=== PATIENT | male | born 1945 | race Caucasian/White ===

== ENCOUNTER → 2017-08-08 | Day surgery (SDC) | payer MEDICARE, SELFPAY | END | disposition home or self-care (01) | PROVIDERS: Family Provider Family Medicine; PCP Family Medicine; Visit Provider Ophthalmology | DX: H25.12 Age-related nuclear cataract, left eye (principal); H21.81 Floppy iris syndrome; I25.2 Old myocardial infarction; I10 Essential (primary) hypertension; Z95.0 Presence of cardiac pacemaker | CPT/HCPCS: 66984; J2250; J3010 ==

== ENCOUNTER → 2017-10-10 07:15 | Outpatient (CLI) | payer MEDICARE, SELFPAY ==
[2017-10-10 09:41] LABS: Alanine Aminotransferase 32 IU/L (21-72); Albumin 3.9 g/dL (3.5-5.0); Albumin Globulin Ratio 1.3 (1.0-2.8); Alkaline Phosphatase 84 U/L (38-126); Aspartate Aminotransferase 30 IU/L (17-59); BUN Creatinine Ratio 18.7 (6-22); Bilirubin Total 0.7 mg/dL (0.2-1.3); Blood Urea Nitrogen 28 mg/dL (9-20); Calcium 9.4 mg/dL (8.4-10.2); Carbon Dioxide 25 mmol/L (22-32); Chloride 103 mmol/L (98-107); Globulin 2.9 g/dL (1.7-4.1); Glucose 98 mg/dL (80-110); HEMOLYSIS < 15 (0-50); Magnesium 2.2 mg/dL (1.6-2.3); Potassium 4.3 mmol/L (3.4-5.1); Sodium 141 mmol/L (137-145); Total Protein 6.8 g/dL (6.3-8.2)
[2017-10-12 10:27] LABS: Lipoprofile NMR SEE SEPERATE REPORT
== END ==
PROVIDERS: Physician Assistant Medical; PCP Family Medicine; Visit Provider Specialist
DX: I47.2 Ventricular tachycardia (principal); E78.5 Hyperlipidemia, unspecified; I25.5 Ischemic cardiomyopathy
CPT/HCPCS: 36415; 80053; 83704; 83735

== ENCOUNTER 2018-06-28 04:30 | Emergency (ER) | payer MEDICARE, SELFPAY ==
[2018-06-28] VITALS (16 sets, daily range): BP systolic 78–118; BP diastolic 43–91; PULSE 60–92; RESP 16–33; O2SAT 88–97; BMI 37.3
--- NOTE | 2018-06-28 04:38 | DI.RAD.S_ITS ---
PROCEDURE: XR CHEST 1V INDICATIONS: chest pain, shortness of breath TECHNIQUE: One view of the chest was acquired. COMPARISON: [facility], CR, XR CHEST 2 VIEWS, 05/19/2018, 6:17. FINDINGS: Surgical changes and devices: An AICD is stable. Lungs and pleura: Small left-sided pleural fluid collection. Cephalization of the pulmonary vasculature. Leslie B-lines. Mediastinum: Mediastinal contours appear normal. Heart is enlarged. Bones and chest wall: No suspicious bony lesions. Overlying soft tissues appear unremarkable. IMPRESSION: 1. Cardiomegaly with CHF. Dictated by: Ketty Baldwin MD, PhD on 06/28/2018 at 8:47 Approved by: Ketty Baldwin MD, PhD on 06/28/2018 at 8:48
[2018-06-28] MEDS: SODIUM CHLORIDE 0.9% 1,000 ML 150 ML IV (04:40)
[2018-06-28] MEDS: ONDANSETRON 4 MG/2 ML INJ IV (04:40)
[2018-06-28] MEDS: ASPIRIN 81 MG TAB 324 MG PO (04:40)
--- NOTE | 2018-06-28 04:42 | ED.CHESTPAIN ---
HPI - Chest Pain General Chief Complaint: Chest Pain Stated Complaint: Chest pain, cold sweat Time Seen by Provider: 06/28/18 04:38 Source: patient and family Mode of arrival: ambulatory Limitations: no limitations History of Present Illness HPI narrative: 72-year-old male nonsmoker with history of myocardial infarction and a recent pacemaker replacement presents with significant retrosternal chest pressure, diaphoresis and nausea for the past 1 hr. He was resting and this woke him from sleep. He denies any shortness of breath and he is not dizzy nor weak or lightheaded. This reminds him of prior myocardial infarction. He is unsure when his last stress test was and states he has not had a heart catheterization in quite some time. He does have stents that were placed about 10 years ago. His primary computer animator is Dr. Ayala at [facility] and EP is Dr. aDniel. Patient has had increasing fatigue for the past week or so. Patient states his discomfort was a 5/10 at maximum and a 1/10 currently MD complaint: chest pain Onset (ago): minute(s) Duration: constant Onset: during rest Pain location: substernal Severity: severe Severity scale (1-10): 10 Quality: tightness, aching and heaviness Pain radiation: none Relieving factors: nothing Exacerbating factors: nothing Context: recent illness Associated symptoms: nausea, diaphoresis and dyspnea Related Data Home Medications Medication Instructions Recorded Confirmed ferrous sulfate 325 mg PO QAM #1 05/20/12 06/28/18 aspirin 81 mg PO QPM #0 07/09/12 06/28/18 rosuvastatin [Crestor] 40 mg PO QAM #0 07/09/12 06/28/18 carvedilol [Coreg] 25 mg PO BID #0 tab 01/22/13 06/28/18 ezetimibe [Zetia] 10 mg PO QAM #0 07/19/17 06/28/18 terazosin 10 mg PO BEDTIME #0 07/19/17 06/28/18 Tums 1 tab PO BID 06/28/18 06/28/18 amlodipine 5 mg PO QPM 06/28/18 06/28/18 folic acid 1 mg PO QPM 06/28/18 06/28/18 lisinopril 5 mg PO BID 06/28/18 06/28/18 psyllium husk [Metamucil] 0.52 g PO QPM 06/28/18 06/28/18 Previous Rx's Medication Instructions Recorded omeprazole 20 mg PO BID #180 cap 06/20/18 Allergies Allergy/AdvReac Type Severity Reaction Status Date / Time No Known Drug Allergies Allergy Verified 08/22/17 07:13 Review of Systems Constitutional Denies chills, Denies fever(s), Denies lethargy and Denies weakness Eyes Denies change in vision, Denies eye discharge, Denies irritation and Denies loss of vision ENT Ears, Nose, Mouth, and Throat: Denies change in voice, Denies neck pain and Denies sore throat Cardiovascular Reports chest pain, Reports diaphoresis, Denies irregular heart rhythm, Denies lightheadedness, Denies palpitations, Denies dyspnea, Denies dyspnea on exertion and Denies orthopnea Respiratory Denies cough, Denies dyspnea, Denies dyspnea on exertion and Denies wheezing Gastrointestinal Gastrointestinal: Denies abdominal pain, Denies change in bowel habits, Denies diarrhea, Reports nausea and Denies vomiting Genitourinary Denies hematuria, Denies flank pain, Denies urinary incontinence and Denies urinary urgency Musculoskeletal Denies neck pain Integumentary/Breasts Denies pruritus, Denies erythema, Denies rash and Denies wounds Neurologic Denies confusion, Denies loss of vision and Denies weakness Psychiatric Denies anxiety, Denies confusion, Denies depression, Denies homicidal ideation and Denies suicidal ideation Endocrine Denies palpitations Hematologic/Lymphatic Denies easy bruising Allergic/Immunologic Denies wheezing PFSH Medical History Nocturnal hypoxemia (Resolved) Snoring (Resolved) Obesity (Chronic) Obstructive sleep apnea syndrome (Chronic) Social History household members: spouse Smoking Status: Never smoker Social History household members: spouse Smoking Status: Never smoker Exam Narrative Exam Narrative: GENERAL: 72-year-old male in obvious distress, diaphoretic, clammy and pale. Morbidly obese HEAD: Atraumatic. Normocephalic. No temporal or scalp tenderness. EYES: Pupils equal round and reactive. Extraocular motions intact. No scleral icterus. No injection or drainage. ENT: Nose without bleeding, purulent drainage or septal hematoma. Throat without erythema, tonsillar hypertrophy or exudate. Uvula midline. Airway patent. NECK: Trachea midline. No JVD or lymphadenopathy. Supple, nontender, no meningeal signs. CARDIOVASCULAR: Regular rate and rhythm without murmurs, gallops, or rubs. RESPIRATORY: Clear to auscultation. Breath sounds equal bilaterally. No wheezes, rales, or rhonchi. GASTROINTESTINAL: Abdomen soft, obese abdomen. No hepato-splenomegaly, or palpable masses. No guarding. EXTREMITIES: No clubbing, cyanosis, or edema. No joint tenderness, effusion, or edema noted. BACK: Nontender without deformity or crepitance. No flank tenderness. NEURO: AOx3. SKIN: No rash or erythema. Diaphoretic Initial Vital Signs Initial Vital Signs: Vital Signs Pulse Rate 68 06/28/18 04:41 Respiratory Rate 18 06/28/18 04:41 Blood Pressure 94/57 L 06/28/18 04:41 Pulse Oximetry 93 06/28/18 04:41 Course Orders Ordered: Discontinued Medications Aspirin (Aspirin Chew) 324 mg PO NOW ONE Stop: 06/28/18 04:39 Last Admin: 06/28/18 04:40 Dose: 324 mg Al Hydrox/Mg Hydrox/Simethicone 20 ml/ Lidocaine HCl 15 ml 0 ml PO NOW ONE Stop: 06/28/18 06:51 Last Admin: 06/28/18 06:50 Dose: 35 ml Furosemide (Lasix) 20 mg IV NOW ONE Stop: 06/28/18 12:07 Last Admin: 06/28/18 12:11 Dose: 20 mg Sodium Chloride (Normal Saline 0.9%) 1,000 mls @ 150 mls/hr IV CONT OSVALDO Last Infusion: 06/28/18 06:35 Dose: 0 mls/hr Admin: 06/28/18 04:40 Dose: 150 mls/hr Sodium Chloride (Normal Saline 0.9%) 500 mls @ 1,000 mls/hr IV BOLUS ONE Stop: 06/28/18 09:16 Last Infusion: 06/28/18 09:31 Dose: 0 mls/hr Admin: 06/28/18 08:20 Dose: 1,000 mls/hr Ondansetron HCl (Zofran) 4 mg IV NOW ONE Stop: 06/28/18 04:39 Last Admin: 06/28/18 04:40 Dose: 4 mg Pantoprazole Sodium (Protonix) 40 mg IV NOW ONE Stop: 06/28/18 10:57 Last Admin: 06/28/18 10:57 Dose: 40 mg Reevaluation(s) Reevaluation #1: Patient continues to be chest pain-free yet is persistently hypotensive despite 2 L of fluid. He actually feels remarkably well and is no longer dizzy, weak or lightheaded. He is no longer diaphoretic and denies any shortness of breath or ongoing chest pain. First 2 troponins were negative and it was the 3rd that became positive. Dr. Stratton ([employer]) will be happy to consult but recommends admission to hospitalist. I've spoken with hospitalist at [facility] whom suggests ICU I've spoken with [facility] whom is happy to accept patient Consultations Consultation #1: call to Dr. Davis ([facility]) whom quickly recommends transfer to [facility] given patient story. However, they have no beds call to [place]. No beds Vital Signs - 8 hr 06/28/18 04:41 06/28/18 05:00 06/28/18 05:30 Pulse Rate 68 60 67 Respiratory Rate 18 33 H 19 Blood Pressure 94/57 L Blood Pressure [Left Arm] 78/54 L 88/49 L Pulse Oximetry 93 90 L 90 L 06/28/18 06:00 06/28/18 06:30 06/28/18 07:00 Pulse Rate 64 66 63 Respiratory Rate 19 19 20 Blood Pressure Blood Pressure [Left Arm] 81/47 L 83/58 L 85/55 L Pulse Oximetry 88 L 95 94 06/28/18 07:25 06/28/18 08:40 Pulse Rate 66 69 Respiratory Rate 16 18 Blood Pressure Blood Pressure [Left Arm] 85/55 L 86/53 L Pulse Oximetry 96 92 MDM - Chest Pain Medical Records Data Attestation: I reviewed the patient's medical records. Lab Data Attestation: I reviewed the patient's lab results. Result diagrams: 06/28/18 04:30 06/28/18 04:30 Lab Results 06/28/18 06/28/18 06/28/18 Range/Units 04:30 04:30 04:30 WBC 4.9 (4.5-11.0) X10^3/uL RBC 4.18 L (4.5-5.9) X10^6/uL Hgb 12.0 L (13.5-17.5) g/dL Hct 35.7 L (41-53) % MCV 85.3 (80-100) fL MCH 28.7 (26-34) PG MCHC 33.6 (30-36) % RDW 15.2 H (11.6-14.8) % Plt Count 147 L (150-400) X10^3/uL Neut % (Auto) 71.1 (50-75) % Lymph % (Auto) 13.8 L (25-40) % [place] % (Auto) 10.8 (3-14) % Eos % (Auto) 3.8 (2-4) % Baso % (Auto) 0.5 (0-2) % Neut # (Auto) 3500 (7061-5352) /uL Lymph # (Auto) 700 L (6798-7918) /uL [place] # (Auto) 500 (0-900) /uL Eos # (Auto) 200 (0-450) /uL Baso # (Auto) 0 (0-100) /uL PT 13.9 H (10.1-12.7) SECONDS INR 1.2 (0.9-1.3) APTT 27 (26.4-36.2) SECONDS Sodium 142 (137-145) mmol/L Potassium 3.8 (3.4-5.1) mmol/L Chloride 109 H (98-107) mmol/L Carbon Dioxide 23 (22-32) mmol/L BUN 27 H (9-20) mg/dL Creatinine 1.60 H (0.66-1.25) mg/dL Estimated GFR 42.7 L (>60) mL/min BUN/Creatinine Ratio 16.9 (6-22) Glucose 134 H (80-110) mg/dL Lactate (0.7-2.1) mmol/L Calcium 9.0 (8.4-10.2) mg/dL Total Bilirubin 0.6 (0.2-1.3) mg/dL AST 24 (17-59) IU/L ALT 32 (21-72) IU/L Alkaline Phosphatase 76 (38-126) U/L Total Creatine Kinase 145 (55-170) U/L CK-MB (CK-2) 1.83 (<2.37) ng/mL CK-MB (CK-2) Rel Index 1.3 L (1.5-5.0) % Troponin I 0.016 (0.01-0.034) ng/mL B-Natriuretic Peptide 273 H (<100) Total Protein 6.7 (6.3-8.2) g/dL Albumin 3.8 (3.5-5.0) g/dL Globulin 2.9 (1.7-4.1) g/dL Albumin/Globulin Ratio 1.3 (1.0-2.8) Lipase 74 (23-300) U/L Procalcitonin (<0.5) ng/mL Blood Type Antibody Screen 06/28/18 06/28/18 06/28/18 Range/Units 06:50 07:18 08:18 WBC (4.5-11.0) X10^3/uL RBC (4.5-5.9) X10^6/uL Hgb (13.5-17.5) g/dL Hct (41-53) % MCV (80-100) fL MCH (26-34) PG MCHC (30-36) % RDW (11.6-14.8) % Plt Count (150-400) X10^3/uL Neut % (Auto) (50-75) % Lymph % (Auto) (25-40) % [place] % (Auto) (3-14) % Eos % (Auto) (2-4) % Baso % (Auto) (0-2) % Neut # (Auto) (3470-2102) /uL Lymph # (Auto) (3070-5710) /uL [place] # (Auto) (0-900) /uL Eos # (Auto) (0-450) /uL Baso # (Auto) (0-100) /uL PT (10.1-12.7) SECONDS INR (0.9-1.3) APTT (26.4-36.2) SECONDS Sodium (137-145) mmol/L Potassium (3.4-5.1) mmol/L Chloride (98-107) mmol/L Carbon Dioxide (22-32) mmol/L BUN (9-20) mg/dL Creatinine (0.66-1.25) mg/dL Estimated GFR (>60) mL/min BUN/Creatinine Ratio (6-22) Glucose (80-110) mg/dL Lactate 0.8 (0.7-2.1) mmol/L Calcium (8.4-10.2) mg/dL Total Bilirubin (0.2-1.3) mg/dL AST (17-59) IU/L ALT (21-72) IU/L Alkaline Phosphatase (38-126) U/L Total Creatine Kinase (55-170) U/L CK-MB (CK-2) (<2.37) ng/mL CK-MB (CK-2) Rel Index (1.5-5.0) % Troponin I 0.021 0.309 H* (0.01-0.034) ng/mL B-Natriuretic Peptide (<100) Total Protein (6.3-8.2) g/dL Albumin (3.5-5.0) g/dL Globulin (1.7-4.1) g/dL Albumin/Globulin Ratio (1.0-2.8) Lipase (23-300) U/L Procalcitonin (<0.5) ng/mL Blood Type Antibody Screen 06/28/18 06/28/18 Range/Units 08:18 08:30 WBC (4.5-11.0) X10^3/uL RBC (4.5-5.9) X10^6/uL Hgb (13.5-17.5) g/dL Hct (41-53) % MCV (80-100) fL MCH (26-34) PG MCHC (30-36) % RDW (11.6-14.8) % Plt Count (150-400) X10^3/uL Neut % (Auto) (50-75) % Lymph % (Auto) (25-40) % [place] % (Auto) (3-14) % Eos % (Auto) (2-4) % Baso % (Auto) (0-2) % Neut # (Auto) (9972-9860) /uL Lymph # (Auto) (5616-4604) /uL [place] # (Auto) (0-900) /uL Eos # (Auto) (0-450) /uL Baso # (Auto) (0-100) /uL PT (10.1-12.7) SECONDS INR (0.9-1.3) APTT (26.4-36.2) SECONDS Sodium (137-145) mmol/L Potassium (3.4-5.1) mmol/L Chloride (98-107) mmol/L Carbon Dioxide (22-32) mmol/L BUN (9-20) mg/dL Creatinine (0.66-1.25) mg/dL Estimated GFR (>60) mL/min BUN/Creatinine Ratio (6-22) Glucose (80-110) mg/dL Lactate (0.7-2.1) mmol/L Calcium (8.4-10.2) mg/dL Total Bilirubin (0.2-1.3) mg/dL AST (17-59) IU/L ALT (21-72) IU/L Alkaline Phosphatase (38-126) U/L Total Creatine Kinase (55-170) U/L CK-MB (CK-2) (<2.37) ng/mL CK-MB (CK-2) Rel Index (1.5-5.0) % Troponin I (0.01-0.034) ng/mL B-Natriuretic Peptide (<100) Total Protein (6.3-8.2) g/dL Albumin (3.5-5.0) g/dL Globulin (1.7-4.1) g/dL Albumin/Globulin Ratio (1.0-2.8) Lipase (23-300) U/L Procalcitonin < 0.05 (<0.5) ng/mL Blood Type O Positive Antibody Screen Negative ECG Data Attestation: I personally reviewed and interpreted this ECG as follows: Prior ECG tracings: not available for review Interpretation: paced rhythm. Sgarbossa's criteria considered, but no criteria met MDM Narrative Medical decision making narrative: intial presentation very concerning for cardiac event with crushing chest pain, diaphoresis, nausea. EKGs paced, but none of Sgarbossa's criteria present to detect AL in paced rhythm. First two tropnonin normal. 3rd becomes positive. Patient has no infectious complaints. Patient has no bleeding complaints. CTA rules out PE, dissection, pericardial effusion. Most likely etiology of symptoms, persistent hypotension, remains of cardiac etiology. Critical Care Time Critical Care Time: Yes Total Critical Care Time: 60 Attestation: The high probability of a clinically significant, sudden or life threatening deterioration of the [cardiovascular] system(s) required my full and direct attention, intervention and personal management. The aggregate critical care time was [60] minutes. This time is in addition to time spent performing reported procedures but includes the following: [x] Data Review and interpretation [x] Patient assessment and monitoring of vital signs [x] Documentation [x] Medication orders and management Discharge Plan Departure Patient Disposition: [facility] Clinical Impression: ACS (acute coronary syndrome), Elevated troponin, Acute hypotension Discharge Date/Time: 06/28/18 12:16 Interventions: ED Discharge Assessment Last Done: 06/28/18 11:06 Prescriptions: No Action ferrous sulfate 325 mg (65 mg iron) Tablet 325 mg PO QAM Qty: 1 RF: 0 rosuvastatin [Crestor] 40 MG tablet 40 mg PO QAM Qty: 0 RF: 0 aspirin 81 MG tablet,delayed release (DR/EC) 81 mg PO QPM Qty: 0 RF: 0 carvedilol [Coreg] 25 MG tablet 25 mg PO BID Qty: 0 RF: 0 terazosin 10 MG capsule 10 mg PO BEDTIME Qty: 0 RF: 0 ezetimibe [Zetia] 10 MG tablet 10 mg PO QAM Qty: 0 RF: 0 omeprazole 20 mg capsule,delayed release(DR/EC) 20 mg PO BID Qty: 180 RF: 3 amlodipine 5 mg Tablet 5 mg PO QPM RF: 0 lisinopril 5 mg Tablet 5 mg PO BID RF: 0 psyllium husk [Metamucil] 0.52 gram Capsule 0.52 g PO QPM RF: 0 Tums 1 tab PO BID RF: 0 folic acid 1 mg tablet 1 mg PO QPM RF: 0 Referrals: Saul Beaver MD [Primary Care Provider] -
--- NOTE | 2018-06-28 04:47 | ED_ITS ---
HPI - Chest Pain General Chief Complaint: Chest Pain Stated Complaint: Chest pain, cold sweat Time Seen by Provider: 06/28/18 04:38 Source: patient and family Mode of arrival: ambulatory Limitations: no limitations History of Present Illness HPI narrative: 72-year-old male nonsmoker with history of myocardial infarction and a recent pacemaker replacement presents with significant retrosternal chest pressure, diaphoresis and nausea for the past 1 hr. He was resting and this woke him from sleep. He denies any shortness of breath and he is not dizzy nor weak or lightheaded. This reminds him of prior myocardial infarction. He is unsure when his last stress test was and states he has not had a heart catheteri zation in quite some time. He does have stents that were placed about 10 years ago. His primary slumber room attendant is Dr. Ayala at [facility] and EP is Dr. Daniel. Patient has had increasing fatigue for the past week or so. Patient states his discomfort was a 5/10 at maximum and a 1/10 currently MD complaint: chest pain Onset (ago): minute(s) Duration: constant Onset: during rest Pain location: substernal Severity: severe Severity scale (1-10): 10 Quality: tightness, aching and heaviness Pain radiation: none Relieving factors: nothing Exacerbating factors: nothing Context: recent illness Associated symptoms: nausea, diaphoresis and dyspnea Related Data Home Medications Medication Instructions Recorded Confirmed ferrous sulfate 325 mg PO QAM #1 05/20/12 06/28/18 aspirin 81 mg PO QPM #0 07/09/12 06/28/18 rosuvastatin [Crestor] 40 mg PO QAM #0 07/09/12 06/28/18 carvedilol [Coreg] 25 mg PO BID #0 tab 01/22/13 06/28/18 ezetimibe [Zetia] 10 mg PO QAM #0 07/19/17 06/28/18 terazosin 10 mg PO BEDTIME #0 07/19/17 06/28/18 Tums 1 tab PO BID 06/28/18 06/28/18 amlodipine 5 mg PO QPM 06/28/18 06/28/18 folic acid 1 mg PO QPM 06/28/18 06/28/18 lisinopril 5 mg PO BID 06/28/18 06/28/18 psyllium husk [Metamucil] 0.52 g PO QPM 06/28/18 06/28/18 Previous Rx's Medication Instructions Recorded omeprazole 20 mg PO BID #180 cap 06/20/18 Allergies Allergy/AdvReac Type Severity Reaction Status Date / Time No Known Drug Allergies Allergy Verified 08/22/17 07:13 Review of Systems Constitutional Denies chills, Denies fever(s), Denies lethargy and Denies weakness Eyes Denies change in vision, Denies eye discharge, Denies irritation and Denies loss of vision ENT Ears, Nose, Mouth, and Throat: Denies change in voice, Denies neck pain and Denies sore throat Cardiovascular Reports chest pain, Reports diaphoresis, Denies irregular heart rhythm, Denies lightheadedness, Denies palpitations, Denies dyspnea, Denies dyspnea on exertion and Denies orthopnea Respiratory Denies cough, Denies dyspnea, Denies dyspnea on exertion and Denies wheezing Gastrointestinal Gastrointestinal: Denies abdominal pain, Denies change in bowel habits, Denies diarrhea, Reports nausea and Denies vomiting Genitourinary Denies hematuria, Denies flank pain, Denies urinary incontinence and Denies urinary urgency Musculoskeletal Denies neck pain Integumentary/Breasts Denies pruritus, Denies erythema, Denies rash and Denies wounds Neurologic Denies confusion, Denies loss of vision and Denies weakness Psychiatric Denies anxiety, Denies confusion, Denies depression, Denies homicidal ideation and Denies suicidal ideation Endocrine Denies palpitations Hematologic/Lymphatic Denies easy bruising Allergic/Immunologic Denies wheezing [facility] Medical History Nocturnal hypoxemia (Resolved) Snoring (Resolved) Obesity (Chronic) Obstructive sleep apnea syndrome (Chronic) Social History household members: spouse Smoking Status: Never smoker Social History household members: spouse Smoking Status: Never smoker Exam Narrative Exam Narrative: GENERAL: 72-year-old male in obvious distress, diaphoretic, clammy and pale. Morbidly obese HEAD: Atraumatic. Normocephalic. No temporal or scalp tenderness. EYES: Pupils equal round and reactive. Extraocular motions intact. No scleral icterus. No injection or drainage. ENT: Nose without bleeding, purulent drainage or septal hematoma. Throat without erythema, tonsillar hypertrophy or exudate. Uvula midline. Airway patent. NECK: Trachea midline. No JVD or lymphadenopathy. Supple, nontender, no meningea l signs. CARDIOVASCULAR: Regular rate and rhythm without murmurs, gallops, or rubs. RESPIRATORY: Clear to auscultation. Breath sounds equal bilaterally. No wheezes, rales, or rhonchi. GASTROINTESTINAL: Abdomen soft, obese abdomen. No hepato-splenomegaly, or palpable masses. No guarding. EXTREMITIES: No clubbing, cyanosis, or edema. No joint tenderness, effusion, or edema noted. BACK: Nontender without deformity or crepitance. No flank tenderness. NEURO: AOx3. SKIN: No rash or erythema. Diaphoretic Initial Vital Signs Initial Vital Signs: Vital Signs Pulse Rate 68 06/28/18 04:41 Respiratory Rate 18 06/28/18 04:41 Blood Pressure 94/57 L 06/28/18 04:41 Pulse Oximetry 93 06/28/18 04:41 Course Orders Ordered: Discontinued Medications Aspirin (Aspirin Chew) 324 mg PO NOW ONE Stop: 06/28/18 04:39 Last Admin: 06/28/18 04:40 Dose: 324 mg Al Hydrox/Mg Hydrox/Simethicone 20 ml/ Lidocaine HCl 15 ml 0 ml PO NOW ONE Stop: 06/28/18 06:51 Last Admin: 06/28/18 06:50 Dose: 35 ml Furosemide (Lasix) 20 mg IV NOW ONE Stop: 06/28/18 12:07 Last Admin: 06/28/18 12:11 Dose: 20 mg Sodium Chloride (Normal Saline 0.9%) 1,000 mls @ 150 mls/hr IV CONT OSVALDO Last Infusion: 06/28/18 06:35 Dose: 0 mls/hr Admin: 06/28/18 04:40 Dose: 150 mls/hr Sodium Chloride (Normal Saline 0.9%) 500 mls @ 1,000 mls/hr IV BOLUS ONE Stop: 06/28/18 09:16 Last Infusion: 06/28/18 09:31 Dose: 0 mls/hr Admin: 06/28/18 08:20 Dose: 1,000 mls/hr Ondansetron HCl (Zofran) 4 mg IV NOW ONE Stop: 06/28/18 04:39 Last Admin: 06/28/18 04:40 Dose: 4 mg Pantoprazole Sodium (Protonix) 40 mg IV NOW ONE Stop: 06/28/18 10:57 Last Admin: 06/28/18 10:57 Dose: 40 mg Reevaluation(s) Reevaluation #1: Patient continues to be chest pain-free yet is persistently hypotensive despite 2 L of fluid. He actually feels remarkably well and is no longer dizzy, weak or lightheaded. He is no longer diaphoretic and denies any shortness of breath or ongoing chest pain. First 2 troponins were negative and it was the 3rd that became positive. Dr. Stratton ([facility]) will be happy to consult but recommends admission to hospitalist. I've spoken with hospitalist at [facility] whom suggests ICU I've spoken with mobility manager whom is happy to accept patient Consultations Consultation #1: call to Dr. Davis ([facility]) whom quickly recommends transfer to [facility] given patient story. However, they have no beds call to [place]. No beds Vital Signs - 8 hr 06/28/18 04:41 06/28/18 05:00 06/28/18 05:30 Pulse Rate 68 60 67 Respiratory Rate 18 33 H 19 Blood Pressure 94/57 L Blood Pressure [Left Arm] 78/54 L 88/49 L Pulse Oximetry 93 90 L 90 L 06/28/18 06:00 06/28/18 06:30 06/28/18 07:00 Pulse Rate 64 66 63 Respiratory Rate 19 19 20 Blood Pressure Blood Pressure [Left Arm] 81/47 L 83/58 L 85/55 L Pulse Oximetry 88 L 95 94 06/28/18 07:25 06/28/18 08:40 Pulse Rate 66 69 Respiratory Rate 16 18 Blood Pressure Blood Pressure [Left Arm] 85/55 L 86/53 L Pulse Oximetry 96 92 MDM - Chest Pain Medical Records Data Attestation: I reviewed the patient's medical records. Lab Data Attestation: I reviewed the patient's lab results. Result diagrams: 06/28/18 04:30 06/28/18 04:30 Lab Results 06/28/18 06/28/18 06/28/18 Range/Units 04:30 04:30 04:30 WBC 4.9 (4.5-11.0) X10^3/uL RBC 4.18 L (4.5-5.9) X10^6/uL Hgb 12.0 L (13.5-17.5) g/dL Hct 35.7 L (41-53) % MCV 85.3 (80-100) fL MCH 28.7 (26-34) PG MCHC 33.6 (30-36) % RDW 15.2 H (11.6-14.8) % Plt Count 147 L (150-400) X10^3/uL Neut % (Auto) 71.1 (50-75) % Lymph % (Auto) 13.8 L (25-40) % Bartholomew % (Auto) 10.8 (3-14) % Eos % (Auto) 3.8 (2-4) % Baso % (Auto) 0.5 (0-2) % Neut # (Auto) 3500 (3654-1657) /uL Lymph # (Auto) 700 L (0483-2342) /uL Bartholomew # (Auto) 500 (0-900) /uL Eos # (Auto) 200 (0-450) /uL Baso # (Auto) 0 (0-100) /uL PT 13.9 H (10.1-12.7) SECONDS INR 1.2 (0.9-1.3) APTT 27 (26.4-36.2) SECONDS Sodium 142 (137-145) mmol/L Potassium 3.8 (3.4-5.1) mmol/L Chloride 109 H (98-107) mmol/L Carbon Dioxide 23 (22-32) mmol/L BUN 27 H (9-20) mg/dL Creatinine 1.60 H (0.66-1.25) mg/dL Estimated GFR 42.7 L (>60) mL/min BUN/Creatinine Ratio 16.9 (6-22) Glucose 134 H (80-110) mg/dL Lactate (0.7-2.1) mmol/L Calcium 9.0 (8.4-10.2) mg/dL Total Bilirubin 0.6 (0.2-1.3) mg/dL AST 24 (17-59) IU/L ALT 32 (21-72) IU/L Alkaline Phosphatase 76 (38-126) U/L Total Creatine Kinase 145 (55-170) U/L CK-MB (CK-2) 1.83 (<2.37) ng/mL CK-MB (CK-2) Rel Index 1.3 L (1.5-5.0) % Troponin I 0.016 (0.01-0.034) ng/mL B-Natriuretic Peptide 273 H (<100) Total Protein 6.7 (6.3-8.2) g/dL Albumin 3.8 (3.5-5.0) g/dL Globulin 2.9 (1.7-4.1) g/dL Albumin/Globulin Ratio 1.3 (1.0-2.8) Lipase 74 (23-300) U/L Procalcitonin (<0.5) ng/mL Blood Type Antibody Screen 06/28/18 06/28/18 06/28/18 Range/Units 06:50 07:18 08:18 WBC (4.5-11.0) X10^3/uL RBC (4.5-5.9) X10^6/uL Hgb (13.5-17.5) g/dL Hct (41-53) % MCV (80-100) fL MCH (26-34) PG MCHC (30-36) % RDW (11.6-14.8) % Plt Count (150-400) X10^3/uL Neut % (Auto) (50-75) % Lymph % (Auto) (25-40) % Bartholomew % (Auto) (3-14) % Eos % (Auto) (2-4) % Baso % (Auto) (0-2) % Neut # (Auto) (3375-9885) /uL Lymph # (Auto) (5748-8835) /uL Bartholomew # (Auto) (0-900) /uL Eos # (Auto) (0-450) /uL Baso # (Auto) (0-100) /uL PT (10.1-12.7) SECONDS INR (0.9-1.3) APTT (26.4-36.2) SECONDS Sodium (137-145) mmol/L Potassium (3.4-5.1) mmol/L Chloride (98-107) mmol/L Carbon Dioxide (22-32) mmol/L BUN (9-20) mg/dL Creatinine (0.66-1.25) mg/dL Estimated GFR (>60) mL/min BUN/Creatinine Ratio (6-22) Glucose (80-110) mg/dL Lactate 0.8 (0.7-2.1) mmol/L Calcium (8.4-10.2) mg/dL Total Bilirubin (0.2-1.3) mg/dL AST (17-59) IU/L ALT (21-72) IU/L Alkaline Phosphatase (38-126) U/L Total Creatine Kinase (55-170) U/L CK-MB (CK-2) (<2.37) ng/mL CK-MB (CK-2) Rel Index (1.5-5.0) % Troponin I 0.021 0.309 H* (0.01-0.034) ng/mL B-Natriuretic Peptide (<100) Total Protein (6.3-8.2) g/dL Albumin (3.5-5.0) g/dL Globulin (1.7-4.1) g/dL Albumin/Globulin Ratio (1.0-2.8) Lipase (23-300) U/L Procalcitonin (<0.5) ng/mL Blood Type Antibody Screen 06/28/18 06/28/18 Range/Units 08:18 08:30 WBC (4.5-11.0) X10^3/uL RBC (4.5-5.9) X10^6/uL Hgb (13.5-17.5) g/dL Hct (41-53) % MCV (80-100) fL MCH (26-34) PG MCHC (30-36) % RDW (11.6-14.8) % Plt Count (150-400) X10^3/uL Neut % (Auto) (50-75) % Lymph % (Auto) (25-40) % Bartholomew % (Auto) (3-14) % Eos % (Auto) (2-4) % Baso % (Auto) (0-2) % Neut # (Auto) (0591-8946) /uL Lymph # (Auto) (3756-5767) /uL Bartholomew # (Auto) (0-900) /uL Eos # (Auto) (0-450) /uL Baso # (Auto) (0-100) /uL PT (10.1-12.7) SECONDS INR (0.9-1.3) APTT (26.4-36.2) SECONDS Sodium (137-145) mmol/L Potassium (3.4-5.1) mmol/L Chloride (98-107) mmol/L Carbon Dioxide (22-32) mmol/L BUN (9-20) mg/dL Creatinine (0.66-1.25) mg/dL Estimated GFR (>60) mL/min BUN/Creatinine Ratio (6-22) Glucose (80-110) mg/dL Lactate (0.7-2.1) mmol/L Calcium (8.4-10.2) mg/dL Total Bilirubin (0.2-1.3) mg/dL AST (17-59) IU/L ALT (21-72) IU/L Alkaline Phosphatase (38-126) U/L Total Creatine Kinase (55-170) U/L CK-MB (CK-2) (<2.37) ng/mL CK-MB (CK-2) Rel Index (1.5-5.0) % Troponin I (0.01-0.034) ng/mL B-Natriuretic Peptide (<100) Total Protein (6.3-8.2) g/dL Albumin (3.5-5.0) g/dL Globulin (1.7-4.1) g/dL Albumin/Globulin Ratio (1.0-2.8) Lipase (23-300) U/L Procalcitonin < 0.05 (<0.5) ng/mL Blood Type O Positive Antibody Screen Negative ECG Data Attestation: I personally reviewed and interpreted this ECG as follows: Prior ECG tracings: not available for review Interpretation: paced rhythm. Sgarbossa's criteria considered, but no criteria met MDM Narrative Medical decision making narrative: intial presentation very concerning for cardiac event with crushing chest pain, diaphoresis, nausea. EKGs paced, but none of Sgarbossa's criteria present to detect [place] in paced rhythm. First two tropnonin normal. 3rd becomes positive. Patient has no infectious complaints. Patient has no bleeding complaints. CTA rules out PE, dissection, pericardial effusion. Most likely etiology of symptoms, persistent hypotension, remains of cardiac etiology. Critical Care Time Critical Care Time: Yes Total Critical Care Time: 60 Attestation: The high probability of a clinically significant, sudden or life threatening deterioration of the [cardiovascular] system(s) required my full and direct attention, intervention and personal management. The aggregate critical care time was [60] minutes. This time is in addition to time spent performing rep orted procedures but includes the following: [x] Data Review and interpretation [x] Patient assessment and monitoring of vital signs [x] Documentation [x] Medication orders and management Discharge Plan Departure Patient Disposition: [facility] Clinical Impression: ACS (acute coronary syndrome), Elevated troponin, Acute hypotension Discharge Date/Time: 06/28/18 12:16 Interventions: ED Discharge Assessment Last Done: 06/28/18 11:06 Prescriptions: No Action ferrous sulfate 325 mg (65 mg iron) Tablet 325 mg PO QAM Qty: 1 RF: 0 rosuvastatin [Crestor] 40 MG tablet 40 mg PO QAM Qty: 0 RF: 0 aspirin 81 MG tablet,delayed release (DR/EC) 81 mg PO QPM Qty: 0 RF: 0 carvedilol [Coreg] 25 MG tablet 25 mg PO BID Qty: 0 RF: 0 terazosin 10 MG capsule 10 mg PO BEDTIME Qty: 0 RF: 0 ezetimibe [Zetia] 10 MG tablet 10 mg PO QAM Qty: 0 RF: 0 omeprazole 20 mg capsule,delayed release(DR/EC) 20 mg PO BID Qty: 180 RF: 3 amlodipine 5 mg Tablet 5 mg PO QPM RF: 0 lisinopril 5 mg Tablet 5 mg PO BID RF: 0 psyllium husk [Metamucil] 0.52 gram Capsule 0.52 g PO QPM RF: 0 Tums 1 tab PO BID RF: 0 folic acid 1 mg tablet 1 mg PO QPM RF: 0 Referrals: Saul Beaver MD [Primary Care Provider] -
[2018-06-28 04:49] LABS: Add Manual Diff / Slide Review NO; Basophils Absolute Auto 0 /uL (0-100); Basophils Percent Auto 0.5 % (0-2); Eosinophils Absolute Auto 200 /uL (0-450); Eosinophils Percent Auto 3.8 % (2-4); Hematocrit 35.7 % (41-53); Lymphocytes Absolute Auto 700 /uL (1100-4500); Lymphocytes Percent Auto 13.8 % (25-40); Mean Corpuscular HGB Conc 33.6 % (30-36); Mean Corpuscular Hemoglobin 28.7 PG (26-34); Mean Corpuscular Volume 85.3 fL (80-100); Monocytes Absolute Auto 500 /uL (0-900); Monocytes Percent Auto 10.8 % (3-14); Neutrophils Absolute Auto 3500 /uL (1500-7000); Neutrophils Percent Auto 71.1 % (50-75); Platelet Count 147 X10^3/uL (150-400); Red Blood Cell Count 4.18 X10^6/uL (4.5-5.9); Red Cell Distribution Width 15.2 % (11.6-14.8); White Blood Cell Count 4.9 X10^3/uL (4.5-11.0)
[2018-06-28 04:54] LABS: INR 1.2 (0.9-1.3); Prothrombin Time 13.9 SECONDS (10.1-12.7)
[2018-06-28 04:56] LABS: PTT Partial Thromboplastin Tim 27 SECONDS (26.4-36.2)
[2018-06-28 04:58] LABS: Alanine Aminotransferase 32 IU/L (21-72); Albumin 3.8 g/dL (3.5-5.0); Albumin Globulin Ratio 1.3 (1.0-2.8); Alkaline Phosphatase 76 U/L (38-126); Aspartate Aminotransferase 24 IU/L (17-59); BUN Creatinine Ratio 16.9 (6-22); Bilirubin Total 0.6 mg/dL (0.2-1.3); Blood Urea Nitrogen 27 mg/dL (9-20); Carbon Dioxide 23 mmol/L (22-32); Chloride 109 mmol/L (98-107); Creatine Kinase 145 U/L (55-170); Estimated Glomerular Filt Rate 42.7 mL/min (>60); Globulin 2.9 g/dL (1.7-4.1); Glucose 134 mg/dL (80-110); HEMOLYSIS < 15 (0-50); Lipase 74 U/L (23-300); Potassium 3.8 mmol/L (3.4-5.1); Sodium 142 mmol/L (137-145); Total Protein 6.7 g/dL (6.3-8.2)
[2018-06-28 05:08] LABS: B Type Natriuretic Peptide 273 (<100)
[2018-06-28 05:10] LABS: Troponin I 0.016 ng/mL (0.01-0.034)
[2018-06-28 05:14] LABS: CKMB % Relative Index 1.3 % (1.5-5.0); Creatine Kinase MB 1.83 ng/mL (<2.37)
--- NOTE | 2018-06-28 05:24 | DI.CT.S_ITS ---
PROCEDURE: CT ANGIO CHEST ABDOMEN PELVIS INDICATIONS: severe chest pain, Shortness of breath, hypoxia, hypotension TECHNIQUE: Precontrast 5 mm thick sections acquired from the lung apices to the iliac crests. After the administration of intravenous contrast, 2.5 mm thick sections again acquired from the lung apices to the iliac crests. Maximum intensity projection (MIP) oblique sagittal and coronal reformats were then acquired. For radiation dose reduction, the following was used: automated exposure control. COMPARISON: [facility], CT, IVP (ABD & PEL WWO CONTRAST), 10/06/2014, 8:31. [facility], CT, PE STUDY (CTA CHEST), 05/20/2012, 6:21. FINDINGS: Image quality: Excellent. AORTA: The thoracoabdominal aorta is normal in caliber, with no evidence of dissection, nor aneurysm. CHEST: Lungs and pleura: There is mild patchy bilateral lower lobe reticulonodular and interstitial opacity. No pleural effusions or pneumothorax. Central and peripheral airways are patent and normal in caliber. Mediastinum: Heart size is enlarged. There is calcification of the coronary vasculature.. No pericardial effusion. Right superior paratracheal adenopathy, measuring 20 mm short axis. Right mid paratracheal adenopathy measuring 17 mm short axis. Right hilar adenopathy measuring 21 mm short axis. Right infrahilar adenopathy measuring 20 mm short axis. Left hilar adenopathy measuring 17 mm short axis. 12 mm short axis AP window adenopathy. 21 mm short axis subcarinal adenopathy. Central pulmonary arteries are normal in size. Esophagus is normal in caliber. Small hiatal hernia. Bones and chest wall: Left chest wall pacer. No axillary adenopathy by size criteria. Thyroid gland is within normal limits. No suspicious bony lesions. No vertebral body compression fractures. ABDOMEN: Vasculature: Celiac trunk and mesenteric arteries are patent. Renal arteries are also patent. Solid organs: Liver is normal in size and enhancement. There is reflux of venous contrast into the hepatic venous vasculature. Gallbladder is within normal limits. Biliary system is non dilated. Pancreas enhances normally. Spleen is normal in size and enhancement. No adrenal nodules. Exophytic hyperdense cyst protrudes medially from the inferior pole left kidney measuring 21 mm without significant changes in Hounsfield units following intravenous contrast administration. Bilateral renal cysts are present. Both kidneys are otherwise normal in size and enhancement, without hydronephrosis. Peritoneum and bowel: No free fluid or air. Bowel loops are normal in caliber and wall thickness. Appendix is not seen. No evidence of appendicitis. Nodes and vessels: No retroperitoneal or mesenteric adenopathy by size criteria. Inferior vena cava is normal in morphology. Retroaortic left renal vein. Miscellaneous: 50 mm diameter fat-containing umbilical hernia. PELVIS: Genitourinary: The prostate is enlarged. There is a right lateral urinary bladder wall diverticulum measuring 46 mm. There is a left posterior superior urinary bladder wall diverticulum measuring 30 mm. Miscellaneous: No inguinal hernias or adenopathy. No ventral hernias. Bones: No suspicious bony lesions. No vertebral body compression fractures. IMPRESSION: 1. No evidence of aortic dissection, nor aneurysm. 2. Bilateral lower lobe densities, consistent with edema versus atypical pneumonia. 3. Right heart failure. 4. Coronary artery disease. 5. Mediastinal and hilar adenopathy. Differential considerations include reactive adenopathy versus malignancy. Followup chest CT in 1 month is recommended to assure resolution, and to exclude underlying malignancy. 6. Appendix not seen. No evidence of appendicitis. 7. Prostate enlargement; recommend correlation with PSA values. 8. Urinary bladder diverticula. 9. Fat containing umbilical hernia. 10. Concordant with preliminary interpretation. Dictated by: Adán Keller M.D. on 06/28/2018 at 8:14 Approved by: Adán Keller M.D. on 06/28/2018 at 8:23
--- NOTE | 2018-06-28 06:45 | PC.NURSE ---
Pt states chest pressure substernal 5/10 pain, diaphoresis and nausea awoke from sleep to onset at 0350. Reports hx of CT and states this feels like prior CT and has pacemaker paced in 60's and stents present. Food Safety Coordinator is Dr. Ayala at [facility]. He denies any shortness of breath or dizziness. His primary boom supervisor is Dr. Ayala at [facility] and EP is Dr. Daniel.
[2018-06-28] MEDS: MAG HYDROX/ALUMINUM/SIMETH SUS 20 ML, LIDOCAINE VISCOUS 2% 15 ML PO (06:50)
[2018-06-28 07:25] LABS: Troponin I 0.021 ng/mL (0.01-0.034)
--- NOTE | 2018-06-28 07:49 | DI.ECHO.S_ITS ---
[facility] +---------+ : : [address] : : : : [id number] : : : : Phone: [phone]+ Echocardiogram Report + + :Name: PATITO PUENTES Study Date: 06/28/2018 Height: 70 in : :[facility] Weight: 260 lb: : Gender: Male BSA: 2.3 m2 : :: 1945 Age: 72 yrs BP: 87/52 mmHg: :Reason For Study: CHEST PAIN, COLD SWEATS : : Performed By: Erinn Rodriguez : :Referring: GUILLERMO HERZOG : + + Interpretation Summary 1) Mildly enlarged left ventricle with severely reduced function (EF 20-25%). 2) Global hypokinesis with akinesis of the apical cap and the distal anterior wall. 3) Flattened septum is consistent with RV pressure/volume overload. 4) Right ventricle not well visualized but it appears moderately enlarged with mild to moderately reduced function. Pacemaker lead visualized in the right ventricle. 5 The aortic valve is mildly calcified with no hemodynamically significant stenosis or regurgitation. 6) The IVC is dilated (diameter is greater than 2.1 cm) and it collapses less than 50% with a sniff. This suggests a high right atrial pressure of 15 mm Hg. 7) Compared to the Echo done 09/24/2014, LVEF has dropped from 40-45% to 20-25% on this study. Procedure: A two-dimensional transthoracic echocardiogram with color flow and Doppler was performed. The study quality was technically difficult. Comparison is made with the echocardiogram of 09/24/2014. A contrast injection of Definity was performed to improve assessment of LV function. The heart rate ranged between 60-80 bpm during the study. Left Ventricle: The left ventricle is mildly dilated. There is normal left ventricular wall thickness. The ejection fraction is estimated to be 20-25%. Flattened septum is consistent with RV pressure/volume overload. Global hypokinesis with akinesis of the apical cap and the distal anterior wall. Right Ventricle: There is a pacemaker lead in the right ventricle. The right ventricle is moderately dilated. Right ventricular systolic function is mild to moderately reduced. Atria: The left atrial size is normal. The right atrium is moderately dilated. There is no Doppler evidence for an interatrial shunt. Mitral Valve: The mitral valve leaflets are mildly calcified. There is mild to moderate mitral regurgitation. Aortic Valve: The aortic valve is mildly calcified. There is trace aortic regurgitation. Tricuspid Valve: The tricuspid valve is not well visualized, but is grossly normal. Pulmonary artery pressures cannot be estimated because of the lack of a measurable TR jet velocity. Pulmonic Valve: The pulmonic valve is not well visualized. Great Vessels: The aortic root is mildly dilated. The ascending aorta is at the upper limits of normal in size. The aortic arch could not be visualized. The pulmonary is not well visualized. The IVC is dilated (diameter is greater than 2.1 cm) and it collapses less than 50% with a sniff. This suggests a high right atrial pressure of 15 mm Hg. Pericardium/ Pleura There is no pericardial effusion. There is no pleural effusion. MMode/2D Measurements & Calculations LVIDd: 6.5 cm LVOT diam: 2.5 cm LVIDs: 4.8 cm Ao root diam: 4.4 cm FS: 26.3 % asc Aorta Diam: 3.8 cm EPSS: 1.9 cm IVSd: 0.76 cm LVPWd: 0.72 cm LV briceno. diameter/BSA (cm/m^2): 2.8 LV sys. diameter/BSA (cm/m^2): 2.0 LA A2 area: 21.1 cm2 RA long axis: 6.4 cm LA A4 area: 25.3 cm2 RA area: 26.5 cm2 LA length (vol): 6.3 cm RA vol: 93.4 ml LA vol: 71.4 ml RA : 40.0 ml/m2 LA vol index: 30.6 ml/m2 IVC diam: 2.6 cm RVD1 (basal): 4.7 cm TAPSE: 1.6 cm Doppler Measurements & Calculations Ao V2 max: 149.2 cm/sec LVOT Max Ari: 61.4 cm/sec Ao V2 mean: 112.3 cm/sec LV V1 max P.5 mmHg Ao max P.9 mmHg LV V1 VTI: 12.8 cm Ao mean P.5 mmHg EHSAN(I,D): 1.8 cm2 Ao V2 VTI: 35.4 cm EHSAN(V,D): 2.1 cm2 sev ratio: 0.36 EHSAN indexed to BSA (cm^2/m^2): 0.78 MV E max ari: 106.6 cm/sec SV(LVOT): 64.3 ml MV A max ari: 26.6 cm/sec MV E/A: 4.0 MV dec time: 0.23 sec Reading Physician:11:19 AM
[2018-06-28] MEDS: SODIUM CHLORIDE 0.9% 500 ML 1000 ML IV (08:20)
--- NOTE | 2018-06-28 08:42 | PC.NURSE ---
spouse getting breakfast chele [phone]
[2018-06-28 08:43] LABS: Lactate (Lactic Acid) 0.8 mmol/L (0.7-2.1)
[2018-06-28 09:03] LABS: Procalcitonin < 0.05 ng/mL (<0.5)
[2018-06-28 09:19] LABS: Troponin I 0.309 ng/mL (0.01-0.034)
[2018-06-28] MEDS: PANTOPRAZOLE 40 MG VIAL IV (10:57)
--- NOTE | 2018-06-28 11:10 | PC.NURSE ---
report given Rehan santos at [facility], [phone]
--- NOTE | 2018-06-28 11:57 | PC.NURSE ---
noted, increase in work of breathing, sat 88% on lpm via nc. place on 100% nrb 93% with oxygen at 15lpm breath sound with right wheezing, left with crackles, dr cordero made aware. noted bus driver/monitor changes, with elevation.
[2018-06-28] MEDS: FUROSEMIDE 20 MG/2 ML VIAL IV (12:11)
--- NOTE | 2018-06-28 12:12 | PC.NURSE ---
no st elevation, give 20mg lasix Iv, monitor, and transfer to [facility]. pt remain alert and awake, rr 30, sat 93% on 100 nrb 15 lpm, skin warm dry pink.
== END 2018-06-28 12:16 | disposition short-term general hospital (02) ==
PROVIDERS: Emergency Provider Emergency Medicine; Family Provider Family Medicine; PCP Family Medicine
DX: I24.9 Acute ischemic heart disease, unspecified (principal); I95.9 Hypotension, unspecified; R74.8 Abnormal levels of other serum enzymes
CPT/HCPCS: 36415; 36591; 71045; 71275; 74174; 80053; 82550; 82553; 83605; 83690; 83880; 84145; 84484; 85025; 85610; 85730; 86850; 86900; 86901; 87040; 93005; 93041; 96361; 96374; 96375; 99285; C8929; C9113; J1940; J2405; Q9957; Q9967

== ENCOUNTER → 2018-07-05 08:53 | Outpatient (CLI) | payer MEDICARE, SELFPAY ==
[2018-07-05 09:59] LABS: Alanine Aminotransferase 43 IU/L (21-72); Albumin 4.1 g/dL (3.5-5.0); Albumin Globulin Ratio 1.3 (1.0-2.8); Alkaline Phosphatase 77 U/L (38-126); Aspartate Aminotransferase 44 IU/L (17-59); BUN Creatinine Ratio 22.6 (6-22); Bilirubin Total 0.9 mg/dL (0.2-1.3); Blood Urea Nitrogen 43 mg/dL (9-20); Carbon Dioxide 26 mmol/L (22-32); Chloride 104 mmol/L (98-107); Globulin 3.2 g/dL (1.7-4.1); Glucose 118 mg/dL (80-110); HEMOLYSIS < 15 (0-50); Magnesium 2.6 mg/dL (1.6-2.3); Potassium 4.1 mmol/L (3.4-5.1); Sodium 140 mmol/L (137-145); Total Protein 7.3 g/dL (6.3-8.2)
== END ==
PROVIDERS: PCP Family Medicine; Visit Provider Specialist
DX: I48.0 Paroxysmal atrial fibrillation (principal); E78.5 Hyperlipidemia, unspecified
CPT/HCPCS: 36415; 80053; 83735

== ENCOUNTER → 2018-07-30 07:15 | Outpatient (CLI) | payer MEDICARE, SELFPAY ==
[2018-07-30 08:05] LABS: Alanine Aminotransferase 33 IU/L (21-72); Albumin 4.1 g/dL (3.5-5.0); Albumin Globulin Ratio 1.3 (1.0-2.8); Alkaline Phosphatase 87 U/L (38-126); Aspartate Aminotransferase 33 IU/L (17-59); BUN Creatinine Ratio 20.6 (6-22); Bilirubin Total 0.8 mg/dL (0.2-1.3); Blood Urea Nitrogen 37 mg/dL (9-20); Carbon Dioxide 26 mmol/L (22-32); Chloride 102 mmol/L (98-107); Estimated Glomerular Filt Rate 37.3 mL/min (>60); Globulin 3.1 g/dL (1.7-4.1); Glucose 105 mg/dL (80-110); HEMOLYSIS < 15 (0-50); Magnesium 2.2 mg/dL (1.6-2.3); Sodium 138 mmol/L (137-145); Total Protein 7.2 g/dL (6.3-8.2)
== END ==
PROVIDERS: PCP Family Medicine; Visit Provider Specialist
DX: E78.5 Hyperlipidemia, unspecified (principal); I48.0 Paroxysmal atrial fibrillation
CPT/HCPCS: 36415; 80053; 83735

== ENCOUNTER → 2018-08-10 07:06 | Outpatient (CLI) | payer MEDICARE, SELFPAY ==
[2018-08-10 09:35] LABS: BUN Creatinine Ratio 16.1 (6-22); Blood Urea Nitrogen 29 mg/dL (9-20); Calcium 9.5 mg/dL (8.4-10.2); Carbon Dioxide 24 mmol/L (22-32); Chloride 103 mmol/L (98-107); Estimated Glomerular Filt Rate 37.3 mL/min (>60); Glucose 100 mg/dL (80-110); HEMOLYSIS < 15 (0-50); Magnesium 2.2 mg/dL (1.6-2.3); Potassium 4.1 mmol/L (3.4-5.1); Sodium 138 mmol/L (137-145)
[2018-08-10 09:52] LABS: Thyroid Stimulating Hormone 1.92 uIU/mL (0.47-4.68)
== END ==
PROVIDERS: PCP Family Medicine; Visit Provider Specialist
DX: N18.9 Chronic kidney disease, unspecified (principal); I48.0 Paroxysmal atrial fibrillation
CPT/HCPCS: 36415; 80048; 83735; 84443

== ENCOUNTER → 2018-08-23 11:41 | Outpatient (CLI) | payer MEDICARE, SELFPAY ==
--- NOTE | 2018-08-23 11:43 | DI.US.S_ITS ---
PROCEDURE: US SCROTUM INDICATIONS: PERINEAL MASS TECHNIQUE: Real-time scanning was performed of the scrotum and testicles, with image documentation. Color and pulse Doppler interrogation was performed of both testicles. COMPARISON: None. FINDINGS: Right: Testicle is normal in size at 4.2 x 2.0 x 3.5 cm, and homogenous in echotexture. Epididymis is normal in overall size and morphology. There is a right hydrocele. No varicoceles. Overlying scrotal skin is normal in thickness. Left: Testicle is normal in size at 3.3 x 1.8 x 3.2 cm, and homogeneous in echotexture. Epididymis is normal in overall size and morphology. There is a left hydrocele. No varicoceles. Overlying scrotal skin is normal in thickness. Doppler: Color and pulse Doppler demonstrate normal and symmetric arterial flow in both testicles. In the superficial perineal soft tissues, there is a prominent heterogeneous mixed solid and cystic appearing mass measuring 5.4 x 2.7 x 3.6 cm. There is no definite internal blood flow however surrounding/peripheral vascularity is noted. This is in the area of palpable abnormality IMPRESSION: Heterogeneous cystic and solid appearing mass with no definite internal blood flow. This could represent evolving hematoma (bland or infected). Recommend clinical management and followup to document resolution and exclude statistically less likely soft tissue mass. If there is persistent clinical uncertainty, a followup ultrasound in one month could be performed after treatment. Findings and recommendations were personally discussed by telephone with Dr. Beaver on 08/23/18. Dictated by: Moe Tanner M.D. on 08/23/2018 at 14:42 Approved by: Moe Tanner M.D. on 08/23/2018 at 14:45
== END ==
PROVIDERS: PCP Family Medicine; Visit Provider Family Medicine
DX: N50.9 Disorder of male genital organs, unspecified (principal); N43.2 Other hydrocele
CPT/HCPCS: 76870

== ENCOUNTER → 2018-09-17 06:56 | Outpatient (CLI) | payer MEDICARE, SELFPAY ==
[2018-09-17 09:36] LABS: Cholesterol 137 mg/dL (140-199); HDL Cholesterol 39 mg/dL (40-60); LDL Cholesterol Calculated 78 mg/dL (<100); Triglycerides 102 mg/dL (35-150)
[2018-09-17 10:07] LABS: Prostate Specific Antigen Scrn 10.7 ng/mL (0.1-4.0)
== END ==
PROVIDERS: PCP Family Medicine; Visit Provider Family Medicine
DX: N40.0 Benign prostatic hyperplasia without lower urinary tract symptoms (principal); Z12.5 Encounter for screening for malignant neoplasm of prostate; Z13.220 Encounter for screening for lipoid disorders
CPT/HCPCS: 36415; 80061; G0103

== ENCOUNTER → 2018-10-04 07:20 | Outpatient (CLI) | payer MEDICARE, SELFPAY ==
[2018-10-06 16:54] LABS: PSA Free % 17 % (calc) (> 25); PSA, Total 4.7 ng/mL (< 4.1)
== END ==
PROVIDERS: PCP Family Medicine; Visit Provider Family Medicine
DX: N40.0 Benign prostatic hyperplasia without lower urinary tract symptoms (principal)
CPT/HCPCS: 36415; 84153; 84154

== ENCOUNTER → 2018-10-23 10:13 | Outpatient (CLI) | payer MEDICARE, SELFPAY ==
[2018-10-23 11:41] LABS: BUN Creatinine Ratio 15.7 (6-22); Blood Urea Nitrogen 33 mg/dL (9-20); Calcium 9.5 mg/dL (8.4-10.2); Carbon Dioxide 25 mmol/L (22-32); Chloride 104 mmol/L (98-107); Estimated Glomerular Filt Rate 31.1 mL/min (>60); Glucose 162 mg/dL (80-110); HEMOLYSIS < 15 (0-50); Magnesium 2.2 mg/dL (1.6-2.3); Potassium 3.7 mmol/L (3.4-5.1); Sodium 139 mmol/L (137-145)
[2018-10-23 12:15] LABS: Thyroid Stimulating Hormone 1.64 uIU/mL (0.47-4.68)
== END ==
PROVIDERS: PCP Family Medicine; Visit Provider Specialist
DX: I48.0 Paroxysmal atrial fibrillation (principal)
CPT/HCPCS: 36415; 80048; 83735; 84443

== ENCOUNTER → 2018-11-02 13:37 | Outpatient (CLI) | payer MEDICARE, SELFPAY ==
[2018-11-02 14:11] LABS: BUN Creatinine Ratio 16.5 (6-22); Blood Urea Nitrogen 33 mg/dL (9-20); Calcium 9.6 mg/dL (8.4-10.2); Carbon Dioxide 24 mmol/L (22-32); Chloride 104 mmol/L (98-107); Estimated Glomerular Filt Rate 32.9 mL/min (>60); Glucose 100 mg/dL (80-110); HEMOLYSIS < 15 (0-50); Magnesium 2.2 mg/dL (1.6-2.3); Potassium 4.1 mmol/L (3.4-5.1); Sodium 138 mmol/L (137-145)
[2018-11-02 14:13] LABS: B Type Natriuretic Peptide 147 (<100)
[2018-11-02 14:42] LABS: Thyroid Stimulating Hormone 1.12 uIU/mL (0.47-4.68)
== END ==
PROVIDERS: Family Provider Family Medicine; PCP Family Medicine; Visit Provider Specialist
DX: I50.42 Chronic combined systolic (congestive) and diastolic (congestive) heart failure (principal); I47.2 Ventricular tachycardia; I48.0 Paroxysmal atrial fibrillation
CPT/HCPCS: 36415; 80048; 83735; 83880; 84443

== ENCOUNTER → 2018-11-15 07:39 | Outpatient (CLI) | payer MEDICARE, SELFPAY ==
[2018-11-15 08:41] LABS: Alanine Aminotransferase 30 IU/L (21-72); Albumin 3.9 g/dL (3.5-5.0); Albumin Globulin Ratio 1.2 (1.0-2.8); Alkaline Phosphatase 102 U/L (38-126); Aspartate Aminotransferase 37 IU/L (17-59); BUN Creatinine Ratio 18.4 (6-22); Bilirubin Total 0.7 mg/dL (0.2-1.3); Blood Urea Nitrogen 35 mg/dL (9-20); Calcium 9.7 mg/dL (8.4-10.2); Carbon Dioxide 23 mmol/L (22-32); Chloride 105 mmol/L (98-107); Estimated Glomerular Filt Rate 34.9 mL/min (>60); Globulin 3.3 g/dL (1.7-4.1); Glucose 118 mg/dL (80-110); HEMOLYSIS < 15 (0-50); Magnesium 2.3 mg/dL (1.6-2.3); Sodium 139 mmol/L (137-145); Total Protein 7.2 g/dL (6.3-8.2)
[2018-11-15 09:25] LABS: Thyroid Stimulating Hormone 1.63 uIU/mL (0.47-4.68)
[2018-11-19 08:50] LABS: Lipoprofile NMR SEE SEPERATE REPORT
== END ==
PROVIDERS: Family Provider Family Medicine; PCP Family Medicine; Visit Provider Specialist
DX: I25.5 Ischemic cardiomyopathy (principal); E78.5 Hyperlipidemia, unspecified; I47.2 Ventricular tachycardia; Z79.899 Other long term (current) drug therapy
CPT/HCPCS: 36415; 80053; 83704; 83735; 84443

== ENCOUNTER → 2018-11-20 13:35 | Outpatient (CLI) | payer MEDICARE, SELFPAY ==
--- NOTE | 2018-11-20 | DI.ECHO.S_ITS ---
[facility] +---------+ [facility] +---------+ : : [address] : : : : [id number] : : : : Phone: [phone]+ Echocardiogram Report + + :Name: PATITO PUENTES Study Date: 11/20/2018 Height: 70 in : :[facility] Exam Location: [facility] Weight: 244 lb: : Gender: Male BSA: 2.3 m2 : :: 1945 Age: 73 yrs BP: 90/54 mmHg: :Reason For Study: ISCHEMIC CM : : Performed By: Chito Lugo : :Referring: ANITHA ABREU : + + Interpretation Summary Left ventricular systolic function is severely reduced with the ejection fraction estimated to be 20-25% with a moderate dyssynchronous contraction pattern due to the paced rhythm and moderate to severe global hypokinesis with akinesis of the distal half of the septum and the majority of the inferior wall with the remaining segments being moderate to severely hypokinetic but this appears unchanged compared to the previous study. The left ventricle is moderately dilated with the left ventricular end-diastolic volume estimated at 143 mL and likely unchanged from the previous study. Diastolic parameters suggest a pseudonormalization pattern, consistent with probable elevated filling pressures but likely lower compared to the previous study. The right ventricle is at the upper limits of normal in size and systolic function appears normal. The right ventricle appears smaller and more dynamic compared to the previous study. Pulmonary artery pressures cannot be estimated because of the lack of a measurable TR jet velocity but the IVC suggests a CVP of around 3 mmHg which is likely significantly lower compared to the previous study. Both atria are mildly dilated but grossly unchanged compared to the previous study. There is mild to moderate mitral regurgitation that appears slightly less prominent compared to the previous study. There is mild aortic stenosis with a mean gradient of 9 mmHg. There is no other significant valvular heart disease. The aortic root is borderline dilated and the ascending aorta is mildly enlarged. Both are grossly unchanged compared to the previous study. Procedure: A two-dimensional transthoracic echocardiogram with color flow and Doppler was performed. The study quality was technically difficult. Comparison is made with the echocardiogram of 06/28/18. A contrast injection of Definity was performed to improve assessment of LV function. The patient has a paced rhythm. Left Ventricle: The left ventricle is moderately dilated. Left ventricular end-diastolic volume is estimated at 143 mL, and likely unchanged from the previous study. There is normal left ventricular wall thickness. There is no thrombus. Left ventricular systolic function is severely reduced. The ejection fraction is estimated to be 20-25%. There is a moderate dyssynchronous contraction pattern due to the paced rhythm. There is moderate to severe global hypokinesis of the left ventricle. With akinesis of the distal half of the septum and the majority of the inferior wall with remaining segments being moderate to severely hypokinetic. This is unchanged compared to the previous study. Diastolic parameters suggest a pseudonormalization pattern, consistent with probable elevated filling pressures. This is but likely lower compared to the previous study. Right Ventricle: There is a pacemaker lead in the right ventricle. The right ventricle is at the upper limits of normal in size. The right ventricular systolic function is normal. This is smaller and more dynamic compared to the previous study. Atria: Both atria are mildly dilated. This is grossly unchanged compared to the previous study. The interatrial septum is intact with no evidence for an atrial septal defect. Mitral Valve: The mitral valve leaflets are mildly calcified. There is mild to moderate mitral regurgitation. This is slightly less prominent compared to the previous study. Aortic Valve: The aortic valve is trileaflet. The aortic valve is mildly calcified. There is mildly reduced leaflet mobility. There is mild aortic stenosis. The peak aortic velocity is 1.96 m/sec. The calculated aortic valve area is 1.6 cm2. The aortic valve mean gradient is 9 mmHg. No aortic regurgitation is present. Tricuspid Valve: The tricuspid valve is normal in structure and function. There is trace tricuspid regurgitation. Pulmonary artery pressures cannot be estimated because of the lack of a measurable TR jet velocity but the IVC suggests a CVP of around 3 mmHg. This is likely lower compared to the previous study. Pulmonic Valve: The pulmonic valve is normal in structure and function. There is trace pulmonic regurgitation. There is no other significant valvular heart disease. Great Vessels: The aortic root is borderline dilated. The ascending aorta is mildly enlarged. This is grossly unchanged compared to the previous study. The pulmonary artery is normal size. The IVC is of normal diameter and collapses greater than 50% with a sniff. This suggests a low right atrial pressure of 3 mm Hg. Pericardium/ Pleura There is no pericardial effusion. There is no pleural effusion. MMode/2D Measurements & Calculations LVIDd: 6.6 cm LVOT diam: 2.5 cm LVIDs: 5.2 cm Ao root diam: 4.0 cm FS: 21.2 % asc Aorta Diam: 3.6 cm EPSS: 2.0 cm IVSd: 0.61 cm LVPWd: 0.99 cm LV briceno. diameter/BSA (cm/m^2): 2.9 LV sys. diameter/BSA (cm/m^2): 2.3 LA dimension: 4.5 cm RA long axis: 6.1 cm LA A2 area: 26.3 cm2 RA area: 24.9 cm2 LA A4 area: 28.4 cm2 RA vol: 87.1 ml LA length (vol): 7.3 cm RA : 38.3 ml/m2 LA vol: 86.6 ml IVC diam: 1.3 cm LA vol index: 38.1 ml/m2 RVD1 (basal): 4.6 cm RVD2 (mid): 4.3 cm Doppler Measurements & Calculations Ao V2 max: 196.2 cm/sec LVOT Max Ari: 65.6 cm/sec Ao V2 mean: 146.0 cm/sec LV V1 max P.7 mmHg Ao max P.4 mmHg LV V1 VTI: 15.2 cm Ao mean P.4 mmHg EHSAN(I,D): 1.5 cm2 Ao V2 VTI: 50.2 cm EHSAN(V,D): 1.6 cm2 sev ratio: 0.30 EHSAN indexed to BSA (cm^2/m^2): 0.65 MV E max ari: 92.8 cm/sec TR max ari: 199.3 cm/sec MV A max ari: 89.7 cm/sec TR max P.9 mmHg MV E/A: 1.0 PA V2 max: 81.4 cm/sec Med Peak E' Ari: 3.0 cm/sec PA V2 mean: 61.1 cm/sec E/E' med: 31.0 PA mean P.6 mmHg Lat Peak E' Ari: 4.4 cm/sec PA pr(Accel): 41.6 mmHg E/E' lat: 20.9 PA Accel Time: 0.08 sec E/e' average: 26.0 MV dec time: 0.18 sec SV(LVOT): 74.1 ml Reading Physician:LEE
--- NOTE | 2018-11-20 | DI.US.S_ITS ---
PROCEDURE: US CAROTID DOPPLER BI INDICATIONS: ISCHEMIC CARDIOMYOPATHY, ABSENT CAROTID PULSE TECHNIQUE: Color and pulse Doppler interrogation was performed of both carotid systems, with image documentation and velocity measurements. COMPARISON: None. FINDINGS: Stenosis calculations are based on SRU (Society of Radiologists in Ultrasound) criteria. Right side: Brachial blood pressure: 111/73 mm Hg. Common carotid artery peak systolic velocity: 52 cm/sec. Internal carotid artery peak systolic velocity: 172 cm/sec. Internal carotid artery end diastolic velocity: 42 cm/sec. External carotid artery peak systolic velocity: 126 cm/sec. ICA/CCA peak systolic ratio: 3.3. Odom scale imaging description: Heavy scattered plaque. Percent internal carotid artery stenosis: 50-69% stenosis. Vertebral artery: Flow direction is antegrade. Left side: Brachial blood pressure: 114/65 mm Hg. Common carotid artery peak systolic velocity: 78 cm/sec. Internal carotid artery peak systolic velocity: 87 cm/sec. Internal carotid artery end diastolic velocity: 22 cm/sec. External carotid artery peak systolic velocity: 86 cm/sec. ICA/CCA peak systolic ratio: 1.1. Odom scale imaging description: Moderate scattered plaque. Percent internal carotid artery stenosis: Less than 50%. Vertebral artery: Flow direction is antegrade. IMPRESSION: 1. 50-69% stenosis involving the right internal carotid artery. 2. Less than 50% left internal carotid artery stenosis. Dictated by: Wenceslao NAVARRO Interpreted: Adán Keller MD on 11/20/2018 at 15:37 Approved by: Adán Keller M.D. on 11/20/2018 at 16:14
== END ==
PROVIDERS: Family Provider Family Medicine; PCP Family Medicine; Visit Provider Specialist
DX: I08.0 Rheumatic disorders of both mitral and aortic valves (principal); I77.89 Other specified disorders of arteries and arterioles; I65.23 Occlusion and stenosis of bilateral carotid arteries; I25.5 Ischemic cardiomyopathy; R09.89 Other specified symptoms and signs involving the circulatory and respiratory systems
CPT/HCPCS: 93306; 93880; Q9957

== ENCOUNTER 2018-12-24 14:00 | Outpatient (RCR) | payer MEDICARE, SELFPAY | END 2019-01-02 08:22 | LOC: CAR 14:00 | PROVIDERS: PCP Family Medicine; Visit Provider Specialist | DX: I21.3 ST elevation (STEMI) myocardial infarction of unspecified site (principal) | CPT/HCPCS: 93798 ==

== ENCOUNTER → 2019-08-05 07:15 | Outpatient (CLI) | payer MEDICARE, SELFPAY ==
[2019-08-05 07:59] LABS: Alanine Aminotransferase 94 IU/L (<50); Albumin 3.8 g/dL (3.5-5.0); Albumin Globulin Ratio 1.2 (1.0-2.8); Alkaline Phosphatase 106 U/L (38-126); Aspartate Aminotransferase 90 IU/L (17-59); BUN Creatinine Ratio 17.1 (6-22); Bilirubin Total 0.7 mg/dL (0.2-1.3); Blood Urea Nitrogen 33 mg/dL (9-20); Calcium 9.6 mg/dL (8.4-10.2); Carbon Dioxide 24 mmol/L (22-32); Chloride 106 mmol/L (98-107); Estimated Glomerular Filt Rate 34.3 mL/min (>60); Globulin 3.2 g/dL (1.7-4.1); Glucose 101 mg/dL (80-110); HEMOLYSIS < 15 (0-50); Magnesium 2.4 mg/dL (1.6-2.3); Potassium 4.3 mmol/L (3.4-5.1); Sodium 138 mmol/L (137-145)
[2019-08-05 08:05] LABS: NT-proBNP (BNP-Adult 18+) 1190 pg/mL (<125)
[2019-08-05 08:26] LABS: Thyroid Stimulating Hormone 1.44 uIU/mL (0.47-4.68)
[2019-08-07 12:41] LABS: Cholesterol, Total 144 mg/dL (100-199); HDL-Cholesterol 51 mg/dL (>39); HDL-Particle (Total) 29.5 umol/L (>=30.5); Historical Reading Comment: (.); LDL Particle 1149 nmol/L (<1000); LDL-Cholsterol 76 mg/dL (0-99); LP-IR Score 41 (<=45); Small LDL- Particle 705 nmol/L (<=527); Triglycerides 85 mg/dL (0-149)
== END ==
PROVIDERS: Family Provider Family Medicine; PCP Family Medicine; Referring Provider Physician Assistant Medical; Visit Provider Physician Assistant Medical
DX: E78.5 Hyperlipidemia, unspecified (principal); I47.2 Ventricular tachycardia; Z79.899 Other long term (current) drug therapy; I50.42 Chronic combined systolic (congestive) and diastolic (congestive) heart failure
CPT/HCPCS: 36415; 80053; 80061; 83704; 83735; 83880; 84443

== ENCOUNTER → 2019-10-21 07:14 | Outpatient (CLI) | payer MEDICARE, SELFPAY ==
[2019-10-21 08:47] LABS: Alanine Aminotransferase 41 IU/L (<50); Albumin 3.7 g/dL (3.5-5.0); Albumin Globulin Ratio 1.2 (1.0-2.8); Alkaline Phosphatase 96 U/L (38-126); Aspartate Aminotransferase 51 IU/L (17-59); BUN Creatinine Ratio 15.3 (6-22); Bilirubin Total 0.7 mg/dL (0.2-1.3); Blood Urea Nitrogen 29 mg/dL (9-20); Calcium 9.5 mg/dL (8.4-10.2); Carbon Dioxide 26 mmol/L (22-32); Chloride 105 mmol/L (98-107); Estimated Glomerular Filt Rate 34.8 mL/min (>60); Glucose 95 mg/dL (80-110); HEMOLYSIS < 15 (0-50); Magnesium 2.4 mg/dL (1.6-2.3); Potassium 4.2 mmol/L (3.4-5.1); Sodium 137 mmol/L (137-145); Total Protein 6.7 g/dL (6.3-8.2)
[2019-10-21 08:50] LABS: NT-proBNP (BNP-Adult 18+) 1180 pg/mL (<125)
[2019-10-23 07:55] LABS: Cholesterol, Total 133 mg/dL (100-199); HDL-Cholesterol 51 mg/dL (>39); HDL-Particle (Total) 30.4 umol/L (>=30.5); Historical Reading Comment: (.); LDL Particle 826 nmol/L (<1000); LDL Size 20.7 nm (>20.5); LDL-Cholsterol 67 mg/dL (0-99); LP-IR Score <25 (<=45); Small LDL- Particle 366 nmol/L (<=527); Triglycerides 77 mg/dL (0-149)
== END ==
PROVIDERS: Family Provider Family Medicine; PCP Family Medicine; Referring Provider Family Medicine; Visit Provider Specialist
DX: I50.22 Chronic systolic (congestive) heart failure (principal); E78.5 Hyperlipidemia, unspecified; I48.0 Paroxysmal atrial fibrillation
CPT/HCPCS: 36415; 80053; 80061; 83704; 83735; 83880; 84443

== ENCOUNTER → 2019-10-22 07:54 | Outpatient (CLI) | payer MEDICARE, SELFPAY ==
--- NOTE | 2019-10-22 08:19 | DI.ECHO.S_ITS ---
Echocardiogram Report + + :Name: PATITO PUENTES Study Date: 10/22/2019 Height: 70 in : :[facility] Weight: 216 lb : : Gender: Male BSA: 2.2 m2 : :: 1945 Age: 74 yrs BP: 108/58 mmHg: :Reason For Study: Systolic heart failure : :Ordering Physician: Anitha : :Jamie Performed By: Mara Obando : :Referring: ANITHA ABREU : + + Interpretation Summary Left ventricular systolic function remains severely depressed with an ejection fraction estimated to be 20 to 25% with a significant dyssynchronous contraction pattern and moderate???severe global hypokinesis with thinning and akinesis of the majority of the mid and distal septum, extending into the apex and distal inferior wall as well as the proximal inferior wall. This appears unchanged from the previous study. While the left ventricle measures larger compared to the previous study, now 211 mL compared to 143 mL on the previous study, visually there does not appear to be any significant change. Diastolic function remains challenging in the setting of a paced rhythm but there is likely elevated filling pressures based on the E/E' ratios which are slightly higher compared to the previous exam, suggesting possible higher filling pressures. The right ventricle appears normal in size and systolic function and appears smaller and slightly more dynamic compared to the previous study. PAP is likely around 29 mmHg with a CVP of 3 mmHg. There is moderate left atrial enlargement and mild right atrial enlargement but both are unchanged from the previous study. There is mild mitral regurgitation that is slightly less prominent compared to the previous study. There is mild aortic stenosis, slightly progressive since the previous exam, now with a peak velocity of 2.4 m/s and a mean gradient of 12 mmHg compared to 2.0 m/s and 9 mmHg, respectively, on the previous exam. The aortic root and ascending aorta are mildly enlarged but unchanged since the previous study. Procedure: A two-dimensional transthoracic echocardiogram with color flow and Doppler was performed. The study quality was technically adequate. Comparison is made with the echocardiogram of 11/20/2018. Definity contrast was used after patient education and consent. Patient denied any immediate symptoms after the use of Definity. A contrast injection of Definity was performed to improve assessment of LV function. The patient has a paced rhythm. Left Ventricle: The left ventricle is severely dilated. The estimated left ventricular end diastolic volume is 211 ml. This measures larger compared to the previous study although visually there is no appreciable change. Left ventricular systolic function is severely reduced. The ejection fraction is estimated to be 20-25%. There continues to be akinesis of the mid and distal septum extending to the apex and including the distal portion of the inferior wall as well as the base of the inferior wall with severe hypokinesis in the other segments. There is no appreciable change since the previous exam. Diastolic function could not be accurately assessed due to paced rhythm. However, the E/E' ratios are higher compared to previous, suggesting probable increased filling pressures. Right Ventricle: There is a pacemaker lead in the right ventricle. The right ventricle is normal in size and function. This is Slightly more dynamic compared to the previous study. Atria: The left atrium is moderately dilated. The right atrium is mildly dilated. This is unchanged compared to the previous study. There is no Doppler evidence for an interatrial shunt. Mitral Valve: There is mild mitral annular calcification. The mitral valve leaflets are mildly calcified. There is mild mitral regurgitation. This is slightly less prominent compared to the previous study. Aortic Valve: The aortic valve is mildly calcified. There is mildly reduced leaflet mobility. There is mild aortic stenosis. The peak aortic velocity is 2.4 m/sec. The peak aortic velocity on the previous exam was 1.9 m/sec. The aortic valve mean gradient is 12 mmHg. The calculated aortic valve area is 1.5 cm2. This is slightly progressive compared to the previous study. No aortic regurgitation is present. Tricuspid Valve: The tricuspid valve is normal in structure and function. The right ventricular systolic pressure is estimated to be at least 29 mmHg based on an estimated right atrial pressure of 3 mm Hg. There is trace tricuspid regurgitation. This is unchanged compared to the previous study. Pulmonic Valve: There is no other significant valvular heart disease. Great Vessels: The aortic root is borderline dilated. The ascending aorta is mildly enlarged. This is unchanged compared to the previous study. The IVC is of normal diameter and collapses greater than 50% with a sniff. This suggests a low right atrial pressure of 3 mm Hg. Pericardium/ Pleura There is no pericardial effusion. There is no pleural effusion. MMode/2D Measurements & Calculations LVIDd: 6.9 cm LVOT diam: 2.5 cm LVIDs: 6.0 cm Ao root diam: 4.1 cm FS: 14.0 % asc Aorta Diam: 3.6 cm EPSS: 2.1 cm IVSd: 0.91 cm LVPWd: 0.88 cm LV briceno. diameter/BSA (cm/m^2): 3.2 LV sys. diameter/BSA (cm/m^2): 2.8 LA A2 area: 27.0 cm2 RA long axis: 6.0 cm LA A4 area: 27.3 cm2 RA area: 22.8 cm2 LA length (vol): 7.0 cm RA vol: 73.3 ml LA vol: 89.7 ml RA : 34.0 ml/m2 LA vol index: 41.6 ml/m2 IVC diam: 1.1 cm RVD1 (basal): 3.6 cm TAPSE: 2.6 cm Doppler Measurements & Calculations Ao V2 max: 236.3 cm/sec LVOT Max Ari: 68.1 cm/sec Ao V2 mean: 165.8 cm/sec LV V1 max P.9 mmHg Ao max P.3 mmHg LV V1 VTI: 15.5 cm Ao mean P.4 mmHg EHSAN(I,D): 1.5 cm2 Ao V2 VTI: 53.2 cm EHSAN(V,D): 1.5 cm2 sev ratio: 0.29 EHSAN indexed to BSA (cm^2/m^2): 0.69 MV E max ari: 98.7 cm/sec TR max ari: 254.3 cm/sec MV A max ari: 92.8 cm/sec TR max P.9 mmHg MV E/A: 1.1 PA V2 max: 59.7 cm/sec Med Peak E' Ari: 3.3 cm/sec PA V2 mean: 41.1 cm/sec E/E' med: 29.6 PA mean P.75 mmHg Lat Peak E' Ari: 2.9 cm/sec PA pr(Accel): 31.0 mmHg E/E' lat: 34.3 E/e' average: 32.0 MV dec time: 0.23 sec SV(LVOT): 78.8 ml Reading Physician:LEE
== END ==
PROVIDERS: Family Provider Family Medicine; PCP Family Medicine; Referring Provider Physician Assistant Medical; Visit Provider Specialist
DX: I08.0 Rheumatic disorders of both mitral and aortic valves (principal); I77.89 Other specified disorders of arteries and arterioles; I50.22 Chronic systolic (congestive) heart failure
CPT/HCPCS: 93306

== ENCOUNTER → 2019-12-09 09:33 | Outpatient (CLI) | payer MEDICARE, SELFPAY ==
[2019-12-10 19:59] LABS: COVID19 Sendout Not Detected (Not Detect)
== END ==
PROVIDERS: Family Provider Family Medicine; PCP Family Medicine; Visit Provider Physician Assistant
DX: Z11.59 Encounter for screening for other viral diseases (principal)
CPT/HCPCS: 87635

== ENCOUNTER 2019-12-12 07:37 | Day surgery (SDC) | payer MEDICARE, SELFPAY ==
[2019-12-12] VITALS (15 sets, daily range): BP systolic 83–117; BP diastolic 42–67; PULSE 59–77; RESP 12–18; TEMP 36–36.4; O2SAT 94–100; BMI 30.1
[2019-12-12] MEDS: LACTATED RINGERS 1,000 ML 200 ML IV (08:08)
--- NOTE | 2019-12-12 08:45 | PM.HP.1 ---
History of Present Illness History of Present Illness Date Patient Seen: 12/12/19 Time Patient Seen: 08:40 Chief complaint: SDC Narrative: The patient is here for screening colonoscopy. His last exam was over 10 years ago. He has never had polyps and has no family history of colon cancer. No blood in his stool. He does have a pacemaker defibrillator and he is taking an anti-platelet agent. He had a stent placed a year ago. Patient History Medical History Congestive heart failure with cardiomyopathy (Acute) Coronary artery disease (Acute) Hx of malignant melanoma (Acute) Hyperlipidemia (Acute) Hypertension (Acute) Insomnia (Chronic) Nocturnal hypoxemia (Resolved) Non-ST elevation (NSTEMI) myocardial infarction (Resolved) Obesity (Chronic) Obstructive sleep apnea syndrome (Chronic) Pacemaker (Chronic ~2012) Snoring (Inactive) Surgical History History of coronary artery stent placement (Resolved) Family & Social History Social History: household members spouse Tobacco & Substance use: Smoking Status Never smoker alcohol intake frequency holiday/special occasion Substance Use Type does not use Meds Home Medications and Allergies Home Medications Medication Instructions Recorded Confirmed Type ferrous sulfate 325 mg PO QAM #1 05/20/12 12/12/19 History aspirin 81 mg PO QPM #0 07/09/12 12/12/19 History rosuvastatin [Crestor] 40 mg PO QAM #0 07/09/12 12/12/19 History Tums 1 tab PO BID 06/28/18 12/12/19 History ezetimibe 10 mg tablet 10 mg PO DAILY 08/23/18 12/12/19 History ticagrelor 90 mg tablet 90 mg PO BID #90 tab 08/26/18 12/12/19 Rx folic acid 1 mg tablet 1 mg PO QPM #90 tab 09/06/18 12/12/19 Rx omeprazole 20 mg capsule,delayed 20 mg PO BID #180 cap 09/06/18 12/12/19 Rx release carvedilol 12.5 mg tablet 18.75 mg PO BID tab 09/13/18 12/12/19 History furosemide 40 mg tablet 20 mg PO DAILY tab 09/13/18 12/12/19 History Respironics Remstar CPAP #1 ea 09/17/18 12/12/19 History amiodarone 200 mg tablet 100 mg PO DAILY tab 10/29/19 12/12/19 History melatonin 3 mg capsule 3 mg PO ONCE PRN cap 10/29/19 12/12/19 History potassium chloride 10 mEq 20 meq PO BID tab 10/29/19 12/12/19 History tablet,extended release(part/cryst) Allergies Allergy/AdvReac Type Severity Reaction Status Date / Time No Known Drug Allergies Allergy Verified 12/12/19 07:44 Review of Systems Review of Systems Narrative: Patient has a history of hypertension and has had a heart attack in 2019. He has a history of heart failure. He has 3 stents. They replaced the 2 different times. The patient does suffer from sleep apnea and uses a CPAP machine. He did not bring it with him. He walks with a cane. He does have heartburn reflux disease and is on medication for it. No problems with this thyroid pancreas. No blood in his urine or kidney stones. No seizures or blackouts. He does bruise easily but is not spontaneously bleed and he wears glasses ROS: Yes All systems reviewed with the patient and are negative except as otherwise documented Exam Vital Signs (past 8 hours): - 12/12/19 08:01 Temperature 97.4 F L Pulse Rate 65 Respiratory Rate 16 Blood Pressure 117/67 Pulse Oximetry 98 Oxygen Delivery Method Room Air Narrative Exam Narrative: Pleasant cooperative patient no apparent distress. Lungs are clear to auscultation. No rales or rhonchi. Heart slightly irregular rate and rhythm no murmur gallop. Abdomen is soft nontender without mass. No obvious hernias. Patient is alert and oriented x3. Patient has a palpable pacemaker defibrillator in his left upper chest. Assessment & Plan Assessment & Plan narrative: The patient for a screening colonoscopy. I have discussed the procedure with them. Risks of bleeding, perforation which would necessitate major operation, failure to find remove all lesions, the potential tattoo were all discussed. I also discussed that his risk of bleeding was increased because of his anti-platelet agent and he is at a small risk of cardiac issues. All questions were answered. He wished to proceed.
[2019-12-12] MEDS: fentaNYL 250 MCG/5 ML INJ IV ×4 (08:53→09:21)
[2019-12-12] MEDS: MIDAZOLAM 5 MG/5 ML VIAL IV ×3 (08:53→09:21)
--- NOTE | 2019-12-12 08:53 | PM.PREOP ---
Pre-operative Note COVID-19 COVID-19 status: Negative Result date/Date tested (Pos, Neg/Pending): 12/09/19 Interval Note History & Physical reviewed/Exam performed by Physician: Yes Changes to H&P: No ASA Class (for procedural sedation): III
--- NOTE | 2019-12-12 09:47 | P.OP.ENDO_ITS ---
Operative Date/Time/Diagnoses Date of procedure: 12/12/19 Time of procedure: 09:47 Pre-op diagnosis: Screening examination due to age. Last exam over 10 years ago. Post-op diagnosis: same (Three polyps found. Incomplete exam. Please see details below.) Procedure & Clinicians Study performed: Colonoscopy stopped in the transverse colon. Cold snare polypectomy Same procedure as scheduled: Yes Indications: Screening Surgeon: Lucho Hall Procedure Notes SCOAP/Timeout: Performed Procedure in detail: The patient was placed in left lateral decubitus position underwent IV sedation directed by the surgeon consisting of fentanyl and Versed. We were very judicious in our use due to his age and multiple medical issues. Digital exam was unremarkable. His prostate was not well felt. Scope was inserted advanced through the rectum into the sigmoid where noted diverticulosis. We continued onto the descending colon and transverse colon. I removed 1 small polyp with biopsy forceps. I ultimately reached a point in the transverse colon where I simply could not go beyond it. The patient was repositioned pressure applied a stiffener inserted and the patient repositioned and still I was unable to get any further. Head of me I could see 2 polyps requiring removal. Both were about a cm in size. 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 This suggested to me that at times the patient is pacemaker dependent. Therefore I did not use cautery.) After multiple additional manipulations to try to get beyond this point I abandoned the procedure. The scope was brought out. The patient appeared to tolerate the procedure well. The prep was good. The patient will be given an enema to see if I can retrieve the other 2 polyps. Scope withdrawal time: Not applicable due to incomple Sedation minutes: 40 Findings: diverticulosis (Sigmoid) and polyp (Three) Specimen(s): other (Polyp) Complications: none Post-procedure Recommendations: Other recommendation (At the discretion of his referring physician and his cloth spreader screen printing he could have a barium enema to evaluate the rest of his colon. Given his significant cardiac issues I will leave that to the discretion of those providers.) Follow up: as needed Disposition: PACU
[2019-12-12] MEDS: FLEETS ENEMA 1 EACH PR (11:07)
--- NOTE | 2019-12-12 15:09 | SUR.PHASEII ---
Received report from Anastasiya ARTEAGA into phase 2. was informed that 2 polyps were clipped but not removed. Plan to give pt an enema and strain output to attempt to locate polyps. Pt had low BP (SBP 80s). Hung second bag of LR and run wide open. BP remained in 80's up to low 90's. Got pt up to bathroom for enema. On trip to bathroom pt was lightheaded while standing. able to walk to bathroom safely, no issues sitting. enema given to pt and remained inside for 10 min. helped pt to toilet which had hats to collect output. output was brown with particulates including seeds. strained with urine strainers. notified Dr Hall and he looked at strained output and stated no polyps present. Returned pt to stretcher BP still low (SBP in 80's) and still light headed while standing. Notified and agreed to continue bag of LR and monitor BP. after another 1.5-2 hrs pt BP stable in low 90's while sitting and standing. Denied any additional lightheadedness. Pt had completed second bag of LR. PIV removed and pt able to get dressed with his . Left in w/c at 1300.
--- NOTE | 2019-12-19 | PATH_ITS ---
[facility] Accession Number: [id number] . 01 Material submitted: . colon - TRANSVERSE COLON POLYP . 02 Diagnosis: Transverse Colon, Polyp, Biopsy: Inflammatory polyp. Negative for dysplasia and malignancy. JRL 12/13/2019 1612 Local . 02 Electronically signed: . Ariela Joiner MD, Pathologist NPI- [id number] . 01 Gross description: . TRANSVERSE COLON POLYP: Received in formalin are 3 fragment(s) of ontiveros, soft tissue measuring 0.1 x 0.1 x 0.1 cm to 0.3 x 0.2 x 0.2 cm submitted entirely in 1 cassette(s) /ANGELINE 12/13/2019 0140 Local . 02 Pathologist provided ICD-10: K63.5 . 02 CPT . 603403 Performed at: 01 [facility] [address] [id number] MD Cam Rosa MD Phone: [phone] Performed at: 02 [facility] [address] [place], [place] [id number] MD Ariela Joiner MD Phone: [phone]
== END 2019-12-12 13:00 | disposition home or self-care (01) ==
LOC: ENDO 07:40
PROVIDERS: Family Provider Family Medicine; PCP Family Medicine; Referring Provider Specialist; Visit Provider Specialist
PROC: 0DJD8ZZ Inspection of Lower Intestinal Tract, Via Natural or Artificial Opening Endoscopic (ICD-10-PCS; CPT 45378; principal; 2019-12-12 08:45)
DX: Z12.11 Encounter for screening for malignant neoplasm of colon (principal); Z95.0 Presence of cardiac pacemaker; I50.9 Heart failure, unspecified; I42.9 Cardiomyopathy, unspecified; E78.5 Hyperlipidemia, unspecified; I10 Essential (primary) hypertension; I25.2 Old myocardial infarction; G47.33 Obstructive sleep apnea (adult) (pediatric); D12.3 Benign neoplasm of transverse colon
CPT/HCPCS: 45385; 99152; 99153; J2250; J3010

== ENCOUNTER → 2019-12-26 15:22 | Outpatient (CLI) | payer MEDICARE, SELFPAY ==
[2019-12-26 17:09] LABS: Prostate Specific Antigen Scrn 9.06 ng/mL (0.1-4.0)
== END ==
PROVIDERS: Family Provider Family Medicine; PCP Family Medicine; Referring Provider Family Medicine; Visit Provider Family Medicine
DX: N40.0 Benign prostatic hyperplasia without lower urinary tract symptoms (principal)
CPT/HCPCS: 36415; G0103

== ENCOUNTER → 2020-01-03 12:36 | Outpatient (CLI) | payer MEDICARE, SELFPAY ==
--- NOTE | 2020-01-03 12:40 | DI.CT.S_ITS ---
PROCEDURE: CT HEAD/BRAIN WO CON INDICATIONS: memory imparment and tremors TECHNIQUE: Noncontrast 4.5 mm thick angled axial sections acquired from the foramen magnum to the vertex, with coronal and sagittal reformats. For radiation dose reduction, the following was used: automated exposure control, adjustment of mA and/or kV according to patient size. COMPARISON: None. FINDINGS: Image quality: Excellent. CSF spaces: Basal cisterns are patent. No extra-axial fluid collections. The ventricles are symmetric in size and shape. Brain: No intracranial bleeds or masses. There is cerebral volume loss for age, with resultant ventricular and sulcal prominence. There are periventricular and deep white matter chronic small vessel ischemic changes. There is intracranial internal carotid artery atherosclerosis. Skull and face: Calvarium and visualized facial bones appear intact, without suspicious lesions. Sinuses: Visualized sinuses and mastoids are clear. IMPRESSION: Normal for age, source of memory impairment and tremors is not seen. Dictated by: Ramón Paniagua M.D. on 01/03/2020 at 13:12 Approved by: Ramón Paniagua M.D. on 01/03/2020 at 13:12
== END ==
PROVIDERS: Family Provider Family Medicine; PCP Family Medicine; Referring Provider Family Medicine; Visit Provider Family Medicine
DX: R41.3 Other amnesia (principal); G25.0 Essential tremor
CPT/HCPCS: 70450

== ENCOUNTER → 2020-02-13 09:31 | Outpatient (CLI) | payer MEDICARE, SELFPAY ==
--- NOTE | 2020-02-13 10:04 | DI.CT.S_ITS ---
PROCEDURE: CT KIDNEY URETER BLADDER (KUB) INDICATIONS: hematuria TECHNIQUE: Noncontrast 5 mm thick sections acquired from the diaphragms to the symphysis. 5 mm thick coronal and sagittal reformats were then performed. For radiation dose reduction, the following was used: automated exposure control, adjustment of mA and/or kV according to patient size. COMPARISON: Outside Film, CT, CT ANGIO CHEST ABDOMEN PELVIS, 06/28/2018, 5:29. FINDINGS: Image quality: Excellent. Lung bases: Lung bases are clear. Heart size is normal. Urinary system: Both kidneys are normal in size. No kidney stones. No . hydronephrosis or perinephric fat stranding. Both ureters appear non-dilated throughout their expected courses. Bladder wall thickness is normal but there are bilateral bladder diverticula posterolaterally, and a finding of approximately 5 calcified bladder stones. Renal cysts are seen at each kidney, several bilaterally, several of which are water in density and several of which are higher than water in density but also previously present. Other solid organs: Liver is normal in size. Gallbladder appears normal. Pancreas is normal in contours. Spleen is normal in size. No adrenal nodules on the right but there is a previously present 1.7 x 2.2 cm left adrenal low-density nodule consistent with adenoma. Peritoneum and bowel: Unenhanced bowel loops demonstrate normal wall thickness and caliber. No free fluid or air. Nodes and vessels: No retroperitoneal or mesenteric adenopathy by size criteria. Aorta and inferior vena cava are normal in caliber. Abdominal wall: No ventral hernias. Pelvis: No free pelvic fluid. No inguinal hernias or adenopathy. Bones: No suspicious bony lesions. No vertebral body compression fractures. IMPRESSION: 1. No hydronephrosis or nephrolithiasis is found. 2. Incidental note is again made of a 1.7 x 2.2 cm benign appearing left adrenal adenoma. This was present in June of 2018 without change management manager time. 3. Five separate calcified bladder stones are present, and bilateral bladder diverticula which do not appear inflamed are also present. Dictated by: Ramón Paniagua M.D. on 02/13/2020 at 13:54 Approved by: Ramón Paniagua M.D. on 02/13/2020 at 14:01
== END ==
PROVIDERS: Family Provider Family Medicine; PCP Family Medicine; Referring Provider Specialist; Visit Provider Specialist
DX: R31.9 Hematuria, unspecified (principal); D35.02 Benign neoplasm of left adrenal gland; N21.0 Calculus in bladder; N32.3 Diverticulum of bladder
CPT/HCPCS: 74176

== ENCOUNTER → 2020-02-17 07:41 | Outpatient (CLI) | payer MEDICARE, SELFPAY ==
[2020-02-17 09:01] LABS: Magnesium 2.4 mg/dL (1.6-2.3)
[2020-02-17 09:49] LABS: Thyroid Stimulating Hormone 1.75 uIU/mL (0.47-4.68)
[2020-02-17 23:12] LABS: Alanine Aminotransferase 37 IU/L (<50); Albumin 3.7 g/dL (3.5-5.0); Albumin Globulin Ratio 1.2 (1.0-2.8); Alkaline Phosphatase 90 U/L (38-126); Aspartate Aminotransferase 50 IU/L (17-59); BUN Creatinine Ratio 16.3 (6-22); Bilirubin Total 0.7 mg/dL (0.2-1.3); Blood Urea Nitrogen 33 mg/dL (9-20); Calcium 9.3 mg/dL (8.4-10.2); Carbon Dioxide 27 mmol/L (22-32); Chloride 105 mmol/L (98-107); Estimated Glomerular Filt Rate 32.3 mL/min (>60); Glucose 109 mg/dL (80-110); HEMOLYSIS < 15 (0-50); Potassium 4.1 mmol/L (3.4-5.1); Sodium 135 mmol/L (137-145); Total Protein 6.7 g/dL (6.3-8.2)
[2020-02-26 13:11] LABS: LDL Particle 894
[2020-02-26 13:12] LABS: HDL-Cholesterol 53; LDL-Cholsterol 70
[2020-02-26 13:13] LABS: Cholesterol, Total 140; Triglycerides 90
[2020-02-26 13:14] LABS: HDL-Particle (Total) 31.9
[2020-02-26 13:15] LABS: LDL Size 20.5; Small LDL- Particle 427
== END ==
PROVIDERS: Family Provider Family Medicine; PCP Family Medicine; Referring Provider Specialist; Visit Provider Specialist
DX: I48.0 Paroxysmal atrial fibrillation (principal); E78.5 Hyperlipidemia, unspecified; I10 Essential (primary) hypertension; I25.5 Ischemic cardiomyopathy
CPT/HCPCS: 36415; 80053; 80061; 83704; 83735; 84443

== ENCOUNTER → 2020-02-26 07:26 | Outpatient (CLI) | payer MEDICARE, SELFPAY ==
[2020-02-26 09:06] LABS: BUN Creatinine Ratio 16.2 (6-22); Blood Urea Nitrogen 33 mg/dL (9-20); Calcium 9.1 mg/dL (8.4-10.2); Carbon Dioxide 27 mmol/L (22-32); Chloride 106 mmol/L (98-107); Estimated Glomerular Filt Rate 32.1 mL/min (>60); Glucose 107 mg/dL (80-110); HEMOLYSIS < 15 (0-50); Potassium 4.3 mmol/L (3.4-5.1); Sodium 138 mmol/L (137-145)
== END ==
PROVIDERS: Family Provider Family Medicine; PCP Family Medicine; Referring Provider Family Medicine; Visit Provider Family Medicine
DX: I10 Essential (primary) hypertension (principal)
CPT/HCPCS: 36415; 80048

== ENCOUNTER → 2020-04-13 08:17 | Outpatient (CLI) | payer MEDICARE, SELFPAY ==
[2020-04-13 09:20] LABS: BUN Creatinine Ratio 15.6 (6-22); Blood Urea Nitrogen 33 mg/dL (9-20); Calcium 9.3 mg/dL (8.4-10.2); Carbon Dioxide 30 mmol/L (22-32); Chloride 102 mmol/L (98-107); Estimated Glomerular Filt Rate 30.9 mL/min (>60); Glucose 111 mg/dL (80-110); HEMOLYSIS < 15 (0-50); Potassium 4.2 mmol/L (3.4-5.1); Sodium 135 mmol/L (137-145)
== END ==
PROVIDERS: Family Provider Family Medicine; PCP Student in an Organized Health Care Education/Training Program; Referring Provider Specialist; Visit Provider Specialist
DX: I42.9 Cardiomyopathy, unspecified (principal)
CPT/HCPCS: 36415; 80048

== ENCOUNTER → 2020-04-30 07:52 | Outpatient (CLI) | payer MEDICARE, SELFPAY ==
--- NOTE | 2020-04-30 | DI.ECHO.S_ITS ---
[facility] +---------+ : : [address] : : : : [id number] : : : : Phone: [phone]+ Echocardiogram Report + + :Name: PATITO PUENTES Study Date: 04/30/2020 Height: 70 in : :[facility] ReadingLocation: Weight: 208 lb: : Gender: Male BSA: 2.1 m2 : :: 1945 Age: 74 yrs BP: 98/60 mmHg: :Reason For Study: CHRONIC SYSTOLIC HEART FAILURE : :Ordering Physician: LOIS, : :ANITHA Performed By: Mara Obando : :Referring: MELINA RHOADES : + + Interpretation Summary Left ventricular systolic function remains severely depressed with an estimated ejection fraction of 20 to 25% with scarring of the septum and severe hypokinesis to akinesis of the majority of the inferior wall, posterior wall, and apex, and appears unchanged from the previous exam. The left ventricle is moderate??severely enlarged but unchanged from the previous study. While diastolic function is challenging to assess in the presence of a paced rhythm, there continues to be evidence for a pseudonormalized diastolic filling pattern, consistent with elevated filling pressures, likely unchanged from the previous exam. The right ventricle is borderline enlarged with normal systolic function. Right ventricular systolic pressure is estimated at 37 mmHg with an estimated CVP of 8 mmHg, and likely slightly higher compared to the previous study. There is severe left atrial enlargement and moderate right atrial enlargement. Both have mildly increased in size since the previous study. There is mild mitral and mild tricuspid regurgitation that are both slightly more prominent compared to the previous exam. There is probable moderate aortic stenosis that is likely slightly progressive compared to the previous study, now with a peak transvalvular velocity of 2.6 m/s and a mean gradient of 15 mmHg compared to 2.4 m/s and 12 mmHg, respectively, previously. The severity ratio has worsened from 0.29 down to 0.19. The aortic root and ascending aorta are mild??moderately enlarged but unchanged from the previous study. The patient was in a paced rhythm with frequent PVCs with more frequent PVCs compared to the previous study. Procedure: A two-dimensional transthoracic echocardiogram with color flow and Doppler was performed. The study quality was technically adequate. Comparison is made with the echocardiogram of 10/22/2019. The patient has a paced rhythm. The heart rate ranged between 58-64 bpm during the study. The patient had occasional PVCs during the exam. Left Ventricle: The left ventricle is moderate-severely dilated. The estimated left ventricular end diastolic volume is 219 mL, compared to the previous 211 ml. There is normal left ventricular wall thickness. The ejection fraction is estimated to be 20-25%. This is unchanged compared to the previous study. There continues to be thinning in akinesis of the majority of the interventricular septum with severe hypokinesis to akinesis of the apex, inferior wall, and posterior wall with the best contractility in the lateral and anterolateral wall which demonstrates moderate to severe hypokinesis with a relatively dyssynchronous contraction pattern. There is been no appreciable change from the previous study. Diastolic function could not be accurately assessed due to paced rhythm. Diastolic parameters suggest a pseudonormalization pattern, consistent with probable elevated filling pressures. This is unchanged compared to the previous study. Right Ventricle: There is a pacemaker lead in the right ventricle. The right ventricle is at the upper limits of normal in size. The right ventricular systolic function is normal. This is unchanged compared to the previous study. Atria: The left atrium is severely dilated. Both atria have mildly increased in size since the prior echo exam. The right atrium is moderately dilated. There is no Doppler evidence for an interatrial shunt. Mitral Valve: There is mild mitral annular calcification. The mitral valve leaflets are mildly calcified. There is mild mitral regurgitation. This is slightly more prominent compared to the previous study. Aortic Valve: The aortic valve is mildly calcified. There is moderately reduced leaflet mobility. There is moderate aortic stenosis. This is slightly progressive compared to the previous study. The peak aortic velocity is 2.6 m/sec. The peak aortic velocity on the previous exam was 2.4 m/sec. The aortic valve mean gradient is 15 mmHg. No aortic regurgitation is present. Tricuspid Valve: The tricuspid valve is normal in structure and function. There is mild tricuspid regurgitation. This is slightly more prominent compared to the previous study. The right ventricular systolic pressure is estimated to be at least 37 mmHg based on an estimated right atrial pressure of 8 mm Hg. Pulmonic Valve: The pulmonic valve leaflets are thin and pliable; valve motion is normal. There is trace pulmonic regurgitation. Great Vessels: The aortic root is mildly dilated. The ascending aorta is mildly enlarged. This is unchanged compared to the previous study. The IVC is dilated (diameter is greater than 2.1 cm) yet it collapses greater than 50% with a sniff. This suggests a right atrial pressure of 8 mm Hg. Pericardium/ Pleura There is no pericardial effusion. There is no pleural effusion. MMode/2D Measurements & Calculations LVIDd: 6.9 cm LVOT diam: 2.5 cm LVIDs: 6.1 cm Ao root diam: 4.0 cm FS: 11.9 % asc Aorta Diam: 3.6 cm EPSS: 2.3 cm IVSd: 0.72 cm LVPWd: 1.0 cm LV briceno. diameter/BSA (cm/m^2): 3.2 LV sys. diameter/BSA (cm/m^2): 2.9 LA A2 area: 32.4 cm2 RA long axis: 5.9 cm LA A4 area: 29.3 cm2 RA area: 25.0 cm2 LA length (vol): 6.6 cm RA vol: 89.5 ml LA vol: 121.3 ml RA : 42.2 ml/m2 LA vol index: 57.1 ml/m2 IVC diam: 2.2 cm RVD1 (basal): 4.2 cm TAPSE: 2.3 cm Doppler Measurements & Calculations Ao V2 max: 259.9 cm/sec LVOT Max Ari: 51.5 cm/sec Ao V2 mean: 186.5 cm/sec LV V1 max P.1 mmHg Ao max P.0 mmHg LV V1 VTI: 11.9 cm Ao mean P.4 mmHg EHSAN(I,D): 0.94 cm2 Ao V2 VTI: 62.5 cm EHSAN(V,D): 0.98 cm2 sev ratio: 0.19 EHSAN indexed to BSA (cm^2/m^2): 0.44 MV E max ari: 110.1 cm/sec TR max ari: 269.8 cm/sec MV A max ari: 75.0 cm/sec TR max P.1 mmHg MV E/A: 1.5 PA V2 max: 64.7 cm/sec Med Peak E' Ari: 3.8 cm/sec PA V2 mean: 44.0 cm/sec E/E' med: 29.2 PA mean P.89 mmHg Lat Peak E' Ari: 3.5 cm/sec PA pr(Accel): 27.6 mmHg E/E' lat: 31.4 E/e' average: 30.3 MV dec time: 0.25 sec SV(LVOT): 58.8 ml Reading Physician:10:05 AM
== END ==
PROVIDERS: Family Provider Family Medicine; PCP Student in an Organized Health Care Education/Training Program; Referring Provider Specialist; Visit Provider Physician Assistant Medical
DX: I08.1 Rheumatic disorders of both mitral and tricuspid valves (principal); I50.22 Chronic systolic (congestive) heart failure; Z95.0 Presence of cardiac pacemaker
CPT/HCPCS: 93306

== ENCOUNTER → 2020-05-22 10:39 | Outpatient (CLI) | payer MEDICARE, SELFPAY ==
[2020-05-22 11:57] LABS: COVID19 -Nasal RAPID Negative (Negative)
== END ==
PROVIDERS: Family Provider Family Medicine; PCP Student in an Organized Health Care Education/Training Program; Visit Provider Specialist
DX: Z20.822 Contact with and (suspected) exposure to COVID-19 (principal)
CPT/HCPCS: 87635; C9803

== ENCOUNTER 2020-05-25 11:07 | Day surgery (SDC) | payer MEDICARE, SELFPAY ==
[2020-05-25] VITALS (8 sets, daily range): BP systolic 101–120; BP diastolic 61–73; PULSE 60–62; RESP 15–20; TEMP 36–37.4; O2SAT 90–98; BMI 29.7
--- NOTE | 2020-05-25 | PATH_ITS ---
[facility] Accession Number: [id number] . 01 Material submitted: . PART A: testis - RIGHT TESTICLE PART B: testis - LEFT TESTICLE . 02 Diagnosis: A. Right Testicle, Simple Subcapsular Orchitectomy: Benign testicular tissue with patchy interstitial fibrosis. . B. Left Testicle, Simple Subcapsular Orchitectomy: Benign testicular tissue with patchy interstitial fibrosis. MRV 05/29/2020 1410 Local . 02 Electronically signed: . Christen Plaza MD, Pathologist NPI- [id number] . 01 Gross description: . A. The specimen is received in formalin, labeled right testicle and consists of a 14-gram, 4.5 x 3.0 x 2.0 cm disrupted testicle. There is no spermatic cord, tunica albuginea, tunica vaginalis or epididymis identified. The specimen is inked blue and sectioned to reveal ontiveros-pink spongy cut surfaces. No masses or lesions are identified. Gin Operator sections are submitted in cassettes A1-A3. B. The specimen is received in formalin, labeled left testicle and consists of a 9-gram, 4.5 x 4.0 x 2.5 cm disrupted testicle. A spermatic cord, tunica vaginalis, tunica albuginea and epididymis are not identified. The specimen is inked blue and sectioned to reveal ontiveros-pink spongy cut surfaces. No masses or lesions are identified. Gin Operator sections are submitted in cassettes B1-B3. ([id number]) /MRV 05/27/2020 1506 Local . 02 Pathologist provided ICD-10: C61 . 02 CPT . 381742, [id number] Performed at: [address], [place], [place] [id number] MD Cam Rosa MD Phone: [phone] Performed at: 02 [facility] [place] [address] [place] [id number] MD Ariela Joiner MD Phone: [phone]
[2020-05-25] MEDS: ACETAMINOPHEN 325 MG TABLET 650 MG PO (12:02)
[2020-05-25] MEDS: LACTATED RINGERS 1,000 ML 42 ML IV (12:07)
--- NOTE | 2020-05-25 12:19 | PM.PREOP ---
Pre-operative Note Interval Note History & Physical reviewed/Exam performed by Physician: Yes Changes to H&P: No
[2020-05-25] MEDS: CEFAZOLIN 2 GM/100 ML FROZ.PIGGY IV (14:03)
--- NOTE | 2020-05-25 14:34 | SUR.OPER ---
Lithotomy on padded OR bed, head on pillow, arms secured on padded arm boards at <90 degrees abduction. Legs secured in padded yellow fins stirrups.
[2020-05-25] MEDS: BUPIVACAINE 0.5% (PF) VIAL 30 ML INJ (14:46)
[2020-05-25] MEDS: BUPIVACAINE LIPOSOME 266 MG/20 ML VIAL INJ (14:46)
[2020-05-25] MEDS: BACITRACIN OINT 0.9 GM PCKT 1 APPLIC TOP (14:47)
--- NOTE | 2020-05-25 15:33 | PM.OP.1 ---
Operative Date/Time/Diagnoses Date of procedure: 05/25/20 Time of procedure: 15:33 Pre-op diagnosis: Prostate cancer Post-op diagnosis: same Procedure & Clinicians Procedure: 1. Bilateral subcapsular scrotal orchiectomy. Same procedure as scheduled: Yes Indications: 1. Latanya group 3 adenocarcinoma the prostate. 2. History of urinary retention. 3. History of multiple bladder calculi. 4. History of congestive heart failure. 5. Early stage dementia. Surgeon: Evans Wu Click Yes if Unassisted: Yes Anesthesia Type: General and Local (1.33% Exparel) Operative Notes Findings: There was a 1 cm tunica cyst at the superior aspect of the right testis. There was an approximately 1.5 x 0.5 cm spermatocele within the head of the left epididymis. Otherwise, normal tissue planes and findings for age. Closure Type: primary Specimen(s): other (Bilateral subcapsular orchiectomy specimens) Estimated Blood Loss (mL): 5 Blood products transfused: none Tourniquet time (min): 0 Procedure in detail: Patient was positioned supine and was administered general anesthesia. The patient was then positioned in semi lithotomy. The lower abdomen, genitalia, and perineum were then prepped and draped in sterile fashion. A solution of 0.5% plain Marcaine was then used to infiltrate the midline scrotal raphae. A limited midline vertical incision was then made. Careful blunt sharp and cautery dissection were then utilized to divide the subcutaneous Danielle's fascia to level of tunica vaginalis on both the right and the left side. Bilateral, subcapsular, orchectomy was then performed using the same steps and maneuvers as follows: A midline, vertical incision was made in the anterior surface of the tunic albuginea of the testis. The inter seminiferous tubules were then swept away using blunt technique from the inner surface of the tunica albuginea. Small perforating vessels were cauterized using the cautery forceps. The tissue at the level of the rete testis was then divided at this level using sharp and cautery technique. Hemostasis was excellent. The tunic albuginea was then closed using a running horizontal mattress of 2-0 Prolene. The cord and attached epididymis were then repositioned within the respective vivek scrotum and secured in place with a single interrupted 2-0 Prolene. The cord was infiltrated with Exparel bilaterally. The septi is dartos fascia was then reapproximated using a running 2-0 PDS. Subcutaneous tissue in level was infiltrated with local, Exparel anesthetic. Next, the skin was reapproximated using a running horizontal mattress of 4-0 Monocryl. The skin was infiltrated with Exparel anesthetic as well. Now the skin surface was cleaned and dried, antibiotic ointment was applied to the incision line and dry sterile fluffs were applied to the scrotum. Patient was then repositioned in supine and an athletic supporter was then positioned in fitted to the patient. The patient was then awakened, [place] [facility] [place] in stable condition. Complications: none Post-operative Condition: stable Disposition: PACU Plan for aftercare: Discharge home
--- NOTE | 2020-05-25 16:53 | SUR.PHASEII ---
DR. SHAFER CAME IN TO ASSESS PATIENT'S SHADOW DRAINAGE, NO ACTIVE DRAINAGE FROM SUTURE SITES. STATES GO AHEAD AND CHANGE OUT JOCK STRAP THAT HAS SCANT DRAINAGE ON IT AND GAUZE. PATIENT PREFERS NOT TO HAVE IT CHANGE OUT AT THIS TIME. DRAINAGE IS MINIMAL. SENT THE FRESH JOCK STRAP WITH PATIENT, AND FRESH GAUZE TO REPLACE IF NEEDED. REVIEWED DC HOME INSTRUCTIONS WITH PATIENT AND ALSO CALLED PATIENT'S SPOUSE AND REVIEWED THEM WITH HER WELL. PROVIDED HAND WRITTEN SCRIPT TO PATIENT. CALLED DR. SHAFER TO CLARIFY PATIENT'S BRILLINTA, HE STATES THAT PATIENT/SPOUSE SHOULD WAIT TO HAVE PATIENT RESUME THIS UNTIL AFTER THEY CALL HIS OFFICE TOMORROW TO SCHEDULE HIS FOLLOW UP APPOINTMENT. THEY WILL WANT TO ASSESS HIS INCISIONAL DRAINAGE PRIOR TO RECOMMENDING RESTARTING BRILLINTA. PATIENT AND SPOUSE NOTIFIED OF SAME, THEY CONFIRM UNDERSTANDING.
== END 2020-05-25 17:00 | disposition home or self-care (01) ==
PROVIDERS: Family Provider Family Medicine; PCP Student in an Organized Health Care Education/Training Program; Referring Provider Student in an Organized Health Care Education/Training Program; Visit Provider Specialist
PROC: (CPT 54520; principal; 2020-05-25 12:30)
DX: N43.41 Spermatocele of epididymis, single (principal); C61 Malignant neoplasm of prostate; N18.9 Chronic kidney disease, unspecified; N40.1 Benign prostatic hyperplasia with lower urinary tract symptoms; N21.0 Calculus in bladder; R33.9 Retention of urine, unspecified; I25.10 Atherosclerotic heart disease of native coronary artery without angina pectoris; I48.91 Unspecified atrial fibrillation; I50.9 Heart failure, unspecified; G47.33 Obstructive sleep apnea (adult) (pediatric); I12.9 Hypertensive chronic kidney disease with stage 1 through stage 4 chronic kidney disease, or unspecified chronic kidney disease; F03.90 Unspecified dementia, unspecified severity, without behavioral disturbance, psychotic disturbance, mood disturbance, and anxiety; K21.9 Gastro-esophageal reflux disease without esophagitis; Z72.0 Tobacco use; Z95.0 Presence of cardiac pacemaker; N50.89 Other specified disorders of the male genital organs; N44.8 Other noninflammatory disorders of the testis
CPT/HCPCS: 54520; C9290; J0690; J1100; J2405; J2704; J3010

== ENCOUNTER → 2020-06-05 11:24 | Outpatient (CLI) | payer MEDICARE, SELFPAY ==
[2020-06-05 12:17] LABS: Add Manual Diff / Slide Review NO; Basophils Absolute Auto 0 /uL (0-100); Basophils Percent Auto 0.6 % (0-2); Eosinophils Absolute Auto 100 /uL (0-450); Eosinophils Percent Auto 1.8 % (2-4); Hematocrit 34.2 % (41-53); Hemoglobin 11.1 g/dL (13.5-17.5); Lymphocytes Absolute Auto 300 /uL (1100-4500); Lymphocytes Percent Auto 7.4 % (25-40); Mean Corpuscular HGB Conc 32.5 % (30-36); Mean Corpuscular Hemoglobin 26.6 PG (26-34); Monocytes Absolute Auto 400 /uL (0-900); Monocytes Percent Auto 8.5 % (3-14); Neutrophils Absolute Auto 3600 /uL (1500-7000); Neutrophils Percent Auto 81.7 % (50-75); Platelet Count 144 X10^3/uL (150-400); Red Blood Cell Count 4.17 X10^6/uL (4.5-5.9); Red Cell Distribution Width 17.7 % (11.6-14.8); White Blood Cell Count 4.4 X10^3/uL (4.5-11.0)
[2020-06-05 12:22] LABS: Reticulocyte Count, Percent 1.1 % (0.87-2.60)
[2020-06-05 12:36] LABS: Alanine Aminotransferase 83 IU/L (<50); Albumin 3.6 g/dL (3.5-5.0); Albumin Globulin Ratio 1.4 (1.0-2.8); Alkaline Phosphatase 105 U/L (38-126); Aspartate Aminotransferase 86 IU/L (17-59); BUN Creatinine Ratio 18.5 (6-22); Bilirubin Total 0.6 mg/dL (0.2-1.3); Blood Urea Nitrogen 33 mg/dL (9-20); Calcium 8.9 mg/dL (8.4-10.2); Carbon Dioxide 25 mmol/L (22-32); Chloride 106 mmol/L (98-107); Estimated Glomerular Filt Rate 37.5 mL/min (>60); Globulin 2.5 g/dL (1.7-4.1); Glucose 127 mg/dL (80-110); HEMOLYSIS < 15 (0-50); Potassium 3.9 mmol/L (3.4-5.1); Sodium 137 mmol/L (137-145); Total Protein 6.1 g/dL (6.3-8.2)
[2020-06-05 13:06] LABS: HEMOLYSIS < 15 (0-50); Iron 45 ug/dL (49-181)
[2020-06-05 13:17] LABS: Percent Iron Saturation 12 % (20-50); Total Iron Binding Capacity 361 ug/dL (261-462); Transferrin 266 mg/dL (206-381)
[2020-06-05 14:15] LABS: Vitamin B12 750 pg/mL (239-931)
[2020-06-10 19:48] LABS: Vitamin D 25 Hydroxy (D3) 26.2 ng/mL (30.0-100.0)
== END ==
PROVIDERS: Family Provider Family Medicine; PCP Student in an Organized Health Care Education/Training Program; Referring Provider Nurse Practitioner; Visit Provider Nurse Practitioner
DX: I25.5 Ischemic cardiomyopathy (principal); N18.9 Chronic kidney disease, unspecified; D64.9 Anemia, unspecified
CPT/HCPCS: 36415; 80053; 82306; 82607; 83540; 83550; 85025; 85045

== ENCOUNTER → 2020-06-15 08:17 | Outpatient (CLI) | payer MEDICARE, SELFPAY ==
[2020-06-15 09:33] LABS: Alanine Aminotransferase 50 IU/L (<50); Albumin 3.4 g/dL (3.5-5.0); Albumin Globulin Ratio 1.4 (1.0-2.8); Alkaline Phosphatase 94 U/L (38-126); Aspartate Aminotransferase 49 IU/L (17-59); BUN Creatinine Ratio 19.1 (6-22); Bilirubin Total 0.5 mg/dL (0.2-1.3); Blood Urea Nitrogen 34 mg/dL (9-20); Calcium 9.1 mg/dL (8.4-10.2); Carbon Dioxide 24 mmol/L (22-32); Chloride 104 mmol/L (98-107); Estimated Glomerular Filt Rate 37.5 mL/min (>60); Globulin 2.4 g/dL (1.7-4.1); Glucose 100 mg/dL (80-110); HEMOLYSIS < 15 (0-50); Magnesium 2.1 mg/dL (1.6-2.3); Potassium 4.1 mmol/L (3.4-5.1); Sodium 134 mmol/L (137-145); Total Protein 5.8 g/dL (6.3-8.2)
[2020-06-15 09:41] LABS: NT-proBNP (BNP-Adult 18+) 1690 pg/mL (<125)
[2020-06-15 10:17] LABS: Thyroid Stimulating Hormone 1.91 uIU/mL (0.47-4.68)
== END ==
PROVIDERS: PCP Student in an Organized Health Care Education/Training Program; Referring Provider Specialist; Visit Provider Specialist
DX: R94.5 Abnormal results of liver function studies (principal); I50.22 Chronic systolic (congestive) heart failure; I47.2 Ventricular tachycardia; I48.0 Paroxysmal atrial fibrillation
CPT/HCPCS: 36415; 80053; 83735; 83880; 84443

== ENCOUNTER → 2020-06-29 07:56 | Outpatient (CLI) | payer MEDICARE, SELFPAY ==
[2020-06-29 08:29] LABS: Hematocrit 34.2 % (41-53); Mean Corpuscular HGB Conc 32.3 % (30-36); Mean Corpuscular Hemoglobin 26.3 PG (26-34); Mean Corpuscular Volume 81.5 fL (80-100); Platelet Count 149 X10^3/uL (150-400); Red Blood Cell Count 4.19 X10^6/uL (4.5-5.9); Red Cell Distribution Width 18.1 % (11.6-14.8); White Blood Cell Count 4.3 X10^3/uL (4.5-11.0)
[2020-06-29 08:39] LABS: INR 1.2 (0.9-1.3); Prothrombin Time 13.4 SECONDS (10.1-12.7); Reticulocyte Count, Percent 1.3 % (0.87-2.60)
[2020-06-29 08:41] LABS: PTT Partial Thromboplastin Tim 33 SECONDS (26.4-36.2)
[2020-06-29 08:53] LABS: Hypochromasia 1+; Neutrophils Absolute Manual 3655 /uL (3000-5900); Poikilocytosis 1+; Total Cells Counted 100
[2020-06-29 09:00] LABS: Alanine Aminotransferase 60 IU/L (<50); Albumin 3.6 g/dL (3.5-5.0); Albumin Globulin Ratio 1.4 (1.0-2.8); Alkaline Phosphatase 108 U/L (38-126); Aspartate Aminotransferase 65 IU/L (17-59); BUN Creatinine Ratio 15.2 (6-22); Bilirubin Total 0.4 mg/dL (0.2-1.3); Blood Urea Nitrogen 29 mg/dL (9-20); Calcium 9.6 mg/dL (8.4-10.2); Carbon Dioxide 28 mmol/L (22-32); Chloride 103 mmol/L (98-107); Estimated Glomerular Filt Rate 34.6 mL/min (>60); Globulin 2.6 g/dL (1.7-4.1); Glucose 123 mg/dL (80-110); Lactate Dehydrogenase 722 U/L (313-618); Sodium 135 mmol/L (137-145); Total Protein 6.2 g/dL (6.3-8.2)
[2020-06-29 09:03] LABS: HEMOLYSIS < 15 (0-50); Iron 47 ug/dL (49-181)
[2020-06-29 09:16] LABS: Percent Iron Saturation 13 % (20-50); Total Iron Binding Capacity 350 ug/dL (261-462); Transferrin 273 mg/dL (206-381)
[2020-06-29 09:35] LABS: Ferritin 35 ng/mL (18-464)
[2020-06-29 10:23] LABS: HEMOLYSIS 15 (0-50)
== END ==
PROVIDERS: PCP Student in an Organized Health Care Education/Training Program; Referring Provider Specialist; Visit Provider Student in an Organized Health Care Education/Training Program
DX: D61.818 Other pancytopenia (principal); N18.9 Chronic kidney disease, unspecified; N40.0 Benign prostatic hyperplasia without lower urinary tract symptoms; R94.5 Abnormal results of liver function studies
CPT/HCPCS: 36415; 80053; 82728; 83540; 83550; 83615; 84153; 85025; 85045; 85610; 85730

== ENCOUNTER → 2020-07-01 14:45 | Outpatient (CLI) | payer MEDICARE, SELFPAY ==
[2020-07-01 18:11] LABS: Prostate Specific Antigen 3.61 ng/mL (0.10-4.00)
[2020-07-01 18:13] LABS: Testosterone 14.8 ng/dL (71.8-623)
== END ==
PROVIDERS: PCP Student in an Organized Health Care Education/Training Program; Referring Provider Specialist; Visit Provider Specialist
DX: N40.0 Benign prostatic hyperplasia without lower urinary tract symptoms (principal); C61 Malignant neoplasm of prostate
CPT/HCPCS: 36415; 84153; 84403

== ENCOUNTER 2020-08-06 15:30 | Outpatient (RCR) | payer MEDICARE, SELFPAY ==
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
== END 2020-11-03 08:28 | disposition home or self-care (01) ==
LOC: SP 15:30
PROVIDERS: PCP Student in an Organized Health Care Education/Training Program; Referring Provider Student in an Organized Health Care Education/Training Program; Visit Provider Student in an Organized Health Care Education/Training Program
DX: R41.3 Other amnesia (principal); D64.9 Anemia, unspecified
CPT/HCPCS: 96125; 97129; 97130

== ENCOUNTER → 2020-11-03 12:19 | Outpatient (CLI) | payer MEDICARE, SELFPAY ==
[2020-11-03 14:42] LABS: Prostate Specific Antigen 0.067 ng/mL (0.10-4.00)
[2020-11-03 14:44] LABS: Testosterone 15.5 ng/dL (71.8-623)
== END ==
PROVIDERS: PCP Student in an Organized Health Care Education/Training Program; Referring Provider Specialist; Visit Provider Specialist
DX: C61 Malignant neoplasm of prostate (principal); N13.8 Other obstructive and reflux uropathy; N40.1 Benign prostatic hyperplasia with lower urinary tract symptoms
CPT/HCPCS: 36415; 84153; 84403

== ENCOUNTER → 2020-12-10 08:14 | Outpatient (CLI) | payer MEDICARE, SELFPAY ==
[2020-12-10 08:45] LABS: Add Manual Diff / Slide Review NO; Basophils Absolute Auto 0 /uL (0-100); Basophils Percent Auto 0.4 % (0-2); Eosinophils Absolute Auto 100 /uL (0-450); Eosinophils Percent Auto 1.5 % (2-4); Hemoglobin 10.4 g/dL (13.5-17.5); Lymphocytes Absolute Auto 300 /uL (1100-4500); Lymphocytes Percent Auto 5.8 % (25-40); Mean Corpuscular HGB Conc 32.7 % (30-36); Mean Corpuscular Hemoglobin 27.5 PG (26-34); Mean Corpuscular Volume 84.1 fL (80-100); Monocytes Absolute Auto 600 /uL (0-900); Neutrophils Absolute Auto 4600 /uL (1500-7000); Neutrophils Percent Auto 81.3 % (50-75); Platelet Count 154 X10^3/uL (150-400); Red Cell Distribution Width 17.4 % (11.6-14.8); White Blood Cell Count 5.7 X10^3/uL (4.5-11.0)
[2020-12-10 09:08] LABS: Alanine Aminotransferase 59 IU/L (<50); Albumin 3.6 g/dL (3.5-5.0); Albumin Globulin Ratio 1.4 (1.0-2.8); Alkaline Phosphatase 88 U/L (38-126); Aspartate Aminotransferase 55 IU/L (17-59); BUN Creatinine Ratio 17.2 (6-22); Bilirubin Total 0.6 mg/dL (0.2-1.3); Blood Urea Nitrogen 33 mg/dL (9-20); Calcium 9.7 mg/dL (8.4-10.2); Carbon Dioxide 25 mmol/L (22-32); Chloride 103 mmol/L (98-107); Estimated Glomerular Filt Rate 34.3 mL/min (>60); Globulin 2.5 g/dL (1.7-4.1); Glucose 107 mg/dL (80-110); HEMOLYSIS < 15 (0-50); Magnesium 2.1 mg/dL (1.6-2.3); Potassium 4.2 mmol/L (3.4-5.1); Sodium 135 mmol/L (137-145); Total Protein 6.1 g/dL (6.3-8.2)
[2020-12-10 10:12] LABS: Thyroid Stimulating Hormone 1.32 uIU/mL (0.47-4.68)
[2020-12-12 15:24] LABS: Cholesterol, Total 145 mg/dL (100-199); HDL-Cholesterol 62 mg/dL (>39); HDL-Particle (Total) 32.3 umol/L (>=30.5); LDL Particle 821 nmol/L (<1000); LDL Size 20.6 nm (>20.5); LDL-Cholsterol 68 mg/dL (0-99); LP-IR Score 39 (<=45); Small LDL- Particle 433 nmol/L (<=527); Triglycerides 75 mg/dL (0-149)
== END ==
PROVIDERS: Family Provider Student in an Organized Health Care Education/Training Program; PCP Student in an Organized Health Care Education/Training Program; Referring Provider Physician Assistant Medical; Visit Provider Physician Assistant Medical
DX: E78.5 Hyperlipidemia, unspecified (principal); I48.0 Paroxysmal atrial fibrillation; I50.22 Chronic systolic (congestive) heart failure; I50.23 Acute on chronic systolic (congestive) heart failure
CPT/HCPCS: 36415; 80053; 80061; 83704; 83735; 84443; 85025

== ENCOUNTER → 2020-12-15 07:50 | Outpatient (CLI) | payer MEDICARE, SELFPAY ==
--- NOTE | 2020-12-15 | DI.ECHO.S_ITS ---
[facility] +---------+ [facility] +---------+ : : [address] : : : : [id number] : : : : Phone: [phone]---------+ Echocardiogram Report + + :Name: PATITO PUENTES Study Date: 12/15/2020 Height: 70 in : :[facility] ReadingLocation: Weight: 200 lb: : Gender: Male BSA: 2.1 m2 : :: 1945 Age: 75 yrs BP: 95/62 mmHg: :Reason For Study: SYSTOLIC HEART FAILURE : :Ordering Physician: LOIS, : :ANITHA Performed By: Mara Obando : :Referring: ANITHA ABREU : + + Interpretation Summary Left ventricular systolic function remains severely decreased with the ejection fraction grossly estimated to be around 20% with severe global hypokinesis and akinesis of the apex, inferior and inferolateral segments that appears unchanged from the previous study. Left ventricular volumes are severely increased and slightly larger compared to the previous exam. There is likely a restrictive pattern of diastolic filling, consistent with elevated filling pressures and likely higher compared to the previous exam. The right ventricle is mildly enlarged with normal systolic function and appears slightly larger compared to the previous study. Right ventricular systolic pressure is estimated at 34 mmHg based on a CVP of 3 mmHg and is likely similar to the previous exam. The left atrium is severely enlarged and has mildly increased in size while the right atrium is moderately enlarged and unchanged. There is mild to moderate mitral regurgitation and mild tricuspid regurgitation that are unchanged from the previous study. There is mild to moderate pulmonic valve regurgitation that is more prominent compared to the previous exam. There is probable moderate aortic stenosis that is likely unchanged from the previous study with a peak velocity of 2.4 m/s with a mean gradient of 14 mmHg compared to 2.6 m/s and 15 mmHg, respectively, previously. The severity ratio remains essentially unchanged at 0.21 compared to 0.19 previously. The aortic root and ascending aorta remain mildly enlarged but grossly unchanged from the previous study. The patient was in sinus rhythm with ventricular pacing. Less PVCs are noted compared to the previous study. Procedure: A two-dimensional transthoracic echocardiogram with color flow and Doppler was performed. The study quality was technically adequate. A contrast injection of Definity was performed to improve assessment of LV function. Comparison is made with the echocardiogram of 04/30/2020. The patient has a paced rhythm. The heart rate ranged between 60-63 bpm during the study. Left Ventricle: The left ventricle is severely dilated. The estimated left ventricular end diastolic volume is 250 mL compared to the previous 219 ml. There is normal left ventricular wall thickness. Left ventricular ejection fraction is estimated to be 20 +/- 5%. Left ventricular systolic function is severely reduced. This is slightly less dynamic compared to the previous study. There is severe global hypokinesis of the left ventricle. There is akinesis of the apex, inferior, and inferolateral segments that is unchanged from the previous study. Diastolic parameters suggest a restrictive filling pattern consistent with probable significantly elevated filling pressures. This is likely higher compared to the previous study. Right Ventricle: There is a pacemaker lead in the right ventricle. The right ventricle is mildly dilated. This is slightly larger compared to the previous study. The right ventricular systolic function is normal. This is unchanged compared to the previous study. Atria: The left atrium is severely dilated. The left atrium has mildly increased in size since the prior echo exam. The right atrium is moderately dilated. This is unchanged compared to the previous study. There is no Doppler evidence for an interatrial shunt. Mitral Valve: There is mild mitral annular calcification. The mitral valve leaflets are mildly calcified. There is mild to moderate mitral regurgitation. This is unchanged compared to the previous study. Aortic Valve: The aortic valve is mildly calcified. There is moderately reduced leaflet mobility. There is moderate aortic stenosis. This is unchanged compared to the previous study. The peak aortic velocity on the previous exam was 2.4 m/sec. The aortic valve mean gradient is 14 mmHg. The calculated aortic valve area is 1.0 cm2. There is trace aortic regurgitation. Tricuspid Valve: The tricuspid valve is normal in structure and function. There is mild tricuspid regurgitation. This is unchanged compared to the previous study. The right ventricular systolic pressure is estimated to be at least 34 mmHg based on an estimated right atrial pressure of 3 mm Hg. This is similar compared to the previous study. Pulmonic Valve: The pulmonic valve is not well visualized. There is mild to moderate pulmonic regurgitation. This is more prominent compared to the previous study. Great Vessels: The aortic root is mildly dilated. The ascending aorta is mildly enlarged. This is grosssly unchanged compared to the previous study. The IVC is of normal diameter and collapses greater than 50% with a sniff. This suggests a low right atrial pressure of 3 mm Hg. Pericardium/ Pleura There is no pericardial effusion. There is no pleural effusion. MMode/2D Measurements & Calculations LVIDd: 7.2 cm LVOT diam: 2.4 cm LVIDs: 6.4 cm Ao root diam: 4.3 cm FS: 11.0 % asc Aorta Diam: 3.5 cm EPSS: 2.8 cm IVSd: 0.82 cm LVPWd: 0.92 cm LV briceno. diameter/BSA (cm/m^2): 3.5 LV sys. diameter/BSA (cm/m^2): 3.1 LA A2 area: 34.8 cm2 RA long axis: 5.8 cm LA A4 area: 31.7 cm2 RA area: 24.3 cm2 LA length (vol): 6.8 cm RA vol: 86.7 ml LA vol: 137.5 ml RA : 41.5 ml/m2 LA vol index: 65.9 ml/m2 IVC diam: 1.7 cm RVD1 (basal): 4.6 cm TAPSE: 2.6 cm Doppler Measurements & Calculations Ao V2 max: 236.4 cm/sec LVOT Max Ari: 52.6 cm/sec Ao V2 mean: 165.4 cm/sec LV V1 max P.1 mmHg Ao max P.4 mmHg LV V1 VTI: 12.0 cm Ao mean P.6 mmHg EHSAN(I,D): 1.0 cm2 Ao V2 VTI: 56.0 cm EHSAN(V,D): 1.0 cm2 sev ratio: 0.21 EHSAN indexed to BSA (cm^2/m^2): 0.48 MV E max ari: 116.2 cm/sec TR max ari: 280.2 cm/sec MV A max ari: 53.1 cm/sec TR max P.7 mmHg MV E/A: 2.2 PA V2 max: 133.3 cm/sec Med Peak E' Ari: 3.3 cm/sec PA V2 mean: 98.7 cm/sec E/E' med: 35.5 PA mean P.3 mmHg Lat Peak E' Ari: 4.2 cm/sec PA pr(Accel): 7.1 mmHg E/E' lat: 27.8 E/e' average: 31.7 MV dec time: 0.23 sec SV(OT): 56.3 ml Reading Physician:10:04 AM
== END ==
PROVIDERS: Family Provider Student in an Organized Health Care Education/Training Program; PCP Student in an Organized Health Care Education/Training Program; Referring Provider Specialist; Visit Provider Specialist
DX: I08.3 Combined rheumatic disorders of mitral, aortic and tricuspid valves (principal); I50.22 Chronic systolic (congestive) heart failure; I77.810 Thoracic aortic ectasia
CPT/HCPCS: 93306; Q9957

== ENCOUNTER → 2020-12-23 08:10 | Outpatient (CLI) | payer MEDICARE, SELFPAY ==
[2020-12-23 09:42] LABS: Add Manual Diff / Slide Review NO; Alanine Aminotransferase 44 IU/L (<50); Albumin 3.3 g/dL (3.5-5.0); Albumin Globulin Ratio 1.3 (1.0-2.8); Alkaline Phosphatase 89 U/L (38-126); Aspartate Aminotransferase 52 IU/L (17-59); BUN Creatinine Ratio 14.9 (6-22); Basophils Absolute Auto 0 /uL (0-100); Basophils Percent Auto 0.5 % (0-2); Bilirubin Total 0.5 mg/dL (0.2-1.3); Blood Urea Nitrogen 32 mg/dL (9-20); Calcium 9.4 mg/dL (8.4-10.2); Carbon Dioxide 27 mmol/L (22-32); Chloride 104 mmol/L (98-107); Eosinophils Absolute Auto 100 /uL (0-450); Eosinophils Percent Auto 2.4 % (2-4); Estimated Glomerular Filt Rate 30.1 mL/min (>60); Globulin 2.5 g/dL (1.7-4.1); Glucose 97 mg/dL (80-110); HEMOLYSIS < 15 (0-50); Hematocrit 30.2 % (41-53); Hemoglobin 9.9 g/dL (13.5-17.5); Lymphocytes Absolute Auto 300 /uL (1100-4500); Lymphocytes Percent Auto 7.5 % (25-40); Magnesium 2.1 mg/dL (1.6-2.3); Mean Corpuscular HGB Conc 32.8 % (30-36); Mean Corpuscular Hemoglobin 27.5 PG (26-34); Mean Corpuscular Volume 83.8 fL (80-100); Monocytes Absolute Auto 500 /uL (0-900); Monocytes Percent Auto 11.5 % (3-14); Neutrophils Absolute Auto 3200 /uL (1500-7000); Neutrophils Percent Auto 78.1 % (50-75); Phosphorous 3.4 mg/dL (2.3-3.7); Platelet Count 143 X10^3/uL (150-400); Potassium 3.7 mmol/L (3.4-5.1); Red Cell Distribution Width 17.3 % (11.6-14.8); Sodium 136 mmol/L (137-145); Total Protein 5.8 g/dL (6.3-8.2); Uric Acid 4.7 mg/dL (3.5-8.5); White Blood Cell Count 4.1 X10^3/uL (4.5-11.0)
[2020-12-23 09:56] LABS: Vitamin D 25 Hydroxy (D3) 54.3 ng/mL (30.0-100.0)
[2020-12-23 10:07] LABS: Appearance Urine UA CLEAR; Bilirubin Urine UA NEGATIVE (NEGATIVE); Color Urine UA YELLOW; Glucose Urine UA NEGATIVE (Negative); Ketones Urine UA NEGATIVE (NEGATIVE); Leukocyte Esterase Urine UA TRACE (NEGATIVE); Nitrite Urine UA NEGATIVE (Negative); Occult Blood Urine UA 3+ (Negative); Protein Urine UA NEGATIVE (Negative); Urobilinogen Urine UA 0.2 E.U./dL (0.2); pH Urine UA 5.5 (4.5-8.0)
[2020-12-23 10:11] LABS: Thyroid Stimulating Hormone 1.58 uIU/mL (0.47-4.68)
[2020-12-23 11:16] LABS: Creatinine Urine Random 73.3 mg/dL
[2020-12-23 11:18] LABS: Bacteria Urine Few (2-10); RBC Urine 30-100/HPF (0-5/HPF); WBC Urine 1-5/HPF (0-5/HPF)
[2020-12-23 11:19] LABS: Culture Indicated Urine Specimen Cultured
[2020-12-23 11:20] LABS: Microalbumin Urine Random 5.5 mg/dL (0-1.6)
[2020-12-24 09:34] LABS: Parathyroid Hormone Int 29 pg/mL (15-65)
[2020-12-25 11:00] LABS: Cholesterol, Total 135 mg/dL (100-199); HDL-Cholesterol 61 mg/dL (>39); HDL-Particle (Total) 32.5 umol/L (>=30.5); Historical Reading Comment: (.); LDL Particle 691 nmol/L (<1000); LDL Size 20.8 nm (>20.5); LDL-Cholsterol 61 mg/dL (0-99); LP-IR Score 29 (<=45); Small LDL- Particle 291 nmol/L (<=527); Triglycerides 64 mg/dL (0-149)
== END ==
PROVIDERS: Family Provider Student in an Organized Health Care Education/Training Program; PCP Student in an Organized Health Care Education/Training Program; Referring Provider Internal Medicine Nephrology; Visit Provider Internal Medicine Nephrology
DX: N18.32 Chronic kidney disease, stage 3b (principal); I50.22 Chronic systolic (congestive) heart failure; I50.23 Acute on chronic systolic (congestive) heart failure; I48.0 Paroxysmal atrial fibrillation; E78.5 Hyperlipidemia, unspecified
CPT/HCPCS: 36415; 80053; 80061; 81001; 82043; 82306; 82570; 83704; 83735; 83970; 84100; 84443; 84550; 85025; 87086

== ENCOUNTER → 2021-01-26 07:54 | Outpatient (CLI) | payer MEDICARE, SELFPAY ==
[2021-01-26 08:56] LABS: Add Manual Diff / Slide Review NO; Basophils Absolute Auto 0 /uL (0-100); Basophils Percent Auto 0.8 % (0-2); Eosinophils Absolute Auto 100 /uL (0-450); Eosinophils Percent Auto 2.2 % (2-4); Hematocrit 34.9 % (41-53); Hemoglobin 11.3 g/dL (13.5-17.5); Lymphocytes Absolute Auto 400 /uL (1100-4500); Lymphocytes Percent Auto 8.6 % (25-40); Mean Corpuscular HGB Conc 32.3 % (30-36); Mean Corpuscular Hemoglobin 27.1 PG (26-34); Mean Corpuscular Volume 83.9 fL (80-100); Monocytes Absolute Auto 500 /uL (0-900); Neutrophils Absolute Auto 3600 /uL (1500-7000); Neutrophils Percent Auto 78.4 % (50-75); Platelet Count 138 X10^3/uL (150-400); Red Blood Cell Count 4.15 X10^6/uL (4.5-5.9); Red Cell Distribution Width 17.8 % (11.6-14.8); White Blood Cell Count 4.6 X10^3/uL (4.5-11.0)
[2021-01-26 09:16] LABS: Alanine Aminotransferase 42 IU/L (<50); Albumin 3.9 g/dL (3.5-5.0); Albumin Globulin Ratio 1.4 (1.0-2.8); Alkaline Phosphatase 87 U/L (38-126); Aspartate Aminotransferase 43 IU/L (17-59); BUN Creatinine Ratio 20.7 (6-22); Bilirubin Total 0.5 mg/dL (0.2-1.3); Blood Urea Nitrogen 43 mg/dL (9-20); Calcium 10.5 mg/dL (8.4-10.2); Carbon Dioxide 25 mmol/L (22-32); Chloride 103 mmol/L (98-107); Estimated Glomerular Filt Rate 31.3 mL/min (>60); Globulin 2.7 g/dL (1.7-4.1); Glucose 104 mg/dL (80-110); HEMOLYSIS < 15 (0-50); Magnesium 2.3 mg/dL (1.6-2.3); Potassium 4.1 mmol/L (3.4-5.1); Sodium 136 mmol/L (137-145); Total Protein 6.6 g/dL (6.3-8.2)
[2021-01-26 09:44] LABS: Thyroid Stimulating Hormone 1.09 uIU/mL (0.47-4.68)
[2021-01-29 09:02] LABS: Cholesterol, Total 151 mg/dL (100-199); HDL-Cholesterol 66 mg/dL (>39); HDL-Particle (Total) 37.9 umol/L (>=30.5); LDL Particle 899 nmol/L (<1000); LDL Size 21.5 nm (>20.5); LDL-Cholsterol 72 mg/dL (0-99); LP-IR Score 27 (<=45); Small LDL- Particle 387 nmol/L (<=527); Triglycerides 68 mg/dL (0-149)
== END ==
PROVIDERS: Family Provider Student in an Organized Health Care Education/Training Program; PCP Student in an Organized Health Care Education/Training Program; Referring Provider Specialist; Visit Provider Specialist
DX: I50.23 Acute on chronic systolic (congestive) heart failure (principal); I48.0 Paroxysmal atrial fibrillation; I50.22 Chronic systolic (congestive) heart failure; E78.5 Hyperlipidemia, unspecified
CPT/HCPCS: 36415; 80053; 80061; 83704; 83735; 84443; 85025

== ENCOUNTER 2021-02-04 13:45 | Outpatient (RCR) | payer MEDICARE, SELFPAY ==
--- NOTE | 2020-12-03 10:30 | PT.OIE ---
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 Nocturnal hypoxemia Non-ST elevation (NSTEMI) myocardial infarction (~06/28/18) Obesity Obstructive sleep apnea syndrome Prostate cancer Skin cancer Snoring Past Surgical History (Last Reviewed 11/10/20 @ 14:56 by Evans Wu MD) History of coronary artery stent placement Pacemaker (~2012) Visit Care Team Role Provider Type Emmanuel Chandra MD Attending Provider Physician Family Provider Primary Care Provider Referring Provider Specialty: Internal Medicine Address: [address] [place] [address], [address], [facility] Email: [email or web address] Physical Therapy Initial Evaluation PT-OP-A Visit Information Start: 12/03/20 08:05 Freq: Status: Active Protocol: Document 12/03/20 09:56 (Rec: 12/03/20 10:28 [email or web address]) Out-Patient Physical Therapy Visit Information Visit Information Visit Type Initial Evaluation Visit Start Time 09:00 Visit Stop Time 09:45 Total Visit Minutes 45 Visit Number Number of ENT CONSULTANT Visits 0 Evaluation Information Evaluation Date 12/03/20 Precautions Precautions pacemaker SOB previous heart attack 2years ago PT-OP-B Current Condition Start: 12/03/20 08:05 Freq: Status: Active Protocol: Document 12/03/20 09:56 (Rec: 12/03/20 10:28 [email or web address]) Current Condition History of Current Condition Onset Date a year ago Current Complaints decreased balance and activity tolerance, fear of falling History of Current Condition Erik Riojas) is a 75 yo male here with his for his decreased balance and activity tolerance started a year ago. He stated his balance has gradually getting worse and so does his LE strength. Fortunately, pt has not had any falls but He has difficulty with quick turns/ quick movements / bending over related movements who thinks he is going to fall over. Denies any dizziness/ vertigo/ lighthead episode. He has been using SPC for uneven ground and community walking. He does furniture cruise occasionally at home for support. His stated pt is basically home bound and very sedentary who tends to get SOB easily. Pt reports he can only walk approx a few hundred feet before a rest break. Personal Factors Other Personal Factors That May Effect CHF w history of Coronary Therapy/Recovery artery stent placement pacemaker 2013 memory loss SOB PT-OP-C Subjective Start: 12/03/20 08:05 Freq: Status: Active Protocol: Document 12/03/20 09:56 HH (Rec: 12/03/20 10:28 [email or web address]) Patient Questionnaires ABC- Activity Specific Balance Confidence Scale ABC Score 34.38 ABC Functional Impairment 60 to <80% Impaired (Score 21- 40) Dizziness Handicap Inventory DHI Score 48 DHI Functional Impairment 40 to 59% Impaired (Score 40- 59) PT-OP-D Balance Start: 12/03/20 08:05 Freq: Status: Active Protocol: Document 12/03/20 09:56 (Rec: 12/03/20 10:28 [email or web address]) OP-PT Balance Assessment Sitting Balance Static Sitting Balance Ability Normal Dynamic Sitting Balance Ability Normal Lemus Balance Assessment Evaluation Sitting to Standing Ability Independent w/Hands Unsupported Stance Supervision- 2 minutes Sitting Unsupported, Feet on Floor Safely- 2 minutes Standing to Sitting Ability Safely, Minimal Hand Use Transfer Ability Safely, Hand Use Unsupported Stance- Eyes Closed Supervision, 10 seconds Unsupported Stance- Eyes Open Supervision to maintain Reaching Forward Standing Safely, 5 inches Pick- Up Object From Floor Supervision Look Behind Shoulder - Standing Shifts Weight Well Turning 360 Degrees Turns slowly, but safely Unsupported Stance, Alternating Feet on (I)- 8 Steps in > 20 secs Stair Unsupported Tandem Stance Assist to Step-15 seconds Unilateral Leg Stance Lifts Leg/Unable to Hold Total Score Lemus Total Score (out of 56 points) 40 Lemus Impairment Rating 20 to 39% Impaired (Score 34- 44) Benjamin Fall Scale Copyright Permission PT-OP-E Functional Tests Start: 12/03/20 08:05 Freq: Status: Active Protocol: Document 12/03/20 09:56 (Rec: 12/03/20 10:28 [email or web address]) Functional Tests 30 Second Sit to Stand Test Score 10 Comments L UE w SPC, R UE push off from table (20 inch surface) PT-OP-G Mobility & Gait Start: 12/03/20 08:05 Freq: Status: Active Protocol: Document 12/03/20 09:56 HH (Rec: 12/03/20 10:28 [email or web address]) OP Gait Assessment Gait Gait Assistance Required: Standby Assistance Assistive Devices Assistive Device Straight Cane Gait Deviations General Gait Pattern Decreased Stride Length, Decreased Feet Clearance Factors Limiting Gait Function Factors Limiting Gait Function Decreased Strength,Poor Balance,Respiratory Distress Comments Gait Comments pt presents occasional excessive sway during amb, 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 and former and WBOS PT-OP-H Neuro Start: 12/03/20 08:05 Freq: Status: Active Protocol: Document 12/03/20 09:56 HH (Rec: 12/03/20 10:28 [email or web address]) Sensation Evaluation Gross Sensation Gross Sensation WNL PT-OP-J Posture/Palpation/Skin Start: 12/03/20 08:05 Freq: Status: Active Protocol: Document 12/03/20 09:56 HH (Rec: 12/03/20 10:28 [email or web address]) Posture Evaluation Position Standing Evaluation View Lateral Head/C-Spine Posture Forward Head T-Spine Posture Increased Kyphosis PT-OP-M Strength Start: 12/03/20 08:05 Freq: Status: Active Protocol: Document 12/03/20 09:56 HH (Rec: 12/03/20 10:28 [email or web address]) Hip Strength Hip Manual Muscle Testing Left Flexion (L2) 4- Good- Extension (S1) 4- Good- Abduction 4- Good- Right Flexion (L2) 4- Good- Extension (S1) 4- Good- Abduction 4- Good- Knee Strength Knee Manual Muscle Testing Right Flexion (S2) 4 Good Extension (L3) 4 Good Left Flexion (S2) 4 Good Extension (L3) 4 Good Ankle/Foot Strength Ankle and Foot Manual Muscle Testing Right Dorsiflexion (L4) 4+ Good+ Plantarflexion (S1) 4+ Good+ Left Dorsiflexion (L4) 4+ Good+ Plantarflexion (S1) 4+ Good+ PT-OP-O Vestibular Start: 12/03/20 08:05 Freq: Status: Active Protocol: Document 12/03/20 09:56 HH (Rec: 12/03/20 10:30 [email or web address]) Vestibular Assessment Visual Testing Smooth Pursuits Horizontal -ve Smooth Pursuits Vertical -ve Saccades Horizontal -ve Saccades Vertical -ve Comments Vestibular Comments mild dizziness reported during VOR1 PT-OP-T Assessment and Plan Start: 12/03/20 08:05 Freq: Status: Active Protocol: Document 12/03/20 09:56 HH (Rec: 12/03/20 10:28 HH [email or web address]) Physical Therapy Assessment Rehab Potential Rehabilitation Potential Good Evaluation Complexity Number of Personal Factors/Comorbidities 3 or More Number of Body Systems Impaired 3 Clinical Presentation at Evaluation Stable Impairments Impairments Activity Tolerance,Balance, Functional Activities, Functional Mobility,Gait, Posture,ROM,Soft Tissue Mobility,Strength,Transfers Other Concerns Fall Risk moderate Barriers to Rehabilitation CHF w history of Coronary artery stent placement pacemaker 2012 memory loss SOB Goals floor recovery Impairment pt states he is not able to recover from the floor Long-Term Goal (LTG) pt will show improved balance and LE strength to be able to recover from the floor with the use of a chair independently and safely. LTG Duration 8 weeks LE strength Impairment pt needs UEs to push off during transfers Short Term Goal (STG) pt will show improved LE strength so he can complete STS 6 times without using UEs to push off within 30 s STG Duration 4weeks Long-Term Goal (LTG) pt will show improved LE strength so he can complete STS 10 times without using UEs to push off within 30 s LTG Duration 10 weeks 6MWT Impairment will assess next visit LEMUS Impairment Pt scores 40 /56 on LEMUS Long-Term Goal (LTG) pt will show improved overall balance by scoring >46 /56 on LEMUS LTG Duration 10 weeks Assessment Summary Assessment Ck is a 75yo male here for his decreased balance and activity tolerance since a year ago. PMH includes pacemaker, coronary stent placement, CHF, prostate cancer (PSA is currently unnoticeable as stated) Upon assessment, pt presents overall deconditioning and decreased balance. His LEMUS = 40/56 which indicate safe ambulation with AD. He presents difficulty with turns , bend over, NBOS and single leg balance related activities . He also gets SOB easily during assessment. He does not have sensation loss in his LEs but does c/o mild dizziness with VOR1 / quick head turns. Might be appropriate to complete DGI and 6 MWT for upcoming visits. I believe pt will benefit from skilled therapy to improve his LE strength, overall balance and gait mechanics to reduce his risk of falling. This might be a long course of rehab d/t his cormobidities and he will be leaving for a 1month vacation in late december. Physical Therapy Plan Frequency and Duration Frequency of Treatment 2x/Week Duration of Treatment 10 weeks Plan of Care Start Date 12/03/20 Plan of Care End Date 02/16/21 Therapeutic Interventions Therapeutic Interventions Aquatic Therapy,Balance Training,Gait Training,Home Exercise Program,Joint Mobilizations,Manual Therapy, Neuromuscular Re-education, Patient/Caregiver Education, Self-Care/Home Management,Soft Tissue Mobilization, Therapeutic Activities, Therapeutic Exercises Next Visit Focus/Plan Next Note Type Treatment Note Next Visit Plan 6MWT/ 2MWT DGI if possible HEP includes calf raise, STS, toe tap, heel toe/ stance with EC.
--- NOTE | 2020-12-03 10:30 | PT.OPPOC ---
Physical, Occupational & Speech Therapy At [facility] Current Diagnoses Other abnormalities of gait and mobility (12/03/20) Visit Care Team Role Provider Type Emmanuel Chandra MD Attending Provider Physician Family Provider Primary Care Provider Referring Provider Specialty: Internal Medicine Address: [address] [place] [address], [address], [address] Email: [email or web address] Plan Of Care PT-OP-T Assessment and Plan Start: 12/03/20 08:05 Freq: Status: Active Protocol: Document 12/03/20 09:56 (Rec: 12/03/20 10:28 [email or web address]) Physical Therapy Assessment Rehab Potential Rehabilitation Potential Good Evaluation Complexity Number of Personal Factors/Comorbidities 3 or More Number of Body Systems Impaired 3 Clinical Presentation at Evaluation Stable Impairments Impairments Activity Tolerance,Balance, Functional Activities, Functional Mobility,Gait, Posture,ROM,Soft Tissue Mobility,Strength,Transfers Other Concerns Fall Risk moderate Barriers to Rehabilitation CHF w history of Coronary artery stent placement pacemaker 2013 memory loss SOB Goals floor recovery Impairment pt states he is not able to recover from the floor Reproduction Technician Goal (LTG) pt will show improved balance and LE strength to be able to recover from the floor with the use of a chair independently and safely. LTG Duration 8 weeks LE strength Impairment pt needs UEs to push off during transfers Short Term Goal (STG) pt will show improved LE strength so he can complete STS 6 times without using UEs to push off within 30 s STG Duration 4weeks Fpc Goal (LTG) pt will show improved LE strength so he can complete STS 10 times without using UEs to push off within 30 s LTG Duration 10 weeks 6MWT Impairment will assess next visit LEMUS Impairment Pt scores 40 /56 on LEMUS Fpc Goal (LTG) pt will show improved overall balance by scoring >46 /56 on LEMUS LTG Duration 10 weeks Assessment Summary Assessment Ck is a 75yo male here for his decreased balance and activity tolerance since a year ago. PMH includes pacemaker, coronary stent placement, CHF, prostate cancer (PSA is currently unnoticeable as stated) Upon assessment, pt presents overall deconditioning and decreased balance. His LEMUS = 40/56 which indicate safe ambulation with AD. He presents difficulty with turns , bend over, NBOS and single leg balance related activities . He also gets SOB easily during assessment. He does not have sensation loss in his LEs but does c/o mild dizziness with VOR1 / quick head turns. Might be appropriate to complete DGI and 6 MWT for upcoming visits. I believe pt will benefit from skilled therapy to improve his LE strength, overall balance and gait mechanics to reduce his risk of falling. This might be a long course of rehab d/t his cormobidities and he will be leaving for a 1month vacation in late december. Physical Therapy Plan Frequency and Duration Frequency of Treatment 2x/Week Duration of Treatment 10 weeks Plan of Care Start Date 12/03/20 Plan of Care End Date 02/16/21 Therapeutic Interventions Therapeutic Interventions Aquatic Therapy,Balance Training,Gait Training,Home Exercise Program,Joint Mobilizations,Manual Therapy, Neuromuscular Re-education, Patient/Caregiver Education, Self-Care/Home Management,Soft Tissue Mobilization, Therapeutic Activities, Therapeutic Exercises Next Visit Focus/Plan Next Note Type Treatment Note Next Visit Plan 6MWT/ 2MWT DGI if possible HEP includes calf raise, STS, toe tap, heel toe/ stance with EC. Plan of Care Dates Plan of Care Start Date 12/03/20 Plan of Care End Date 02/16/21 Electronically Signed by: Jessica Jones PT 12/03/20 1039 Please Sign and Return: I have reviewed this Plan of Care and certify that the skilled therapy services above are required to meet the patient?s needs. Physician Signature Date Printed Name and Credentials Clinical Instructor Signature Printed Name and Credentials
--- NOTE | 2020-12-08 14:42 | PT.OTN ---
Current Diagnoses Other abnormalities of gait and mobility (12/08/20) Physical Therapy Treatment Note PT-OP-A Visit Information Start: 12/03/20 08:05 Freq: Status: Active Protocol: Document 12/08/20 13:47 HH (Rec: 12/08/20 14:42 [email or web address]) Out-Patient Physical Therapy Visit Information Visit Information Visit Type Treatment Note Visit Note attended session Visit Start Time 13:50 Visit Stop Time 14:30 Total Visit Minutes 40 Visit Number 2 Number of HONEY EXTRACTOR Visits 0 PT-OP-B Current Condition Start: 12/03/20 08:05 Freq: Status: Active Protocol: Document 12/03/20 09:56 HH (Rec: 12/03/20 10:28 [email or web address]) Current Condition History of Current Condition Onset Date a year ago Current Complaints decreased balance and activity tolerance, fear of falling History of Current Condition Erik Riojas) is a 75 yo male here with his for his decreased balance and activity tolerance started a year ago. He stated his balance has gradually getting worse and so does his LE strength. Fortunately, pt has not had any falls but He has difficulty with quick turns/ quick movements / bending over related movements who thinks he is going to fall over. Denies any dizziness/ vertigo/ lighthead episode. He has been using SPC for uneven ground and community walking. He does furniture cruise occasionally at home for support. His stated pt is basically home bound and very sedentary who tends to get SOB easily. Pt reports he can only walk approx a few hundred feet before a rest break. Personal Factors Other Personal Factors That May Effect CHF w history of Coronary Therapy/Recovery artery stent placement pacemaker 2013 memory loss SOB PT-OP-C Subjective Start: 12/03/20 08:05 Freq: Status: Active Protocol: Document 12/08/20 13:47 HH (Rec: 12/08/20 14:42 [id number]) OP-PT Subjective Patient Comments Patient Comments I was so tired after and i needed to rest twice to get to my car and took a nap after. PT-OP-D Balance Start: 12/03/20 08:05 Freq: Status: Active Protocol: Document 12/03/20 09:56 HH (Rec: 12/03/20 10:28 [email or web address]) OP-PT Balance Assessment Sitting Balance Static Sitting Balance Ability Normal Dynamic Sitting Balance Ability Normal Lemus Balance Assessment Evaluation Sitting to Standing Ability Independent w/Hands Unsupported Stance Supervision- 2 minutes Sitting Unsupported, Feet on Floor Safely- 2 minutes Standing to Sitting Ability Safely, Minimal Hand Use Transfer Ability Safely, Hand Use Unsupported Stance- Eyes Closed Supervision, 10 seconds Unsupported Stance- Eyes Open Supervision to maintain Reaching Forward Standing Safely, 5 inches Pick- Up Object From Floor Supervision Look Behind Shoulder - Standing Shifts Weight Well Turning 360 Degrees Turns slowly, but safely Unsupported Stance, Alternating Feet on (I)- 8 Steps in > 20 secs Stair Unsupported Tandem Stance Assist to Step-15 seconds Unilateral Leg Stance Lifts Leg/Unable to Hold Total Score Lemus Total Score (out of 56 points) 40 Lemus Impairment Rating 20 to 39% Impaired (Score 34- 44) Benjamin Fall Scale Copyright Permission PT-OP-E Functional Tests Start: 12/03/20 08:05 Freq: Status: Active Protocol: Document 12/03/20 09:56 (Rec: 12/03/20 10:28 [email or web address]) Functional Tests 30 Second Sit to Stand Test Score 10 Comments L UE w SPC, R UE push off from table (20 inch surface) PT-OP-G Mobility & Gait Start: 12/03/20 08:05 Freq: Status: Active Protocol: Document 12/03/20 09:56 (Rec: 12/03/20 10:28 [email or web address]) OP Gait Assessment Gait Gait Assistance Required: Standby Assistance Assistive Devices Assistive Device Straight Cane Gait Deviations General Gait Pattern Decreased Stride Length, Decreased Feet Clearance Factors Limiting Gait Function Factors Limiting Gait Function Decreased Strength,Poor Balance,Respiratory Distress Comments Gait Comments pt presents occasional excessive sway during amb, 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 PT-OP-H Neuro Start: 12/03/20 08:05 Freq: Status: Active Protocol: Document 12/03/20 09:56 (Rec: 12/03/20 10:28 [email or web address]) Sensation Evaluation Gross Sensation Gross Sensation WNL PT-OP-J Posture/Palpation/Skin Start: 12/03/20 08:05 Freq: Status: Active Protocol: Document 12/03/20 09:56 (Rec: 12/03/20 10:28 [email or web address]) Posture Evaluation Position Standing Evaluation View Lateral Head/C-Spine Posture Forward Head T-Spine Posture Increased Kyphosis PT-OP-M Strength Start: 12/03/20 08:05 Freq: Status: Active Protocol: Document 12/03/20 09:56 HH (Rec: 12/03/20 10:28 HH [email or web address]) Hip Strength Hip Manual Muscle Testing Left Flexion (L2) 4- Good- Extension (S1) 4- Good- Abduction 4- Good- Right Flexion (L2) 4- Good- Extension (S1) 4- Good- Abduction 4- Good- Knee Strength Knee Manual Muscle Testing Right Flexion (S2) 4 Good Extension (L3) 4 Good Left Flexion (S2) 4 Good Extension (L3) 4 Good Ankle/Foot Strength Ankle and Foot Manual Muscle Testing Right Dorsiflexion (L4) 4+ Good+ Plantarflexion (S1) 4+ Good+ Left Dorsiflexion (L4) 4+ Good+ Plantarflexion (S1) 4+ Good+ PT-OP-O Vestibular Start: 12/03/20 08:05 Freq: Status: Active Protocol: Document 12/03/20 09:56 HH (Rec: 12/03/20 10:30 [email or web address]) Vestibular Assessment Visual Testing Smooth Pursuits Horizontal -ve Smooth Pursuits Vertical -ve Saccades Horizontal -ve Saccades Vertical -ve Comments Vestibular Comments mild dizziness reported during VOR1 PT-OP-Q Treatments Start: 12/03/20 08:05 Freq: Status: Active Protocol: Document 12/08/20 13:47 HH (Rec: 12/08/20 14:42 [email or web address]) Cardio Equipment Recumbent Bicycle Duration (Minutes) 5 Resistance 2 Seat Position 6 Therapeutic Exercises Sitting Exercises sit to stand Sitting Exercise Name from 20 inch chair, without using UE Reps/Minutes 8x2 Comments for HEP Standing Exercises weight shift Standing Exercise Name fwd/bwk and lateral, staggered stance Equipment Used min support on //bar Reps/Minutes 15 x 2 Comments for HEP calf raises Side bilateral Equipment Used min support on bars Reps/Minutes 10 x2 Comments for HEP PT-OP-T Assessment and Plan Start: 12/03/20 08:05 Freq: Status: Active Protocol: Document 12/08/20 13:47 HH (Rec: 12/08/20 14:42 [id number]) Physical Therapy Assessment Goals floor recovery Impairment pt states he is not able to recover from the floor [facility] Goal (LTG) pt will show improved balance and LE strength to be able to recover from the floor with the use of a chair independently and safely. LTG Duration 8 weeks LE strength Impairment pt needs UEs to push off during transfers Short Term Goal (STG) pt will show improved LE strength so he can complete STS 6 times without using UEs to push off within 30 s STG Duration 4weeks [facility] Goal (LTG) pt will show improved LE strength so he can complete STS 10 times without using UEs to push off within 30 s LTG Duration 10 weeks 6MWT Impairment will assess next visit LEMUS Impairment Pt scores 40 /56 on LEMUS Wellness Program Manager Goal (LTG) pt will show improved overall balance by scoring >46 /56 on LEMUS LTG Duration 10 weeks Assessment Summary Assessment first tx session with pt. Pt did report he got fatigue after evaluation. Educated pt to notify therapist his fatigue level post session. Provided HEP to him today including calf raises, sit to stand, staggered stance fwd/ bwd and lateral. Pt shows good understanding and motivated at this point. He does need rest break between each exercise. Physical Therapy Plan Frequency and Duration Frequency of Treatment 2x/Week Duration of Treatment 10 weeks Plan of Care Start Date 12/03/20 Plan of Care End Date 02/16/21 Therapeutic Interventions Therapeutic Interventions Aquatic Therapy,Balance Training,Gait Training,Home Exercise Program,Joint Mobilizations,Manual Therapy, Neuromuscular Re-education, Patient/Caregiver Education, Self-Care/Home Management,Soft Tissue Mobilization, Therapeutic Activities, Therapeutic Exercises Next Visit Focus/Plan Next Note Type Treatment Note Next Visit Plan 6MWT/ 2MWT DGI if possible HEP includes calf raise, STS, toe tap, heel toe/ stance with EC.
--- NOTE | 2020-12-10 14:32 | PT.OTN ---
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 He stated his balance has gradually getting worse and so does his LE strength. Fortunately, pt has not had any falls but He has difficulty with quick turns/ quick movements / bending over related movements who thinks he is going to fall over. Denies any dizziness/ vertigo/ lighthead episode. He has been using SPC for uneven ground and community walking. He does furniture cruise occasionally at home for support. His stated pt is basically home bound and very sedentary who tends to get SOB easily. Pt reports he can only walk approx a few hundred feet before a rest break. Personal Factors Other Personal Factors That May Effect CHF w history of Coronary Therapy/Recovery artery stent placement pacemaker 2013 memory loss SOB PT-OP-C Subjective Start: 12/03/20 08:05 Freq: Status: Active Protocol: Document 12/10/20 13:45 HH (Rec: 12/10/20 14:32 [id number]) OP-PT Subjective Patient Comments Patient Comments I was okay after the last time and didnt need a nap. I had some questions regarding the home exercies. PT-OP-D Balance Start: 12/03/20 08:05 Freq: Status: Active Protocol: Document 12/03/20 09:56 HH (Rec: 12/03/20 10:28 [email or web address]) OP-PT Balance Assessment Sitting Balance Static Sitting Balance Ability Normal Dynamic Sitting Balance Ability Normal Lemus Balance Assessment Evaluation Sitting to Standing Ability Independent w/Hands Unsupported Stance Supervision- 2 minutes Sitting Unsupported, Feet on Floor Safely- 2 minutes Standing to Sitting Ability Safely, Minimal Hand Use Transfer Ability Safely, Hand Use Unsupported Stance- Eyes Closed Supervision, 10 seconds Unsupported Stance- Eyes Open Supervision to maintain Reaching Forward Standing Safely, 5 inches Pick- Up Object From Floor Supervision Look Behind Shoulder - Standing Shifts Weight Well Turning 360 Degrees Turns slowly, but safely Unsupported Stance, Alternating Feet on (I)- 8 Steps in > 20 secs Stair Unsupported Tandem Stance Assist to Step-15 seconds Unilateral Leg Stance Lifts Leg/Unable to Hold Total Score Lemus Total Score (out of 56 points) 40 Lemus Impairment Rating 20 to 39% Impaired (Score 34- 44) Benjamin Fall Scale Copyright Permission PT-OP-E Functional Tests Start: 12/03/20 08:05 Freq: Status: Active Protocol: Document 12/03/20 09:56 (Rec: 12/03/20 10:28 [email or web address]) Functional Tests 30 Second Sit to Stand Test Score 10 Comments L UE w SPC, R UE push off from table (20 inch surface) PT-OP-G Mobility & Gait Start: 12/03/20 08:05 Freq: Status: Active Protocol: Document 12/03/20 09:56 (Rec: 12/03/20 10:28 [email or web address]) OP Gait Assessment Gait Gait Assistance Required: Standby Assistance Assistive Devices Assistive Device Straight Cane Gait Deviations General Gait Pattern Decreased Stride Length, Decreased Feet Clearance Factors Limiting Gait Function Factors Limiting Gait Function Decreased Strength,Poor Balance,Respiratory Distress Comments Gait Comments pt presents occasional excessive sway during amb, feet pillowcase turner and WBOS PT-OP-H Neuro Start: 12/03/20 08:05 Freq: Status: Active Protocol: Document 12/03/20 09:56 (Rec: 12/03/20 10:28 [email or web address]) Sensation Evaluation Gross Sensation Gross Sensation WNL PT-OP-J Posture/Palpation/Skin Start: 12/03/20 08:05 Freq: Status: Active Protocol: Document 12/03/20 09:56 (Rec: 12/03/20 10:28 [email or web address]) Posture Evaluation Position Standing Evaluation View Lateral Head/C-Spine Posture Forward Head T-Spine Posture Increased Kyphosis PT-OP-M Strength Start: 12/03/20 08:05 Freq: Status: Active Protocol: Document 12/03/20 09:56 HH (Rec: 12/03/20 10:28 HH [email or web address]) Hip Strength Hip Manual Muscle Testing Left Flexion (L2) 4- Good- Extension (S1) 4- Good- Abduction 4- Good- Right Flexion (L2) 4- Good- Extension (S1) 4- Good- Abduction 4- Good- Knee Strength Knee Manual Muscle Testing Right Flexion (S2) 4 Good Extension (L3) 4 Good Left Flexion (S2) 4 Good Extension (L3) 4 Good Ankle/Foot Strength Ankle and Foot Manual Muscle Testing Right Dorsiflexion (L4) 4+ Good+ Plantarflexion (S1) 4+ Good+ Left Dorsiflexion (L4) 4+ Good+ Plantarflexion (S1) 4+ Good+ PT-OP-O Vestibular Start: 12/03/20 08:05 Freq: Status: Active Protocol: Document 12/03/20 09:56 HH (Rec: 12/03/20 10:30 HH [email or web address]) Vestibular Assessment Visual Testing Smooth Pursuits Horizontal -ve Smooth Pursuits Vertical -ve Saccades Horizontal -ve Saccades Vertical -ve Comments Vestibular Comments mild dizziness reported during VOR1 PT-OP-Q Treatments Start: 12/03/20 08:05 Freq: Status: Active Protocol: Document 12/10/20 13:45 HH (Rec: 12/10/20 14:32 HH [id number]) Cardio Equipment Recumbent Stepper (Sci-Fit) Duration (Minutes) 5 Resistance 3 Gym Equipment Shuttle Recovery B squat Resistance 50# Shuttle Recovery Platform Stable Reps/Time 15 x 2 Shuttle Balance red Details static stance Comments able to hold approx 8-10s each Therapeutic Exercises Sitting Exercises sit to stand Sitting Exercise Name from 20 inch chair, without using UE Reps/Minutes 8x2 Comments for HEP Standing Exercises balance Standing Exercise Name blue foam and black foam Reps/Minutes 10 -15 sec each x10m ins Comments EC and static stance, able to hold >10 sec. 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 LTG Duration 8 weeks LE strength Impairment pt needs UEs to push off during transfers Short Term Goal (STG) pt will show improved LE strength so he can complete STS 6 times without using UEs to push off within 30 s STG Duration 4weeks Half-Way Goal (LTG) pt will show improved LE strength so he can complete STS 10 times without using UEs to push off within 30 s LTG Duration 10 weeks 6MWT Impairment will assess next visit LEMUS Impairment Pt scores 40 /56 on LEMUS Half-Way Goal (LTG) pt will show improved overall balance by scoring >46 /56 on LEMUS LTG Duration 10 weeks Assessment Summary Assessment pt craig last session well without much fatigue. Reviewed all HEP today and he does need cues for weight shifting ex in staggered stance since he tends to use WBOS. Added balance exercises in different urface with EC. He craig well. Physical Therapy Plan Frequency and Duration Frequency of Treatment 2x/Week Duration of Treatment 10 weeks Plan of Care Start Date 12/03/20 Plan of Care End Date 02/16/21 Therapeutic Interventions Therapeutic Interventions Aquatic Therapy,Balance Training,Gait Training,Home Exercise Program,Joint Mobilizations,Manual Therapy, Neuromuscular Re-education, Patient/Caregiver Education, Self-Care/Home Management,Soft Tissue Mobilization, Therapeutic Activities, Therapeutic Exercises Next Visit Focus/Plan Next Note Type Treatment Note Next Visit Plan 6MWT/ 2MWT DGI if possible HEP includes calf raise, STS, toe tap, heel toe/ stance with EC.
--- NOTE | 2020-12-15 13:49 | PT.OTN ---
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 He stated his balance has gradually getting worse and so does his LE strength. Fortunately, pt has not had any falls but He has difficulty with quick turns/ quick movements / bending over related movements who thinks he is going to fall over. Denies any dizziness/ vertigo/ lighthead episode. He has been using SPC for uneven ground and community walking. He does furniture cruise occasionally at home for support. His stated pt is basically home bound and very sedentary who tends to get SOB easily. Pt reports he can only walk approx a few hundred feet before a rest break. Personal Factors Other Personal Factors That May Effect CHF w history of Coronary Therapy/Recovery artery stent placement pacemaker 2013 memory loss SOB PT-OP-C Subjective Start: 12/03/20 08:05 Freq: Status: Active Protocol: Document 12/15/20 13:06 SP (Rec: 12/15/20 13:53 SP [id number]) OP-PT Subjective Patient Comments Patient Comments I was tired after last tx but did ok. PT-OP-D Balance Start: 12/03/20 08:05 Freq: Status: Active Protocol: Document 12/03/20 09:56 HH (Rec: 12/03/20 10:28 [email or web address]) OP-PT Balance Assessment Sitting Balance Static Sitting Balance Ability Normal Dynamic Sitting Balance Ability Normal Lemus Balance Assessment Evaluation Sitting to Standing Ability Independent w/Hands Unsupported Stance Supervision- 2 minutes Sitting Unsupported, Feet on Floor Safely- 2 minutes Standing to Sitting Ability Safely, Minimal Hand Use Transfer Ability Safely, Hand Use Unsupported Stance- Eyes Closed Supervision, 10 seconds Unsupported Stance- Eyes Open Supervision to maintain Reaching Forward Standing Safely, 5 inches Pick- Up Object From Floor Supervision Look Behind Shoulder - Standing Shifts Weight Well Turning 360 Degrees Turns slowly, but safely Unsupported Stance, Alternating Feet on (I)- 8 Steps in > 20 secs Stair Unsupported Tandem Stance Assist to Step-15 seconds Unilateral Leg Stance Lifts Leg/Unable to Hold Total Score Lemus Total Score (out of 56 points) 40 Lemus Impairment Rating 20 to 39% Impaired (Score 34- 44) Benjamin Fall Scale Copyright Permission PT-OP-E Functional Tests Start: 12/03/20 08:05 Freq: Status: Active Protocol: Document 12/03/20 09:56 (Rec: 12/03/20 10:28 [email or web address]) Functional Tests 30 Second Sit to Stand Test Score 10 Comments L UE w SPC, R UE push off from table (20 inch surface) PT-OP-G Mobility & Gait Start: 12/03/20 08:05 Freq: Status: Active Protocol: Document 12/03/20 09:56 (Rec: 12/03/20 10:28 [email or web address]) OP Gait Assessment Gait Gait Assistance Required: Standby Assistance Assistive Devices Assistive Device Straight Cane Gait Deviations General Gait Pattern Decreased Stride Length, Decreased Feet Clearance Factors Limiting Gait Function Factors Limiting Gait Function Decreased Strength,Poor Balance,Respiratory Distress Comments Gait Comments pt presents occasional excessive sway during amb, feet bucket turner and WBOS PT-OP-H Neuro Start: 12/03/20 08:05 Freq: Status: Active Protocol: Document 12/03/20 09:56 (Rec: 12/03/20 10:28 [email or web address]) Sensation Evaluation Gross Sensation Gross Sensation WNL PT-OP-J Posture/Palpation/Skin Start: 12/03/20 08:05 Freq: Status: Active Protocol: Document 12/03/20 09:56 HH (Rec: 12/03/20 10:28 HH [email or web address]) Posture Evaluation Position Standing Evaluation View Lateral Head/C-Spine Posture Forward Head T-Spine Posture Increased Kyphosis PT-OP-M Strength Start: 12/03/20 08:05 Freq: Status: Active Protocol: Document 12/03/20 09:56 HH (Rec: 12/03/20 10:28 HH [email or web address]) Hip Strength Hip Manual Muscle Testing Left Flexion (L2) 4- Good- Extension (S1) 4- Good- Abduction 4- Good- Right Flexion (L2) 4- Good- Extension (S1) 4- Good- Abduction 4- Good- Knee Strength Knee Manual Muscle Testing Right Flexion (S2) 4 Good Extension (L3) 4 Good Left Flexion (S2) 4 Good Extension (L3) 4 Good Ankle/Foot Strength Ankle and Foot Manual Muscle Testing Right Dorsiflexion (L4) 4+ Good+ Plantarflexion (S1) 4+ Good+ Left Dorsiflexion (L4) 4+ Good+ Plantarflexion (S1) 4+ Good+ PT-OP-O Vestibular Start: 12/03/20 08:05 Freq: Status: Active Protocol: Document 12/03/20 09:56 HH (Rec: 12/03/20 10:30 [email or web address]) Vestibular Assessment Visual Testing Smooth Pursuits Horizontal -ve Smooth Pursuits Vertical -ve Saccades Horizontal -ve Saccades Vertical -ve Comments Vestibular Comments mild dizziness reported during VOR1 PT-OP-Q Treatments Start: 12/03/20 08:05 Freq: Status: Active Protocol: Document 12/15/20 13:06 SP (Rec: 12/15/20 13:53 SP [id number]) Cardio Equipment Recumbent Elliptical (Biodex) Duration (Minutes) 5 Resistance 2 Seat Position 9 Other LEs only: 30-35 RPM, 323 steps Gym Equipment Shuttle Recovery B squat Resistance 50# > 62# Shuttle Recovery Platform Stable Reps/Time 15 reps resistance Therapeutic Exercises Sitting Exercises HS and pirformis stretch Side bilateral Reps/Minutes 30 each LE each ex Comments feels good sit to stand Sitting Exercise Name from 18 inch chair, without using UE-HEP Reps/Minutes reps in 7 reps 30 sec Comments for HEP Standing Exercises side stepping Standing Exercise Name hip abd facilitation- added to HEP Side bilateral Reps/Minutes 20 ft x2 laps Comments cued //feet, tends to be hip ER leading LE balance Standing Exercise Name blue foam - WBOS 30 , NBOS 15 sec CG- Min A Resistance in PT only Equipment Used at rail. Reps/Minutes 10 -15 sec each x10m ins Comments head turns EO, EC weight shift Standing Exercise Name fwd/bwk and lateral, staggered stance- HEP Equipment Used hand hover bar Reps/Minutes 15 x 2 Comments for HEP calf raises Standing Exercise Name HEP Side bilateral Equipment Used min support on bars Reps/Minutes 10 x2 Comments for HEP PT-OP-T Assessment and Plan Start: 12/03/20 08:05 Freq: Status: Active Protocol: Document 12/15/20 13:06 SP (Rec: 12/15/20 13:53 SP [id number]) Physical Therapy Assessment Goals floor recovery Impairment pt states he is not able to recover from the floor Catalogue 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 LTG Duration 8 weeks LE strength Impairment pt needs UEs to push off during transfers Short Term Goal (STG) pt will show improved LE strength so he can complete STS 6 times without using UEs to push off within 30 s STG Duration 4weeks [employer]ogue Maker Goal (LTG) pt will show improved LE strength so he can complete STS 10 times without using UEs to push off within 30 s LTG Duration 10 weeks 6MWT Impairment will assess next visit LEMUS Impairment Pt scores 40 /56 on LEMUS Jail Goal (LTG) pt will show improved overall balance by scoring >46 /56 on LEMUS LTG Duration 10 weeks Assessment Summary Assessment Pt reported doing ok, tired during ther ex and some anterior knee tiring soreness not particularly pain during sit<>stands and leg press. Preferred standing rests between exercises. Pt required Min A with cuing for balance recovery during balance uneven blue cushion. Pt had 1 LOB with self recovery by grasping back of chair when coming to standing, reviewed hip hinge and COG over YAZMIN for reinforcement during review HEP performance. Physical Therapy Plan Frequency and Duration Frequency of Treatment 2x/Week Duration of Treatment 10 weeks Plan of Care Start Date 12/03/20 Plan of Care End Date 02/16/21 Therapeutic Interventions Therapeutic Interventions Aquatic Therapy,Balance Training,Gait Training,Home Exercise Program,Joint Mobilizations,Manual Therapy, Neuromuscular Re-education, Patient/Caregiver Education, Self-Care/Home Management,Soft Tissue Mobilization, Therapeutic Activities, Therapeutic Exercises Next Visit Focus/Plan Next Note Type Treatment Note Next Visit Plan 6MWT/ 2MWT DGI if possible HEP includes calf raise, STS, toe tap, heel toe/ stance with EC.
--- NOTE | 2020-12-18 11:19 | PT.OTN ---
Current Diagnoses Other abnormalities of gait and mobility (12/18/20) Physical Therapy Treatment Note PT-OP-A Visit Information Start: 12/03/20 08:05 Freq: Status: Active Protocol: Document 12/18/20 10:28 HH (Rec: 12/18/20 11:18 HH [id number]) Out-Patient Physical Therapy Visit Information Visit Information Visit Type Treatment Note Visit Note attended session, she wishes to know if needed during tx for help carryover Visit Start Time 10:30 Visit Stop Time 11:15 Total Visit Minutes 45 Visit Number 5 Number of SOLE EDGE INKER MACHINE Visits 0 PT-OP-B Current Condition Start: 12/03/20 08:05 Freq: Status: Active Protocol: Document 12/03/20 09:56 HH (Rec: 12/03/20 10:28 HH [email or web address]) Current Condition History of Current Condition Onset Date a year ago Current Complaints decreased balance and activity tolerance, fear of falling History of Current Condition Erik Riojas) is a 75 yo male here with his for his decreased balance and activity tolerance started a year ago. He stated his balance has gradually getting worse and so does his LE strength. Fortunately, pt has not had any falls but He has difficulty with quick turns/ quick movements / bending over related movements who thinks he is going to fall over. Denies any dizziness/ vertigo/ lighthead episode. He has been using SPC for uneven ground and community walking. He does furniture cruise occasionally at home for support. His stated pt is basically home bound and very sedentary who tends to get SOB easily. Pt reports he can only walk approx a few hundred feet before a rest break. Personal Factors Other Personal Factors That May Effect CHF w history of Coronary Therapy/Recovery artery stent placement pacemaker 2013 memory loss SOB PT-OP-C Subjective Start: 12/03/20 08:05 Freq: Status: Active Protocol: Document 12/18/20 11:19 HH (Rec: 12/18/20 11:19 HH [id number]) OP-PT Subjective Patient Comments Patient Comments I notice my balance is getting and my legs are stronger too. I started being able to pickup driver stuff from the floor Patient Reported Progress Improving PT-OP-D Balance Start: 12/03/20 08:05 Freq: Status: Active Protocol: Document 12/03/20 09:56 HH (Rec: 12/03/20 10:28 HH [email or web address]) OP-PT Balance Assessment Sitting Balance Static Sitting Balance Ability Normal Dynamic Sitting Balance Ability Normal Lemus Balance Assessment Evaluation Sitting to Standing Ability Independent w/Hands Unsupported Stance Supervision- 2 minutes Sitting Unsupported, Feet on Floor Safely- 2 minutes Standing to Sitting Ability Safely, Minimal Hand Use Transfer Ability Safely, Hand Use Unsupported Stance- Eyes Closed Supervision, 10 seconds Unsupported Stance- Eyes Open Supervision to maintain Reaching Forward Standing Safely, 5 inches Pick- Up Object From Floor Supervision Look Behind Shoulder - Standing Shifts Weight Well Turning 360 Degrees Turns slowly, but safely Unsupported Stance, Alternating Feet on (I)- 8 Steps in > 20 secs Stair Unsupported Tandem Stance Assist to Step-15 seconds Unilateral Leg Stance Lifts Leg/Unable to Hold Total Score Lemus Total Score (out of 56 points) 40 Lemus Impairment Rating 20 to 39% Impaired (Score 34- 44) Benjamin Fall Scale Copyright Permission PT-OP-E Functional Tests Start: 12/03/20 08:05 Freq: Status: Active Protocol: Document 12/03/20 09:56 (Rec: 12/03/20 10:28 [email or web address]) Functional Tests 30 Second Sit to Stand Test Score 10 Comments L UE w SPC, R UE push off from table (20 inch surface) PT-OP-G Mobility & Gait Start: 12/03/20 08:05 Freq: Status: Active Protocol: Document 12/03/20 09:56 (Rec: 12/03/20 10:28 [email or web address]) OP Gait Assessment Gait Gait Assistance Required: Standby Assistance Assistive Devices Assistive Device Straight Cane Gait Deviations General Gait Pattern Decreased Stride Length, Decreased Feet Clearance Factors Limiting Gait Function Factors Limiting Gait Function Decreased Strength,Poor Balance,Respiratory Distress Comments Gait Comments pt presents occasional excessive sway during amb, feet heel turner and WBOS PT-OP-H Neuro Start: 12/03/20 08:05 Freq: Status: Active Protocol: Document 12/03/20 09:56 (Rec: 12/03/20 10:28 [email or web address]) Sensation Evaluation Gross Sensation Gross Sensation WNL PT-OP-J Posture/Palpation/Skin Start: 12/03/20 08:05 Freq: Status: Active Protocol: Document 12/03/20 09:56 HH (Rec: 12/03/20 10:28 [email or web address]) Posture Evaluation Position Standing Evaluation View Lateral Head/C-Spine Posture Forward Head T-Spine Posture Increased Kyphosis PT-OP-M Strength Start: 12/03/20 08:05 Freq: Status: Active Protocol: Document 12/03/20 09:56 HH (Rec: 12/03/20 10:28 [email or web address]) Hip Strength Hip Manual Muscle Testing Left Flexion (L2) 4- Good- Extension (S1) 4- Good- Abduction 4- Good- Right Flexion (L2) 4- Good- Extension (S1) 4- Good- Abduction 4- Good- Knee Strength Knee Manual Muscle Testing Right Flexion (S2) 4 Good Extension (L3) 4 Good Left Flexion (S2) 4 Good Extension (L3) 4 Good Ankle/Foot Strength Ankle and Foot Manual Muscle Testing Right Dorsiflexion (L4) 4+ Good+ Plantarflexion (S1) 4+ Good+ Left Dorsiflexion (L4) 4+ Good+ Plantarflexion (S1) 4+ Good+ PT-OP-O Vestibular Start: 12/03/20 08:05 Freq: Status: Active Protocol: Document 12/03/20 09:56 HH (Rec: 12/03/20 10:30 [email or web address]) Vestibular Assessment Visual Testing Smooth Pursuits Horizontal -ve Smooth Pursuits Vertical -ve Saccades Horizontal -ve Saccades Vertical -ve Comments Vestibular Comments mild dizziness reported during VOR1 PT-OP-Q Treatments Start: 12/03/20 08:05 Freq: Status: Active Protocol: Document 12/18/20 10:28 HH (Rec: 12/18/20 11:18 [id number]) Cardio Equipment Recumbent Stepper (Sci-Fit) Duration (Minutes) 5 Resistance 3 Gym Equipment Shuttle Recovery B squat Resistance 50# > 62# Shuttle Recovery Platform Stable Reps/Time 15 reps resistance Shuttle Balance red Details static stance Comments able to hold approx 8-10s each Therapeutic Exercises Standing Exercises toe tap Equipment Used 4 box Reps/Minutes 20 x 3 Comments cues on feet clearance and light tap balance Standing Exercise Name blue foam - WBOS 30 , NBOS 15 sec CG- Min A Resistance in PT only Equipment Used at rail. Reps/Minutes 10 -15 sec each x10m ins Comments head turns EO, EC weight shift Standing Exercise Name fwd/bwk and lateral, staggered stance- HEP Equipment Used hand hover bar Reps/Minutes 15 x 2 Comments for HEP calf raises Standing Exercise Name HEP Side bilateral Equipment Used min support on bars Reps/Minutes 10 x2 Comments for HEP Neuro Re-Education Treatment Balance Activities cones Details cone pickup driver and placement Surface ground level Equipment no cane Comments no LOB but fatigue. Pt uses good hip hinge pattern to lower. hurdles Surface ground level Equipment hurdles Comments step to pattern 7 round trips. c/o fatigue after. PT-OP-T Assessment and Plan Start: 12/03/20 08:05 Freq: Status: Active Protocol: Document 12/18/20 10:28 HH (Rec: 12/18/20 11:18 [id number]) Physical Therapy Assessment Goals floor recovery Impairment pt states he is not able to recover from the floor Care Home Goal (LTG) pt will show improved balance and LE strength to be able to recover from the floor with the use of a chair independently and safely. LTG Duration 8 weeks LE strength Impairment pt needs UEs to push off during transfers Short Term Goal (STG) pt will show improved LE strength so he can complete STS 6 times without using UEs to push off within 30 s STG Duration 4weeks [employer] Goal (LTG) pt will show improved LE strength so he can complete STS 10 times without using UEs to push off within 30 s LTG Duration 10 weeks 6MWT Impairment will assess next visit LEMUS Impairment Pt scores 40 /56 on LEMUS Care Home Goal (LTG) pt will show improved overall balance by scoring >46 /56 on LEMUS LTG Duration 10 weeks Assessment Summary Assessment pt shows improved balance on uneven surface. Progressed to more functional activities today such as cone pickup driver and stepping over hurdles. Will continue progress to walking without SPC if craig. Physical Therapy Plan Frequency and Duration Frequency of Treatment 2x/Week Duration of Treatment 10 weeks Plan of Care Start Date 12/03/20 Plan of Care End Date 02/16/21 Therapeutic Interventions Therapeutic Interventions Aquatic Therapy,Balance Training,Gait Training,Home Exercise Program,Joint Mobilizations,Manual Therapy, Neuromuscular Re-education, Patient/Caregiver Education, Self-Care/Home Management,Soft Tissue Mobilization, Therapeutic Activities, Therapeutic Exercises Next Visit Focus/Plan Next Note Type Treatment Note Next Visit Plan 6MWT/ 2MWT DGI if possible HEP includes calf raise, STS, toe tap, heel toe/ stance with EC.
--- NOTE | 2020-12-22 09:00 | PT.OTN ---
Current Diagnoses Other abnormalities of gait and mobility (12/22/20) Physical Therapy Treatment Note PT-OP-A Visit Information Start: 12/03/20 08:05 Freq: Status: Active Protocol: Document 12/22/20 08:17 SP (Rec: 12/22/20 09:04 SP [id number]) Out-Patient Physical Therapy Visit Information Visit Information Visit Type Treatment Note Visit Note stayed in waiting room this tx. Visit Start Time 08:17 Visit Stop Time 09:00 Total Visit Minutes 42 Visit Number Number of MEAL TEMPERER Visits 1 Evaluation Information Evaluation Date 12/03/20 Precautions Precautions pacemaker SOB previous heart attack 2years ago PT-OP-B Current Condition Start: 12/03/20 08:05 Freq: Status: Active Protocol: Document 12/03/20 09:56 HH (Rec: 12/03/20 10:28 HH [email or web address]) Current Condition History of Current Condition Onset Date a year ago Current Complaints decreased balance and activity tolerance, fear of falling History of Current Condition Erik Riojas) is a 75 yo male here with his for his decreased balance and activity tolerance started a year ago. He stated his balance has gradually getting worse and so does his LE strength. Fortunately, pt has not had any falls but He has difficulty with quick turns/ quick movements / bending over related movements who thinks he is going to fall over. Denies any dizziness/ vertigo/ lighthead episode. He has been using SPC for uneven ground and community walking. He does furniture cruise occasionally at home for support. His stated pt is basically home bound and very sedentary who tends to get SOB easily. Pt reports he can only walk approx a few hundred feet before a rest break. Personal Factors Other Personal Factors That May Effect CHF w history of Coronary Therapy/Recovery artery stent placement pacemaker 2013 memory loss SOB PT-OP-C Subjective Start: 12/03/20 08:05 Freq: Status: Active Protocol: Document 12/22/20 08:17 SP (Rec: 12/22/20 09:04 SP [id number]) OP-PT Subjective Patient Comments Patient Comments I am doing my exercises, but knees aren't holding me as well. PT-OP-D Balance Start: 12/03/20 08:05 Freq: Status: Active Protocol: Document 12/03/20 09:56 HH (Rec: 12/03/20 10:28 HH [email or web address]) OP-PT Balance Assessment Sitting Balance Static Sitting Balance Ability Normal Dynamic Sitting Balance Ability Normal Lemus Balance Assessment Evaluation Sitting to Standing Ability Independent w/Hands Unsupported Stance Supervision- 2 minutes Sitting Unsupported, Feet on Floor Safely- 2 minutes Standing to Sitting Ability Safely, Minimal Hand Use Transfer Ability Safely, Hand Use Unsupported Stance- Eyes Closed Supervision, 10 seconds Unsupported Stance- Eyes Open Supervision to maintain Reaching Forward Standing Safely, 5 inches Pick- Up Object From Floor Supervision Look Behind Shoulder - Standing Shifts Weight Well Turning 360 Degrees Turns slowly, but safely Unsupported Stance, Alternating Feet on (I)- 8 Steps in > 20 secs Stair Unsupported Tandem Stance Assist to Step-15 seconds Unilateral Leg Stance Lifts Leg/Unable to Hold Total Score Lemus Total Score (out of 56 points) 40 Lemus Impairment Rating 20 to 39% Impaired (Score 34- 44) Benjamin Fall Scale Copyright Permission PT-OP-E Functional Tests Start: 12/03/20 08:05 Freq: Status: Active Protocol: Document 12/03/20 09:56 (Rec: 12/03/20 10:28 [email or web address]) Functional Tests 30 Second Sit to Stand Test Score 10 Comments L UE w SPC, R UE push off from table (20 inch surface) PT-OP-G Mobility & Gait Start: 12/03/20 08:05 Freq: Status: Active Protocol: Document 12/03/20 09:56 (Rec: 12/03/20 10:28 [email or web address]) OP Gait Assessment Gait Gait Assistance Required: Standby Assistance Assistive Devices Assistive Device Straight Cane Gait Deviations General Gait Pattern Decreased Stride Length, Decreased Feet Clearance Factors Limiting Gait Function Factors Limiting Gait Function Decreased Strength,Poor Balance,Respiratory Distress Comments Gait Comments pt presents occasional excessive sway during amb, feet pipe turner and WBOS PT-OP-H Neuro Start: 12/03/20 08:05 Freq: Status: Active Protocol: Document 12/03/20 09:56 (Rec: 12/03/20 10:28 [email or web address]) Sensation Evaluation Gross Sensation Gross Sensation WNL PT-OP-J Posture/Palpation/Skin Start: 12/03/20 08:05 Freq: Status: Active Protocol: Document 12/03/20 09:56 (Rec: 12/03/20 10:28 HH [email or web address]) Posture Evaluation Position Standing Evaluation View Lateral Head/C-Spine Posture Forward Head T-Spine Posture Increased Kyphosis PT-OP-M Strength Start: 12/03/20 08:05 Freq: Status: Active Protocol: Document 12/03/20 09:56 HH (Rec: 12/03/20 10:28 HH [email or web address]) Hip Strength Hip Manual Muscle Testing Left Flexion (L2) 4- Good- Extension (S1) 4- Good- Abduction 4- Good- Right Flexion (L2) 4- Good- Extension (S1) 4- Good- Abduction 4- Good- Knee Strength Knee Manual Muscle Testing Right Flexion (S2) 4 Good Extension (L3) 4 Good Left Flexion (S2) 4 Good Extension (L3) 4 Good Ankle/Foot Strength Ankle and Foot Manual Muscle Testing Right Dorsiflexion (L4) 4+ Good+ Plantarflexion (S1) 4+ Good+ Left Dorsiflexion (L4) 4+ Good+ Plantarflexion (S1) 4+ Good+ PT-OP-O Vestibular Start: 12/03/20 08:05 Freq: Status: Active Protocol: Document 12/03/20 09:56 HH (Rec: 12/03/20 10:30 HH [email or web address]) Vestibular Assessment Visual Testing Smooth Pursuits Horizontal -ve Smooth Pursuits Vertical -ve Saccades Horizontal -ve Saccades Vertical -ve Comments Vestibular Comments mild dizziness reported during VOR1 PT-OP-Q Treatments Start: 12/03/20 08:05 Freq: Status: Active Protocol: Document 12/22/20 08:17 SP (Rec: 12/22/20 09:04 SP [id number]) Cardio Equipment Recumbent Stepper (Sci-Fit) Duration (Minutes) 6 Resistance 3>2 due to knee pain Seat Position 10 Other 31-35 PRMs, 0.53 miles Gym Equipment Shuttle Recovery B squat Resistance 62# Shuttle Recovery Platform Stable Reps/Time 2x 15 reps- cued heel press for posterior chain recruitment Shuttle Balance red Details static stance: WBOS, NBOS Comments able to hold approx 3 sec, CG- Min A- max cues for posture, glut/ core fac Therapeutic Exercises Sitting Exercises sit to stand Sitting Exercise Name from 18 inch chair, without using UE- Reps/Minutes 7 reps 30 sec, stopped after 7 reps due to knee pain Comments reviewed HEP Standing Exercises balance Standing Exercise Name blue foam - WBOS 30 , NBOS 30 sec CG- Resistance in PT only Equipment Used at rail PRN contact Reps/Minutes 10 -15 sec each x10m ins Comments head turns, EO 30 each position, EC 3 sec Neuro Re-Education Treatment Balance Activities step up /downs Equipment 4 step, rail contact PRN Reps/Duration 5 reps leading each LE Comments cued hip ext and foot clearance step taps Equipment 4 step, rail Comments slight taps, and foot clearance coming down hurdles Surface ground level Equipment hurdles Comments step to pattern 7 round trips. c/o fatigue after. PT-OP-T Assessment and Plan Start: 12/03/20 08:05 Freq: Status: Active Protocol: Document 12/22/20 08:17 SP (Rec: 12/22/20 09:04 SP [id number]) Physical Therapy Assessment Goals floor recovery Impairment pt states he is not able to recover from the floor Pole Shaver Helper Goal (LTG) pt will show improved balance and LE strength to be able to recover from the floor with the use of a chair independently and safely. LTG Duration 8 weeks LE strength Impairment pt needs UEs to push off during transfers Short Term Goal (STG) pt will show improved LE strength so he can complete STS 6 times without using UEs to push off within 30 s STG Duration 4weeks Fdc Goal (LTG) pt will show improved LE strength so he can complete STS 10 times without using UEs to push off within 30 s LTG Duration 10 weeks 6MWT Impairment will assess next visit LEMUS Impairment Pt scores 40 /56 on LEMUS Fdc Goal (LTG) pt will show improved overall balance by scoring >46 /56 on LEMUS LTG Duration 10 weeks Assessment Summary Assessment Pt reports had knee pain during sit<>stands and shuttle recovery but did ok during balance activities. Improved with body alignment and postural corrections for balance recovery on uneven cushion and shuttle balance able to incorporate head turns and EC up to 3 sec. Physical Therapy Plan Frequency and Duration Frequency of Treatment 2x/Week Duration of Treatment 10 weeks Plan of Care Start Date 12/03/20 Plan of Care End Date 02/16/21 Therapeutic Interventions Therapeutic Interventions Aquatic Therapy,Balance Training,Gait Training,Home Exercise Program,Joint Mobilizations,Manual Therapy, Neuromuscular Re-education, Patient/Caregiver Education, Self-Care/Home Management,Soft Tissue Mobilization, Therapeutic Activities, Therapeutic Exercises Next Visit Focus/Plan Next Note Type Treatment Note Next Visit Plan Next tx: assess POC: 6MWT/ 2MWT DGI if possible. HEP includes calf raise, STS, toe tap, heel toe/ stance with EC.
--- NOTE | 2020-12-24 14:33 | PT.OTN ---
Current Diagnoses Other abnormalities of gait and mobility (12/24/20) Physical Therapy Treatment Note PT-OP-A Visit Information Start: 12/03/20 08:05 Freq: Status: Active Protocol: Document 12/24/20 13:55 HH (Rec: 12/24/20 14:32 [id number]) Out-Patient Physical Therapy Visit Information Visit Information Visit Type Treatment Note Visit Note stayed in waiting room this tx. Visit Start Time 13:48 Visit Stop Time 14:30 Total Visit Minutes 42 Visit Number Number of TRANSCRIPTION Visits 0 PT-OP-B Current Condition Start: 12/03/20 08:05 Freq: Status: Active Protocol: Document 12/03/20 09:56 HH (Rec: 12/03/20 10:28 [email or web address]) Current Condition History of Current Condition Onset Date a year ago Current Complaints decreased balance and activity tolerance, fear of falling History of Current Condition Erik Riojas) is a 75 yo male here with his for his decreased balance and activity tolerance started a year ago. He stated his balance has gradually getting worse and so does his LE strength. Fortunately, pt has not had any falls but He has difficulty with quick turns/ quick movements / bending over related movements who thinks he is going to fall over. Denies any dizziness/ vertigo/ lighthead episode. He has been using SPC for uneven ground and community walking. He does furniture cruise occasionally at home for support. His stated pt is basically home bound and very sedentary who tends to get SOB easily. Pt reports he can only walk approx a few hundred feet before a rest break. Personal Factors Other Personal Factors That May Effect CHF w history of Coronary Therapy/Recovery artery stent placement pacemaker 2013 memory loss SOB PT-OP-C Subjective Start: 12/03/20 08:05 Freq: Status: Active Protocol: Document 12/24/20 13:55 HH (Rec: 12/24/20 14:32 [id number]) OP-PT Subjective Patient Comments Patient Comments Im getting stronger and steadier. I dont feel as SOB as before. Patient Reported Progress Improving PT-OP-D Balance Start: 12/03/20 08:05 Freq: Status: Active Protocol: Document 12/03/20 09:56 HH (Rec: 12/03/20 10:28 [email or web address]) OP-PT Balance Assessment Sitting Balance Static Sitting Balance Ability Normal Dynamic Sitting Balance Ability Normal Lemus Balance Assessment Evaluation Sitting to Standing Ability Independent w/Hands Unsupported Stance Supervision- 2 minutes Sitting Unsupported, Feet on Floor Safely- 2 minutes Standing to Sitting Ability Safely, Minimal Hand Use Transfer Ability Safely, Hand Use Unsupported Stance- Eyes Closed Supervision, 10 seconds Unsupported Stance- Eyes Open Supervision to maintain Reaching Forward Standing Safely, 5 inches Pick- Up Object From Floor Supervision Look Behind Shoulder - Standing Shifts Weight Well Turning 360 Degrees Turns slowly, but safely Unsupported Stance, Alternating Feet on (I)- 8 Steps in > 20 secs Stair Unsupported Tandem Stance Assist to Step-15 seconds Unilateral Leg Stance Lifts Leg/Unable to Hold Total Score Lemus Total Score (out of 56 points) 40 Lemus Impairment Rating 20 to 39% Impaired (Score 34- 44) Benjamin Fall Scale Copyright Permission PT-OP-E Functional Tests Start: 12/03/20 08:05 Freq: Status: Active Protocol: Document 12/03/20 09:56 (Rec: 12/03/20 10:28 [email or web address]) Functional Tests 30 Second Sit to Stand Test Score 10 Comments L UE w SPC, R UE push off from table (20 inch surface) PT-OP-G Mobility & Gait Start: 12/03/20 08:05 Freq: Status: Active Protocol: Document 12/03/20 09:56 (Rec: 12/03/20 10:28 [email or web address]) OP Gait Assessment Gait Gait Assistance Required: Standby Assistance Assistive Devices Assistive Device Straight Cane Gait Deviations General Gait Pattern Decreased Stride Length, Decreased Feet Clearance Factors Limiting Gait Function Factors Limiting Gait Function Decreased Strength,Poor Balance,Respiratory Distress Comments Gait Comments pt presents occasional excessive sway during amb, feet flange turner and WBOS PT-OP-H Neuro Start: 12/03/20 08:05 Freq: Status: Active Protocol: Document 12/03/20 09:56 (Rec: 12/03/20 10:28 [email or web address]) Sensation Evaluation Gross Sensation Gross Sensation WNL PT-OP-J Posture/Palpation/Skin Start: 12/03/20 08:05 Freq: Status: Active Protocol: Document 12/03/20 09:56 (Rec: 12/03/20 10:28 [email or web address]) Posture Evaluation Position Standing Evaluation View Lateral Head/C-Spine Posture Forward Head T-Spine Posture Increased Kyphosis PT-OP-M Strength Start: 12/03/20 08:05 Freq: Status: Active Protocol: Document 12/03/20 09:56 HH (Rec: 12/03/20 10:28 HH [email or web address]) Hip Strength Hip Manual Muscle Testing Left Flexion (L2) 4- Good- Extension (S1) 4- Good- Abduction 4- Good- Right Flexion (L2) 4- Good- Extension (S1) 4- Good- Abduction 4- Good- Knee Strength Knee Manual Muscle Testing Right Flexion (S2) 4 Good Extension (L3) 4 Good Left Flexion (S2) 4 Good Extension (L3) 4 Good Ankle/Foot Strength Ankle and Foot Manual Muscle Testing Right Dorsiflexion (L4) 4+ Good+ Plantarflexion (S1) 4+ Good+ Left Dorsiflexion (L4) 4+ Good+ Plantarflexion (S1) 4+ Good+ PT-OP-O Vestibular Start: 12/03/20 08:05 Freq: Status: Active Protocol: Document 12/03/20 09:56 HH (Rec: 12/03/20 10:30 HH [email or web address]) Vestibular Assessment Visual Testing Smooth Pursuits Horizontal -ve Smooth Pursuits Vertical -ve Saccades Horizontal -ve Saccades Vertical -ve Comments Vestibular Comments mild dizziness reported during VOR1 PT-OP-Q Treatments Start: 12/03/20 08:05 Freq: Status: Active Protocol: Document 12/24/20 13:55 HH (Rec: 12/24/20 14:32 HH [id number]) Cardio Equipment Recumbent Stepper (Sci-Fit) Duration (Minutes) 4 Resistance 2 Seat Position 10 Other 31-35 PRMs, 0.53 miles Gym Equipment Shuttle Recovery B squat Resistance 62# Shuttle Recovery Platform Stable Reps/Time 2x 15 reps- cued heel press for posterior chain recruitment Shuttle Balance red Details static stance: WBOS, NBOS Comments able to hold approx 3 sec, CG- Min A- max cues for posture, glut/ core fac Therapeutic Exercises Sitting Exercises LAQ Side bilateral Equipment Used level 2 Reps/Minutes 10 x2 Comments FOR HEP Standing Exercises balance Standing Exercise Name staggered stance Reps/Minutes 15s x 5 Comments open area Neuro Re-Education Treatment Balance Activities ball toss Equipment balloon ball toss Reps/Duration 4 mins Comments romberg stance. pt slightly wobbly. hurdles Surface ground level Equipment hurdles Comments public area. step to pattern 5 round trips. then step over pattern for 5 rounds trips. c/o fatigue after. PT-OP-T Assessment and Plan Start: 12/03/20 08:05 Freq: Status: Active Protocol: Document 12/24/20 13:55 HH (Rec: 12/24/20 14:32 HH [id number]) Physical Therapy Assessment Goals floor recovery Impairment pt states he is not able to recover from the floor [employer] Goal (LTG) pt will show improved balance and LE strength to be able to recover from the floor with the use of a chair independently and safely. LTG Duration 8 weeks LE strength Impairment pt needs UEs to push off during transfers Short Term Goal (STG) pt will show improved LE strength so he can complete STS 6 times without using UEs to push off within 30 s STG Duration 4weeks [employer] Developer Goal (LTG) pt will show improved LE strength so he can complete STS 10 times without using UEs to push off within 30 s LTG Duration 10 weeks 6MWT Impairment will assess next visit LEMUS Impairment Pt scores 40 /56 on LEMUS Mcfp Goal (LTG) pt will show improved overall balance by scoring >46 /56 on LEMUS LTG Duration 10 weeks Assessment Summary Assessment Pt has been c/o his knees fatigue easily. I added LAQ today to strengthening his quads, no discomfort noted. Pt 's overall balance continues to improve and he is able to tolerate some dynamic balance exercises. Physical Therapy Plan Frequency and Duration Frequency of Treatment 2x/Week Duration of Treatment 10 weeks Plan of Care Start Date 12/03/20 Plan of Care End Date 02/16/21 Therapeutic Interventions Therapeutic Interventions Aquatic Therapy,Balance Training,Gait Training,Home Exercise Program,Joint Mobilizations,Manual Therapy, Neuromuscular Re-education, Patient/Caregiver Education, Self-Care/Home Management,Soft Tissue Mobilization, Therapeutic Activities, Therapeutic Exercises Next Visit Focus/Plan Next Note Type Treatment Note Next Visit Plan Next tx: assess POC: 6MWT/ 2MWT DGI if possible. HEP includes calf raise, STS, toe tap, heel toe/ stance with EC.
--- NOTE | 2021-01-05 14:31 | PT.OTN ---
Current Diagnoses Other abnormalities of gait and mobility (01/05/21) Physical Therapy Treatment Note PT-OP-A Visit Information Start: 12/03/20 08:05 Freq: Status: Active Protocol: Document 01/05/21 13:50 HH (Rec: 01/05/21 14:30 [id number]) Out-Patient Physical Therapy Visit Information Visit Information Visit Type Treatment Note Visit Note stayed in waiting room this tx. Visit Start Time 13:46 Visit Stop Time 14:30 Total Visit Minutes 44 Visit Number Number of ADMINISTRATIVE TECH Visits 0 PT-OP-B Current Condition Start: 12/03/20 08:05 Freq: Status: Active Protocol: Document 12/03/20 09:56 HH (Rec: 12/03/20 10:28 HH [email or web address]) Current Condition History of Current Condition Onset Date a year ago Current Complaints decreased balance and activity tolerance, fear of falling History of Current Condition Erik Riojas) is a 75 yo male here with his for his decreased balance and activity tolerance started a year ago. He stated his balance has gradually getting worse and so does his LE strength. Fortunately, pt has not had any falls but He has difficulty with quick turns/ quick movements / bending over related movements who thinks he is going to fall over. Denies any dizziness/ vertigo/ lighthead episode. He has been using SPC for uneven ground and community walking. He does furniture cruise occasionally at home for support. His stated pt is basically home bound and very sedentary who tends to get SOB easily. Pt reports he can only walk approx a few hundred feet before a rest break. Personal Factors Other Personal Factors That May Effect CHF w history of Coronary Therapy/Recovery artery stent placement pacemaker 2013 memory loss SOB PT-OP-C Subjective Start: 12/03/20 08:05 Freq: Status: Active Protocol: Document 01/05/21 13:50 HH (Rec: 01/05/21 14:30 HH [id number]) OP-PT Subjective Patient Comments Patient Comments My balance seems to be better . I was walking a lot during my cruise trip. Patient Reported Progress Improving PT-OP-D Balance Start: 12/03/20 08:05 Freq: Status: Active Protocol: Document 12/03/20 09:56 HH (Rec: 12/03/20 10:28 HH [email or web address]) OP-PT Balance Assessment Sitting Balance Static Sitting Balance Ability Normal Dynamic Sitting Balance Ability Normal Lemus Balance Assessment Evaluation Sitting to Standing Ability Independent w/Hands Unsupported Stance Supervision- 2 minutes Sitting Unsupported, Feet on Floor Safely- 2 minutes Standing to Sitting Ability Safely, Minimal Hand Use Transfer Ability Safely, Hand Use Unsupported Stance- Eyes Closed Supervision, 10 seconds Unsupported Stance- Eyes Open Supervision to maintain Reaching Forward Standing Safely, 5 inches Pick- Up Object From Floor Supervision Look Behind Shoulder - Standing Shifts Weight Well Turning 360 Degrees Turns slowly, but safely Unsupported Stance, Alternating Feet on (I)- 8 Steps in > 20 secs Stair Unsupported Tandem Stance Assist to Step-15 seconds Unilateral Leg Stance Lifts Leg/Unable to Hold Total Score Lemus Total Score (out of 56 points) 40 Lemus Impairment Rating 20 to 39% Impaired (Score 34- 44) Benjamin Fall Scale Copyright Permission PT-OP-E Functional Tests Start: 12/03/20 08:05 Freq: Status: Active Protocol: Document 12/03/20 09:56 (Rec: 12/03/20 10:28 [email or web address]) Functional Tests 30 Second Sit to Stand Test Score 10 Comments L UE w SPC, R UE push off from table (20 inch surface) PT-OP-G Mobility & Gait Start: 12/03/20 08:05 Freq: Status: Active Protocol: Document 12/03/20 09:56 (Rec: 12/03/20 10:28 [email or web address]) OP Gait Assessment Gait Gait Assistance Required: Standby Assistance Assistive Devices Assistive Device Straight Cane Gait Deviations General Gait Pattern Decreased Stride Length, Decreased Feet Clearance Factors Limiting Gait Function Factors Limiting Gait Function Decreased Strength,Poor Balance,Respiratory Distress Comments Gait Comments pt presents occasional excessive sway during amb, feet cross tie turner and WBOS PT-OP-H Neuro Start: 12/03/20 08:05 Freq: Status: Active Protocol: Document 12/03/20 09:56 (Rec: 12/03/20 10:28 [email or web address]) Sensation Evaluation Gross Sensation Gross Sensation WNL PT-OP-J Posture/Palpation/Skin Start: 12/03/20 08:05 Freq: Status: Active Protocol: Document 12/03/20 09:56 (Rec: 12/03/20 10:28 [email or web address]) Posture Evaluation Position Standing Evaluation View Lateral Head/C-Spine Posture Forward Head T-Spine Posture Increased Kyphosis PT-OP-M Strength Start: 12/03/20 08:05 Freq: Status: Active Protocol: Document 12/03/20 09:56 HH (Rec: 12/03/20 10:28 HH [email or web address]) Hip Strength Hip Manual Muscle Testing Left Flexion (L2) 4- Good- Extension (S1) 4- Good- Abduction 4- Good- Right Flexion (L2) 4- Good- Extension (S1) 4- Good- Abduction 4- Good- Knee Strength Knee Manual Muscle Testing Right Flexion (S2) 4 Good Extension (L3) 4 Good Left Flexion (S2) 4 Good Extension (L3) 4 Good Ankle/Foot Strength Ankle and Foot Manual Muscle Testing Right Dorsiflexion (L4) 4+ Good+ Plantarflexion (S1) 4+ Good+ Left Dorsiflexion (L4) 4+ Good+ Plantarflexion (S1) 4+ Good+ PT-OP-O Vestibular Start: 12/03/20 08:05 Freq: Status: Active Protocol: Document 12/03/20 09:56 HH (Rec: 12/03/20 10:30 HH [email or web address]) Vestibular Assessment Visual Testing Smooth Pursuits Horizontal -ve Smooth Pursuits Vertical -ve Saccades Horizontal -ve Saccades Vertical -ve Comments Vestibular Comments mild dizziness reported during VOR1 PT-OP-Q Treatments Start: 12/03/20 08:05 Freq: Status: Active Protocol: Document 01/05/21 13:50 HH (Rec: 01/05/21 14:30 HH [id number]) Gym Equipment Shuttle Recovery B squat Resistance 62# Shuttle Recovery Platform Stable Reps/Time 3x 15 reps- cued heel press for posterior chain recruitment Therapeutic Exercises Sitting Exercises LAQ Side bilateral Equipment Used level 2 Reps/Minutes 10 x2 Comments FOR HEP Standing Exercises balance Standing Exercise Name staggered stance Reps/Minutes 15s x 5 Comments open area Neuro Re-Education Treatment Balance Activities marching in place Reps/Duration 20x3 step up /downs Equipment 4 step, rail contact PRN Reps/Duration 5 reps leading each LE Comments cued hip ext and foot clearance cones Details cone reach on table Surface ground level Equipment 3-4 feet away Reps/Duration 8 mins Comments static stance, stagger stance hurdles Surface ground level Equipment hurdles Comments public area. step over pattern 3rounds x 3 sets. PT-OP-T Assessment and Plan Start: 12/03/20 08:05 Freq: Status: Active Protocol: Document 01/05/21 13:50 HH (Rec: 01/05/21 14:30 HH [id number]) Physical Therapy Assessment Goals floor recovery Impairment pt states he is not able to recover from the floor [employer] Att[employer] Machine Tender Goal (LTG) pt will show improved balance and LE strength to be able to recover from the floor with the use of a chair independently and safely. LTG Duration 8 weeks LE strength Impairment pt needs UEs to push off during transfers Short Term Goal (STG) pt will show improved LE strength so he can complete STS 6 times without using UEs to push off within 30 s STG Duration 4weeks [employer] Attaching Machine Tender Goal (LTG) pt will show improved LE strength so he can complete STS 10 times without using UEs to push off within 30 s LTG Duration 10 weeks 6MWT Impairment will assess next visit LEMUS Impairment Pt scores 40 /56 on LEMUS [employer] Attaching Machine Tender Goal (LTG) pt will show improved overall balance by scoring >46 /56 on LEMUS LTG Duration 10 weeks Assessment Summary Assessment pt reports improved walking endurance and distance. Added dynamic reaching in different stance today and he told session well with less c/o knee fatigue. Physical Therapy Plan Frequency and Duration Frequency of Treatment 2x/Week Duration of Treatment 10 weeks Plan of Care Start Date 12/03/20 Plan of Care End Date 02/16/21 Therapeutic Interventions Therapeutic Interventions Aquatic Therapy,Balance Training,Gait Training,Home Exercise Program,Joint Mobilizations,Manual Therapy, Neuromuscular Re-education, Patient/Caregiver Education, Self-Care/Home Management,Soft Tissue Mobilization, Therapeutic Activities, Therapeutic Exercises Next Visit Focus/Plan Next Note Type Treatment Note Next Visit Plan Next tx: assess POC: 6MWT/ 2MWT DGI if possible. HEP includes calf raise, STS, toe tap, heel toe/ stance with EC.
--- NOTE | 2021-01-07 16:10 | PT.OTN ---
Current Diagnoses Other abnormalities of gait and mobility (01/07/21) Physical Therapy Treatment Note PT-OP-A Visit Information Start: 12/03/20 08:05 Freq: Status: Active Protocol: Document 01/07/21 13:47 HH (Rec: 01/07/21 16:09 [id number]) Out-Patient Physical Therapy Visit Information Visit Information Visit Type Treatment Note Visit Start Time 13:48 Visit Stop Time 14:30 Total Visit Minutes 42 Visit Number Number of ARCHITECTURE MANAGER Visits 0 PT-OP-B Current Condition Start: 12/03/20 08:05 Freq: Status: Active Protocol: Document 12/03/20 09:56 HH (Rec: 12/03/20 10:28 [email or web address]) Current Condition History of Current Condition Onset Date a year ago Current Complaints decreased balance and activity tolerance, fear of falling History of Current Condition Erik Riojas) is a 75 yo male here with his for his decreased balance and activity tolerance started a year ago. He stated his balance has gradually getting worse and so does his LE strength. Fortunately, pt has not had any falls but He has difficulty with quick turns/ quick movements / bending over related movements who thinks he is going to fall over. Denies any dizziness/ vertigo/ lighthead episode. He has been using SPC for uneven ground and community walking. He does furniture cruise occasionally at home for support. His stated pt is basically home bound and very sedentary who tends to get SOB easily. Pt reports he can only walk approx a few hundred feet before a rest break. Personal Factors Other Personal Factors That May Effect CHF w history of Coronary Therapy/Recovery artery stent placement pacemaker 2013 memory loss SOB PT-OP-C Subjective Start: 12/03/20 08:05 Freq: Status: Active Protocol: Document 01/07/21 13:47 HH (Rec: 01/07/21 16:09 [id number]) OP-PT Subjective Patient Comments Patient Comments Im feeling pretty good and didnt get too tired from last time. Patient Reported Progress Improving PT-OP-D Balance Start: 12/03/20 08:05 Freq: Status: Active Protocol: Document 12/03/20 09:56 HH (Rec: 12/03/20 10:28 [email or web address]) OP-PT Balance Assessment Sitting Balance Static Sitting Balance Ability Normal Dynamic Sitting Balance Ability Normal Lemus Balance Assessment Evaluation Sitting to Standing Ability Independent w/Hands Unsupported Stance Supervision- 2 minutes Sitting Unsupported, Feet on Floor Safely- 2 minutes Standing to Sitting Ability Safely, Minimal Hand Use Transfer Ability Safely, Hand Use Unsupported Stance- Eyes Closed Supervision, 10 seconds Unsupported Stance- Eyes Open Supervision to maintain Reaching Forward Standing Safely, 5 inches Pick- Up Object From Floor Supervision Look Behind Shoulder - Standing Shifts Weight Well Turning 360 Degrees Turns slowly, but safely Unsupported Stance, Alternating Feet on (I)- 8 Steps in > 20 secs Stair Unsupported Tandem Stance Assist to Step-15 seconds Unilateral Leg Stance Lifts Leg/Unable to Hold Total Score Lemus Total Score (out of 56 points) 40 Lemus Impairment Rating 20 to 39% Impaired (Score 34- 44) Benjamin Fall Scale Copyright Permission PT-OP-E Functional Tests Start: 12/03/20 08:05 Freq: Status: Active Protocol: Document 12/03/20 09:56 (Rec: 12/03/20 10:28 [email or web address]) Functional Tests 30 Second Sit to Stand Test Score 10 Comments L UE w SPC, R UE push off from table (20 inch surface) PT-OP-G Mobility & Gait Start: 12/03/20 08:05 Freq: Status: Active Protocol: Document 12/03/20 09:56 (Rec: 12/03/20 10:28 [email or web address]) OP Gait Assessment Gait Gait Assistance Required: Standby Assistance Assistive Devices Assistive Device Straight Cane Gait Deviations General Gait Pattern Decreased Stride Length, Decreased Feet Clearance Factors Limiting Gait Function Factors Limiting Gait Function Decreased Strength,Poor Balance,Respiratory Distress Comments Gait Comments pt presents occasional excessive sway during amb, feet return agent and WBOS PT-OP-H Neuro Start: 12/03/20 08:05 Freq: Status: Active Protocol: Document 12/03/20 09:56 (Rec: 12/03/20 10:28 [email or web address]) Sensation Evaluation Gross Sensation Gross Sensation WNL PT-OP-J Posture/Palpation/Skin Start: 12/03/20 08:05 Freq: Status: Active Protocol: Document 12/03/20 09:56 HH (Rec: 12/03/20 10:28 [email or web address]) Posture Evaluation Position Standing Evaluation View Lateral Head/C-Spine Posture Forward Head T-Spine Posture Increased Kyphosis PT-OP-M Strength Start: 12/03/20 08:05 Freq: Status: Active Protocol: Document 12/03/20 09:56 HH (Rec: 12/03/20 10:28 HH [email or web address]) Hip Strength Hip Manual Muscle Testing Left Flexion (L2) 4- Good- Extension (S1) 4- Good- Abduction 4- Good- Right Flexion (L2) 4- Good- Extension (S1) 4- Good- Abduction 4- Good- Knee Strength Knee Manual Muscle Testing Right Flexion (S2) 4 Good Extension (L3) 4 Good Left Flexion (S2) 4 Good Extension (L3) 4 Good Ankle/Foot Strength Ankle and Foot Manual Muscle Testing Right Dorsiflexion (L4) 4+ Good+ Plantarflexion (S1) 4+ Good+ Left Dorsiflexion (L4) 4+ Good+ Plantarflexion (S1) 4+ Good+ PT-OP-O Vestibular Start: 12/03/20 08:05 Freq: Status: Active Protocol: Document 12/03/20 09:56 HH (Rec: 12/03/20 10:30 [email or web address]) Vestibular Assessment Visual Testing Smooth Pursuits Horizontal -ve Smooth Pursuits Vertical -ve Saccades Horizontal -ve Saccades Vertical -ve Comments Vestibular Comments mild dizziness reported during VOR1 PT-OP-Q Treatments Start: 12/03/20 08:05 Freq: Status: Active Protocol: Document 01/07/21 13:47 HH (Rec: 01/07/21 16:09 [id number]) Gym Equipment Shuttle Recovery B squat Resistance 62# Shuttle Recovery Platform Stable Reps/Time 3x 15 reps- cued heel press for posterior chain recruitment Therapeutic Exercises Sitting Exercises LAQ Side bilateral Equipment Used level 2 Reps/Minutes 10 x2 Comments FOR HEP PT-OP-T Assessment and Plan Start: 12/03/20 08:05 Freq: Status: Active Protocol: Document 01/07/21 13:47 (Rec: 01/07/21 16:09 [id number]) Physical Therapy Assessment Goals floor recovery Impairment pt states he is not able to recover from the floor Sifter Operator Goal (LTG) pt will show improved balance and LE strength to be able to recover from the floor with the use of a chair independently and safely. LTG Duration 8 weeks LE strength Impairment pt needs UEs to push off during transfers Short Term Goal (STG) 01/07 goal met pt was able to stand up from 20 inch level 9 times without cane. pt will show improved LE strength so he can complete STS 6 times without using UEs to push off within 30 s STG Duration 4weeks Sifter Operator Goal (LTG) pt will show improved LE strength so he can complete STS 10 times without using UEs to push off within 30 s LTG Duration 10 weeks 6MWT Impairment today 6MWT= 860ft with a cane Short Term Goal (STG) pt will be able to reach 1000ft with a cane but no resting break STG Duration 4 weeks Penitentiary Goal (LTG) pt will be able to reach 1100ft with a cane but no resting break LTG Duration 8 weeks LEMUS Impairment Pt scores 40 /56 on LEMUS Short Term Goal (STG) 01/07 goal met pt scores 46 /56 today. Sifter Operator Goal (LTG) pt will show improved overall balance by scoring >46 /56 on LEMUS LTG Duration 10 weeks Assessment Summary Assessment Progress note today. Ck met all his goals with improved LE strength and overall balance. (LEMUS 40->46) He completed 6MWT for 860ft with a cane and one rest break in between. (HR= 60->80). Pt is pleased with the progress and would like to continue to get better. Discussed with him to establish new goals (1000ft for 6MWT and floor recovery). Physical Therapy Plan Frequency and Duration Frequency of Treatment 2x/Week Duration of Treatment 10 weeks Plan of Care Start Date 12/03/20 Plan of Care End Date 02/16/21 Therapeutic Interventions Therapeutic Interventions Aquatic Therapy,Balance Training,Gait Training,Home Exercise Program,Joint Mobilizations,Manual Therapy, Neuromuscular Re-education, Patient/Caregiver Education, Self-Care/Home Management,Soft Tissue Mobilization, Therapeutic Activities, Therapeutic Exercises Next Visit Focus/Plan Next Note Type Treatment Note Next Visit Plan Next tx: assess POC: 6MWT/ 2MWT DGI if possible. HEP includes calf raise, STS, toe tap, heel toe/ stance with EC.
--- NOTE | 2021-01-12 13:49 | PT.OTN ---
Current Diagnoses Other abnormalities of gait and mobility (01/12/21) Physical Therapy Treatment Note PT-OP-A Visit Information Start: 12/03/20 08:05 Freq: Status: Active Protocol: Document 01/12/21 13:00 HH (Rec: 01/12/21 13:49 [id number]) Out-Patient Physical Therapy Visit Information Visit Information Visit Type Treatment Note Visit Start Time 13:02 Visit Stop Time 13:45 Total Visit Minutes 43 Visit Number Number of BUFFING MACHINE OPERATOR Visits 0 PT-OP-B Current Condition Start: 12/03/20 08:05 Freq: Status: Active Protocol: Document 12/03/20 09:56 HH (Rec: 12/03/20 10:28 [email or web address]) Current Condition History of Current Condition Onset Date a year ago Current Complaints decreased balance and activity tolerance, fear of falling History of Current Condition Erik Riojas) is a 75 yo male here with his for his decreased balance and activity tolerance started a year ago. He stated his balance has gradually getting worse and so does his LE strength. Fortunately, pt has not had any falls but He has difficulty with quick turns/ quick movements / bending over related movements who thinks he is going to fall over. Denies any dizziness/ vertigo/ lighthead episode. He has been using SPC for uneven ground and community walking. He does furniture cruise occasionally at home for support. His stated pt is basically home bound and very sedentary who tends to get SOB easily. Pt reports he can only walk approx a few hundred feet before a rest break. Personal Factors Other Personal Factors That May Effect CHF w history of Coronary Therapy/Recovery artery stent placement pacemaker 2013 memory loss SOB PT-OP-C Subjective Start: 12/03/20 08:05 Freq: Status: Active Protocol: Document 01/12/21 13:00 HH (Rec: 01/12/21 13:49 [id number]) OP-PT Subjective Patient Comments Patient Comments I did get tired from last time from that long 6 minutes walk. Patient Reported Progress Improving PT-OP-D Balance Start: 12/03/20 08:05 Freq: Status: Active Protocol: Document 12/03/20 09:56 HH (Rec: 12/03/20 10:28 [email or web address]) OP-PT Balance Assessment Sitting Balance Static Sitting Balance Ability Normal Dynamic Sitting Balance Ability Normal Lemus Balance Assessment Evaluation Sitting to Standing Ability Independent w/Hands Unsupported Stance Supervision- 2 minutes Sitting Unsupported, Feet on Floor Safely- 2 minutes Standing to Sitting Ability Safely, Minimal Hand Use Transfer Ability Safely, Hand Use Unsupported Stance- Eyes Closed Supervision, 10 seconds Unsupported Stance- Eyes Open Supervision to maintain Reaching Forward Standing Safely, 5 inches Pick- Up Object From Floor Supervision Look Behind Shoulder - Standing Shifts Weight Well Turning 360 Degrees Turns slowly, but safely Unsupported Stance, Alternating Feet on (I)- 8 Steps in > 20 secs Stair Unsupported Tandem Stance Assist to Step-15 seconds Unilateral Leg Stance Lifts Leg/Unable to Hold Total Score Lemus Total Score (out of 56 points) 40 Lemus Impairment Rating 20 to 39% Impaired (Score 34- 44) Benjamin Fall Scale Copyright Permission PT-OP-E Functional Tests Start: 12/03/20 08:05 Freq: Status: Active Protocol: Document 12/03/20 09:56 (Rec: 12/03/20 10:28 [email or web address]) Functional Tests 30 Second Sit to Stand Test Score 10 Comments L UE w SPC, R UE push off from table (20 inch surface) PT-OP-G Mobility & Gait Start: 12/03/20 08:05 Freq: Status: Active Protocol: Document 12/03/20 09:56 HH (Rec: 12/03/20 10:28 [email or web address]) OP Gait Assessment Gait Gait Assistance Required: Standby Assistance Assistive Devices Assistive Device Straight Cane Gait Deviations General Gait Pattern Decreased Stride Length, Decreased Feet Clearance Factors Limiting Gait Function Factors Limiting Gait Function Decreased Strength,Poor Balance,Respiratory Distress Comments Gait Comments pt presents occasional excessive sway during amb, feet channel turner and WBOS PT-OP-H Neuro Start: 12/03/20 08:05 Freq: Status: Active Protocol: Document 12/03/20 09:56 HH (Rec: 12/03/20 10:28 [email or web address]) Sensation Evaluation Gross Sensation Gross Sensation WNL PT-OP-J Posture/Palpation/Skin Start: 12/03/20 08:05 Freq: Status: Active Protocol: Document 12/03/20 09:56 HH (Rec: 12/03/20 10:28 [email or web address]) Posture Evaluation Position Standing Evaluation View Lateral Head/C-Spine Posture Forward Head T-Spine Posture Increased Kyphosis PT-OP-M Strength Start: 12/03/20 08:05 Freq: Status: Active Protocol: Document 12/03/20 09:56 HH (Rec: 12/03/20 10:28 HH [email or web address]) Hip Strength Hip Manual Muscle Testing Left Flexion (L2) 4- Good- Extension (S1) 4- Good- Abduction 4- Good- Right Flexion (L2) 4- Good- Extension (S1) 4- Good- Abduction 4- Good- Knee Strength Knee Manual Muscle Testing Right Flexion (S2) 4 Good Extension (L3) 4 Good Left Flexion (S2) 4 Good Extension (L3) 4 Good Ankle/Foot Strength Ankle and Foot Manual Muscle Testing Right Dorsiflexion (L4) 4+ Good+ Plantarflexion (S1) 4+ Good+ Left Dorsiflexion (L4) 4+ Good+ Plantarflexion (S1) 4+ Good+ PT-OP-O Vestibular Start: 12/03/20 08:05 Freq: Status: Active Protocol: Document 12/03/20 09:56 HH (Rec: 12/03/20 10:30 HH [email or web address]) Vestibular Assessment Visual Testing Smooth Pursuits Horizontal -ve Smooth Pursuits Vertical -ve Saccades Horizontal -ve Saccades Vertical -ve Comments Vestibular Comments mild dizziness reported during VOR1 PT-OP-Q Treatments Start: 12/03/20 08:05 Freq: Status: Active Protocol: Document 01/12/21 13:00 HH (Rec: 01/12/21 13:49 HH [id number]) Cardio Equipment Recumbent Stepper (Sci-Fit) Duration (Minutes) 5 Resistance 2 Seat Position 10 Other 31-35 PRMs, 0.53 miles Gym Equipment Shuttle Recovery SL squat Resistance 37# Shuttle Recovery Platform Stable Reps/Time 3 x 15 Therapeutic Exercises Sitting Exercises LAQ Side bilateral Equipment Used level 2 lbs ankle weight Reps/Minutes 10 x2, 3 sec hold Comments FOR HEP Standing Exercises lunges Standing Exercise Name half lunges Side bilateral Reps/Minutes 8 x2 Comments pt reports weakness and shaky. balance Standing Exercise Name staggered stance Reps/Minutes 15s x 5 Comments open area Neuro Re-Education Treatment Balance Activities tandem walk Surface ground level Reps/Duration 20ft x 5rd trips. Comments 5 round trips PT-OP-T Assessment and Plan Start: 12/03/20 08:05 Freq: Status: Active Protocol: Document 01/12/21 13:00 (Rec: 01/12/21 13:49 [id number]) Physical Therapy Assessment Goals floor recovery Impairment pt states he is not able to recover from the floor Prison Goal (LTG) pt will show improved balance and LE strength to be able to recover from the floor with the use of a chair independently and safely. LTG Duration 8 weeks LE strength Impairment pt needs UEs to push off during transfers Short Term Goal (STG) 01/07 goal met pt was able to stand up from 20 inch level 9 times without cane. pt will show improved LE strength so he can complete STS 6 times without using UEs to push off within 30 s STG Duration 4weeks Womens Health Nurse Practitioner Goal (LTG) pt will show improved LE strength so he can complete STS 10 times without using UEs to push off within 30 s LTG Duration 10 weeks 6MWT Impairment today 6MWT= 860ft with a cane Short Term Goal (STG) pt will be able to reach 1000ft with a cane but no resting break STG Duration 4 weeks Prison Goal (LTG) pt will be able to reach 1100ft with a cane but no resting break LTG Duration 8 weeks LEMUS Impairment Pt scores 40 /56 on LEMUS Short Term Goal (STG) 01/07 goal met pt scores 46 /56 today. Womens Health Nurse Practitioner Goal (LTG) pt will show improved overall balance by scoring >46 /56 on LEMUS LTG Duration 10 weeks Assessment Summary Assessment Pt continues to c/o bilateral knee soreness with WB acitvities. 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 Educated her to focus on low impact strengthening ex along with ROM ex. Added semi lunges today and pt got fatigue quickly. Physical Therapy Plan Frequency and Duration Frequency of Treatment 2x/Week Duration of Treatment 10 weeks Plan of Care Start Date 12/03/20 Plan of Care End Date 02/16/21 Therapeutic Interventions Therapeutic Interventions Aquatic Therapy,Balance Training,Gait Training,Home Exercise Program,Joint Mobilizations,Manual Therapy, Neuromuscular Re-education, Patient/Caregiver Education, Self-Care/Home Management,Soft Tissue Mobilization, Therapeutic Activities, Therapeutic Exercises Next Visit Focus/Plan Next Note Type Treatment Note Next Visit Plan Next tx: assess POC: 6MWT/ 2MWT DGI if possible. HEP includes calf raise, STS, toe tap, heel toe/ stance with EC.
--- NOTE | 2021-01-15 13:50 | PT.OTN ---
Current Diagnoses Other abnormalities of gait and mobility (01/15/21) Physical Therapy Treatment Note PT-OP-A Visit Information Start: 12/03/20 08:05 Freq: Status: Active Protocol: Document 01/15/21 13:03 HH (Rec: 01/15/21 13:50 [email or web address]) Out-Patient Physical Therapy Visit Information Visit Information Visit Type Treatment Note Visit Start Time 13:02 Visit Stop Time 13:46 Total Visit Minutes 44 Visit Number Number of CONSUMER INSIGHT MANAGER Visits 0 PT-OP-B Current Condition Start: 12/03/20 08:05 Freq: Status: Active Protocol: Document 12/03/20 09:56 HH (Rec: 12/03/20 10:28 HH [email or web address]) Current Condition History of Current Condition Onset Date a year ago Current Complaints decreased balance and activity tolerance, fear of falling History of Current Condition Erik Riojas) is a 75 yo male here with his for his decreased balance and activity tolerance started a year ago. He stated his balance has gradually getting worse and so does his LE strength. Fortunately, pt has not had any falls but He has difficulty with quick turns/ quick movements / bending over related movements who thinks he is going to fall over. Denies any dizziness/ vertigo/ lighthead episode. He has been using SPC for uneven ground and community walking. He does furniture cruise occasionally at home for support. His stated pt is basically home bound and very sedentary who tends to get SOB easily. Pt reports he can only walk approx a few hundred feet before a rest break. Personal Factors Other Personal Factors That May Effect CHF w history of Coronary Therapy/Recovery artery stent placement pacemaker 2013 memory loss SOB PT-OP-C Subjective Start: 12/03/20 08:05 Freq: Status: Active Protocol: Document 01/15/21 13:03 HH (Rec: 01/15/21 13:50 [id number]) OP-PT Subjective Patient Comments Patient Comments I got tired from last time but not bad. I fell 2 days after tripping over the carpet . I landed on my side. But i didnt get hurt and i was able to get up by myself. Patient Reported Progress Improving PT-OP-D Balance Start: 12/03/20 08:05 Freq: Status: Active Protocol: Document 12/03/20 09:56 HH (Rec: 12/03/20 10:28 [email or web address]) OP-PT Balance Assessment Sitting Balance Static Sitting Balance Ability Normal Dynamic Sitting Balance Ability Normal Lemus Balance Assessment Evaluation Sitting to Standing Ability Independent w/Hands Unsupported Stance Supervision- 2 minutes Sitting Unsupported, Feet on Floor Safely- 2 minutes Standing to Sitting Ability Safely, Minimal Hand Use Transfer Ability Safely, Hand Use Unsupported Stance- Eyes Closed Supervision, 10 seconds Unsupported Stance- Eyes Open Supervision to maintain Reaching Forward Standing Safely, 5 inches Pick- Up Object From Floor Supervision Look Behind Shoulder - Standing Shifts Weight Well Turning 360 Degrees Turns slowly, but safely Unsupported Stance, Alternating Feet on (I)- 8 Steps in > 20 secs Stair Unsupported Tandem Stance Assist to Step-15 seconds Unilateral Leg Stance Lifts Leg/Unable to Hold Total Score Lemus Total Score (out of 56 points) 40 Lemus Impairment Rating 20 to 39% Impaired (Score 34- 44) Benjamin Fall Scale Copyright Permission PT-OP-E Functional Tests Start: 12/03/20 08:05 Freq: Status: Active Protocol: Document 12/03/20 09:56 (Rec: 12/03/20 10:28 [email or web address]) Functional Tests 30 Second Sit to Stand Test Score 10 Comments L UE w SPC, R UE push off from table (20 inch surface) PT-OP-G Mobility & Gait Start: 12/03/20 08:05 Freq: Status: Active Protocol: Document 12/03/20 09:56 (Rec: 12/03/20 10:28 [email or web address]) OP Gait Assessment Gait Gait Assistance Required: Standby Assistance Assistive Devices Assistive Device Straight Cane Gait Deviations General Gait Pattern Decreased Stride Length, Decreased Feet Clearance Factors Limiting Gait Function Factors Limiting Gait Function Decreased Strength,Poor Balance,Respiratory Distress Comments Gait Comments pt presents occasional excessive sway during amb, feet turning lathe tender and WBOS PT-OP-H Neuro Start: 12/03/20 08:05 Freq: Status: Active Protocol: Document 12/03/20 09:56 (Rec: 12/03/20 10:28 [email or web address]) Sensation Evaluation Gross Sensation Gross Sensation WNL PT-OP-J Posture/Palpation/Skin Start: 12/03/20 08:05 Freq: Status: Active Protocol: Document 12/03/20 09:56 HH (Rec: 12/03/20 10:28 HH [email or web address]) Posture Evaluation Position Standing Evaluation View Lateral Head/C-Spine Posture Forward Head T-Spine Posture Increased Kyphosis PT-OP-M Strength Start: 12/03/20 08:05 Freq: Status: Active Protocol: Document 12/03/20 09:56 HH (Rec: 12/03/20 10:28 HH [email or web address]) Hip Strength Hip Manual Muscle Testing Left Flexion (L2) 4- Good- Extension (S1) 4- Good- Abduction 4- Good- Right Flexion (L2) 4- Good- Extension (S1) 4- Good- Abduction 4- Good- Knee Strength Knee Manual Muscle Testing Right Flexion (S2) 4 Good Extension (L3) 4 Good Left Flexion (S2) 4 Good Extension (L3) 4 Good Ankle/Foot Strength Ankle and Foot Manual Muscle Testing Right Dorsiflexion (L4) 4+ Good+ Plantarflexion (S1) 4+ Good+ Left Dorsiflexion (L4) 4+ Good+ Plantarflexion (S1) 4+ Good+ PT-OP-O Vestibular Start: 12/03/20 08:05 Freq: Status: Active Protocol: Document 12/03/20 09:56 HH (Rec: 12/03/20 10:30 HH [email or web address]) Vestibular Assessment Visual Testing Smooth Pursuits Horizontal -ve Smooth Pursuits Vertical -ve Saccades Horizontal -ve Saccades Vertical -ve Comments Vestibular Comments mild dizziness reported during VOR1 PT-OP-Q Treatments Start: 12/03/20 08:05 Freq: Status: Active Protocol: Document 01/15/21 13:03 HH (Rec: 01/15/21 13:50 HH [id number]) Cardio Equipment Recumbent Stepper (Sci-Fit) Duration (Minutes) 7 Resistance 2 Seat Position 10 Other 31-35 PRMs, 0.6 miles Gym Equipment Shuttle Recovery SL squat Resistance 37# Shuttle Recovery Platform Stable Reps/Time 3 x 15 Therapeutic Exercises Standing Exercises marching in place Side bilateral Reps/Minutes 20 x3 Comments for HEP. Neuro Re-Education Treatment Balance Activities step up /downs Equipment 4 step, rail contact PRN Reps/Duration 5 reps leading each LE Comments cued hip ext and foot clearance step taps Equipment 4 step, rail Comments slight taps, and foot clearance coming down cones Details cones belt picker Surface ground level Equipment 30 ft x 5 Reps/Duration 8 mins Comments then S walk PT-OP-T Assessment and Plan Start: 12/03/20 08:05 Freq: Status: Active Protocol: Document 01/15/21 13:03 (Rec: 01/15/21 13:50 [id number]) Physical Therapy Assessment Goals floor recovery Impairment pt states he is not able to recover from the floor Snf Goal (LTG) pt will show improved balance and LE strength to be able to recover from the floor with the use of a chair independently and safely. LTG Duration 8 weeks LE strength Impairment pt needs UEs to push off during transfers Short Term Goal (STG) 01/07 goal met pt was able to stand up from 20 inch level 9 times without cane. pt will show improved LE strength so he can complete STS 6 times without using UEs to push off within 30 s STG Duration 4weeks Cop Goal (LTG) pt will show improved LE strength so he can complete STS 10 times without using UEs to push off within 30 s LTG Duration 10 weeks 6MWT Impairment today 6MWT= 860ft with a cane Short Term Goal (STG) pt will be able to reach 1000ft with a cane but no resting break STG Duration 4 weeks Cop Goal (LTG) pt will be able to reach 1100ft with a cane but no resting break LTG Duration 8 weeks LEMUS Impairment Pt scores 40 /56 on LEMUS Short Term Goal (STG) 01/07 goal met pt scores 46 /56 today. Cop Goal (LTG) pt will show improved overall balance by scoring >46 /56 on LEMUS LTG Duration 10 weeks Assessment Summary Assessment Pt fell two days ago and he has no injury. Educated him to focus on heel toe gait to promote feet clearance during swing phase. Also recommended him to walk up to 30 mins 3-5 times a week for his cardiovascualr health. Physical Therapy Plan Frequency and Duration Frequency of Treatment 2x/Week Duration of Treatment 10 weeks Plan of Care Start Date 12/03/20 Plan of Care End Date 02/16/21 Therapeutic Interventions Therapeutic Interventions Aquatic Therapy,Balance Training,Gait Training,Home Exercise Program,Joint Mobilizations,Manual Therapy, Neuromuscular Re-education, Patient/Caregiver Education, Self-Care/Home Management,Soft Tissue Mobilization, Therapeutic Activities, Therapeutic Exercises Next Visit Focus/Plan Next Note Type Treatment Note Next Visit Plan Next tx: assess POC: 6MWT/ 2MWT DGI if possible. HEP includes calf raise, STS, toe tap, heel toe/ stance with EC.
--- NOTE | 2021-01-18 13:47 | PT.OTN ---
Current Diagnoses Other abnormalities of gait and mobility (01/18/21) Physical Therapy Treatment Note PT-OP-A Visit Information Start: 12/03/20 08:05 Freq: Status: Active Protocol: Document 01/18/21 12:55 HH (Rec: 01/18/21 13:47 [id number]) Out-Patient Physical Therapy Visit Information Visit Information Visit Type Treatment Note Visit Start Time 13:00 Visit Stop Time 13:45 Total Visit Minutes 45 Visit Number Number of PROP AND EFFECTS DESIGNER Visits 0 PT-OP-B Current Condition Start: 12/03/20 08:05 Freq: Status: Active Protocol: Document 12/03/20 09:56 HH (Rec: 12/03/20 10:28 [email or web address]) Current Condition History of Current Condition Onset Date a year ago Current Complaints decreased balance and activity tolerance, fear of falling History of Current Condition Erik Riojas) is a 75 yo male here with his for his decreased balance and activity tolerance started a year ago. He stated his balance has gradually getting worse and so does his LE strength. Fortunately, pt has not had any falls but He has difficulty with quick turns/ quick movements / bending over related movements who thinks he is going to fall over. Denies any dizziness/ vertigo/ lighthead episode. He has been using SPC for uneven ground and community walking. He does furniture cruise occasionally at home for support. His stated pt is basically home bound and very sedentary who tends to get SOB easily. Pt reports he can only walk approx a few hundred feet before a rest break. Personal Factors Other Personal Factors That May Effect CHF w history of Coronary Therapy/Recovery artery stent placement pacemaker 2013 memory loss SOB PT-OP-C Subjective Start: 12/03/20 08:05 Freq: Status: Active Protocol: Document 01/18/21 12:55 HH (Rec: 01/18/21 13:47 [id number]) OP-PT Subjective Patient Comments Patient Comments Im doing fine. I didnt walk early this morning so i have energy to do PT Patient Reported Progress Improving PT-OP-D Balance Start: 12/03/20 08:05 Freq: Status: Active Protocol: Document 12/03/20 09:56 HH (Rec: 12/03/20 10:28 [email or web address]) OP-PT Balance Assessment Sitting Balance Static Sitting Balance Ability Normal Dynamic Sitting Balance Ability Normal Lemus Balance Assessment Evaluation Sitting to Standing Ability Independent w/Hands Unsupported Stance Supervision- 2 minutes Sitting Unsupported, Feet on Floor Safely- 2 minutes Standing to Sitting Ability Safely, Minimal Hand Use Transfer Ability Safely, Hand Use Unsupported Stance- Eyes Closed Supervision, 10 seconds Unsupported Stance- Eyes Open Supervision to maintain Reaching Forward Standing Safely, 5 inches Pick- Up Object From Floor Supervision Look Behind Shoulder - Standing Shifts Weight Well Turning 360 Degrees Turns slowly, but safely Unsupported Stance, Alternating Feet on (I)- 8 Steps in > 20 secs Stair Unsupported Tandem Stance Assist to Step-15 seconds Unilateral Leg Stance Lifts Leg/Unable to Hold Total Score Lemus Total Score (out of 56 points) 40 Lemus Impairment Rating 20 to 39% Impaired (Score 34- 44) Benjamin Fall Scale Copyright Permission PT-OP-E Functional Tests Start: 12/03/20 08:05 Freq: Status: Active Protocol: Document 12/03/20 09:56 (Rec: 12/03/20 10:28 [email or web address]) Functional Tests 30 Second Sit to Stand Test Score 10 Comments L UE w SPC, R UE push off from table (20 inch surface) PT-OP-G Mobility & Gait Start: 12/03/20 08:05 Freq: Status: Active Protocol: Document 12/03/20 09:56 (Rec: 12/03/20 10:28 [email or web address]) OP Gait Assessment Gait Gait Assistance Required: Standby Assistance Assistive Devices Assistive Device Straight Cane Gait Deviations General Gait Pattern Decreased Stride Length, Decreased Feet Clearance Factors Limiting Gait Function Factors Limiting Gait Function Decreased Strength,Poor Balance,Respiratory Distress Comments Gait Comments pt presents occasional excessive sway during amb, feet turn sewer and WBOS PT-OP-H Neuro Start: 12/03/20 08:05 Freq: Status: Active Protocol: Document 12/03/20 09:56 (Rec: 12/03/20 10:28 [email or web address]) Sensation Evaluation Gross Sensation Gross Sensation WNL PT-OP-J Posture/Palpation/Skin Start: 12/03/20 08:05 Freq: Status: Active Protocol: Document 12/03/20 09:56 (Rec: 12/03/20 10:28 [email or web address]) Posture Evaluation Position Standing Evaluation View Lateral Head/C-Spine Posture Forward Head T-Spine Posture Increased Kyphosis PT-OP-M Strength Start: 12/03/20 08:05 Freq: Status: Active Protocol: Document 12/03/20 09:56 HH (Rec: 12/03/20 10:28 HH [email or web address]) Hip Strength Hip Manual Muscle Testing Left Flexion (L2) 4- Good- Extension (S1) 4- Good- Abduction 4- Good- Right Flexion (L2) 4- Good- Extension (S1) 4- Good- Abduction 4- Good- Knee Strength Knee Manual Muscle Testing Right Flexion (S2) 4 Good Extension (L3) 4 Good Left Flexion (S2) 4 Good Extension (L3) 4 Good Ankle/Foot Strength Ankle and Foot Manual Muscle Testing Right Dorsiflexion (L4) 4+ Good+ Plantarflexion (S1) 4+ Good+ Left Dorsiflexion (L4) 4+ Good+ Plantarflexion (S1) 4+ Good+ PT-OP-O Vestibular Start: 12/03/20 08:05 Freq: Status: Active Protocol: Document 12/03/20 09:56 HH (Rec: 12/03/20 10:30 HH [email or web address]) Vestibular Assessment Visual Testing Smooth Pursuits Horizontal -ve Smooth Pursuits Vertical -ve Saccades Horizontal -ve Saccades Vertical -ve Comments Vestibular Comments mild dizziness reported during VOR1 PT-OP-Q Treatments Start: 12/03/20 08:05 Freq: Status: Active Protocol: Document 01/18/21 12:55 HH (Rec: 01/18/21 13:47 HH [id number]) Cardio Equipment Recumbent Stepper (Sci-Fit) Duration (Minutes) 5 Resistance 2 Seat Position 10 Other 31-35 PRMs, 0.6 miles Gym Equipment Shuttle Recovery B squat Resistance #75 Shuttle Recovery Platform Stable Reps/Time 3x 15 reps- cued heel press for posterior chain recruitment Therapeutic Exercises Standing Exercises marching in place Side bilateral Reps/Minutes 20 x3 Comments for HEP. Neuro Re-Education Treatment Balance Activities step up /downs Equipment 4 step, rail contact PRN Reps/Duration 5 reps leading each LE Comments cued hip ext and foot clearance step taps Equipment 4 step, rail Comments slight taps, and foot clearance coming down cones Details cones pickle processor Surface ground level Equipment 30 ft x 5 Reps/Duration 8 mins Comments then S walk hurdles Surface ground level Equipment hurdles Comments public area. step over pattern 3rounds x 3 sets. PT-OP-T Assessment and Plan Start: 12/03/20 08:05 Freq: Status: Active Protocol: Document 01/18/21 12:55 (Rec: 01/18/21 13:47 [id number]) Physical Therapy Assessment Goals floor recovery Impairment pt states he is not able to recover from the floor Cargo Handler Goal (LTG) pt will show improved balance and LE strength to be able to recover from the floor with the use of a chair independently and safely. LTG Duration 8 weeks LE strength Impairment pt needs UEs to push off during transfers Short Term Goal (STG) 01/07 goal met pt was able to stand up from 20 inch level 9 times without cane. pt will show improved LE strength so he can complete STS 6 times without using UEs to push off within 30 s STG Duration 4weeks Group Home Goal (LTG) pt will show improved LE strength so he can complete STS 10 times without using UEs to push off within 30 s LTG Duration 10 weeks 6MWT Impairment today 6MWT= 860ft with a cane Short Term Goal (STG) pt will be able to reach 1000ft with a cane but no resting break STG Duration 4 weeks Cargo Handler Goal (LTG) pt will be able to reach 1100ft with a cane but no resting break LTG Duration 8 weeks LEMUS Impairment Pt scores 40 /56 on LEMUS Short Term Goal (STG) 01/07 goal met pt scores 46 /56 today. Cargo Handler Goal (LTG) pt will show improved overall balance by scoring >46 /56 on LEMUS LTG Duration 10 weeks Assessment Summary Assessment Pt is doing well with improved dynamic balance and feet clearance during session. Recommended him to encourage heel toe gait Physical Therapy Plan Frequency and Duration Frequency of Treatment 2x/Week Duration of Treatment 10 weeks Plan of Care Start Date 12/03/20 Plan of Care End Date 02/16/21 Therapeutic Interventions Therapeutic Interventions Aquatic Therapy,Balance Training,Gait Training,Home Exercise Program,Joint Mobilizations,Manual Therapy, Neuromuscular Re-education, Patient/Caregiver Education, Self-Care/Home Management,Soft Tissue Mobilization, Therapeutic Activities, Therapeutic Exercises Next Visit Focus/Plan Next Note Type Treatment Note Next Visit Plan Next tx: assess POC: 6MWT/ 2MWT DGI if possible. HEP includes calf raise, STS, toe tap, heel toe/ stance with EC.
--- NOTE | 2021-01-20 13:47 | PT.OTN ---
Current Diagnoses Other abnormalities of gait and mobility (01/20/21) Physical Therapy Treatment Note PT-OP-A Visit Information Start: 12/03/20 08:05 Freq: Status: Active Protocol: Document 01/20/21 13:02 (Rec: 01/20/21 13:46 [id number]) Out-Patient Physical Therapy Visit Information Visit Information Visit Type Treatment Note Visit Start Time 13:01 Visit Stop Time 13:45 Total Visit Minutes 44 Visit Number Number of NURSES SUPERVISOR Visits 0 PT-OP-B Current Condition Start: 12/03/20 08:05 Freq: Status: Active Protocol: Document 12/03/20 09:56 HH (Rec: 12/03/20 10:28 [email or web address]) Current Condition History of Current Condition Onset Date a year ago Current Complaints decreased balance and activity tolerance, fear of falling History of Current Condition Erik Riojas) is a 75 yo male here with his for his decreased balance and activity tolerance started a year ago. He stated his balance has gradually getting worse and so does his LE strength. Fortunately, pt has not had any falls but He has difficulty with quick turns/ quick movements / bending over related movements who thinks he is going to fall over. Denies any dizziness/ vertigo/ lighthead episode. He has been using SPC for uneven ground and community walking. He does furniture cruise occasionally at home for support. His stated pt is basically home bound and very sedentary who tends to get SOB easily. Pt reports he can only walk approx a few hundred feet before a rest break. Personal Factors Other Personal Factors That May Effect CHF w history of Coronary Therapy/Recovery artery stent placement pacemaker 2013 memory loss SOB PT-OP-C Subjective Start: 12/03/20 08:05 Freq: Status: Active Protocol: Document 01/20/21 13:02 HH (Rec: 01/20/21 13:46 [id number]) OP-PT Subjective Patient Comments Patient Comments I was a little tired last time but i was fine. Patient Reported Progress Improving PT-OP-D Balance Start: 12/03/20 08:05 Freq: Status: Active Protocol: Document 12/03/20 09:56 HH (Rec: 12/03/20 10:28 [email or web address]) OP-PT Balance Assessment Sitting Balance Static Sitting Balance Ability Normal Dynamic Sitting Balance Ability Normal Lemus Balance Assessment Evaluation Sitting to Standing Ability Independent w/Hands Unsupported Stance Supervision- 2 minutes Sitting Unsupported, Feet on Floor Safely- 2 minutes Standing to Sitting Ability Safely, Minimal Hand Use Transfer Ability Safely, Hand Use Unsupported Stance- Eyes Closed Supervision, 10 seconds Unsupported Stance- Eyes Open Supervision to maintain Reaching Forward Standing Safely, 5 inches Pick- Up Object From Floor Supervision Look Behind Shoulder - Standing Shifts Weight Well Turning 360 Degrees Turns slowly, but safely Unsupported Stance, Alternating Feet on (I)- 8 Steps in > 20 secs Stair Unsupported Tandem Stance Assist to Step-15 seconds Unilateral Leg Stance Lifts Leg/Unable to Hold Total Score Lemus Total Score (out of 56 points) 40 Lemus Impairment Rating 20 to 39% Impaired (Score 34- 44) Benjamin Fall Scale Copyright Permission PT-OP-E Functional Tests Start: 12/03/20 08:05 Freq: Status: Active Protocol: Document 12/03/20 09:56 (Rec: 12/03/20 10:28 [email or web address]) Functional Tests 30 Second Sit to Stand Test Score 10 Comments L UE w SPC, R UE push off from table (20 inch surface) PT-OP-G Mobility & Gait Start: 12/03/20 08:05 Freq: Status: Active Protocol: Document 12/03/20 09:56 (Rec: 12/03/20 10:28 [email or web address]) OP Gait Assessment Gait Gait Assistance Required: Standby Assistance Assistive Devices Assistive Device Straight Cane Gait Deviations General Gait Pattern Decreased Stride Length, Decreased Feet Clearance Factors Limiting Gait Function Factors Limiting Gait Function Decreased Strength,Poor Balance,Respiratory Distress Comments Gait Comments pt presents occasional excessive sway during amb, feet heel turner and WBOS PT-OP-H Neuro Start: 12/03/20 08:05 Freq: Status: Active Protocol: Document 12/03/20 09:56 (Rec: 12/03/20 10:28 [email or web address]) Sensation Evaluation Gross Sensation Gross Sensation WNL PT-OP-J Posture/Palpation/Skin Start: 12/03/20 08:05 Freq: Status: Active Protocol: Document 12/03/20 09:56 HH (Rec: 12/03/20 10:28 [email or web address]) Posture Evaluation Position Standing Evaluation View Lateral Head/C-Spine Posture Forward Head T-Spine Posture Increased Kyphosis PT-OP-M Strength Start: 12/03/20 08:05 Freq: Status: Active Protocol: Document 12/03/20 09:56 HH (Rec: 12/03/20 10:28 HH [email or web address]) Hip Strength Hip Manual Muscle Testing Left Flexion (L2) 4- Good- Extension (S1) 4- Good- Abduction 4- Good- Right Flexion (L2) 4- Good- Extension (S1) 4- Good- Abduction 4- Good- Knee Strength Knee Manual Muscle Testing Right Flexion (S2) 4 Good Extension (L3) 4 Good Left Flexion (S2) 4 Good Extension (L3) 4 Good Ankle/Foot Strength Ankle and Foot Manual Muscle Testing Right Dorsiflexion (L4) 4+ Good+ Plantarflexion (S1) 4+ Good+ Left Dorsiflexion (L4) 4+ Good+ Plantarflexion (S1) 4+ Good+ PT-OP-O Vestibular Start: 12/03/20 08:05 Freq: Status: Active Protocol: Document 12/03/20 09:56 (Rec: 12/03/20 10:30 [email or web address]) Vestibular Assessment Visual Testing Smooth Pursuits Horizontal -ve Smooth Pursuits Vertical -ve Saccades Horizontal -ve Saccades Vertical -ve Comments Vestibular Comments mild dizziness reported during VOR1 PT-OP-Q Treatments Start: 12/03/20 08:05 Freq: Status: Active Protocol: Document 01/20/21 13:02 HH (Rec: 01/20/21 13:46 [id number]) Cardio Equipment Recumbent Stepper (Sci-Fit) Duration (Minutes) 5 Resistance 2 Seat Position 10 Other 31-35 PRMs, 0.6 miles Gym Equipment Shuttle Recovery B squat Resistance #75 Shuttle Recovery Platform Stable Reps/Time 3x 15 reps- cued heel press for posterior chain recruitment Therapeutic Exercises Standing Exercises toe tap Equipment Used 4 box Reps/Minutes 20 x 3 Comments cues on feet clearance and light tap side stepping Standing Exercise Name hip abd facilitation- added to HEP Side bilateral Reps/Minutes 20 ft x2 laps Comments cued //feet, tends to be hip ER leading LE Gait Training Gait Activity gait Level of Assistance SBA Surface ground level Distance/Duration 2 laps x 2 rounds Comments 350 ft no AD= 2 mins, HR 86. 350ft no AD= 2;04, HR 89 Neuro Re-Education Treatment Balance Activities step up /downs Equipment 6 step, no rail contact Reps/Duration 10 reps each leg, x2 sets Comments cued hip ext and foot clearance step taps Equipment 4 cones Comments slight taps, and foot clearance coming down PT-OP-T Assessment and Plan Start: 12/03/20 08:05 Freq: Status: Active Protocol: Document 01/20/21 13:02 (Rec: 01/20/21 13:46 [id number]) Physical Therapy Assessment Goals floor recovery Impairment pt states he is not able to recover from the floor Longterm Goal (LTG) pt will show improved balance and LE strength to be able to recover from the floor with the use of a chair independently and safely. LTG Duration 8 weeks LE strength Impairment pt needs UEs to push off during transfers Short Term Goal (STG) 01/07 goal met pt was able to stand up from 20 inch level 9 times without cane. pt will show improved LE strength so he can complete STS 6 times without using UEs to push off within 30 s STG Duration 4weeks Longterm Goal (LTG) pt will show improved LE strength so he can complete STS 10 times without using UEs to push off within 30 s LTG Duration 10 weeks 6MWT Impairment today 6MWT= 860ft with a cane Short Term Goal (STG) pt will be able to reach 1000ft with a cane but no resting break STG Duration 4 weeks Longterm Goal (LTG) pt will be able to reach 1100ft with a cane but no resting break LTG Duration 8 weeks LEMUS Impairment Pt scores 40 /56 on LEMUS Short Term Goal (STG) 01/07 goal met pt scores 46 /56 today. Longterm Goal (LTG) pt will show improved overall balance by scoring >46 /56 on LEMUS LTG Duration 10 weeks Assessment Summary Assessment pt craig session well. He has been demonstrating increased heel toe pattern during walking. Started interval training for walking. He completed 2 laps ~2 mins. Physical Therapy Plan Frequency and Duration Frequency of Treatment 2x/Week Duration of Treatment 10 weeks Plan of Care Start Date 12/03/20 Plan of Care End Date 02/16/21 Therapeutic Interventions Therapeutic Interventions Aquatic Therapy,Balance Training,Gait Training,Home Exercise Program,Joint Mobilizations,Manual Therapy, Neuromuscular Re-education, Patient/Caregiver Education, Self-Care/Home Management,Soft Tissue Mobilization, Therapeutic Activities, Therapeutic Exercises Next Visit Focus/Plan Next Note Type Treatment Note Next Visit Plan Next tx: assess POC: 6MWT/ 2MWT DGI if possible. HEP includes calf raise, STS, toe tap, heel toe/ stance with EC.
--- NOTE | 2021-01-26 15:01 | PT.OTN ---
Current Diagnoses Other abnormalities of gait and mobility (01/26/21) Physical Therapy Treatment Note PT-OP-A Visit Information Start: 12/03/20 08:05 Freq: Status: Active Protocol: Document 01/26/21 12:55 HH (Rec: 01/26/21 15:01 [id number]) Out-Patient Physical Therapy Visit Information Visit Information Visit Type Treatment Note Visit Start Time 13:04 Visit Stop Time 13:46 Total Visit Minutes 42 Visit Number 14/ Number of ENVELOPE FOLD OPERATOR Visits 0 PT-OP-B Current Condition Start: 12/03/20 08:05 Freq: Status: Active Protocol: Document 12/03/20 09:56 HH (Rec: 12/03/20 10:28 [email or web address]) Current Condition History of Current Condition Onset Date a year ago Current Complaints decreased balance and activity tolerance, fear of falling History of Current Condition Erik Riojas) is a 75 yo male here with his for his decreased balance and activity tolerance started a year ago. He stated his balance has gradually getting worse and so does his LE strength. Fortunately, pt has not had any falls but He has difficulty with quick turns/ quick movements / bending over related movements who thinks he is going to fall over. Denies any dizziness/ vertigo/ lighthead episode. He has been using SPC for uneven ground and community walking. He does furniture cruise occasionally at home for support. His stated pt is basically home bound and very sedentary who tends to get SOB easily. Pt reports he can only walk approx a few hundred feet before a rest break. Personal Factors Other Personal Factors That May Effect CHF w history of Coronary Therapy/Recovery artery stent placement pacemaker 2013 memory loss SOB PT-OP-C Subjective Start: 12/03/20 08:05 Freq: Status: Active Protocol: Document 01/20/21 13:02 HH (Rec: 01/20/21 13:46 [id number]) OP-PT Subjective Patient Comments Patient Comments I was a little tired last time but i was fine. Patient Reported Progress Improving PT-OP-D Balance Start: 12/03/20 08:05 Freq: Status: Active Protocol: Document 12/03/20 09:56 HH (Rec: 12/03/20 10:28 [email or web address]) OP-PT Balance Assessment Sitting Balance Static Sitting Balance Ability Normal Dynamic Sitting Balance Ability Normal Lemus Balance Assessment Evaluation Sitting to Standing Ability Independent w/Hands Unsupported Stance Supervision- 2 minutes Sitting Unsupported, Feet on Floor Safely- 2 minutes Standing to Sitting Ability Safely, Minimal Hand Use Transfer Ability Safely, Hand Use Unsupported Stance- Eyes Closed Supervision, 10 seconds Unsupported Stance- Eyes Open Supervision to maintain Reaching Forward Standing Safely, 5 inches Pick- Up Object From Floor Supervision Look Behind Shoulder - Standing Shifts Weight Well Turning 360 Degrees Turns slowly, but safely Unsupported Stance, Alternating Feet on (I)- 8 Steps in > 20 secs Stair Unsupported Tandem Stance Assist to Step-15 seconds Unilateral Leg Stance Lifts Leg/Unable to Hold Total Score Lemus Total Score (out of 56 points) 40 Lemus Impairment Rating 20 to 39% Impaired (Score 34- 44) Benjamin Fall Scale Copyright Permission PT-OP-E Functional Tests Start: 12/03/20 08:05 Freq: Status: Active Protocol: Document 12/03/20 09:56 (Rec: 12/03/20 10:28 [email or web address]) Functional Tests 30 Second Sit to Stand Test Score 10 Comments L UE w SPC, R UE push off from table (20 inch surface) PT-OP-G Mobility & Gait Start: 12/03/20 08:05 Freq: Status: Active Protocol: Document 12/03/20 09:56 (Rec: 12/03/20 10:28 [email or web address]) OP Gait Assessment Gait Gait Assistance Required: Standby Assistance Assistive Devices Assistive Device Straight Cane Gait Deviations General Gait Pattern Decreased Stride Length, Decreased Feet Clearance Factors Limiting Gait Function Factors Limiting Gait Function Decreased Strength,Poor Balance,Respiratory Distress Comments Gait Comments pt presents occasional excessive sway during amb, feet collar turner and WBOS PT-OP-H Neuro Start: 12/03/20 08:05 Freq: Status: Active Protocol: Document 12/03/20 09:56 (Rec: 12/03/20 10:28 [email or web address]) Sensation Evaluation Gross Sensation Gross Sensation WNL PT-OP-J Posture/Palpation/Skin Start: 12/03/20 08:05 Freq: Status: Active Protocol: Document 12/03/20 09:56 HH (Rec: 12/03/20 10:28 [email or web address]) Posture Evaluation Position Standing Evaluation View Lateral Head/C-Spine Posture Forward Head T-Spine Posture Increased Kyphosis PT-OP-M Strength Start: 12/03/20 08:05 Freq: Status: Active Protocol: Document 12/03/20 09:56 HH (Rec: 12/03/20 10:28 HH [email or web address]) Hip Strength Hip Manual Muscle Testing Left Flexion (L2) 4- Good- Extension (S1) 4- Good- Abduction 4- Good- Right Flexion (L2) 4- Good- Extension (S1) 4- Good- Abduction 4- Good- Knee Strength Knee Manual Muscle Testing Right Flexion (S2) 4 Good Extension (L3) 4 Good Left Flexion (S2) 4 Good Extension (L3) 4 Good Ankle/Foot Strength Ankle and Foot Manual Muscle Testing Right Dorsiflexion (L4) 4+ Good+ Plantarflexion (S1) 4+ Good+ Left Dorsiflexion (L4) 4+ Good+ Plantarflexion (S1) 4+ Good+ PT-OP-O Vestibular Start: 12/03/20 08:05 Freq: Status: Active Protocol: Document 12/03/20 09:56 HH (Rec: 12/03/20 10:30 HH [email or web address]) Vestibular Assessment Visual Testing Smooth Pursuits Horizontal -ve Smooth Pursuits Vertical -ve Saccades Horizontal -ve Saccades Vertical -ve Comments Vestibular Comments mild dizziness reported during VOR1 PT-OP-Q Treatments Start: 12/03/20 08:05 Freq: Status: Active Protocol: Document 01/26/21 12:55 HH (Rec: 01/26/21 15:01 HH [id number]) Cardio Equipment Recumbent Stepper (Sci-Fit) Duration (Minutes) 5 Resistance 2 Seat Position 10 Other 31-35 PRMs, 0.6 miles Gym Equipment Shuttle Recovery B squat Resistance #75, #87 Shuttle Recovery Platform Stable Reps/Time 2 x 10 then 2 x 10 Shuttle Balance red Details static stance: WBOS, NBOS Comments able to hold approx 5 sec, CG- cues to avoid holding on to rails. Pt has delayed right reaction Therapeutic Exercises Standing Exercises toe tap Equipment Used 6 box Reps/Minutes 20 x 3 Comments cues on feet clearance and light tap Gait Training Gait Activity gait Level of Assistance SBA Surface ground level Distance/Duration 2 laps x 2 rounds Comments 350 ft no AD= 2 mins, HR 86. 350ft no AD= 1:55 min, HR 89 Neuro Re-Education Treatment Balance Activities marching in place Details marching Reps/Duration 20x5 rounds PT-OP-T Assessment and Plan Start: 12/03/20 08:05 Freq: Status: Active Protocol: Document 01/26/21 12:55 (Rec: 01/26/21 15:01 [id number]) Physical Therapy Assessment Goals floor recovery Impairment pt states he is not able to recover from the floor Sales Special Agent Goal (LTG) pt will show improved balance and LE strength to be able to recover from the floor with the use of a chair independently and safely. LTG Duration 8 weeks LE strength Impairment pt needs UEs to push off during transfers Short Term Goal (STG) 01/07 goal met pt was able to stand up from 20 inch level 9 times without cane. pt will show improved LE strength so he can complete STS 6 times without using UEs to push off within 30 s STG Duration 4weeks Sales Special Agent Goal (LTG) pt will show improved LE strength so he can complete STS 10 times without using UEs to push off within 30 s LTG Duration 10 weeks 6MWT Impairment today 6MWT= 860ft with a cane Short Term Goal (STG) pt will be able to reach 1000ft with a cane but no resting break STG Duration 4 weeks Care Home Goal (LTG) pt will be able to reach 1100ft with a cane but no resting break LTG Duration 8 weeks LEMUS Impairment Pt scores 40 /56 on LEMUS Short Term Goal (STG) 01/07 goal met pt scores 46 /56 today. Care Home Goal (LTG) pt will show improved overall balance by scoring >46 /56 on LEMUS LTG Duration 10 weeks Assessment Summary Assessment pt overall shows delayed righting reaction with shuttle balance board. He constantly looks for support and needed cues to avoid overusing handrails. Will focus on righting reaction for following visits. He also shows improved walking endurance and speed today. Physical Therapy Plan Frequency and Duration Frequency of Treatment 2x/Week Duration of Treatment 10 weeks Plan of Care Start Date 12/03/20 Plan of Care End Date 02/16/21 Therapeutic Interventions Therapeutic Interventions Aquatic Therapy,Balance Training,Gait Training,Home Exercise Program,Joint Mobilizations,Manual Therapy, Neuromuscular Re-education, Patient/Caregiver Education, Self-Care/Home Management,Soft Tissue Mobilization, Therapeutic Activities, Therapeutic Exercises Next Visit Focus/Plan Next Note Type Treatment Note Next Visit Plan Next tx: assess POC: 6MWT/ 2MWT DGI if possible. HEP includes calf raise, STS, toe tap, heel toe/ stance with EC.
--- NOTE | 2021-01-29 13:45 | PT.OTN ---
Current Diagnoses Other abnormalities of gait and mobility (01/29/21) Physical Therapy Treatment Note PT-OP-A Visit Information Start: 12/03/20 08:05 Freq: Status: Active Protocol: Document 01/29/21 13:02 SP (Rec: 01/29/21 13:48 SP [id number]) Out-Patient Physical Therapy Visit Information Visit Information Visit Type Treatment Note Visit Start Time 13:02 Visit Stop Time 13:45 Total Visit Minutes 43 Visit Number 15 Number of CERTIFIED HYPERBARIC TECHNICIAN Visits 1 Evaluation Information Evaluation Date 12/03/20 Precautions Precautions pacemaker SOB previous heart attack 2years ago PT-OP-B Current Condition Start: 12/03/20 08:05 Freq: Status: Active Protocol: Document 12/03/20 09:56 HH (Rec: 12/03/20 10:28 HH [email or web address]) Current Condition History of Current Condition Onset Date a year ago Current Complaints decreased balance and activity tolerance, fear of falling History of Current Condition Erik Riojas) is a 75 yo male here with his for his decreased balance and activity tolerance started a year ago. He stated his balance has gradually getting worse and so does his LE strength. Fortunately, pt has not had any falls but He has difficulty with quick turns/ quick movements / bending over related movements who thinks he is going to fall over. Denies any dizziness/ vertigo/ lighthead episode. He has been using SPC for uneven ground and community walking. He does furniture cruise occasionally at home for support. His stated pt is basically home bound and very sedentary who tends to get SOB easily. Pt reports he can only walk approx a few hundred feet before a rest break. Personal Factors Other Personal Factors That May Effect CHF w history of Coronary Therapy/Recovery artery stent placement pacemaker 2013 memory loss SOB PT-OP-C Subjective Start: 12/03/20 08:05 Freq: Status: Active Protocol: Document 01/29/21 13:02 SP (Rec: 01/29/21 13:48 SP [id number]) OP-PT Subjective Patient Comments Patient Comments Pt stated doing his exercises at home. Pt states when weather is good, [place]. Patient Reported Progress Improving PT-OP-D Balance Start: 12/03/20 08:05 Freq: Status: Active Protocol: Document 12/03/20 09:56 HH (Rec: 12/03/20 10:28 [email or web address]) OP-PT Balance Assessment Sitting Balance Static Sitting Balance Ability Normal Dynamic Sitting Balance Ability Normal Lemus Balance Assessment Evaluation Sitting to Standing Ability Independent w/Hands Unsupported Stance Supervision- 2 minutes Sitting Unsupported, Feet on Floor Safely- 2 minutes Standing to Sitting Ability Safely, Minimal Hand Use Transfer Ability Safely, Hand Use Unsupported Stance- Eyes Closed Supervision, 10 seconds Unsupported Stance- Eyes Open Supervision to maintain Reaching Forward Standing Safely, 5 inches Pick- Up Object From Floor Supervision Look Behind Shoulder - Standing Shifts Weight Well Turning 360 Degrees Turns slowly, but safely Unsupported Stance, Alternating Feet on (I)- 8 Steps in > 20 secs Stair Unsupported Tandem Stance Assist to Step-15 seconds Unilateral Leg Stance Lifts Leg/Unable to Hold Total Score Lemus Total Score (out of 56 points) 40 Lemus Impairment Rating 20 to 39% Impaired (Score 34- 44) Benjamin Fall Scale Copyright Permission PT-OP-E Functional Tests Start: 12/03/20 08:05 Freq: Status: Active Protocol: Document 01/29/21 13:02 SP (Rec: 01/29/21 13:48 SP [id number]) Functional Tests Dynamic Gait Index (DGI) Score 21 DGI Impairment Rating 1 to <20% Impaired (Score 20- 23) PT-OP-G Mobility & Gait Start: 12/03/20 08:05 Freq: Status: Active Protocol: Document 12/03/20 09:56 HH (Rec: 12/03/20 10:28 [email or web address]) OP Gait Assessment Gait Gait Assistance Required: Standby Assistance Assistive Devices Assistive Device Straight Cane Gait Deviations General Gait Pattern Decreased Stride Length, Decreased Feet Clearance Factors Limiting Gait Function Factors Limiting Gait Function Decreased Strength,Poor Balance,Respiratory Distress Comments Gait Comments pt presents occasional excessive sway during amb, 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 return clerk and WBOS PT-OP-H Neuro Start: 12/03/20 08:05 Freq: Status: Active Protocol: Document 12/03/20 09:56 HH (Rec: 12/03/20 10:28 [email or web address]) Sensation Evaluation Gross Sensation Gross Sensation WNL PT-OP-J Posture/Palpation/Skin Start: 12/03/20 08:05 Freq: Status: Active Protocol: Document 12/03/20 09:56 HH (Rec: 12/03/20 10:28 HH [email or web address]) Posture Evaluation Position Standing Evaluation View Lateral Head/C-Spine Posture Forward Head T-Spine Posture Increased Kyphosis PT-OP-M Strength Start: 12/03/20 08:05 Freq: Status: Active Protocol: Document 12/03/20 09:56 HH (Rec: 12/03/20 10:28 HH [email or web address]) Hip Strength Hip Manual Muscle Testing Left Flexion (L2) 4- Good- Extension (S1) 4- Good- Abduction 4- Good- Right Flexion (L2) 4- Good- Extension (S1) 4- Good- Abduction 4- Good- Knee Strength Knee Manual Muscle Testing Right Flexion (S2) 4 Good Extension (L3) 4 Good Left Flexion (S2) 4 Good Extension (L3) 4 Good Ankle/Foot Strength Ankle and Foot Manual Muscle Testing Right Dorsiflexion (L4) 4+ Good+ Plantarflexion (S1) 4+ Good+ Left Dorsiflexion (L4) 4+ Good+ Plantarflexion (S1) 4+ Good+ PT-OP-O Vestibular Start: 12/03/20 08:05 Freq: Status: Active Protocol: Document 12/03/20 09:56 HH (Rec: 12/03/20 10:30 HH [email or web address]) Vestibular Assessment Visual Testing Smooth Pursuits Horizontal -ve Smooth Pursuits Vertical -ve Saccades Horizontal -ve Saccades Vertical -ve Comments Vestibular Comments mild dizziness reported during VOR1 PT-OP-Q Treatments Start: 12/03/20 08:05 Freq: Status: Active Protocol: Document 01/29/21 13:02 SP (Rec: 01/29/21 16:19 SP [id number]) Therapeutic Exercises Sitting Exercises sit to stand Sitting Exercise Name from 18 inch chair, without using UE- Reps/Minutes 9 reps in 30s Comments cued hip hinge, controlled sit PT-OP-T Assessment and Plan Start: 12/03/20 08:05 Freq: Status: Active Protocol: Document 01/29/21 13:02 SP (Rec: 01/29/21 13:48 SP [id number]) Physical Therapy Assessment Goals floor recovery Impairment pt states he is not able to recover from the floor Group Home Goal (LTG) pt will show improved balance and LE strength to be able to recover from the floor with the use of a chair independently and safely. LTG Duration 8 weeks LE strength Impairment pt needs UEs to push off during transfers Short Term Goal (STG) 01/07 goal met pt was able to stand up from 20 inch level 9 times without cane. pt will show improved LE strength so he can complete STS 6 times without using UEs to push off within 30 s STG Duration 4weeks Casino Change Attendant Goal (LTG) pt will show improved LE strength so he can complete STS 10 times without using UEs to push off within 30 s LTG Duration 10 weeks 6MWT Impairment today 6MWT= 860ft with a cane Short Term Goal (STG) pt will be able to reach 1000ft with a cane but no resting break STG Duration 4 weeks Casino Change Attendant Goal (LTG) pt will be able to reach 1100ft with a cane but no resting break LTG Duration 8 weeks LEMUS Impairment Pt scores 40 /56 on LEMUS Short Term Goal (STG) 01/07 goal met pt scores 46 /56 today. Group Home Goal (LTG) pt will show improved overall balance by scoring >46 /56 on LEMUS 01/29/21: DGI . LTG Duration 10 weeks Progress Towards Goals Progress Towards Goals Progressing Toward Goals Progress Comments DGI 1<20% impaired= Assessment Summary Assessment Pt improved with wt shift on shuttle balance this tx with ability to maintain NBOS 30-48 sec with occasional cuing for trunk directioning. DGI , slower pacing during head turns and step up/ over objects. Cued for slower eccentric taps to allow improved SLS time. Physical Therapy Plan Frequency and Duration Frequency of Treatment 2x/Week Duration of Treatment 10 weeks Plan of Care Start Date 12/03/20 Plan of Care End Date 02/16/21 Therapeutic Interventions Therapeutic Interventions Aquatic Therapy,Balance Training,Gait Training,Home Exercise Program,Joint Mobilizations,Manual Therapy, Neuromuscular Re-education, Patient/Caregiver Education, Self-Care/Home Management,Soft Tissue Mobilization, Therapeutic Activities, Therapeutic Exercises Next Visit Focus/Plan Next Note Type Treatment Note Next Visit Plan Next tx: assess POC: 6MWT/ 2MWT HEP includes calf raise, STS, toe tap, heel toe/ stance with EC.
--- NOTE | 2021-02-02 14:53 | PT.OTN ---
Current Diagnoses Other abnormalities of gait and mobility (02/02/21) Physical Therapy Treatment Note PT-OP-A Visit Information Start: 12/03/20 08:05 Freq: Status: Active Protocol: Document 02/02/21 12:57 HH (Rec: 02/02/21 14:52 [id number]) Out-Patient Physical Therapy Visit Information Visit Information Visit Type Treatment Note Visit Start Time 13:00 Visit Stop Time 13:45 Total Visit Minutes 45 Visit Number 16/ Number of CORRECTIONAL CASE RECORDS SUPERVISOR Visits 0 PT-OP-B Current Condition Start: 12/03/20 08:05 Freq: Status: Active Protocol: Document 12/03/20 09:56 HH (Rec: 12/03/20 10:28 [email or web address]) Current Condition History of Current Condition Onset Date a year ago Current Complaints decreased balance and activity tolerance, fear of falling History of Current Condition Erik Riojas) is a 75 yo male here with his for his decreased balance and activity tolerance started a year ago. He stated his balance has gradually getting worse and so does his LE strength. Fortunately, pt has not had any falls but He has difficulty with quick turns/ quick movements / bending over related movements who thinks he is going to fall over. Denies any dizziness/ vertigo/ lighthead episode. He has been using SPC for uneven ground and community walking. He does furniture cruise occasionally at home for support. His stated pt is basically home bound and very sedentary who tends to get SOB easily. Pt reports he can only walk approx a few hundred feet before a rest break. Personal Factors Other Personal Factors That May Effect CHF w history of Coronary Therapy/Recovery artery stent placement pacemaker 2013 memory loss SOB PT-OP-C Subjective Start: 12/03/20 08:05 Freq: Status: Active Protocol: Document 02/02/21 12:57 HH (Rec: 02/02/21 14:52 [id number]) OP-PT Subjective Patient Comments Patient Comments Im doing pretty good so far. Patient Reported Progress Improving PT-OP-D Balance Start: 12/03/20 08:05 Freq: Status: Active Protocol: Document 12/03/20 09:56 HH (Rec: 12/03/20 10:28 [email or web address]) OP-PT Balance Assessment Sitting Balance Static Sitting Balance Ability Normal Dynamic Sitting Balance Ability Normal Lemus Balance Assessment Evaluation Sitting to Standing Ability Independent w/Hands Unsupported Stance Supervision- 2 minutes Sitting Unsupported, Feet on Floor Safely- 2 minutes Standing to Sitting Ability Safely, Minimal Hand Use Transfer Ability Safely, Hand Use Unsupported Stance- Eyes Closed Supervision, 10 seconds Unsupported Stance- Eyes Open Supervision to maintain Reaching Forward Standing Safely, 5 inches Pick- Up Object From Floor Supervision Look Behind Shoulder - Standing Shifts Weight Well Turning 360 Degrees Turns slowly, but safely Unsupported Stance, Alternating Feet on (I)- 8 Steps in > 20 secs Stair Unsupported Tandem Stance Assist to Step-15 seconds Unilateral Leg Stance Lifts Leg/Unable to Hold Total Score Lemus Total Score (out of 56 points) 40 Lemus Impairment Rating 20 to 39% Impaired (Score 34- 44) Benjamin Fall Scale Copyright Permission PT-OP-E Functional Tests Start: 12/03/20 08:05 Freq: Status: Active Protocol: Document 01/29/21 13:02 SP (Rec: 01/29/21 13:48 SP [id number]) Functional Tests Dynamic Gait Index (DGI) Score 21 DGI Impairment Rating 1 to <20% Impaired (Score 20- 23) PT-OP-G Mobility & Gait Start: 12/03/20 08:05 Freq: Status: Active Protocol: Document 12/03/20 09:56 HH (Rec: 12/03/20 10:28 [email or web address]) OP Gait Assessment Gait Gait Assistance Required: Standby Assistance Assistive Devices Assistive Device Straight Cane Gait Deviations General Gait Pattern Decreased Stride Length, Decreased Feet Clearance Factors Limiting Gait Function Factors Limiting Gait Function Decreased Strength,Poor Balance,Respiratory Distress Comments Gait Comments pt presents occasional excessive sway during amb, feet turn operator and WBOS PT-OP-H Neuro Start: 12/03/20 08:05 Freq: Status: Active Protocol: Document 12/03/20 09:56 HH (Rec: 12/03/20 10:28 [email or web address]) Sensation Evaluation Gross Sensation Gross Sensation WNL PT-OP-J Posture/Palpation/Skin Start: 12/03/20 08:05 Freq: Status: Active Protocol: Document 12/03/20 09:56 HH (Rec: 12/03/20 10:28 HH [email or web address]) Posture Evaluation Position Standing Evaluation View Lateral Head/C-Spine Posture Forward Head T-Spine Posture Increased Kyphosis PT-OP-M Strength Start: 12/03/20 08:05 Freq: Status: Active Protocol: Document 12/03/20 09:56 HH (Rec: 12/03/20 10:28 HH [email or web address]) Hip Strength Hip Manual Muscle Testing Left Flexion (L2) 4- Good- Extension (S1) 4- Good- Abduction 4- Good- Right Flexion (L2) 4- Good- Extension (S1) 4- Good- Abduction 4- Good- Knee Strength Knee Manual Muscle Testing Right Flexion (S2) 4 Good Extension (L3) 4 Good Left Flexion (S2) 4 Good Extension (L3) 4 Good Ankle/Foot Strength Ankle and Foot Manual Muscle Testing Right Dorsiflexion (L4) 4+ Good+ Plantarflexion (S1) 4+ Good+ Left Dorsiflexion (L4) 4+ Good+ Plantarflexion (S1) 4+ Good+ PT-OP-O Vestibular Start: 12/03/20 08:05 Freq: Status: Active Protocol: Document 12/03/20 09:56 HH (Rec: 12/03/20 10:30 HH [email or web address]) Vestibular Assessment Visual Testing Smooth Pursuits Horizontal -ve Smooth Pursuits Vertical -ve Saccades Horizontal -ve Saccades Vertical -ve Comments Vestibular Comments mild dizziness reported during VOR1 PT-OP-Q Treatments Start: 12/03/20 08:05 Freq: Status: Active Protocol: Document 02/02/21 12:57 HH (Rec: 02/02/21 14:52 HH [id number]) Cardio Equipment Recumbent Stepper (Sci-Fit) Duration (Minutes) 5 Resistance 2 Seat Position 10 Other 45-50 PRMs, 0. 53miles ( feet come out of peddles at times) Gym Equipment Shuttle Balance red Details static stance: WBOS, NBOS Comments EO able to hold approx 19 sec WBOS x2, NBOS 30 sec, 48 sec, CG- cues to avoid holding on to rails. Therapeutic Exercises Standing Exercises step up Equipment Used 6 box Reps/Minutes 10 x2 Comments for HEP toe tap Equipment Used 6 > 8box Reps/Minutes 20 x 3 Comments for HEP calf raises Standing Exercise Name with toe raise Reps/Minutes 10 x2 Comments for HEP Gait Training Gait Activity gait Description Pre activity 99% SaO2, HR 67 bpm Level of Assistance SBA Surface ground level Distance/Duration 2 laps x 2 rounds Comments 376ft no AD= 2:00 min, HR 85 376 ft no AD (2 laps): 1:55 min PT-OP-T Assessment and Plan Start: 12/03/20 08:05 Freq: Status: Active Protocol: Document 02/02/21 12:57 (Rec: 02/02/21 14:52 [id number]) Physical Therapy Assessment Goals floor recovery Impairment pt states he is not able to recover from the floor Assisted Goal (LTG) pt will show improved balance and LE strength to be able to recover from the floor with the use of a chair independently and safely. LTG Duration 8 weeks LE strength Impairment pt needs UEs to push off during transfers Short Term Goal (STG) 01/07 goal met pt was able to stand up from 20 inch level 9 times without cane. pt will show improved LE strength so he can complete STS 6 times without using UEs to push off within 30 s STG Duration 4weeks Workers' Compensation Claims Examiner Goal (LTG) pt will show improved LE strength so he can complete STS 10 times without using UEs to push off within 30 s LTG Duration 10 weeks 6MWT Impairment today 6MWT= 860ft with a cane Short Term Goal (STG) pt will be able to reach 1000ft with a cane but no resting break STG Duration 4 weeks Workers' Compensation Claims Examiner Goal (LTG) pt will be able to reach 1100ft with a cane but no resting break LTG Duration 8 weeks LEMUS Impairment Pt scores 40 /56 on LEMUS Short Term Goal (STG) 01/07 goal met pt scores 46 /56 today. Workers' Compensation Claims Examiner Goal (LTG) pt will show improved overall balance by scoring >46 /56 on LEMUS 01/29/21: DGI . LTG Duration 10 weeks Assessment Summary Assessment Pt takes less breaks during session and he is able to complete 376ft in 2mins which is equivalent to >1000ft with 6MWT. Will reassess his 6MWT prior to DC. I also spent time educating him to continue his HEP to promoate physical activity. Physical Therapy Plan Frequency and Duration Frequency of Treatment 2x/Week Duration of Treatment 10 weeks Plan of Care Start Date 12/03/20 Plan of Care End Date 02/16/21 Therapeutic Interventions Therapeutic Interventions Aquatic Therapy,Balance Training,Gait Training,Home Exercise Program,Joint Mobilizations,Manual Therapy, Neuromuscular Re-education, Patient/Caregiver Education, Self-Care/Home Management,Soft Tissue Mobilization, Therapeutic Activities, Therapeutic Exercises Next Visit Focus/Plan Next Note Type Treatment Note Next Visit Plan Next tx: assess POC: 6MWT/ 2MWT HEP includes calf raise, STS, toe tap, heel toe/ stance with EC.
--- NOTE | 2021-02-04 14:26 | PT.OTN ---
Current Diagnoses Other abnormalities of gait and mobility (02/04/21) Physical Therapy Treatment Note PT-OP-A Visit Information Start: 12/03/20 08:05 Freq: Status: Active Protocol: Document 02/04/21 13:45 HH (Rec: 02/04/21 14:26 [id number]) Out-Patient Physical Therapy Visit Information Visit Information Visit Type Discharge Summary Visit Start Time 13:45 Visit Stop Time 14:20 Total Visit Minutes 40 Visit Number 17 Number of NEWS PHOTOGRAPHER Visits 0 PT-OP-B Current Condition Start: 12/03/20 08:05 Freq: Status: Active Protocol: Document 12/03/20 09:56 HH (Rec: 12/03/20 10:28 [email or web address]) Current Condition History of Current Condition Onset Date a year ago Current Complaints decreased balance and activity tolerance, fear of falling History of Current Condition Erik Riojas) is a 75 yo male here with his for his decreased balance and activity tolerance started a year ago. He stated his balance has gradually getting worse and so does his LE strength. Fortunately, pt has not had any falls but He has difficulty with quick turns/ quick movements / bending over related movements who thinks he is going to fall over. Denies any dizziness/ vertigo/ lighthead episode. He has been using SPC for uneven ground and community walking. He does furniture cruise occasionally at home for support. His stated pt is basically home bound and very sedentary who tends to get SOB easily. Pt reports he can only walk approx a few hundred feet before a rest break. Personal Factors Other Personal Factors That May Effect CHF w history of Coronary Therapy/Recovery artery stent placement pacemaker 2013 memory loss SOB PT-OP-C Subjective Start: 12/03/20 08:05 Freq: Status: Active Protocol: Document 02/04/21 13:45 HH (Rec: 02/04/21 14:26 [id number]) OP-PT Subjective Patient Comments Patient Comments Im ready to do the test PT-OP-D Balance Start: 12/03/20 08:05 Freq: Status: Active Protocol: Document 12/03/20 09:56 HH (Rec: 12/03/20 10:28 [email or web address]) OP-PT Balance Assessment Sitting Balance Static Sitting Balance Ability Normal Dynamic Sitting Balance Ability Normal Lemus Balance Assessment Evaluation Sitting to Standing Ability Independent w/Hands Unsupported Stance Supervision- 2 minutes Sitting Unsupported, Feet on Floor Safely- 2 minutes Standing to Sitting Ability Safely, Minimal Hand Use Transfer Ability Safely, Hand Use Unsupported Stance- Eyes Closed Supervision, 10 seconds Unsupported Stance- Eyes Open Supervision to maintain Reaching Forward Standing Safely, 5 inches Pick- Up Object From Floor Supervision Look Behind Shoulder - Standing Shifts Weight Well Turning 360 Degrees Turns slowly, but safely Unsupported Stance, Alternating Feet on (I)- 8 Steps in > 20 secs Stair Unsupported Tandem Stance Assist to Step-15 seconds Unilateral Leg Stance Lifts Leg/Unable to Hold Total Score Lemus Total Score (out of 56 points) 40 Lemus Impairment Rating 20 to 39% Impaired (Score 34- 44) Benjamin Fall Scale Copyright Permission PT-OP-E Functional Tests Start: 12/03/20 08:05 Freq: Status: Active Protocol: Document 01/29/21 13:02 SP (Rec: 01/29/21 13:48 SP [id number]) Functional Tests Dynamic Gait Index (DGI) Score 21 DGI Impairment Rating 1 to <20% Impaired (Score 20- 23) PT-OP-G Mobility & Gait Start: 12/03/20 08:05 Freq: Status: Active Protocol: Document 12/03/20 09:56 HH (Rec: 12/03/20 10:28 [email or web address]) OP Gait Assessment Gait Gait Assistance Required: Standby Assistance Assistive Devices Assistive Device Straight Cane Gait Deviations General Gait Pattern Decreased Stride Length, Decreased Feet Clearance Factors Limiting Gait Function Factors Limiting Gait Function Decreased Strength,Poor Balance,Respiratory Distress Comments Gait Comments pt presents occasional excessive sway during amb, feet route returner and WBOS PT-OP-H Neuro Start: 12/03/20 08:05 Freq: Status: Active Protocol: Document 12/03/20 09:56 HH (Rec: 12/03/20 10:28 HH [email or web address]) Sensation Evaluation Gross Sensation Gross Sensation WNL PT-OP-J Posture/Palpation/Skin Start: 12/03/20 08:05 Freq: Status: Active Protocol: Document 12/03/20 09:56 HH (Rec: 12/03/20 10:28 HH [email or web address]) Posture Evaluation Position Standing Evaluation View Lateral Head/C-Spine Posture Forward Head T-Spine Posture Increased Kyphosis PT-OP-M Strength Start: 12/03/20 08:05 Freq: Status: Active Protocol: Document 12/03/20 09:56 HH (Rec: 12/03/20 10:28 HH [email or web address]) Hip Strength Hip Manual Muscle Testing Left Flexion (L2) 4- Good- Extension (S1) 4- Good- Abduction 4- Good- Right Flexion (L2) 4- Good- Extension (S1) 4- Good- Abduction 4- Good- Knee Strength Knee Manual Muscle Testing Right Flexion (S2) 4 Good Extension (L3) 4 Good Left Flexion (S2) 4 Good Extension (L3) 4 Good Ankle/Foot Strength Ankle and Foot Manual Muscle Testing Right Dorsiflexion (L4) 4+ Good+ Plantarflexion (S1) 4+ Good+ Left Dorsiflexion (L4) 4+ Good+ Plantarflexion (S1) 4+ Good+ PT-OP-O Vestibular Start: 12/03/20 08:05 Freq: Status: Active Protocol: Document 12/03/20 09:56 HH (Rec: 12/03/20 10:30 HH [email or web address]) Vestibular Assessment Visual Testing Smooth Pursuits Horizontal -ve Smooth Pursuits Vertical -ve Saccades Horizontal -ve Saccades Vertical -ve Comments Vestibular Comments mild dizziness reported during VOR1 PT-OP-Q Treatments Start: 12/03/20 08:05 Freq: Status: Active Protocol: Document 02/02/21 12:57 HH (Rec: 02/02/21 14:52 HH [id number]) Cardio Equipment Recumbent Stepper (Sci-Fit) Duration (Minutes) 5 Resistance 2 Seat Position 10 Other 45-50 PRMs, 0. 53miles ( feet come out of peddles at times) Gym Equipment Shuttle Balance red Details static stance: WBOS, NBOS Comments EO able to hold approx 19 sec WBOS x2, NBOS 30 sec, 48 sec, CG- cues to avoid holding on to rails. Therapeutic Exercises Standing Exercises step up Equipment Used 6 box Reps/Minutes 10 x2 Comments for HEP toe tap Equipment Used 6 > 8box Reps/Minutes 20 x 3 Comments for HEP calf raises Standing Exercise Name with toe raise Reps/Minutes 10 x2 Comments for HEP Gait Training Gait Activity gait Description Pre activity 99% SaO2, HR 67 bpm Level of Assistance SBA Surface ground level Distance/Duration 2 laps x 2 rounds Comments 376ft no AD= 2:00 min, HR 85 376 ft no AD (2 laps): 1:55 min PT-OP-T Assessment and Plan Start: 12/03/20 08:05 Freq: Status: Active Protocol: Document 02/04/21 13:45 (Rec: 02/04/21 14:26 [id number]) Physical Therapy Assessment Goals floor recovery Impairment pt states he is not able to recover from the floor Line Operator Goal (LTG) pt will show improved balance and LE strength to be able to recover from the floor with the use of a chair independently and safely. LTG Duration 8 weeks LE strength Impairment pt needs UEs to push off during transfers Short Term Goal (STG) 01/07 goal met pt was able to stand up from 20 inch level 9 times without cane. pt will show improved LE strength so he can complete STS 6 times without using UEs to push off within 30 s STG Duration 4weeks Senior Care Goal (LTG) 02/04 goal met pt completed 10 times STS within 30 s withuot pushing off with UEs. LTG Duration 10 weeks 6MWT Impairment today 6MWT= 860ft with a cane Short Term Goal (STG) pt will be able to reach 1000ft with a cane but no resting break STG Duration 4 weeks Senior Care Goal (LTG) 02/04 1126ft pt is able to complete 1126ft with a cane without a resting break LTG Duration 8 weeks LEMUS Impairment Pt scores 40 /56 on LEMUS Short Term Goal (STG) 01/07 goal met pt scores 46 /56 today. Line Operator Goal (LTG) 02/04 goal met pt scores 51/56 on LEMUS 01/29/21: DGI . LTG Duration 10 weeks Assessment Summary Assessment DC assessment today. 6MWT= 1126ft without breaks and AD, STS 10times in 30 s, LEMUS 51/ 56, Pt met all his goals. Recommended pt to focus on increasing walking distance and speed to improve his cardiovascular endurance. DC pt from PT Physical Therapy Plan Frequency and Duration Frequency of Treatment 2x/Week Duration of Treatment 10 weeks Plan of Care Start Date 12/03/20 Plan of Care End Date 02/16/21 Therapeutic Interventions Therapeutic Interventions Aquatic Therapy,Balance Training,Gait Training,Home Exercise Program,Joint Mobilizations,Manual Therapy, Neuromuscular Re-education, Patient/Caregiver Education, Self-Care/Home Management,Soft Tissue Mobilization, Therapeutic Activities, Therapeutic Exercises Next Visit Focus/Plan Next Note Type Treatment Note Next Visit Plan Next tx: assess POC: 6MWT/ 2MWT HEP includes calf raise, STS, toe tap, heel toe/ stance with EC.
== END 2021-02-25 14:39 ==
LOC: PHYS 13:45
PROVIDERS: Family Provider Student in an Organized Health Care Education/Training Program; PCP Student in an Organized Health Care Education/Training Program; Referring Provider Student in an Organized Health Care Education/Training Program; Visit Provider Student in an Organized Health Care Education/Training Program
DX: R26.89 Other abnormalities of gait and mobility (principal)
CPT/HCPCS: 97110; 97112; 97116; 97162; 97530

== ENCOUNTER → 2021-02-08 12:11 | Outpatient (CLI) | payer MEDICARE, SELFPAY ==
[2021-02-08 14:39] LABS: BUN Creatinine Ratio 15.8 (6-22); Blood Urea Nitrogen 33 mg/dL (9-20); Calcium 9.9 mg/dL (8.4-10.2); Carbon Dioxide 28 mmol/L (22-32); Chloride 102 mmol/L (98-107); Estimated Glomerular Filt Rate 31.1 mL/min (>60); Glucose 100 mg/dL (80-110); HEMOLYSIS < 15 (0-50); Magnesium 2.2 mg/dL (1.6-2.3); Phosphorous 3.5 mg/dL (2.3-3.7); Potassium 4.1 mmol/L (3.4-5.1); Sodium 138 mmol/L (137-145); Uric Acid 4.5 mg/dL (3.5-8.5)
[2021-02-08 17:56] LABS: Vitamin D 25 Hydroxy (D3) 57.7 ng/mL (30.0-100.0)
== END ==
PROVIDERS: Family Provider Student in an Organized Health Care Education/Training Program; PCP Student in an Organized Health Care Education/Training Program; Referring Provider Internal Medicine Nephrology; Visit Provider Internal Medicine Nephrology
DX: N18.32 Chronic kidney disease, stage 3b (principal)
CPT/HCPCS: 36415; 80048; 82306; 83735; 84100; 84550

== ENCOUNTER → 2021-04-19 08:13 | Outpatient (CLI) | payer MEDICARE, SELFPAY | PROVIDERS: Family Provider Student in an Organized Health Care Education/Training Program; PCP Student in an Organized Health Care Education/Training Program; Referring Provider Physician Assistant Medical; Visit Provider Specialist | DX: E78.5 Hyperlipidemia, unspecified (principal); I47.2 Ventricular tachycardia | CPT/HCPCS: 36415 ==

== ENCOUNTER → 2021-04-22 08:52 | Outpatient (CLI) | payer MEDICARE, SELFPAY ==
[2021-04-22 10:03] LABS: Alanine Aminotransferase 26 IU/L (<50); Albumin 3.9 g/dL (3.5-5.0); Albumin Globulin Ratio 1.3 (1.0-2.8); Alkaline Phosphatase 74 U/L (38-126); Aspartate Aminotransferase 35 IU/L (17-59); BUN Creatinine Ratio 17.6 (6-22); Bilirubin Total 0.6 mg/dL (0.2-1.3); Blood Urea Nitrogen 37 mg/dL (9-20); Calcium 10.4 mg/dL (8.4-10.2); Carbon Dioxide 31 mmol/L (22-32); Chloride 103 mmol/L (98-107); Estimated Glomerular Filt Rate 30.9 mL/min (>60); Globulin 3.1 g/dL (1.7-4.1); Glucose 110 mg/dL (80-110); HEMOLYSIS < 15 (0-50); Magnesium 2.5 mg/dL (1.6-2.3); Sodium 137 mmol/L (137-145)
[2021-04-22 10:33] LABS: Thyroid Stimulating Hormone 1.94 uIU/mL (0.47-4.68)
[2021-04-22 11:12] LABS: Prostate Specific Antigen < 0.064 ng/mL (0.10-4.00)
[2021-04-26 10:29] LABS: Cholesterol, Total 178 mg/dL (100-199); HDL-Cholesterol 73 mg/dL (>39); HDL-Particle (Total) 35.5 umol/L (>=30.5); LDL Particle 1026 nmol/L (<1000); LDL Size 21.4 nm (>20.5); LDL-Cholsterol 91 mg/dL (0-99); LP-IR Score <25 (<=45); Small LDL- Particle 232 nmol/L (<=527); Triglycerides 73 mg/dL (0-149)
== END ==
PROVIDERS: Specialist; Family Provider Student in an Organized Health Care Education/Training Program; PCP Student in an Organized Health Care Education/Training Program; Referring Provider Specialist; Visit Provider Specialist
DX: I47.2 Ventricular tachycardia (principal); E78.5 Hyperlipidemia, unspecified; C61 Malignant neoplasm of prostate
CPT/HCPCS: 36415; 80053; 80061; 83704; 83735; 84153; 84443

== ENCOUNTER → 2021-04-26 13:17 | Outpatient (CLI) | payer MEDICARE, SELFPAY ==
--- NOTE | 2021-04-26 | DI.US.S_ITS ---
PROCEDURE: US RENAL COMPLETE INDICATIONS: LEFT ACQUIRED RENAL CYST TECHNIQUE: Real-time scanning was performed of the kidneys and bladder, with image documentation. COMPARISON: [facility], CT, CT KIDNEY URETER BLADDER (KUB), 02/13/2020, 9:51. FINDINGS: Kidneys: Right kidney measures 10.1 cm long; left kidney measures 12.3 cm long. Right renal cortical thickness is 1.3 cm; left renal cortical thickness is 1.1 cm. No hydronephrosis or nephrolithiasis. No suspicious solid mass lesions. Multiple bilateral renal cysts, largest on the right measures up to 7 mm and on the left up to 4.2 cm. Bladder: Pre-void bladder volume is 280 mL. Post-void residual is 328 mL. Pre-void images demonstrate no intraluminal masses or stones. On pre-void images, right ureteral jets are noted with color Doppler interrogation. (Of note, ureteral jets may not be detectable in up to 25% of cases due to insufficient differences in specific gravity between ureteral and bladder urine). Small bilateral bladder diverticula redemonstrated bilaterally. Multiple bladder calculi again identified. Miscellaneous: No free pelvic fluid. IMPRESSION: 1. Bilateral renal cysts, which appears similar prior examination, largest of which is on the left measuring up to 4.2 cm. 2. Multiple urinary bladder calculi redemonstrated and small bilateral bladder diverticulum are again noted. Dictated by: Wenceslao NAVARRO Interpreted: Dav Albrecht MD on 04/26/2021 at 14:23 Approved by: Dav Albrecht M.D. on 04/26/2021 at 16:59
== END ==
PROVIDERS: Family Provider Student in an Organized Health Care Education/Training Program; PCP Student in an Organized Health Care Education/Training Program; Referring Provider Physician Assistant; Visit Provider Physician Assistant
DX: N28.1 Cyst of kidney, acquired (principal); N32.3 Diverticulum of bladder; N21.0 Calculus in bladder
CPT/HCPCS: 76770

== ENCOUNTER 2021-05-24 14:42 | Observation (INO) | payer MEDICARE, SELFPAY ==
[2021-05-24] VITALS (19 sets, daily range): BP systolic 106–125; BP diastolic 49–97; PULSE 59–68; RESP 17–60; TEMP 36.1–36.3; O2SAT 92–99; BMI 29.7
--- NOTE | 2021-05-24 14:51 | DI.RAD.S_ITS ---
PROCEDURE: XR CHEST 1V INDICATIONS: chest pain TECHNIQUE: One view of the chest was acquired. COMPARISON: [facility], CT, CT KIDNEY URETER BLADDER (KUB), 02/13/2020, 9:51. Outside Film, CR, XR CHEST 1 VIEW, 06/30/2018, 6:05. [facility], CR, XR CHEST 1V, 06/28/2018, 4:45. FINDINGS: Surgical changes and devices: Pacemaker. Lungs and pleura: Minimal appearance of patchy bibasilar/retrocardiac opacities. Mediastinum: Mediastinal contours appear normal. Heart size is enlarged. Bones and chest wall: No suspicious bony lesions. Overlying soft tissues appear unremarkable. IMPRESSION: Patchy bibasilar/retrocardiac opacities as above most suggestive of pneumonia. Dictated by: Sanna Gallegos M.D. on 05/24/2021 at 15:12 Approved by: Sanna Gallegos M.D. on 05/24/2021 at 15:13
[2021-05-24 15:30] LABS: Add Manual Diff / Slide Review NO; Basophils Absolute Auto 0 /uL (0-100); Basophils Percent Auto 0.3 % (0-2); Eosinophils Absolute Auto 200 /uL (0-450); Eosinophils Percent Auto 2.4 % (2-4); Hematocrit 28.8 % (41-53); Hemoglobin 9.3 g/dL (13.5-17.5); Lymphocytes Absolute Auto 300 /uL (1100-4500); Lymphocytes Percent Auto 4.1 % (25-40); Mean Corpuscular HGB Conc 32.5 % (30-36); Mean Corpuscular Hemoglobin 27.5 PG (26-34); Mean Corpuscular Volume 84.5 fL (80-100); Monocytes Absolute Auto 600 /uL (0-900); Neutrophils Absolute Auto 6000 /uL (1500-7000); Neutrophils Percent Auto 85.2 % (50-75); Platelet Count 177 X10^3/uL (150-400); Red Cell Distribution Width 18.7 % (11.6-14.8)
[2021-05-24 15:38] LABS: Alanine Aminotransferase 36 IU/L (<50); Albumin 3.8 g/dL (3.5-5.0); Albumin Globulin Ratio 1.3 (1.0-2.8); Alkaline Phosphatase 88 U/L (38-126); Aspartate Aminotransferase 30 IU/L (17-59); Bilirubin Total 0.8 mg/dL (0.2-1.3); Blood Urea Nitrogen 42 mg/dL (9-20); Calcium 10.2 mg/dL (8.4-10.2); Carbon Dioxide 20 mmol/L (22-32); Chloride 109 mmol/L (98-107); Creatine Kinase 97 U/L (55-170); Estimated Glomerular Filt Rate 32.7 mL/min (>60); Globulin 2.9 g/dL (1.7-4.1); Glucose 125 mg/dL (80-110); HEMOLYSIS < 15 (0-50); Lipase 67 U/L (23-300); Magnesium 2.3 mg/dL (1.6-2.3); Potassium 4.4 mmol/L (3.4-5.1); Sodium 137 mmol/L (137-145); Total Protein 6.7 g/dL (6.3-8.2)
[2021-05-24 15:50] LABS: NT-proBNP (BNP-Adult 18+) 11400 pg/mL (<450); Troponin I 0.026 ng/mL (0.01-0.034)
--- NOTE | 2021-05-24 16:04 | ED_ITS ---
HPI - SOB/Dyspnea General Chief Complaint: Shortness of Breath/Dyspnea Stated Complaint: SOB, ox level at 79, hx of cardiac issues Time Seen by Provider: 05/24/21 15:15 Source: patient Mode of arrival: Ambulatory Limitations: no limitations History of Present Illness HPI Narrative: This is a 75-year-old male comes in with complaint of increasing shortness of breath for the last several days. Patient states he has always had some slight dyspnea became significantly worse over the past 2 days. He denies chest pain or pressure, no lightheadedness, no nausea vomiting, no diaphoresis, no fevers or chills, no cold cough or congestion. He denies new swelling in his extremities, no orthopnea. Patient does have a cardiac history with pacemaker/AICD, cardiac stents x3 the most recent being placed 3 or 4 years ago. Chronic kidney disease which appears stable and follows with Nephrology. Sleep apnea and uses CPAP he does have known prostate cancer and has had orchiectomy. Patient denies any allergies to medications. No tobacco, very rare alcohol and no illicit. He follows with Dr. Wiggins is his primary care, Dr. Ayala is his security system analyst Dr. Vickers is receiving associate store and Dr. Wu as his urologist. Patient is note that they did fly back from the [place] yesterday spent 6 hours on a plane followed by 2 hours on a bus. He denies any cramping in his lower extremities, redness or warmth. Related Data Home Medications Medication Instructions Recorded Confirmed ferrous sulfate 325 mg (65 mg 325 mg PO QAM #1 05/20/12 04/28/21 iron) tablet Tums 1 tab PO BID 06/28/18 04/28/21 furosemide 40 mg tablet 20 mg PO DAILY tab 09/13/18 04/28/21 Respironics Remstar CPAP #1 ea 09/17/18 04/28/21 rosuvastatin 40 mg tablet (Crestor) 40 mg PO QPM #0 tab 12/26/19 04/28/21 vitamin E mixed 1,000 unit capsule unit PO 09/03/20 04/28/21 famotidine 40 mg tablet 40 mg PO DAILY 11/03/20 04/28/21 cholecalciferol (vitamin D3) 25 25 mcg PO DAILY 11/10/20 04/28/21 mcg (1,000 unit) capsule potassium chloride 10 mEq 10 meq PO BID tab 11/10/20 04/28/21 tablet,extended release(part/cryst) (Klor-Con M) amiodarone 200 mg tablet 100 mg PO DAILY tab 01/04/21 04/28/21 carvedilol 25 mg tablet 12.5 mg PO BID tab 02/10/21 04/28/21 Previous Rx's Medication Instructions Recorded ticagrelor 90 mg tablet (Brilinta) 90 mg PO BID #90 tab 08/26/18 folic acid 1 mg tablet 1 mg PO QPM #90 tab 06/04/20 donepezil 5 mg tablet (Aricept) 5 mg PO BEDTIME #90 tab 01/13/21 alfuzosin 10 mg tablet,extended See Rx Instructions .ROUTE 02/12/21 release 24 hr .COMPLEX #90 tab finasteride 5 mg tablet See Rx Instructions .ROUTE 03/08/21 .COMPLEX #90 tab bupropion HCl 150 mg tablet,12 hr 150 mg PO QAM #90 ea 03/17/21 sustained-release Allergies Allergy/AdvReac Type Severity Reaction Status Date / Time No Known Drug Allergies Allergy Verified 04/28/21 14:31 Review of Systems Review of Systems ROS Unobtainable: All systems reviewed & are unremarkable except as noted in HPI and below Patient History Medical History Bladder calculi 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 Coronary artery disease Erectile dysfunction GERD (gastroesophageal reflux disease) Hx of malignant melanoma Hyperlipidemia Hypertension Insomnia 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 Nocturnal hypoxemia Non-ST elevation (NSTEMI) myocardial infarction (~06/28/18) Obesity Obstructive sleep apnea syndrome Prostate cancer Skin cancer Snoring Surgical History History of coronary artery stent placement Pacemaker (~2012) Social History marital status: (to Siobhan) details: lives in [place] household members: spouse lives independently: Yes caregiver/support person: Yes (Siobhan) housing: house occupational status: other Smoking Status: Never smoker Smoking Status: Never smoker alcohol intake frequency: holidays/special occasions only Substance Use Type: does not use Exam Narrative Exam Narrative: GENERAL: Alert and oriented x three, elderly male in moderate distress. HEENT: Head normocephalic, atraumatic, EOMI, pupils reactive, face symmetric, moist mucous membranes NECK: Supple, full range of motion CARDIOVASCULAR: Regular rate and rhythm without murmurs, rubs or gallops. 2+ pitting edema bilateral lower extremities. RESPIRATORY: Breath sounds equal bilaterally, no wheezes, no rhonchi. Patient speaks in full sentences but becomes quite dyspneic and tachypneic with exertion. He also dropped his O2 sats. Patient has mild crackles bilaterally. ABDOMEN: Soft, nontender. Normoactive bowel sounds all 4 quadrants. No guarding or rebound, rigidity, no mass : No CVA tenderness EXTREMITIES: Normal range of motion, no clubbing. Neurovascularly intact. No warmth, erythema. Lower extremities circumference equal bilaterally. NEUROLOGICAL: Cranial nerves II through XII grossly intact. Moving all extremities SKIN: Warm, dry, no petechiae, no rashes or lesions. Initial Vital Signs Initial Vital Signs: Vital Signs Temperature 97.0 F L 05/24/21 14:45 Pulse Rate 68 05/24/21 14:45 Respiratory Rate 22 05/24/21 14:45 Blood Pressure 106/52 L 05/24/21 14:45 Pulse Oximetry 98 05/24/21 14:45 Course Orders Ordered: ED Orders 05/24/21 14:51 XR chest 1V Stat EKG-12 Lead Stat 05/24/21 14:57 COVID19 -Nasal swab/Pre-Proc Stat 05/24/21 15:24 BNP [NT-proBNP (BNP-Adult 18+)] Stat Blood Culture Stat Complete Blood Count AUTO DIFF Stat Comprehensive Metabolic Panel Stat D Dimer Stat Lipase Stat Magnesium Stat Procalcitonin Stat Troponin & CK Cardiac Panel Stat 05/24/21 16:48 Respiratory Panel (Film Array) Stat Discontinued Medications Furosemide (Furosemide 40 Mg/4 Ml Vial) 40 mg IV NOW ONE Stop: 05/24/21 16:08 Last Admin: 05/24/21 16:33 Dose: 40 mg Documented by: LAMONT Furosemide (Furosemide 40 Mg/4 Ml Vial) 40 mg IV NOW ONE Stop: 05/24/21 17:15 Piperacillin Sod/Tazobactam (Sod 4.5 gm/ Sodium Chloride) 100 mls @ 200 mls/hr IV NOW ONE Stop: 05/24/21 16:40 Last Admin: 05/24/21 16:57 Dose: 200 mls/hr Documented by: Consultations Consultation #1: Nando, hospitalist accepts. Patient appears to be CHF possible pneumonia based on chest x-ray but his does not have ontiveros to white count. Procalcitonin is pending. Blood cultures were obtained patient was started on Zosyn. He has stable renal function. Troponin is negative but BNP is quite elevated he is given Lasix and Dr. Jon aspirin additional 40 mg based on his renal function. D-dimer was obtained and is elevated even after age adjustment he does have risk with his recent flight. He is not fully anticoagulated. Dr. Dennis Tanner follow with this but at this time patient is not a candidate for CTA with his GFR. He defers further workup for this at the time. Time: 17:15 Vital Signs Vital signs: Vital Signs - 8 hr 05/24/21 14:45 05/24/21 16:11 Temperature 97.0 F L Pulse Rate 68 65 Respiratory Rate 22 48 H Blood Pressure 106/52 L Pulse Oximetry 98 99 MDM - SOB/Dyspnea Lab Data Result diagrams: 05/24/21 15:24 05/24/21 15:24 Labs: Lab Results 05/24/21 05/24/21 05/24/21 Range/Units 14:57 15:24 15:24 WBC 7.0 (4.5-11.0) X10^3/uL RBC 3.40 L (4.5-5.9) X10^6/uL Hgb 9.3 L (13.5-17.5) g/dL Hct 28.8 L (41-53) % MCV 84.5 (80-100) fL MCH 27.5 (26-34) PG MCHC 32.5 (30-36) % RDW 18.7 H (11.6-14.8) % Plt Count 177 (150-400) X10^3/uL Neut % (Auto) 85.2 H (50-75) % Lymph % (Auto) 4.1 L (25-40) % [place] % (Auto) 8.0 (3-14) % Eos % (Auto) 2.4 (2-4) % Baso % (Auto) 0.3 (0-2) % Neut # (Auto) 6000 (2431-2032) /uL Lymph # (Auto) 300 L (7608-0623) /uL [place] # (Auto) 600 (0-900) /uL Eos # (Auto) 200 (0-450) /uL Baso # (Auto) 0 (0-100) /uL D-Dimer (<230) ng/mL Sodium 137 (137-145) mmol/L Potassium 4.4 (3.4-5.1) mmol/L Chloride 109 H (98-107) mmol/L Carbon Dioxide 20 L (22-32) mmol/L BUN 42 H (9-20) mg/dL Creatinine 2.00 H (0.66-1.25) mg/dL Estimated GFR 32.7 L (>60) mL/min BUN/Creatinine Ratio 21.0 (6-22) Glucose 125 H (80-110) mg/dL Calcium 10.2 (8.4-10.2) mg/dL Magnesium 2.3 (1.6-2.3) mg/dL Total Bilirubin 0.8 (0.2-1.3) mg/dL AST 30 (17-59) IU/L ALT 36 (<50) IU/L Alkaline Phosphatase 88 (38-126) U/L Total Creatine Kinase 97 (55-170) U/L CK-MB (CK-2) TNP CK-MB (CK-2) Rel Index TNP Troponin I 0.026 (0.01-0.034) ng/mL NT-Pro-B Natriuret Pep 41022 H (<450) pg/mL Total Protein 6.7 (6.3-8.2) g/dL Albumin 3.8 (3.5-5.0) g/dL Globulin 2.9 (1.7-4.1) g/dL Albumin/Globulin Ratio 1.3 (1.0-2.8) Lipase 67 (23-300) U/L Procalcitonin (<0.5) ng/mL SARS-CoV-2 (PCR) Negative (Negative) 05/24/21 05/24/21 Range/Units 15:24 15:24 WBC (4.5-11.0) X10^3/uL RBC (4.5-5.9) X10^6/uL Hgb (13.5-17.5) g/dL Hct (41-53) % MCV (80-100) fL MCH (26-34) PG MCHC (30-36) % RDW (11.6-14.8) % Plt Count (150-400) X10^3/uL Neut % (Auto) (50-75) % Lymph % (Auto) (25-40) % [place] % (Auto) (3-14) % Eos % (Auto) (2-4) % Baso % (Auto) (0-2) % Neut # (Auto) (4981-6931) /uL Lymph # (Auto) (2963-9562) /uL [place] # (Auto) (0-900) /uL Eos # (Auto) (0-450) /uL Baso # (Auto) (0-100) /uL D-Dimer 887 H (<230) ng/mL Sodium (137-145) mmol/L Potassium (3.4-5.1) mmol/L Chloride (98-107) mmol/L Carbon Dioxide (22-32) mmol/L BUN (9-20) mg/dL Creatinine (0.66-1.25) mg/dL Estimated GFR (>60) mL/min BUN/Creatinine Ratio (6-22) Glucose (80-110) mg/dL Calcium (8.4-10.2) mg/dL Magnesium (1.6-2.3) mg/dL Total Bilirubin (0.2-1.3) mg/dL AST (17-59) IU/L ALT (<50) IU/L Alkaline Phosphatase (38-126) U/L Total Creatine Kinase (55-170) U/L CK-MB (CK-2) CK-MB (CK-2) Rel Index Troponin I (0.01-0.034) ng/mL NT-Pro-B Natriuret Pep (<450) pg/mL Total Protein (6.3-8.2) g/dL Albumin (3.5-5.0) g/dL Globulin (1.7-4.1) g/dL Albumin/Globulin Ratio (1.0-2.8) Lipase (23-300) U/L Procalcitonin 0.11 (<0.5) ng/mL SARS-CoV-2 (PCR) (Negative) Imaging Data Chest x-ray: Radiologist's Impression: [address] [address] XRay Report Signed Patient: Erik Grant MR#: [id number] : 1945 Acct:[id number] Age/Sex: 75 / M Date of Service: 05/24/21 Loc: ED Accession Number: [id number] ?? Procedure: XR chest 1V Ordering Provider: Rissa Horta D.O. PROCEDURE:? XR CHEST 1V ? INDICATIONS:? chest pain ? TECHNIQUE:? One view of the chest was acquired.? ? COMPARISON:? [facility], CT, CT KIDNEY URETER BLADDER (KUB), 02/13/2020, 9:51.? Outside Film, CR, XR CHEST 1 VIEW, 06/30/2018, 6:05.? [facility], CR, XR CHEST 1V, 06/28/2018, 4:45. ? FINDINGS:? ? Surgical changes and devices:? Pacemaker. ? Lungs and pleura:? Minimal appearance of patchy bibasilar/retrocardiac opacities. ? Mediastinum:? Mediastinal contours appear normal.? Heart size is enlarged. ? Bones and chest wall:? No suspicious bony lesions.? Overlying soft tissues appear unremarkable.? ? IMPRESSION:? Patchy bibasilar/retrocardiac opacities as above most suggestive of pneumonia. ? ? Dictated by: Sanna Gallegos M.D. on 05/24/2021 at 15:12 ? ? Approved by: Sanna Gallegos M.D. on 05/24/2021 at 15:13?? ECG Data Attestation: I personally reviewed and interpreted this ECG as follows: Prior ECG tracings: available for review Interpretation: Ventricularly paced rhythm, rate of 65 QRS of 166 QRS QTC of 551. MDM Narrative Medical decision making narrative: 75-year-old male comes to the emergency department with complaint of increasing shortness of breath with known setting a cardiac history with an EF in the 25% range, significantly enlarged heart and clinically appears to have CHF. He does have some risk factors with recent flight D-dimer was elevated even after age adjustment. Troponin is negative. Discussed with hospitalist who accepts for admission. Lasix was given, a dose of Zosyn. Discussed with hospitalist who accepts. We did discuss dimer and the patient is not a candidate for CTA at this time. Discharge Plan Departure Patient Disposition: Admitted as Observation Clinical Impression: Congestive heart failure with cardiomyopathy, CKD (chronic kidney disease) Admit Date/Time: 05/24/21 17:18 Admit Provider: Nirmal Collier
[2021-05-24 16:05] LABS: COVID19 -Nasal RAPID Negative (Negative)
[2021-05-24] MEDS: FUROSEMIDE 40 MG/4 ML VIAL IV ×2 (16:33→17:33)
[2021-05-24 16:55] LABS: D Dimer 887 ng/mL (<230)
[2021-05-24] MEDS: PIPERACILLIN/TAZO 4.5 GM in SODIUM CHLORIDE 0.9% 100 ML 200 ML IV (16:57)
[2021-05-24 17:17] LABS: Procalcitonin 0.11 ng/mL (<0.5)
[2021-05-24 18:05] LABS: Adenovirus Not Detected (Not Detect); B. parapertussis Not Detected (Not Detecte); Bordetella pertussis Not Detected (Not Detecte); Chlamydophila pneumoniae Not Detected (Not Detect); Coronavirus 229E Not Detected (Not Detect); Coronavirus HKU1 Not Detected (Not Detect); Coronavirus NL 63 Not Detected (Not Detect); Coronavirus OC43 Not Detected (Not Detect); Human Metapneumovirus Not Detected (Not Detect); Human Rhinovirus/Enterovirus Not Detected (Not Detect); Influenza A Not Detected (Not Detect); Influenza B Not Detected (Not Detect); Mycoplasma pneumoniae Not Detected (Not Detect); Parainfluenza Virus 1 Not Detected (Not Detect); Parainfluenza Virus 2 Not Detected (Not Detect); Parainfluenza Virus 3 Not Detected (Not Detect); Parainfluenza Virus 4 Not Detected (Not Detect); Respiratory Syncytial Virus Not Detected (Not Detect); SARS- CoV-2 Not Detected (Not Detecte)
--- NOTE | 2021-05-24 18:52 | DI.ECHO.S_ITS ---
[facility] +---------+ : : [address] : : : : [id number] : : : : Phone: [phone]+ Echocardiogram Report + + :Name: PATITO PUENTES Study Date: 05/25/2021 Height: 70 in : :[facility] ReadingLocation: Weight: 207 lb : : Gender: Male BSA: 2.1 m2 : :: 1945 Age: 75 yrs BP: 111/64 mmHg: :Reason For Study: CONGESTIVE HEART FAILURE EXACERBATION : :Ordering Physician: KIKE, : :KATRIN Performed By: Mara Obando : :Referring: KATRIN STOKES : + + Interpretation Summary The left ventricle is severely dilated. Left ventricular systolic function is severely reduced. The ejection fraction is estimated to be 10-15%. Left ventricular function has slightly worsened compared to the previous exam. There is severe global hypokinesis of the left ventricle. Diastolic parameters suggest a restrictive filling pattern consistent with probable significantly elevated filling pressures. The right ventricle is mild to moderately dilated. There is a pacemaker lead in the right ventricle. Right ventricular systolic function is at the lower limits of normal. The right ventricular systolic pressure is estimated to be at least 62 mmHg based on an estimated right atrial pressure of 15 mm Hg. The left atrium is severely dilated. The right atrium is moderately dilated. There is mild to moderate mitral regurgitation. Compared to the prior echo study, there has been no change in the severity of mitral regurgitation. There is moderate aortic valve sclerosis. The aortic valve is trileaflet. There is probable moderate aortic stenosis. Compared to the prior echo study, there has been no change in the severity of aortic stenosis. There is moderate tricuspid regurgitation. Compared to the prior echo exam, there has been an increase in TR severity. The aortic root is mildly dilated. The ascending aorta is mildly enlarged. Procedure: A two-dimensional transthoracic echocardiogram with color flow and Doppler was performed. The study quality was technically adequate. Comparison is made with the echocardiogram of 12/15/2020. The patient has a paced rhythm. The heart rate ranged between 60-68 bpm during the study. Left Ventricle: The left ventricle is severely dilated. The estimated left ventricular end diastolic volume is 268 ml. Left ventricular systolic function is severely reduced. The ejection fraction is estimated to be 10-15%. Left ventricular function has slightly worsened compared to the previous exam. There is severe global hypokinesis of the left ventricle. Diastolic parameters suggest a restrictive filling pattern consistent with probable significantly elevated filling pressures. Right Ventricle: The right ventricle is mild to moderately dilated. There is a pacemaker lead in the right ventricle. Right ventricular systolic function is at the lower limits of normal. Atria: The left atrium is severely dilated. The right atrium is moderately dilated. There is no Doppler evidence for an interatrial shunt. Mitral Valve: The mitral valve leaflets are mildly calcified. There is mild mitral annular calcification. There is mild to moderate mitral regurgitation. Compared to the prior echo study, there has been no change in the severity of mitral regurgitation. Aortic Valve: There is moderate aortic valve sclerosis. The aortic valve is trileaflet. There is moderate aortic stenosis. Compared to the prior echo study, there has been no change in the severity of aortic stenosis. There is trace aortic regurgitation. Tricuspid Valve: The tricuspid valve is normal in structure and function. There is moderate tricuspid regurgitation. Compared to the prior echo exam, there has been an increase in TR severity. The right ventricular systolic pressure is estimated to be at least 62 mmHg based on an estimated right atrial pressure of 15 mm Hg. Pulmonic Valve: The pulmonic valve is not well seen, but is grossly normal. There is no pulmonic valvular regurgitation. Great Vessels: The aortic root is mildly dilated. The ascending aorta is mildly enlarged. The IVC is dilated (diameter is greater than 2.1 cm) and it collapses less than 50% with a sniff. This suggests a high right atrial pressure of 15 mm Hg. Pericardium/ Pleura There is no pericardial effusion. There is no pleural effusion. MMode/2D Measurements & Calculations LVIDd: 7.0 cm LVOT diam: 2.3 cm LVIDs: 6.3 cm Ao root diam: 4.2 cm FS: 10.0 % asc Aorta Diam: 3.6 cm IVSd: 0.70 cm LVPWd: 0.87 cm LV briceon. diameter/BSA (cm/m^2): 3.3 LV sys. diameter/BSA (cm/m^2): 3.0 LA A2 area: 35.3 cm2 RA long axis: 6.6 cm LA A4 area: 34.5 cm2 RA area: 26.0 cm2 LA length (vol): 7.1 cm RA vol: 87.4 ml LA vol: 144.5 ml RA : 41.3 ml/m2 LA vol index: 68.2 ml/m2 IVC diam: 2.7 cm RVD1 (basal): 5.0 cm TAPSE: 2.6 cm Doppler Measurements & Calculations Ao V2 max: 236.2 cm/sec LVOT Max Ari: 55.6 cm/sec Ao V2 mean: 152.9 cm/sec LV V1 max P.2 mmHg Ao max P.0 mmHg LV V1 VTI: 11.1 cm Ao mean P.3 mmHg EHSAN(I,D): 0.93 cm2 Ao V2 VTI: 51.4 cm EHSAN(V,D): 1.0 cm2 sev ratio: 0.22 EHSAN indexed to BSA (cm^2/m^2): 0.44 MV E max ari: 140.3 cm/sec TR max ari: 334.0 cm/sec MV A max ari: 38.9 cm/sec TR max P.6 mmHg MV E/A: 3.6 PA V2 max: 78.0 cm/sec Med Peak E' Ari: 2.1 cm/sec PA V2 mean: 48.4 cm/sec E/E' med: 68.4 PA mean P.1 mmHg Lat Peak E' Ari: 5.2 cm/sec PA pr(Accel): 37.9 mmHg E/E' lat: 26.9 E/e' average: 47.6 MV dec time: 0.21 sec SV(LVOT): 47.7 ml Reading Physician:02:04 PM
[2021-05-24 21:57] LABS: Thyroid Stimulating Hormone 2.46 uIU/mL (0.47-4.68)
[2021-05-24] MEDS: ATORVASTATIN 20 MG TABLET 80 MG PO (22:13)
[2021-05-24] MEDS: HEPARIN 5,000 UNIT/ML VIAL 5000 UNIT SUBCUT (22:13)
[2021-05-24] MEDS: FERROUS SULFATE 325 MG TABLET PO (22:13)
[2021-05-24] MEDS: DONEPEZIL 5 MG TABLET PO (22:14)
--- NOTE | 2021-05-24 22:14 | P.HP_ITS ---
History of Present Illness History of Present Illness Date Patient Seen: 05/24/21 Time Patient Seen: 18:45 Chief complaint: SOB, ox level at 79, hx of cardiac issues Narrative: Erik Grant is a 75-year-old male with a medical history of anemia due to iron deficiency, BPH, CAD, cardiac stent x3, paroxysmal atrial fibrillation, aortic stenosis, CKD, ED, GERD, hyperlipidemia, hypertension, implanted cardioverter-defibrillator, insomnia, left bundle-branch block, malignant melanoma, history of KS & NSTEMI, nonrheumatic aortic valve stenosis, obesity, CAROL ANN-CPAP, and history of prostate cancer who presented to the ED complaining of increasing shortness of breath for the last several days.? Patient states he has always had some slight dyspnea became significantly worse over the past 2 days.? He denies chest pain, pressure, palpitation, lightheadedness, abdominal pain, nausea, vomiting, diaphoresis, fevers, chills, cold, cough, congestion, numbness, tingling, headache, changes in vision, weakness, orthopnea, hematuria, hematemesis, melena, recent illness, injury, or trauma. Patient denies any allergies to medications.? No tobacco, very rare alcohol and no illicit.? Following a 6 hour plane flight, and to are bus ride patient denies any cramping in his lower extremities, redness or warmth. He follows with Dr. Wiggins is his primary care, Dr. Ayala is his c python developer Dr. Vickers is drawer liner and Dr. Wu as his urologist. Patient's vitals upon admit were stable with the exception of tachypnea, temp 97?, BP 124/63, HR 60, RR 55, O2 saturation 94% on 2 L NC. Patient's 02 sat in ED was reportedly dropping into the 80s on room air with any movement or exertion. Patient has chronic anemia hemoglobin 9.3, hematocrit 28.8. CKD: Chloride 109, BUN 42, bicarb 20, creatinine 2.0, GFR 32.7, glucose 125 these are reportedly baseline for the patient. D-dimer 887- age corrected cut off 750. But due to patient's renal function and creatinine not a candidate for CTA this time. BNP 66315, troponin 1. 0.026. Chest x-ray demonstrated patchy bibasilar/retrocardiac opacities-possible CHF versus pneumonia. EKG I personally reviewed demonstrates a ventricular paced rhythm with a rate of [address] or T-wave changes. Patient admitted for acute respiratory failure with hypoxia due to CHF exacerbation with cardiomyopathy, possible pneumonia. 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 Nocturnal hypoxemia Non-ST elevation (NSTEMI) myocardial infarction (~06/28/18) Obesity Obstructive sleep apnea syndrome Prostate cancer Skin cancer Snoring Surgical History History of coronary artery stent placement Pacemaker (~2012) Family & Social History Family History (Reviewed 05/24/21 @ 23:52 by SAQIB [facility]) Mother Tamponade Father Cancer Social History: household members spouse Prior Living Arrangements House lives independently Yes caregiver/support person Yes: Siobhan Safety & Behavioral: Feels Safe in Current Yes Environment Been Physically Hurt or No Threatened By a Person Suicidal Ideation Description None Suicide Plan Description No Plan Tobacco & Substance use: Smoking Status Never smoker alcohol intake frequency holiday/special occasion Substance Use Type does not use Meds Home Medications and Allergies Home Medications Medication Instructions Recorded Confirmed Type ferrous sulfate 325 mg (65 mg 325 mg PO QAM #1 05/20/12 05/24/21 History iron) tablet Tums 1 tab PO BID PRN 06/28/18 05/24/21 History furosemide 40 mg tablet 30 mg PO DAILY tab 09/13/18 05/24/21 History Respironics Remstar CPAP #1 ea 09/17/18 04/28/21 History rosuvastatin 40 mg tablet (Crestor) 40 mg PO QPM #0 tab 12/26/19 05/24/21 History folic acid 1 mg tablet 1 mg PO QPM #90 tab 06/04/20 05/24/21 Rx vitamin E mixed 1,000 unit capsule 1,000 unit PO DAILY 09/03/20 05/24/21 History famotidine 40 mg tablet 40 mg PO DAILY 11/03/20 05/24/21 History cholecalciferol (vitamin D3) 25 25 mcg PO DAILY 11/10/20 05/24/21 History mcg (1,000 unit) capsule potassium chloride 10 mEq 20 meq PO BID tab 11/10/20 05/24/21 History tablet,extended release(part/cryst) (Klor-Con M) donepezil 5 mg tablet (Aricept) 5 mg PO BEDTIME #90 tab 01/13/21 05/24/21 Rx carvedilol 25 mg tablet 12.5 mg PO BID tab 02/10/21 05/24/21 History bupropion HCl 150 mg tablet,12 hr 150 mg PO QAM #90 ea 03/17/21 05/24/21 Rx sustained-release alfuzosin 10 mg tablet,extended 10 mg PO DAILY 05/24/21 05/24/21 History release 24 hr amiodarone 100 mg tablet 50 mg PO DAILY 05/24/21 05/24/21 History ezetimibe 10 mg tablet 10 mg PO DAILY 05/24/21 05/24/21 History finasteride 5 mg tablet 5 mg PO DAILY 05/24/21 05/24/21 History ticagrelor 90 mg tablet (Brilinta) 90 mg PO BID 05/24/21 05/24/21 History Allergies Allergy/AdvReac Type Severity Reaction Status Date / Time No Known Drug Allergies Allergy Verified 05/24/21 18:13 Review of Systems Review of Systems Narrative: All 12 point systems reviewed with the patient and are negative except otherwise documented. Exam Vital Signs (past 8 hours): - 05/24/21 14:45 05/24/21 16:11 05/24/21 16:15 Temperature 97.0 F L Pulse Rate 68 65 64 Respiratory Rate 22 48 H 34 H Blood Pressure 106/52 L 124/62 Pulse Oximetry 98 99 98 05/24/21 16:30 05/24/21 16:45 05/24/21 16:46 Temperature Pulse Rate 64 63 63 Respiratory Rate 38 H 40 H 33 H Blood Pressure 123/66 116/91 H Pulse Oximetry 98 99 99 05/24/21 17:00 05/24/21 17:15 05/24/21 17:16 Temperature Pulse Rate 62 62 63 Respiratory Rate 50 H 57 H 56 H Blood Pressure 125/64 121/86 Pulse Oximetry 99 99 98 05/24/21 17:30 05/24/21 17:31 05/24/21 17:45 Temperature Pulse Rate 65 63 61 Respiratory Rate 34 H 60 H 46 H Blood Pressure 114/97 H Pulse Oximetry 95 05/24/21 17:46 05/24/21 18:00 05/24/21 18:01 Temperature Pulse Rate 63 61 60 Respiratory Rate 44 H 44 H 55 H Blood Pressure 111/95 H 124/63 Pulse Oximetry 97 99 94 05/24/21 18:44 05/24/21 19:34 Temperature 97.4 F L Pulse Rate 62 Respiratory Rate 17 Blood Pressure 108/49 L Pulse Oximetry 98 97 Oxygen Delivery Method Nasal Cannula Oxygen Flow Rate 1 Narrative Exam Narrative: General: Patient is a well-developed, well-nourished obese male in no acute distress at this time. HEENT: Normocephalic, atraumatic, extraocular muscles intact, oral pharynx is clear and mucous membranes are moist. Neck is supple and symmetric, trachea is midline, no adenopathy, no thyroid enlargement, nontender, no masses palpated. Negative for JVD Chest: Normal AP diameter and contour without kyphoscoliosis, no nasal flaring, retractions, or tachypneic labored breathing. Lungs: Auscultation of all lung cardenas are clear without adventitious sounds, wheezes, rhonchi, or rales. Cardio: regular rate and rhythm without murmur, rubs, or gallops, no carotid bruit, no cardiac pulsations present.with distant heart tones. Abdomen: Soft nontender, negative for organomegaly, or masses. Bowel sounds are present in all 4 quadrants without guarding or rebound, no CVA tenderness. Musculoskeletal: Muscle strength and tone are equal within normal limits, no deformity, crepitus, effusions, cyanosis, clubbing or edema present. Full range of motion intact radial and pedal pulses are normal. Skin: Warm dry pale and intact without rashes, ulcerations or petechiae. Neuro: Alert and orientated x3, strength is +5/5 in all extremities, sensation to touch intact, no gross deficits noted of cranial nerves. Psych: Patient has a well-kept appearance, appropriate affect, mental status attitude thought context and judgment are appropriate for age. Objective Labs Result Diagrams: 05/24/21 15:24 05/24/21 15:24 Labs: Laboratory Results - last 24 hr 05/24/21 05/24/21 05/24/21 14:57 15:24 15:24 WBC 7.0 RBC 3.40 L Hgb 9.3 L Hct 28.8 L MCV 84.5 MCH 27.5 MCHC 32.5 RDW 18.7 H Plt Count 177 Neut % (Auto) 85.2 H Lymph % (Auto) 4.1 L [place] % (Auto) 8.0 Eos % (Auto) 2.4 Baso % (Auto) 0.3 Neut # (Auto) 6000 Lymph # (Auto) 300 L [place] # (Auto) 600 Eos # (Auto) 200 Baso # (Auto) 0 D-Dimer Sodium 137 Potassium 4.4 Chloride 109 H Carbon Dioxide 20 L BUN 42 H Creatinine 2.00 H Estimated GFR 32.7 L BUN/Creatinine Ratio 21.0 Glucose 125 H Calcium 10.2 Magnesium 2.3 Total Bilirubin 0.8 AST 30 ALT 36 Alkaline Phosphatase 88 Total Creatine Kinase 97 CK-MB (CK-2) TNP CK-MB (CK-2) Rel Index TNP Troponin I 0.026 NT-Pro-B Natriuret Pep 44197 H Total Protein 6.7 Albumin 3.8 Globulin 2.9 Albumin/Globulin Ratio 1.3 Lipase 67 Procalcitonin TSH Chlamy pneumoniae PCR Adenovirus (PCR) B. pertussis DNA (PCR) B.parapertussis DNA PCR Coronavirus OC43 (PCR) Coronavirus HKU1 (PCR) Coronavirus 229E (PCR) SARS-CoV-2 (PCR) Negative Coronavirus NL63 (PCR) Human Metapneumovir PCR Influenza Type A (PCR) Influenza Type B (PCR) M. pneumoniae (PCR) Parainfluenza 1 (PCR) Parainfluenza 2 (PCR) Parainfluenza 3 (PCR) Parainfluenza 4 (PCR) RSV (PCR) Entero/Rhino (PCR) 05/24/21 05/24/21 05/24/21 15:24 15:24 15:24 WBC RBC Hgb Hct MCV MCH MCHC RDW Plt Count Neut % (Auto) Lymph % (Auto) [place] % (Auto) Eos % (Auto) Baso % (Auto) Neut # (Auto) Lymph # (Auto) [place] # (Auto) Eos # (Auto) Baso # (Auto) D-Dimer 887 H Sodium Potassium Chloride Carbon Dioxide BUN Creatinine Estimated GFR BUN/Creatinine Ratio Glucose Calcium Magnesium Total Bilirubin AST ALT Alkaline Phosphatase Total Creatine Kinase CK-MB (CK-2) CK-MB (CK-2) Rel Index Troponin I NT-Pro-B Natriuret Pep Total Protein Albumin Globulin Albumin/Globulin Ratio Lipase Procalcitonin 0.11 TSH 2.46 Chlamy pneumoniae PCR Adenovirus (PCR) B. pertussis DNA (PCR) B.parapertussis DNA PCR Coronavirus OC43 (PCR) Coronavirus HKU1 (PCR) Coronavirus 229E (PCR) SARS-CoV-2 (PCR) Coronavirus NL63 (PCR) Human Metapneumovir PCR Influenza Type A (PCR) Influenza Type B (PCR) M. pneumoniae (PCR) Parainfluenza 1 (PCR) Parainfluenza 2 (PCR) Parainfluenza 3 (PCR) Parainfluenza 4 (PCR) RSV (PCR) Entero/Rhino (PCR) 05/24/21 16:48 WBC RBC Hgb Hct MCV MCH MCHC RDW Plt Count Neut % (Auto) Lymph % (Auto) [place] % (Auto) Eos % (Auto) Baso % (Auto) Neut # (Auto) Lymph # (Auto) [place] # (Auto) Eos # (Auto) Baso # (Auto) D-Dimer Sodium Potassium Chloride Carbon Dioxide BUN Creatinine Estimated GFR BUN/Creatinine Ratio Glucose Calcium Magnesium Total Bilirubin AST ALT Alkaline Phosphatase Total Creatine Kinase CK-MB (CK-2) CK-MB (CK-2) Rel Index Troponin I NT-Pro-B Natriuret Pep Total Protein Albumin Globulin Albumin/Globulin Ratio Lipase Procalcitonin TSH Chlamy pneumoniae PCR Not detected Adenovirus (PCR) Not detected B. pertussis DNA (PCR) Not detected B.parapertussis DNA PCR Not detected Coronavirus OC43 (PCR) Not detected Coronavirus HKU1 (PCR) Not detected Coronavirus 229E (PCR) Not detected SARS-CoV-2 (PCR) Not detected Coronavirus NL63 (PCR) Not detected Human Metapneumovir PCR Not detected Influenza Type A (PCR) Not detected Influenza Type B (PCR) Not detected M. pneumoniae (PCR) Not detected Parainfluenza 1 (PCR) Not detected Parainfluenza 2 (PCR) Not detected Parainfluenza 3 (PCR) Not detected Parainfluenza 4 (PCR) Not detected RSV (PCR) Not detected Entero/Rhino (PCR) Not detected Assessment & Plan Assessment & Plan narrative: Erik Grant is a 75-year-old male with a medical history of anemia due to iron deficiency, BPH, CAD, cardiac stent x3, paroxysmal atrial fibrillation, aortic stenosis, CKD, ED, GERD, hyperlipidemia, hypertension, implanted cardioverter-defibrillator, insomnia, mild memory deficit, left bundle-branch block, malignant melanoma, history of KS & NSTEMI, nonrheumatic aortic valve stenosis, obesity, CAROL ANN-CPAP, and history of prostate cancer who presented to the ED complaining of increasing shortness of breath for the last several days.? Patient admitted for acute respiratory failure with hypoxia due to CHF exacerbation with cardiomyopathy. Patient to be diuresed and echo tomorrow. 1. Acute respiratory failure with hypoxia, acute, secondary to chronic systolic congestive Heart failure exacerbation with ischemic cardiomyopathy, acute on chronic, possible pneumonia, acute, present on admission -I personally reviewed patient's chest x-ray believe based on clinical prese ntation this is more likely exacerbation of CHF, with a lower suspicion of viral pneumonia. -BNP 84421, last BNP 1690 -Fluid restriction, low sodium diet -Lasix 80mg IV BID- will monitor renal function closely. -Holding patients oral Lasix. Continue potassium -Resp Consult: DuoNeb as needed, incentive spirometry -D-dimer 887-still greater than age cutoff patient ineligible for CTA at this time due to renal function creatinine 2.0 GFR 32.7 -blood culture, sputum cultures pending, viral panel negative, procalcitonin negative -patient was given Zosyn in ED-will hold antibiotics going forward unless cultures demonstrate bacterial infection. -echo ordered for tomorrow 2. CAD status post left circumflex stenting, with severe right carotid artery stenosis, chronic, with essential hypertension, chronic, present on admission -11/20/2018 carotid ultrasound demonstrated right 50-69% stenosis, left less than 50%. -continue Brilinta, amiodarone, carvedilol -last echo 04/30/2020 Dr. Semaj Ayala: -EF 20-25% with akinesis of the distal half of the septum and majority of the inferior wall with moderate to severe hypokinesis in the remaining segments and probable elevated filling pressures b ut a CVP of 3 mmHg, [id number] mitral regurgitation, mild aortic stenosis. -managed by Dr. Ayala cardiology -I personally reviewed Dr. Ayala cardiology note from 04/30/2021, to include imaging and lab reports. 3. Paroxysmal atrial fibrillation,with implanted cardioverter-defibrillator, mili armas, present on admission -placed on telemedicine -continue amiodarone -managed by Dr. Ayala Cardiology 4. CKD stage G 3B/A1, GFR 30-44, acute on chronic, present on admission -BUN 42, creatinine 2.0, GFR 32.7-this is at patient's baseline -continue to monitor renal function while diuresing the patient. -managed by Dr. Vickers 5. Dyslipidemia, chronic, present on admission -continue Zetia, and Crestor 6. Chronic anemia due to iron deficiency, chronic, present on admission -HGB 9.3, HCT 28.8, this is patient's baseline -managed by Dr. Vickers & Dr. Wiggins -continue ferrous sulfate 7. BPH with lower urinary symptoms, chronic, present on admission -continue Alfuzosin, proscar 6. CAROL ANN with CPAP, chronic, present on admission -respiratory consult: CPAP 8. Cognitive impairment, with depression, chronic, present on admission -continue Wellbutrin, Aricept, donepezil 9. GERD, chronic, present on admission -continue famotidine Code status:Full Surrogate decision maker: Siobhan Grant COVID PCR:Negative COVID vaccination: Unknown DVT/VTE prophylaxis: Heparin 5000 and SCDs Disposition: Patient admitted for diuresis an echocardiogram, expected length of stay more than 2 midnight. I have utilized all available immediate resources to obtain, update, or review the patient's current medications. I confirmed that the patient's advanced care plan is present, Code status is documented and/or surrogate decision maker is listed in the patient's medical record. Time Spent With Patient Critical Care time: I spent a total of [] minutes of critical care time on this patient's care today; this time is exclusive of procedural time. Quality VTE Deep Vein Thrombosis/Pulmonary Embolism Present on Admission: No
[2021-05-24] MEDS: buPROPion SR 150 MG TAB PO (22:17)
[2021-05-24] MEDS: POTASSIUM CHLORIDE 20 MEQ TAB PO (22:20)
[2021-05-24 23:46] LABS: Troponin I 0.032 ng/mL (0.01-0.034)
[2021-05-25] VITALS (10 sets, daily range): BP systolic 105–111; BP diastolic 52–64; PULSE 60–64; RESP 16–20; TEMP 36.1–36.8; O2SAT 95–100
[2021-05-25 05:41] LABS: Add Manual Diff / Slide Review NO; Basophils Absolute Auto 0 /uL (0-100); Basophils Percent Auto 0.6 % (0-2); Eosinophils Absolute Auto 200 /uL (0-450); Eosinophils Percent Auto 3.5 % (2-4); Hematocrit 26.7 % (41-53); Hemoglobin 8.8 g/dL (13.5-17.5); Lymphocytes Absolute Auto 300 /uL (1100-4500); Lymphocytes Percent Auto 5.1 % (25-40); Mean Corpuscular HGB Conc 32.8 % (30-36); Mean Corpuscular Hemoglobin 27.5 PG (26-34); Mean Corpuscular Volume 83.6 fL (80-100); Monocytes Absolute Auto 500 /uL (0-900); Monocytes Percent Auto 10.6 % (3-14); Neutrophils Absolute Auto 4200 /uL (1500-7000); Neutrophils Percent Auto 80.2 % (50-75); Platelet Count 167 X10^3/uL (150-400); Red Cell Distribution Width 18.2 % (11.6-14.8); White Blood Cell Count 5.2 X10^3/uL (4.5-11.0)
[2021-05-25 05:46] LABS: BUN Creatinine Ratio 19.8 (6-22); Blood Urea Nitrogen 41 mg/dL (9-20); Calcium 9.3 mg/dL (8.4-10.2); Carbon Dioxide 27 mmol/L (22-32); Chloride 106 mmol/L (98-107); Estimated Glomerular Filt Rate 31.5 mL/min (>60); Glucose 97 mg/dL (80-110); HEMOLYSIS < 15 (0-50); Potassium 3.7 mmol/L (3.4-5.1); Sodium 138 mmol/L (137-145)
[2021-05-25 05:58] LABS: Troponin I 0.031 ng/mL (0.01-0.034)
[2021-05-25] MEDS: AMIODARONE 200 MG TABLET 100 MG PO (09:31)
[2021-05-25] MEDS: buPROPion SR 150 MG TAB PO (09:31)
[2021-05-25] MEDS: carvediloL 12.5 MG TABLET PO (09:31)
[2021-05-25] MEDS: CLOPIDOGREL 75 MG TABLET PO (09:31)
[2021-05-25] MEDS: EZETIMIBE 10 MG TABLET PO (09:32)
[2021-05-25] MEDS: TAMSULOSIN 0.4 MG CAPSULE PO (09:32)
[2021-05-25] MEDS: FINASTERIDE 5 MG TABLET PO (09:32)
[2021-05-25] MEDS: FUROSEMIDE 100 MG/10 ML VIAL 80 MG IV (09:32)
[2021-05-25] MEDS: FAMOTIDINE 20 MG TABLET 40 MG PO (09:32)
[2021-05-25] MEDS: FERROUS SULFATE 325 MG TABLET PO (09:32)
[2021-05-25] MEDS: HEPARIN 5,000 UNIT/ML VIAL 5000 UNIT SUBCUT (09:33)
[2021-05-25] MEDS: SODIUM CHLORIDE 0.9% FLUSH 10 ML IV (09:33)
[2021-05-25] MEDS: POTASSIUM CHLORIDE 20 MEQ TAB PO (09:33)
--- NOTE | 2021-05-25 10:51 | PC.NURSE ---
Addendum entered by Cristina Lancaster R.N. 05/25/21 15:11: Patient dressed for discharge, IV removed without complication. Tele off. Patient given discharge instructions regarding ECHO results, discontinuation of lasix, start of torsemide 30mg, daily weights, follow up with supervisor cook room and diet. Patient and verbalized understanding. Denied further questions or concerns. Patient discharged via wheelchair. Original Note: Patient resting in bed this AM, A/Ox 3. is currently bedside. Patient defers to when asked questions regarding medications. Patient denies pain, SOB, or chest pain. Patient currently on RA, 98%. Tolerated IV Lasix 80mg, voiding in urinal without complication. Patient VSS, BP low, MD aware. TELE on. Patient VPaced, pulses equal bilat, 1+ non pitting edema noted in bilateral ankles. Patient denies dizziness or lightheadedness. Lungs CTA. BT active x 4, patient reports last BM 05/23, denies N/V this AM. SCD's remain on bilaterally. Call light in reach. Patient denies further needs at this time. Awaiting ECHO.
--- NOTE | 2021-05-25 11:18 | CM.DANOTE ---
DCP: Case received, EMR reviewed and met with patient. Patient's spouse, Siobhan, was at bedside. Introduces self and role. Was able to obtain information regarding patient's baseline activity status prior to hospitalization. DCP assessment completed with information currently available. Patient is a 75 year old male who admitted yesterday afternoon to the care of the hospitalist team. PCP: Dr. Chandra. Payer: confirmed: [facility]. Patient came to the hospital via private vehicle secondary to having some dyspnea that had become worse over the last couple of days. Patient was diagnosed with acute respiratory failure with hypoxia, acute, secondary to chronic systolic CHF exacerbation with ishemic cardiomyopathy, possible pneumonia. Patient also has a history of paroxysmal atrial fibrillation, and has an implanted cardioverter-defibrillator. He is under the care of production drilling machine operator, Dr. Ayala, as well as Dr. Vickers, clay preparation supervisor, due to chronic kidney disease, as well as Dr. Prado, urologist. Patient and spouse had recently returned from a trip to the [facility]. He is to be diuresed, and is scheduled for an echo. Met with patient and spouse. Patient was laying in bed, but able to answer some questions. He and his spouse both reside here in [place], with Dr. Chandra as his primary care provider. Confirmed that they both returned from a trip. Spouse does not feel that there will be any needs at discharge. Patient is independent at his baseline. P: DCP to continue to follow for any needs. Patient should be able to go home when he is deemed medically stable. Linda Blount RN/Crime Scene Evidence Technician Discharge Planning/Care Management Advanced directive, confirm from FAMILY Start: 05/24/21 18:56 Freq: Q24H Status: Active Protocol: Document 05/25/21 08:00 DENIZ (Rec: 05/25/21 09:02 [id number]) Advance Directive, confirm on record Time 08:00 Person contacted Patient Copy received No CM Discharge Assessment Start: 05/25/21 11:14 Freq: Status: Active Protocol: Document 05/25/21 11:14 (Rec: 05/25/21 11:17 [id number]) Discharge Planning Assessment Assigned Freight Loading Supervisor Linda Blount RN/Crime Scene Evidence Technician Advance Directives? Yes Advance Directives on File Yes History Provided By Patient,Medical Record Prior Living Arrangements House Household Members spouse Type of transporation used prior to Drives own vehicle admit Independent with ADL's Yes Is patient alert and oriented? Yes Caregiver for Another No Barriers to Discharge No Comment Patient has supportive spouse at home. Discharge Plan Home Transportation Arrangement Spouse Referrals Initiated None needed Whiteboard Updated in Patient Room with Yes name and ext. # of Freight Loading Supervisor Review Status In Process Next Review Type Continued Stay Review
--- NOTE | 2021-05-25 14:30 | PM.DS.1 ---
History of Present Illness History of Present Illness Chief complaint: SOB, ox level at 79, hx of cardiac issues Narrative: 75-year-old male with history of KS, severe ischemic cardiomyopathy EF 20%, coronary stenting, AICD, paroxysmal AFib, CKD, baseline creatinine 2.0, malignant melanoma, CAROL ANN presented to ED complaining of increasing shortness of breath for at least a day. He had just returned from a [place] cruise. He admits to missing 3 doses of Lasix in the last couple of weeks while out of town. He sees Dr. Ayala for Cardiology and Dr. Vickers for Nephrology. In the ED he was noted to drop O2 sat into the 80s on room air with any movement or exertion. Chest x-ray more consistent with CHF than pneumonia. Has been afebrile. Discharge Providers Provider Date of admission: 05/24/21 17:18 Discharge Date: 05/25/21 Primary care physician: Emmanuel Chandra MD Consults: 05/24/21 20:59 Consult to Respiratory Therapy Evaluate & Treat Comment: CAROL ANN Cpap Physician Instructions: Evaluate and treat Discharge provider: Nirmal Collier MD Summary Hospital Course Discharge Diagnosis: 1. Acute exacerbation of systolic heart failure 2. Severe ischemic cardiomyopathy 3. Chronic kidney disease probably advanced stage III or stage IV 4. Chronic anemia 5. Acute hypoxic respiratory failure secondary to #1 ECHO:The left ventricle is severely dilated. Left ventricular systolic function is severely reduced. The ejection fraction is estimated to be 10-15%. Left ventricular function has slightly worsened compared to the previous exam. There is severe global hypokinesis of the left ventricle. Diastolic parameters suggest a restrictive filling pattern consistent with probable significantly elevated filling pressures. ? The right ventricle is mild to moderately dilated. There is a pacemaker lead in the right ventricle. Right ventricular systolic function is at the lower limits of normal. The right ventricular systolic pressure is estimated to be at least 62 mmHg based on an estimated right atrial pressure of 15 mm Hg. ? The left atrium is severely dilated. The right atrium is moderately dilated. ? There is mild to moderate mitral regurgitation. Compared to the prior echo study, there has been no change in the severity of mitral regurgitation. ? There is moderate aortic valve sclerosis. The aortic valve is trileaflet. There is probable moderate aortic stenosis. Compared to the prior echo study, there has been no change in the severity of aortic stenosis. ? There is moderate tricuspid regurgitation. Compared to the prior echo exam, there has been an increase in TR severity. ? The aortic root is mildly dilated. The ascending aorta is mildly enlarged. Hospital Course: Patient was admitted for IV diuresis. He had affective urine output with Lasix 80 mg IV b.i.d.. Overnight he put out over 4 L. He got another dose of IV Lasix this morning. His renal function and electrolytes have been stable. Patient reports marked improvement in his breathing. We did a walking trial prior to discharge and he was able to walk 40-50 feet and maintained O2 sat in the mid 90s and heart rate below 90 without getting out of breath. He does have lower lobe crackles and 1+ pitting edema on exam today and could use more diuresis but would like to go home due to marked improvement in his status. His echo showed worsening LVEF compared to prior study in November 2020. EF now 10-15%. Patient was on cruise for the past couple of weeks and probably taking more sodium in his diet during this time. As noted he also missed 3 doses of diuretic in the last couple of weeks while on his trip. Spouse states he gained 7 lb on the trip. I am concerned his home Lasix dose may not be enough for his degree of renal function. I am sending him home on torsemide 30 mg daily to replace Lasix. He is provided instruction to check his weight every morning and follow up with Cardiology in the next week. He should have kidney panel recheck to at his follow-up. Status at Discharge Cognitive/behavioral status at discharge: oriented Functional status at discharge: independent ambulation Overall status at discharge: patient is progressing back to baseline Time Spent with Patient Time spent: Greater than 30 minutes Exam Vital Signs (past 8 hours): - 05/25/21 07:25 05/25/21 08:00 05/25/21 09:31 Temperature 97.3 F L Pulse Rate 61 60 Respiratory Rate 16 Blood Pressure 109/55 L 109/55 L Pulse Oximetry 98 97 05/25/21 09:42 05/25/21 11:00 05/25/21 13:58 Temperature 97.5 F L Pulse Rate 64 Respiratory Rate 18 Blood Pressure 105/53 L Pulse Oximetry 99 97 98 Oxygen Delivery Method Room Air Oxygen Flow Rate 0 Narrative Exam Narrative: General: Alert NAD Lungs: Bilateral lower lobe crackles right greater than left Extremities: 1+ pitting bilaterally below knees Neurological: Well oriented, speech normal Objective Labs Result Diagrams: 05/25/21 05:26 05/25/21 05:26 Labs: Laboratory Results - last 24 hr 05/24/21 05/24/21 05/24/21 14:57 15:24 15:24 WBC 7.0 RBC 3.40 L Hgb 9.3 L Hct 28.8 L MCV 84.5 MCH 27.5 MCHC 32.5 RDW 18.7 H Plt Count 177 Neut % (Auto) 85.2 H Lymph % (Auto) 4.1 L Gates % (Auto) 8.0 Eos % (Auto) 2.4 Baso % (Auto) 0.3 Neut # (Auto) 6000 Lymph # (Auto) 300 L Gates # (Auto) 600 Eos # (Auto) 200 Baso # (Auto) 0 D-Dimer Sodium 137 Potassium 4.4 Chloride 109 H Carbon Dioxide 20 L BUN 42 H Creatinine 2.00 H Estimated GFR 32.7 L BUN/Creatinine Ratio 21.0 Glucose 125 H Calcium 10.2 Magnesium 2.3 Total Bilirubin 0.8 AST 30 ALT 36 Alkaline Phosphatase 88 Total Creatine Kinase 97 CK-MB (CK-2) TNP CK-MB (CK-2) Rel Index TNP Troponin I 0.026 NT-Pro-B Natriuret Pep 33831 H Total Protein 6.7 Albumin 3.8 Globulin 2.9 Albumin/Globulin Ratio 1.3 Lipase 67 Procalcitonin TSH Chlamy pneumoniae PCR Adenovirus (PCR) B. pertussis DNA (PCR) B.parapertussis DNA PCR Coronavirus OC43 (PCR) Coronavirus HKU1 (PCR) Coronavirus 229E (PCR) SARS-CoV-2 (PCR) Negative Coronavirus NL63 (PCR) Human Metapneumovir PCR Influenza Type A (PCR) Influenza Type B (PCR) M. pneumoniae (PCR) Parainfluenza 1 (PCR) Parainfluenza 2 (PCR) Parainfluenza 3 (PCR) Parainfluenza 4 (PCR) RSV (PCR) Entero/Rhino (PCR) 05/24/21 05/24/21 05/24/21 15:24 15:24 15:24 WBC RBC Hgb Hct MCV MCH MCHC RDW Plt Count Neut % (Auto) Lymph % (Auto) Gates % (Auto) Eos % (Auto) Baso % (Auto) Neut # (Auto) Lymph # (Auto) Gates # (Auto) Eos # (Auto) Baso # (Auto) D-Dimer 887 H Sodium Potassium Chloride Carbon Dioxide BUN Creatinine Estimated GFR BUN/Creatinine Ratio Glucose Calcium Magnesium Total Bilirubin AST ALT Alkaline Phosphatase Total Creatine Kinase CK-MB (CK-2) CK-MB (CK-2) Rel Index Troponin I NT-Pro-B Natriuret Pep Total Protein Albumin Globulin Albumin/Globulin Ratio Lipase Procalcitonin 0.11 TSH 2.46 Chlamy pneumoniae PCR Adenovirus (PCR) B. pertussis DNA (PCR) B.parapertussis DNA PCR Coronavirus OC43 (PCR) Coronavirus HKU1 (PCR) Coronavirus 229E (PCR) SARS-CoV-2 (PCR) Coronavirus NL63 (PCR) Human Metapneumovir PCR Influenza Type A (PCR) Influenza Type B (PCR) M. pneumoniae (PCR) Parainfluenza 1 (PCR) Parainfluenza 2 (PCR) Parainfluenza 3 (PCR) Parainfluenza 4 (PCR) RSV (PCR) Entero/Rhino (PCR) 05/24/21 05/24/21 05/25/21 16:48 23:02 05:26 WBC RBC Hgb Hct MCV MCH MCHC RDW Plt Count Neut % (Auto) Lymph % (Auto) Gates % (Auto) Eos % (Auto) Baso % (Auto) Neut # (Auto) Lymph # (Auto) Gates # (Auto) Eos # (Auto) Baso # (Auto) D-Dimer Sodium Potassium Chloride Carbon Dioxide BUN Creatinine Estimated GFR BUN/Creatinine Ratio Glucose Calcium Magnesium Total Bilirubin AST ALT Alkaline Phosphatase Total Creatine Kinase CK-MB (CK-2) CK-MB (CK-2) Rel Index Troponin I 0.032 0.031 NT-Pro-B Natriuret Pep Total Protein Albumin Globulin Albumin/Globulin Ratio Lipase Procalcitonin TSH Chlamy pneumoniae PCR Not detected Adenovirus (PCR) Not detected B. pertussis DNA (PCR) Not detected B.parapertussis DNA PCR Not detected Coronavirus OC43 (PCR) Not detected Coronavirus HKU1 (PCR) Not detected Coronavirus 229E (PCR) Not detected SARS-CoV-2 (PCR) Not detected Coronavirus NL63 (PCR) Not detected Human Metapneumovir PCR Not detected Influenza Type A (PCR) Not detected Influenza Type B (PCR) Not detected M. pneumoniae (PCR) Not detected Parainfluenza 1 (PCR) Not detected Parainfluenza 2 (PCR) Not detected Parainfluenza 3 (PCR) Not detected Parainfluenza 4 (PCR) Not detected RSV (PCR) Not detected Entero/Rhino (PCR) Not detected 05/25/21 05/25/21 05:26 05:26 WBC 5.2 RBC 3.20 L Hgb 8.8 L Hct 26.7 L MCV 83.6 MCH 27.5 MCHC 32.8 RDW 18.2 H Plt Count 167 Neut % (Auto) 80.2 H Lymph % (Auto) 5.1 L Gates % (Auto) 10.6 Eos % (Auto) 3.5 Baso % (Auto) 0.6 Neut # (Auto) 4200 Lymph # (Auto) 300 L Gates # (Auto) 500 Eos # (Auto) 200 Baso # (Auto) 0 D-Dimer Sodium 138 Potassium 3.7 Chloride 106 Carbon Dioxide 27 BUN 41 H Creatinine 2.07 H Estimated GFR 31.5 L BUN/Creatinine Ratio 19.8 Glucose 97 Calcium 9.3 Magnesium Total Bilirubin AST ALT Alkaline Phosphatase Total Creatine Kinase CK-MB (CK-2) CK-MB (CK-2) Rel Index Troponin I NT-Pro-B Natriuret Pep Total Protein Albumin Globulin Albumin/Globulin Ratio Lipase Procalcitonin TSH Chlamy pneumoniae PCR Adenovirus (PCR) B. pertussis DNA (PCR) B.parapertussis DNA PCR Coronavirus OC43 (PCR) Coronavirus HKU1 (PCR) Coronavirus 229E (PCR) SARS-CoV-2 (PCR) Coronavirus NL63 (PCR) Human Metapneumovir PCR Influenza Type A (PCR) Influenza Type B (PCR) M. pneumoniae (PCR) Parainfluenza 1 (PCR) Parainfluenza 2 (PCR) Parainfluenza 3 (PCR) Parainfluenza 4 (PCR) RSV (PCR) Entero/Rhino (PCR) PFSH Medical History Bladder calculi 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 Coronary artery disease Erectile dysfunction GERD (gastroesophageal reflux disease) Hx of malignant melanoma Hyperlipidemia Hypertension Insomnia event staff associated with adverse incidents Nocturnal hypoxemia Non-ST elevation (NSTEMI) myocardial infarction (~06/28/18) Obesity Obstructive sleep apnea syndrome Prostate cancer Skin cancer Snoring Surgical History History of coronary artery stent placement Pacemaker (~2012) Family History Mother Tamponade Father Cancer Social History marital status: (to Siobhan) details: lives in [place] household members: spouse lives independently: Yes caregiver/support person: Yes (Siobhan) housing: house occupational status: other Smoking Status: Never smoker Discharge Plan Discharge Plan Patient Disposition: Home Provider Discharge Comment: You were treated for CHF exacerbation. ECHO showed worsening compared to your study (EF 10-15% vs 20%). I have switched you from furosemide to torsemide since it may have more predictable absorption. Take 1.5 tab (30 mg) of torsemide every morning. Check weight and write it down every morning to monitor your fluid status (take record to cardiology appointment). You should notice your weight going down over the next few days. You may need higher dose of diuretic if weight is not going down by at least 3 - 4 pounds in the next few days. See Dr Ayala or covering cardiology provider in 1 week for clinic follow up and blood work to monitor kidneys and electrolytes. Discharge orders & Medications Prescriptions: New torsemide 20 mg tablet 30 mg PO DAILY 30 Days Qty: 45 0RF Continued ferrous sulfate 325 mg (65 mg iron) Tablet 325 mg PO QAM Qty: 1 0RF (DME) Respironics Remstar CPAP Qty: 1 0RF Dose Instruction: As directed Label Comments: Pressure: 8-12 cmH2O DME: [facility] Rx Instructions: As directed folic acid 1 mg tablet 1 mg PO QPM Qty: 90 3RF vitamin E mixed 1,000 unit capsule 1,000 unit PO DAILY 0RF donepezil [Aricept] 5 mg tablet 5 mg PO BEDTIME Qty: 90 1RF carvedilol 25 mg tablet 12.5 mg PO BID 0RF Rx Instructions: must administer with a meal/food bupropion HCl 150 mg tablet sustained-release 12 hr 150 mg PO QAM Qty: 90 2RF rosuvastatin [Crestor] 40 mg tablet 40 mg PO QPM Qty: 0 0RF famotidine 40 mg tablet 40 mg PO DAILY 0RF Tums 1 tab PO BID PRN (Reason: Indigestion) 0RF ezetimibe 10 mg Tablet 10 mg PO DAILY 0RF Brilinta 90 mg Tablet 90 mg PO BID 0RF finasteride 5 mg tablet 5 mg PO DAILY 0RF Rx Instructions: TAKE 1 TABLET BY MOUTH DAILY alfuzosin 10 mg tablet extended release 24 hr 10 mg PO DAILY 0RF Rx Instructions: TAKE 1 TABLET BY MOUTH DAILY AFTER THE SAME MEAL EACH DAY amiodarone 200 mg tablet 100 mg PO DAILY 0RF potassium chloride [Klor-Con M10] 10 mEq tablet,ER particles/crystals 20 meq PO BID 0RF cholecalciferol (vitamin D3) 25 mcg (1,000 unit) capsule 25 mcg PO DAILY 0RF Discontinued furosemide 20 mg tablet 30 mg PO DAILY 0RF Follow up/Referrals: Emmanuel Chandra MD [Primary Care Provider] - Diet/Activity/Treatments Diet: Low-sodium Discharge Data Primary Care Provider: Emmanuel Chandra Attending Provider: Nirmal Collier VTE Deep Vein Thrombosis/Pulmonary Embolism Present on Admission: No
== END 2021-05-25 15:05 | disposition home or self-care (01) ==
LOC: ED 17:14 → AC 05-25 07:38
PROVIDERS: Nurse Practitioner Family; Admitting Provider Internal Medicine; Emergency Provider Emergency Medicine; Family Provider Student in an Organized Health Care Education/Training Program; PCP Student in an Organized Health Care Education/Training Program; Referring Provider Emergency Medicine; Visit Provider Internal Medicine
DX: I13.0 Hypertensive heart and chronic kidney disease with heart failure and stage 1 through stage 4 chronic kidney disease, or unspecified chronic kidney disease (principal); I50.21 Acute systolic (congestive) heart failure; J96.01 Acute respiratory failure with hypoxia; N18.32 Chronic kidney disease, stage 3b; I48.0 Paroxysmal atrial fibrillation; G47.33 Obstructive sleep apnea (adult) (pediatric); I25.10 Atherosclerotic heart disease of native coronary artery without angina pectoris; D50.9 Iron deficiency anemia, unspecified; G31.84 Mild cognitive impairment of uncertain or unknown etiology; K21.9 Gastro-esophageal reflux disease without esophagitis; E78.5 Hyperlipidemia, unspecified; Z95.0 Presence of cardiac pacemaker; Z20.822 Contact with and (suspected) exposure to COVID-19
CPT/HCPCS: 36415; 71045; 80048; 80053; 82550; 83690; 83735; 83880; 84145; 84443; 84484; 85025; 85379; 87040; 87633; 87635; 93005; 93010; 93306; 94760; 96365; 96372; 96375; 96376; 99285; C9803; G0378; A9270; J1644; J1940; J2543

== ENCOUNTER → 2021-05-29 10:33 | Outpatient (CLI) | payer MEDICARE, SELFPAY ==
[2021-05-24 18:18] VITALS: BMI 29.7
[2021-05-29 12:19] LABS: BUN Creatinine Ratio 16.3 (6-22); Blood Urea Nitrogen 34 mg/dL (9-20); Calcium 10.1 mg/dL (8.4-10.2); Carbon Dioxide 30 mmol/L (22-32); Chloride 105 mmol/L (98-107); Estimated Glomerular Filt Rate 31.1 mL/min (>60); Glucose 101 mg/dL (80-110); HEMOLYSIS < 15 (0-50); Magnesium 2.5 mg/dL (1.6-2.3); Potassium 3.6 mmol/L (3.4-5.1); Sodium 139 mmol/L (137-145)
[2021-05-29 12:31] LABS: NT-proBNP (BNP-Adult 18+) 6780 pg/mL (<450)
== END ==
PROVIDERS: Family Provider Student in an Organized Health Care Education/Training Program; PCP Student in an Organized Health Care Education/Training Program; Referring Provider Specialist; Visit Provider Specialist
DX: I50.23 Acute on chronic systolic (congestive) heart failure (principal)
CPT/HCPCS: 36415; 80048; 83735; 83880

== ENCOUNTER → 2021-06-11 09:50 | Outpatient (CLI) | payer MEDICARE, SELFPAY ==
[2021-05-24 18:18] VITALS: BMI 29.7
[2021-06-11 11:02] LABS: Add Manual Diff / Slide Review NO; Basophils Absolute Auto 0 /uL (0-100); Basophils Percent Auto 0.6 % (0-2); Eosinophils Absolute Auto 100 /uL (0-450); Hematocrit 31.3 % (41-53); Hemoglobin 9.8 g/dL (13.5-17.5); Lymphocytes Absolute Auto 300 /uL (1100-4500); Lymphocytes Percent Auto 7.2 % (25-40); Mean Corpuscular HGB Conc 31.4 % (30-36); Mean Corpuscular Hemoglobin 26.7 PG (26-34); Monocytes Absolute Auto 500 /uL (0-900); Monocytes Percent Auto 10.7 % (3-14); Neutrophils Absolute Auto 3600 /uL (1500-7000); Neutrophils Percent Auto 78.5 % (50-75); Platelet Count 166 X10^3/uL (150-400); Red Blood Cell Count 3.68 X10^6/uL (4.5-5.9); Red Cell Distribution Width 18.3 % (11.6-14.8); White Blood Cell Count 4.6 X10^3/uL (4.5-11.0)
[2021-06-11 12:02] LABS: BUN Creatinine Ratio 15.4 (6-22); Blood Urea Nitrogen 35 mg/dL (9-20); Calcium 9.5 mg/dL (8.4-10.2); Carbon Dioxide 29 mmol/L (22-32); Chloride 105 mmol/L (98-107); Estimated Glomerular Filt Rate 28.3 mL/min (>60); Glucose 120 mg/dL (80-110); HEMOLYSIS < 15 (0-50); Magnesium 2.3 mg/dL (1.6-2.3); Phosphorous 3.1 mg/dL (2.3-3.7); Potassium 3.7 mmol/L (3.4-5.1); Sodium 137 mmol/L (137-145); Uric Acid 5.7 mg/dL (3.5-8.5)
[2021-06-11 12:08] LABS: Microalbumi Creatinin Ratio Ur 97.1 ug/mg CR (<30); Microalbumin Urine Random 6.7 mg/dL (0-1.6)
[2021-06-11 12:11] LABS: NT-proBNP (BNP-Adult 18+) 5180 pg/mL (<450)
[2021-06-11 12:19] LABS: Vitamin D 25 Hydroxy (D3) 58.3 ng/mL (30.0-100.0)
[2021-06-12 09:22] LABS: Parathyroid Hormone Int 39 pg/mL (15-65)
== END ==
PROVIDERS: Family Provider Student in an Organized Health Care Education/Training Program; PCP Student in an Organized Health Care Education/Training Program; Referring Provider Physician Assistant Medical; Visit Provider Physician Assistant Medical
DX: I48.0 Paroxysmal atrial fibrillation (principal); I50.23 Acute on chronic systolic (congestive) heart failure; N18.32 Chronic kidney disease, stage 3b; I47.2 Ventricular tachycardia
CPT/HCPCS: 36415; 80048; 82043; 82306; 82570; 83735; 83880; 83970; 84100; 84550; 85025

== ENCOUNTER → 2021-07-29 13:43 | Outpatient (CLI) | payer MEDICARE, SELFPAY ==
[2021-05-24 18:18] VITALS: BMI 29.7
[2021-07-29 15:11] LABS: Add Manual Diff / Slide Review NO; Basophils Absolute Auto 0 /uL (0-100); Basophils Percent Auto 0.2 % (0-2); Eosinophils Absolute Auto 100 /uL (0-450); Eosinophils Percent Auto 1.5 % (2-4); Hemoglobin 10.1 g/dL (13.5-17.5); Lymphocytes Absolute Auto 400 /uL (1100-4500); Lymphocytes Percent Auto 5.2 % (25-40); Mean Corpuscular HGB Conc 32.7 % (30-36); Mean Corpuscular Hemoglobin 26.5 PG (26-34); Mean Corpuscular Volume 81.3 fL (80-100); Monocytes Absolute Auto 600 /uL (0-900); Neutrophils Absolute Auto 5900 /uL (1500-7000); Neutrophils Percent Auto 84.1 % (50-75); Platelet Count 222 X10^3/uL (150-400); Red Blood Cell Count 3.82 X10^6/uL (4.5-5.9); Red Cell Distribution Width 18.1 % (11.6-14.8); White Blood Cell Count 7.1 X10^3/uL (4.5-11.0)
[2021-07-29 15:26] LABS: Alanine Aminotransferase 25 IU/L (<50); Albumin 3.7 g/dL (3.5-5.0); Albumin Globulin Ratio 1.2 (1.0-2.8); Alkaline Phosphatase 89 U/L (38-126); Aspartate Aminotransferase 38 IU/L (17-59); BUN Creatinine Ratio 15.7 (6-22); Bilirubin Total 0.6 mg/dL (0.2-1.3); Blood Urea Nitrogen 34 mg/dL (9-20); Calcium 9.5 mg/dL (8.4-10.2); Carbon Dioxide 29 mmol/L (22-32); Chloride 103 mmol/L (98-107); Estimated Glomerular Filt Rate 31 mL/min (>60); Globulin 3.2 g/dL (1.7-4.1); Glucose 106 mg/dL (80-110); HEMOLYSIS < 15 (0-50); Magnesium 2.4 mg/dL (1.6-2.3); Potassium 4.2 mmol/L (3.4-5.1); Sodium 139 mmol/L (137-145); Total Protein 6.9 g/dL (6.3-8.2)
[2021-07-29 15:34] LABS: NT-proBNP (BNP-Adult 18+) 4570 pg/mL (<450)
== END ==
PROVIDERS: Family Provider Student in an Organized Health Care Education/Training Program; PCP Student in an Organized Health Care Education/Training Program; Referring Provider Specialist; Visit Provider Specialist
DX: I50.22 Chronic systolic (congestive) heart failure; I48.0 Paroxysmal atrial fibrillation; I25.5 Ischemic cardiomyopathy
CPT/HCPCS: 36415; 80053; 83735; 83880; 85025

== ENCOUNTER → 2021-08-03 10:28 | Outpatient (CLI) | payer MEDICARE, SELFPAY ==
[2021-05-24 18:18] VITALS: BMI 29.7
--- NOTE | 2021-08-03 10:29 | DI.CT.S_ITS ---
PROCEDURE: CT CHEST WO CON INDICATIONS: Cough, heart failure, difficulty clearing secretions TECHNIQUE: Noncontrast 5 mm thick sections acquired from the pulmonary apices to the posterior costophrenic angles. 1 mm lung window, 5 mm thick coronal and sagittal and 7 mm axial MIP reformats were then acquired. For radiation dose reduction, the following was used: automated exposure control, adjustment of mA and/or kV according to patient size. COMPARISON: [facility], CT, CT KIDNEY URETER BLADDER (KUB), 02/13/2020, 9:51. [facility], CT, CT ANGIO CHEST ABDOMEN PELVIS, 06/28/2018, 5:29. [facility], CR, XR CHEST 1V, 05/24/2021, 15:00. FINDINGS: Image quality: Excellent. Lungs and pleura: Mild respiratory motion artifacts. No confluent pulmonary edema. No focal infiltrate or consolidation. Subpleural scars and atelectasis in lingula. No pleural effusions or pneumothorax. Central and peripheral airways are patent and normal in caliber. Mediastinum: Heart size is moderately increased. There is severe coronary artery atherosclerotic calcification. No pericardial effusion. A 1.4 cm subpleural nodule in the right cardiophrenic angle is noted, unchanged from 06/28/2018, most likely benign. No mediastinal adenopathy by size criteria. Thoracic aorta and central pulmonary arteries are normal in size. Esophagus is normal in caliber. Small hiatal hernia. Bones and chest wall: There is a cardiac pacemaker. No suspicious bony lesions. No vertebral body compression fractures. No axillary or supraclavicular adenopathy by size criteria. Thyroid gland contains a 1.3 cm nodule in the left thyroid lobe. Abdomen: There is a 3 cm simple appearing cyst in the superior pole of the left kidney. A 1.3 x 1.7 cm left adrenal nodule is noted, unchanged in size since 02/13/2020, compatible with an adrenal adenoma. IMPRESSION: 1. Moderate cardiomegaly. No confluent pulmonary edema. 2. Severe coronary artery atherosclerosis. 3. Lingula scars and atelectasis. 4. A 1.3 x 1.7 cm left adrenal adenoma. 5. A left thyroid nodule. Thyroid ultrasound is suggested for follow-up. Dictated by: Madhav Mascorro M.D. on 08/03/2021 at 17:46 Approved by: Madhav Mascorro M.D. on 08/04/2021 at 12:19
== END ==
PROVIDERS: Family Provider Student in an Organized Health Care Education/Training Program; PCP Student in an Organized Health Care Education/Training Program; Referring Provider Student in an Organized Health Care Education/Training Program; Visit Provider Student in an Organized Health Care Education/Training Program
DX: I51.7 Cardiomegaly (principal); D35.02 Benign neoplasm of left adrenal gland; J98.11 Atelectasis; I25.10 Atherosclerotic heart disease of native coronary artery without angina pectoris; E04.1 Nontoxic single thyroid nodule; I50.9 Heart failure, unspecified; I42.9 Cardiomyopathy, unspecified; R05.9 Cough, unspecified
CPT/HCPCS: 71250

== ENCOUNTER → 2021-08-31 14:10 | Outpatient (CLI) | payer MEDICARE, SELFPAY ==
[2021-05-24 18:18] VITALS: BMI 29.7
--- NOTE | 2021-08-31 | DI.US.S_ITS ---
PROCEDURE: US THYROID INDICATIONS: THYROID NODULE TECHNIQUE: Real-time scanning was performed of the thyroid gland, with image documentation. COMPARISON: None. FINDINGS: Right: Thyroid lobe measures 5.1 x 1.6 x 1.5 cm, and is homogeneous in echotexture. Left: Thyroid lobe measures 4.3 x 1.7 x 1.7 cm, and is homogenous in echotexture. Isthmus: 4.6 mm thick. Nodule number: 1 Location: Left superior Size: 0.5 x 0.3 x 0.5 cm. Composition: Spongiform Echogenicity: Hypoechoic Shape: wider than tall. Margins: Smooth Echogenic foci: Non Total points: 2 ACR TI-RADS category: Not suspicious Nodule number: 2 Location: Left inferior Size: 2.3 x 1.4 x 1.8 cm. Composition: Solid Echogenicity: Hypoechoic Shape: wider than tall. Margins: Small Echogenic foci: None Total points: 4 ACR TI-RADS category: Moderately suspicious IMPRESSION: Thyroid nodules. Based on imaging characteristics and criteria outlined below ultrasound-guided fine-needle aspiration of nodule #2 is recommended. ACR TI-RADS definitions and recommendations: TI-RADS 1 (benign): 0 points. FNA not needed. TI-RADS 2 (not suspicious): 2 points. FNA not needed. TI-RADS 3 (mildly suspicious): 3 points. * FNA if 2.5 cm or larger, follow up if 1.5 cm or larger (at 1, 3, and 5 years). TI-RADS 4 (moderately suspicious): 4-6 points. * FNA if 1.5 cm or larger, follow up if 1 cm or larger (at 1, 2, 3, and 5 years). TI-RADS 5 (highly suspicious): 7 points or more. * FNA if 1 cm or larger, follow up if 0.5 cm or larger (every year for 5 years). Dictated by: Ketty Baldwin MD, PhD on 08/31/2021 at 16:15 Approved by: Ketty Baldwin MD, PhD on 08/31/2021 at 16:19
--- NOTE | 2021-08-31 | DI.US.S_ITS ---
PROCEDURE: US RENAL COMPLETE INDICATIONS: RENAL CYST OF LEFT KIDNEY TECHNIQUE: Real-time scanning was performed of the kidneys and bladder, with image documentation. COMPARISON: [facility], US, US RENAL COMPLETE, 10/14/2020, 10:33. FINDINGS: Kidneys: Kidneys are normal in size. Right kidney measures 11 point cm long; left kidney measures 11.7 cm long. Right renal cortical thickness is 0.7 cm; left renal cortical thickness is 0.8 cm. Renal cortical echotexture is normal. No hydronephrosis or nephrolithiasis. No suspicious solid mass lesions. Multiple right renal cysts. Largest left renal cysts measure 4.1 x 2.6 x 2.9 and 3.4 x 3.9 x 3.3 centimeters. Multiple small right renal cyst. Left renal cysts are mildly complex with thin septations. Bladder: Pre-void bladder volume is 408 mL. Post-void residual is 240 mL. Pre-void images demonstrate no intraluminal masses or stones. On pre-void images, neither the right nor the left ureteral jets are noted with color Doppler interrogation. (Of note, ureteral jets may not be detectable in up to 25% of cases due to insufficient differences in specific gravity between ureteral and bladder urine). Bladder diverticulum is redemonstrated. Two bladder stones are noted. Prostate is enlarged. Miscellaneous: No free pelvic fluid. IMPRESSION: 1. Bilateral renal cysts. Largest left renal cysts are mildly complex. Renal cysts are not significantly changed compared to October 14, 2020. Continued annual sonographic surveillance is recommended. 2. Bladder stones unchanged. 3. Prostate enlargement. 4. Large postvoid urinary bladder residual volume. Dictated by: Ketty Baldwin MD, PhD on 08/31/2021 at 16:42 Approved by: Ketty Baldwin MD, PhD on 08/31/2021 at 16:46
== END ==
PROVIDERS: Family Provider Student in an Organized Health Care Education/Training Program; PCP Student in an Organized Health Care Education/Training Program; Referring Provider Student in an Organized Health Care Education/Training Program; Visit Provider Internal Medicine Nephrology
DX: N28.1 Cyst of kidney, acquired (principal); E04.2 Nontoxic multinodular goiter; N21.0 Calculus in bladder; N40.0 Benign prostatic hyperplasia without lower urinary tract symptoms
CPT/HCPCS: 76536; 76770

== ENCOUNTER → 2021-09-04 09:58 | Outpatient (CLI) | payer MEDICARE, SELFPAY ==
[2021-05-24 18:18] VITALS: BMI 29.7
[2021-09-04 10:34] LABS: Add Manual Diff / Slide Review NO; Basophils Absolute Auto 0 /uL (0-100); Basophils Percent Auto 0.5 % (0-2); Eosinophils Absolute Auto 100 /uL (0-450); Eosinophils Percent Auto 2.9 % (2-4); Hematocrit 28.3 % (41-53); Hemoglobin 9.4 g/dL (13.5-17.5); Lymphocytes Absolute Auto 200 /uL (1100-4500); Lymphocytes Percent Auto 4.8 % (25-40); Mean Corpuscular HGB Conc 33.1 % (30-36); Mean Corpuscular Hemoglobin 26.8 PG (26-34); Mean Corpuscular Volume 80.9 fL (80-100); Monocytes Absolute Auto 400 /uL (0-900); Monocytes Percent Auto 8.3 % (3-14); Neutrophils Absolute Auto 4100 /uL (1500-7000); Neutrophils Percent Auto 83.5 % (50-75); Platelet Count 210 X10^3/uL (150-400); Red Cell Distribution Width 20.6 % (11.6-14.8)
[2021-09-04 10:40] LABS: BUN Creatinine Ratio 13.4 (6-22); Blood Urea Nitrogen 27 mg/dL (9-20); Calcium 9.5 mg/dL (8.4-10.2); Carbon Dioxide 28 mmol/L (22-32); Chloride 102 mmol/L (98-107); Estimated Glomerular Filt Rate 34 mL/min (>60); Glucose 139 mg/dL (80-110); HEMOLYSIS < 15 (0-50); Magnesium 2.5 mg/dL (1.6-2.3); Phosphorous 3.4 mg/dL (2.3-3.7); Potassium 4.2 mmol/L (3.4-5.1); Sodium 134 mmol/L (137-145); Uric Acid 5.9 mg/dL (3.5-8.5)
[2021-09-04 10:54] LABS: Vitamin D 25 Hydroxy (D3) 70.9 ng/mL (30.0-100.0)
[2021-09-04 13:47] LABS: Anisocytosis 3+; Hypochromasia 1+; Microcytosis 1+; Polychromasia 1+
[2021-09-04 13:57] LABS: Creatinine Urine Random 78.2 mg/dL
[2021-09-04 14:00] LABS: Microalbumi Creatinin Ratio Ur 67.7 ug/mg CR (<30); Microalbumin Urine Random 5.3 mg/dL (0-1.6)
[2021-09-05 12:31] LABS: Parathyroid Hormone Int 25 pg/mL (15-65)
== END ==
PROVIDERS: Family Provider Student in an Organized Health Care Education/Training Program; PCP Student in an Organized Health Care Education/Training Program; Referring Provider Internal Medicine Nephrology; Visit Provider Internal Medicine Nephrology
DX: N18.4 Chronic kidney disease, stage 4 (severe) (principal)
CPT/HCPCS: 36415; 80048; 82043; 82306; 82570; 83735; 83970; 84100; 84550; 85025

== ENCOUNTER → 2021-10-14 14:08 | Outpatient (CLI) | payer MEDICARE, SELFPAY ==
[2021-05-24 18:18] VITALS: BMI 29.7
--- NOTE | 2021-10-14 | PATH_ITS ---
Note [facility] Accession Number: [id number] TESTS RESULT FLAG UNITS REF RANGE LAB Clinician Provided Cytology Information No. of containers..01 Other (Miscellaneous) No. of containers..06 Previously Prepared Cytology Slide Source: LEFT THYROID NODULE DIAGNOSIS: LEFT THYROID NODULE, FINE NEEDLE ASPIRATION. NEGATIVE FOR MALIGNANT CELLS. MARGINALLY ADEQUATE FOR EVALUATION. FEW FOLLICULAR GROUPS PRESENT. FAVOR BENIGN FOLLICULAR (GOITEROUS) NODULE (BETHESDA CATEGORY II), SEE COMMENT. COMMENT: MICROSCOPIC EXAMINATION REVEALS A HYPOCELLULAR/MILDLY CELLULAR ASPIRATE, COMPOSED OF COLLOID, FEW FOLLICULAR GROUPS (MORE THAN SIX GROUPS THAT ARE REQUIRED FOR ADEQUACY) WITHOUT SIGNIFICANT CYTOLOGIC OR ARCHITECTURAL ATYPIA, AND BACKGROUND MACROPHAGES. THESE FINDINGS FAVOR A BENIGN FOLLICULAR (GOITEROUS) NODULE. CORRELATION WITH CLINICAL AND RADIOGRAPHIC FINDINGS IS RECOMMENDED TO ENSURE THAT THE NODULE HAS BEEN ADEQUATELY SAMPLED. ACCORDING TO THE BETHESDA REPORTING SYSTEM FOR THYROID CYTOPATHOLOGY, THE RISK OF MALIGNANCY IN THE CATEGORY BENIGN-CATEGORY II IS 0-3%; THEREFORE RECOMMEND CONTINUED ULTRASOUND SURVEILLANCE WITH REPEAT FNA IF THE NODULE SIGNIFICANTLY INCREASES IN SIZE. Pathologist ICD10: 01 E04.1 Clinical history: 01 Right: Thyroid lobe measures 5.1 x 1.6 x 1.5 cm, and is homogeneous in echotexture. Left: Thyroid lobe measures 4.3 x 1.7 x 1.7 cm, and is homogenous in echotexture. Isthmus: 4.6 mm thick. IMPRESSION: Thyroid nodules. Based on imaging characteristics and criteria outlined below ultrasound-guided fine-needle aspiration of nodule #2 is recommended. Signed out by: Angelika Preston MD, Pathologist NPI- [id number] Performed by: Carlos Nielson, Home Health Occupational Therapist ([facility]) Gross description: 01 30 CC, RED, CLEAR RECIEVED: IN CYTOLYT WITH 8 ALCOHOL FIXED AND 8 QUICK STAINED SLIDES ALSO 1 RNA VIAL WAS RECEIVED. /NIA 10/15/2021 1347 Local FLAG LEGEND: L-Low Normal,H-High Normal,LL-Alert Low,HH-Alert High <-Panic Low,>-Panic High,A-Abnormal,AA-Critical Abnormal Performed at: 01 [facility] [address] [place] [address] [address], [place] [address] Cam Rosa MD, Performed at: 01 [facility] [address] [place] [address] [address], [place], [place] [id number] MD Cam Rosa MD Phone: [phone]
--- NOTE | 2021-10-14 14:09 | DI.US.S_ITS ---
PROCEDURE: US FINE NEEDLE ASPIRATION INDICATIONS: Assess thyroid nodule #2 seen on u/s TECHNIQUE: The indications, alternatives, benefits, risks, and complications of the procedure were explained to the patient. Written informed consent was obtained and placed in the chart. The thyroid region was examined sonographically and a site was chosen for ultrasound guided percutaneous sampling. The skin was prepared and draped in the usual fashion, and anesthetized with 1% lidocaine infiltrated from the skin down to the thyroid gland. Multiple passes were then performed, with contents emptied into an appropriate pathology specimen container. A bandage was applied to the area of access at completion of the study. COMPARISON: None. FINDINGS: Location(s) of lesion(s) sampled: Left inferior [place]: 25 and 22 gauge hypodermic needles. Number of passes: 8 Medications: 1% lidocaine for local anaesthesia. Complications: None. IMPRESSION: Successful ultrasound-guided thyroid nodule fine needle aspiration, with cytology results pending. Please see chart below for management recommendations based on cytology results. [facility] ReportingRecommendationsNon-diagnostic* Repeat US-guided FNA, with on-site cytology evaluation if possible. * Repeated non-diagnostic nodules without high suspicion US features: close observation vs surgical consult. * Consider surgery if nodule has high suspicion US features, grows >20% in 2 dimensions on followup, or patient has clinical risk factors for malignancy. Benign* If nodule has high suspicion US features: repeat US and FNA within 12 months. * If nodule has low to intermediate suspicion US features: repeat US at 12-24 months. If nodule grows (20% increase in at least 2 dimensions, with minimal increase of 2 mm or >50% change in volume), or development of new suspicious US features, then repeat FNA or continue followup. * If nodule has very low suspicion US features: followup US at >24 months. Atypia of undetermined significance, follicular lesion of undetermined significanceRepeat FNA, molecular testing, followup US, or surgical consult.Follicular neoplasm, suspicious for follicular neoplasmSurgical consult; also consider molecular testing. Suspicious for malignancySurgical consult.MalignantSurgical consult. Dictated by: Madhav Mascorro M.D. on 10/14/2021 at 17:33 Approved by: Madhav Mascorro M.D. on 10/14/2021 at 17:34
== END ==
PROVIDERS: Family Provider Student in an Organized Health Care Education/Training Program; PCP Student in an Organized Health Care Education/Training Program; Referring Provider Student in an Organized Health Care Education/Training Program; Visit Provider Student in an Organized Health Care Education/Training Program
DX: E04.2 Nontoxic multinodular goiter (principal)
CPT/HCPCS: 10005

== ENCOUNTER → 2021-11-30 10:02 | Outpatient (CLI) | payer MEDICARE, SELFPAY ==
[2021-05-24 18:18] VITALS: BMI 29.7
[2021-11-30 11:07] LABS: Add Manual Diff / Slide Review NO; Basophils Absolute Auto 0 /uL (0-100); Basophils Percent Auto 0.5 % (0-2); Eosinophils Absolute Auto 300 /uL (0-450); Eosinophils Percent Auto 5.6 % (2-4); Lymphocytes Absolute Auto 300 /uL (1100-4500); Lymphocytes Percent Auto 5.5 % (25-40); Mean Corpuscular HGB Conc 33.2 % (30-36); Mean Corpuscular Hemoglobin 27.3 PG (26-34); Mean Corpuscular Volume 82.3 fL (80-100); Monocytes Absolute Auto 500 /uL (0-900); Monocytes Percent Auto 9.5 % (3-14); Neutrophils Absolute Auto 4100 /uL (1500-7000); Neutrophils Percent Auto 78.9 % (50-75); Platelet Count 163 X10^3/uL (150-400); Red Blood Cell Count 3.64 X10^6/uL (4.5-5.9); Red Cell Distribution Width 18.5 % (11.6-14.8); White Blood Cell Count 5.2 X10^3/uL (4.5-11.0)
[2021-11-30 11:12] LABS: HEMOLYSIS < 15 (0-50); Potassium 3.6 mmol/L (3.4-5.1)
[2021-11-30 11:13] LABS: BUN Creatinine Ratio 16.2 (6-22); Blood Urea Nitrogen 36 mg/dL (9-20); Calcium 9.9 mg/dL (8.4-10.2); Carbon Dioxide 30 mmol/L (22-32); Chloride 101 mmol/L (98-107); Estimated Glomerular Filt Rate 30 mL/min (>60); Glucose 117 mg/dL (80-110); Magnesium 2.5 mg/dL (1.6-2.3); Sodium 137 mmol/L (137-145)
[2021-11-30 11:22] LABS: HEMOLYSIS < 15 (0-50); Iron 54 ug/dL (49-181)
[2021-11-30 11:33] LABS: Percent Iron Saturation 16 % (20-50); Total Iron Binding Capacity 335 ug/dL (261-462); Transferrin 243 mg/dL (206-381)
[2021-11-30 11:45] LABS: Ferritin 66 ng/mL (18-464)
[2021-11-30 12:10] LABS: Prostate Specific Antigen < 0.064 ng/mL (0.10-4.00)
[2021-11-30 12:36] LABS: Creatinine Urine Random 49.1 mg/dL
[2021-11-30 12:40] LABS: Microalbumi Creatinin Ratio Ur 107.9 ug/mg CR (<30); Microalbumin Urine Random 5.3 mg/dL (0-1.6)
== END ==
PROVIDERS: Specialist; Family Provider Student in an Organized Health Care Education/Training Program; PCP Student in an Organized Health Care Education/Training Program; Referring Provider Internal Medicine Nephrology; Visit Provider Internal Medicine Nephrology
DX: R97.20 Elevated prostate specific antigen [PSA] (principal); N18.32 Chronic kidney disease, stage 3b; D50.9 Iron deficiency anemia, unspecified
CPT/HCPCS: 36415; 80048; 82043; 82570; 82728; 83540; 83550; 83735; 84153; 85025

== ENCOUNTER → 2021-12-30 08:13 | Outpatient (CLI) | payer MEDICARE, SELFPAY ==
[2021-05-24 18:18] VITALS: BMI 29.7
[2021-12-30 10:27] LABS: Add Manual Diff / Slide Review NO; Basophils Absolute Auto 0 /uL (0-100); Basophils Percent Auto 0.6 % (0-2); Eosinophils Absolute Auto 300 /uL (0-450); Eosinophils Percent Auto 5.5 % (2-4); Hematocrit 28.4 % (41-53); Hemoglobin 9.5 g/dL (13.5-17.5); Lymphocytes Absolute Auto 300 /uL (1100-4500); Lymphocytes Percent Auto 6.3 % (25-40); Mean Corpuscular HGB Conc 33.6 % (30-36); Mean Corpuscular Hemoglobin 27.5 PG (26-34); Mean Corpuscular Volume 81.9 fL (80-100); Monocytes Absolute Auto 400 /uL (0-900); Neutrophils Absolute Auto 3700 /uL (1500-7000); Neutrophils Percent Auto 78.6 % (50-75); Platelet Count 171 X10^3/uL (150-400); Red Blood Cell Count 3.47 X10^6/uL (4.5-5.9); Red Cell Distribution Width 18.6 % (11.6-14.8); White Blood Cell Count 4.7 X10^3/uL (4.5-11.0)
[2021-12-30 11:11] LABS: Alanine Aminotransferase 17 IU/L (<50); Albumin 3.6 g/dL (3.5-5.0); Albumin Globulin Ratio 1.2 (1.0-2.8); Alkaline Phosphatase 83 U/L (38-126); Aspartate Aminotransferase 30 IU/L (17-59); Bilirubin Total 0.7 mg/dL (0.2-1.3); Blood Urea Nitrogen 36 mg/dL (9-20); Calcium 9.9 mg/dL (8.4-10.2); Carbon Dioxide 30 mmol/L (22-32); Chloride 101 mmol/L (98-107); Estimated Glomerular Filt Rate 32 mL/min (>60); Globulin 2.9 g/dL (1.7-4.1); Glucose 98 mg/dL (80-110); HEMOLYSIS < 15 (0-50); Magnesium 2.5 mg/dL (1.6-2.3); Potassium 3.8 mmol/L (3.4-5.1); Sodium 139 mmol/L (137-145); Total Protein 6.5 g/dL (6.3-8.2)
[2021-12-30 11:17] LABS: NT-proBNP (BNP-Adult 18+) 4410 pg/mL (<450)
[2021-12-30 11:46] LABS: Thyroid Stimulating Hormone 1.76 uIU/mL (0.47-4.68)
[2022-01-01 13:22] LABS: Cholesterol, Total 124 mg/dL (100-199); HDL-Cholesterol 56 mg/dL (>39); HDL-Particle (Total) 31.2 umol/L (>=30.5); Historical Reading Comment: (.); LDL Particle 779 nmol/L (<1000); LDL Size 20.9 nm (>20.5); LDL-Cholsterol 52 mg/dL (0-99); LP-IR Score 36 (<=45); Small LDL- Particle 357 nmol/L (<=527); Triglycerides 80 mg/dL (0-149)
== END ==
PROVIDERS: Family Provider Student in an Organized Health Care Education/Training Program; PCP Student in an Organized Health Care Education/Training Program; Referring Provider Specialist; Visit Provider Specialist
DX: I48.0 Paroxysmal atrial fibrillation (principal); I50.42 Chronic combined systolic (congestive) and diastolic (congestive) heart failure; I25.10 Atherosclerotic heart disease of native coronary artery without angina pectoris; E78.5 Hyperlipidemia, unspecified
CPT/HCPCS: 36415; 80053; 80061; 83704; 83735; 83880; 84443; 85025

== ENCOUNTER → 2022-02-18 11:36 | Outpatient (CLI) | payer MEDICARE, SELFPAY ==
[2021-05-24 18:18] VITALS: BMI 29.7
[2022-02-18 13:01] LABS: BUN Creatinine Ratio 16.6 (6-22); Blood Urea Nitrogen 34 mg/dL (9-20); Calcium 9.1 mg/dL (8.4-10.2); Carbon Dioxide 26 mmol/L (22-32); Chloride 105 mmol/L (98-107); Estimated Glomerular Filt Rate 33 mL/min (>60); Glucose 87 mg/dL (80-110); HEMOLYSIS < 15 (0-50); Magnesium 2.6 mg/dL (1.6-2.3); Potassium 4.1 mmol/L (3.4-5.1); Sodium 141 mmol/L (137-145)
== END ==
PROVIDERS: Family Provider Student in an Organized Health Care Education/Training Program; PCP Student in an Organized Health Care Education/Training Program; Referring Provider Specialist; Visit Provider Specialist
DX: I50.42 Chronic combined systolic (congestive) and diastolic (congestive) heart failure (principal)
CPT/HCPCS: 36415; 80048; 83735

== ENCOUNTER → 2022-03-08 08:30 | Outpatient (CLI) | payer MEDICARE, SELFPAY ==
[2021-05-24 18:18] VITALS: BMI 29.7
[2022-03-08 10:01] LABS: Add Manual Diff / Slide Review NO; Basophils Absolute Auto 0 /uL (0-100); Basophils Percent Auto 0.5 % (0-2); Eosinophils Absolute Auto 200 /uL (0-450); Eosinophils Percent Auto 3.1 % (2-4); Hematocrit 29.5 % (41-53); Hemoglobin 9.6 g/dL (13.5-17.5); Lymphocytes Absolute Auto 300 /uL (1100-4500); Lymphocytes Percent Auto 4.4 % (25-40); Mean Corpuscular HGB Conc 32.5 % (30-36); Mean Corpuscular Hemoglobin 27.4 PG (26-34); Mean Corpuscular Volume 84.1 fL (80-100); Monocytes Absolute Auto 600 /uL (0-900); Monocytes Percent Auto 9.5 % (3-14); Neutrophils Absolute Auto 5000 /uL (1500-7000); Neutrophils Percent Auto 82.5 % (50-75); Platelet Count 171 X10^3/uL (150-400); Red Blood Cell Count 3.51 X10^6/uL (4.5-5.9); Red Cell Distribution Width 19.9 % (11.6-14.8)
[2022-03-08 10:24] LABS: BUN Creatinine Ratio 19.9 (6-22); Blood Urea Nitrogen 45 mg/dL (9-20); Calcium 8.6 mg/dL (8.4-10.2); Carbon Dioxide 24 mmol/L (22-32); Chloride 103 mmol/L (98-107); Estimated Glomerular Filt Rate 29 mL/min (>60); Glucose 115 mg/dL (80-110); HEMOLYSIS < 15 (0-50); Magnesium 2.6 mg/dL (1.6-2.3); Potassium 4.2 mmol/L (3.4-5.1); Sodium 136 mmol/L (137-145)
[2022-03-08 10:53] LABS: Ferritin 54 ng/mL (18-464)
[2022-03-08 12:34] LABS: HEMOLYSIS < 15 (0-50); Iron 34 ug/dL (49-181)
[2022-03-08 12:53] LABS: Percent Iron Saturation 10 % (20-50); Total Iron Binding Capacity 351 ug/dL (261-462); Transferrin 266 mg/dL (206-381)
[2022-03-08 17:04] LABS: Vitamin D 25 Hydroxy (D3) 52.1 ng/mL (30.0-100.0)
[2022-03-09 07:42] LABS: Parathyroid Hormone Int 57 pg/mL (15-65)
[2022-03-09 18:59] LABS: Potassium Urine Random 43.2 mmol/L
== END ==
PROVIDERS: Internal Medicine Nephrology; Family Provider Student in an Organized Health Care Education/Training Program; PCP Student in an Organized Health Care Education/Training Program; Referring Provider Specialist; Visit Provider Specialist
DX: I25.5 Ischemic cardiomyopathy; N18.32 Chronic kidney disease, stage 3b
CPT/HCPCS: 36415; 80048; 82306; 82728; 83540; 83550; 83735; 83970; 84133; 84550; 85025

== ENCOUNTER → 2022-03-18 08:14 | Outpatient (CLI) | payer MEDICARE, SELFPAY ==
[2021-05-24 18:18] VITALS: BMI 29.7
[2022-03-18 10:23] LABS: Add Manual Diff / Slide Review NO; Basophils Absolute Auto 0 /uL (0-100); Basophils Percent Auto 0.5 % (0-2); Eosinophils Absolute Auto 100 /uL (0-450); Eosinophils Percent Auto 2.4 % (2-4); Hematocrit 30.6 % (41-53); Hemoglobin 9.7 g/dL (13.5-17.5); Lymphocytes Absolute Auto 300 /uL (1100-4500); Lymphocytes Percent Auto 5.2 % (25-40); Mean Corpuscular HGB Conc 31.9 % (30-36); Mean Corpuscular Hemoglobin 27.1 PG (26-34); Mean Corpuscular Volume 85.1 fL (80-100); Monocytes Absolute Auto 500 /uL (0-900); Monocytes Percent Auto 8.3 % (3-14); Neutrophils Absolute Auto 4700 /uL (1500-7000); Neutrophils Percent Auto 83.6 % (50-75); Platelet Count 153 X10^3/uL (150-400); Red Blood Cell Count 3.59 X10^6/uL (4.5-5.9); Red Cell Distribution Width 19.6 % (11.6-14.8); White Blood Cell Count 5.6 X10^3/uL (4.5-11.0)
[2022-03-18 10:45] LABS: Alanine Aminotransferase 25 IU/L (<50); Albumin 3.4 g/dL (3.5-5.0); Albumin Globulin Ratio 1.1 (1.0-2.8); Alkaline Phosphatase 102 U/L (38-126); Aspartate Aminotransferase 32 IU/L (17-59); BUN Creatinine Ratio 17.2 (6-22); Bilirubin Total 0.8 mg/dL (0.2-1.3); Blood Urea Nitrogen 39 mg/dL (9-20); Calcium 8.7 mg/dL (8.4-10.2); Carbon Dioxide 30 mmol/L (22-32); Chloride 101 mmol/L (98-107); Cholesterol 82 mg/dL (140-199); Estimated Glomerular Filt Rate 29 mL/min (>60); Glucose 98 mg/dL (80-110); HDL Cholesterol 31 mg/dL (40-60); HEMOLYSIS < 15 (0-50); LDL Cholesterol Calculated 40 mg/dL (<100); Magnesium 2.5 mg/dL (1.6-2.3); Potassium 3.3 mmol/L (3.4-5.1); Sodium 141 mmol/L (137-145); Total Protein 6.4 g/dL (6.3-8.2); Triglycerides 56 mg/dL (35-150)
[2022-03-18 10:53] LABS: NT-proBNP (BNP-Adult 18+) 11900 pg/mL (<450)
[2022-03-18 11:16] LABS: Thyroid Stimulating Hormone 2.12 uIU/mL (0.47-4.68)
== END ==
PROVIDERS: Family Provider Student in an Organized Health Care Education/Training Program; PCP Student in an Organized Health Care Education/Training Program; Referring Provider Specialist; Visit Provider Specialist
DX: R06.00 Dyspnea, unspecified (principal); I50.42 Chronic combined systolic (congestive) and diastolic (congestive) heart failure; I48.0 Paroxysmal atrial fibrillation; E78.5 Hyperlipidemia, unspecified
CPT/HCPCS: 36415; 80053; 80061; 83735; 83880; 84443; 85025

== ENCOUNTER → 2022-03-24 14:52 | Outpatient (CLI) | payer MEDICARE, SELFPAY ==
[2021-05-24 18:18] VITALS: BMI 29.7
--- NOTE | 2022-03-24 | DI.ECHO.S_ITS ---
[facility] +---------+ : : [address] : : : : [id number] : : : : Phone: [phone]+ Echocardiogram Report + + :Name: PATITO PUENTES Study Date: 03/24/2022 Height: 70 in : :[facility] ReadingLocation: Weight: 200 lb: : Gender: Male BSA: 2.1 m2 : :: 1945 Age: 76 yrs BP: 85/59 mmHg: :Reason For Study: Cardiomyopathy : :Ordering Physician: LOIS, : :ANITHA Performed By: Boyd Tang : :Referring: ANITHA ABREU : + + Interpretation Summary Left ventricular systolic function remains severely depressed with an estimated ejection fraction of around 15% with severe global hypokinesis with thinning and akinesis of the proximal to mid inferior and inferoposterior segments and the entirety of the interventricular septum, consistent with scar, but appears unchanged from the previous exam. There is severe left ventricular enlargement that is likely unchanged despite measuring slightly smaller. There is a restrictive diastolic filling pattern consistent with elevated filling pressures, likely similar to the previous exam although with some evidence for higher end-diastolic pressures. The right ventricle remains mild to moderately enlarged with mildly reduced systolic function and appears slightly less dynamic compared to the previous study. Right ventricular systolic pressure is 54 mmHg with a CVP of at least 15 mmHg and is likely similar to the previous exam. There is severe biatrial enlargement with right atrial size measuring mildly larger. There is moderate mitral and tricuspid regurgitation that appear unchanged. The aortic valve remains moderately calcified with moderate but not severely reduced leaflet mobility with probable moderate aortic stenosis with a peak velocity of 2.0 m/s and a mean gradient of 10 mmHg, compared to 2.4 m/s and 11 mmHg, previously. There is evidence of reduced cardiac output, likely slightly worse compared to previous. There is mild aortic insufficiency that remains unchanged. The aortic root and ascending aorta are borderline enlarged but grossly unchanged from the previous exam. Procedure: A two-dimensional transthoracic echocardiogram with color flow and Doppler was performed. The study quality was technically adequate. Comparison is made with the echocardiogram of 05/25/2021. The patient has a paced rhythm. Left Ventricle: There is normal left ventricular wall thickness. The left ventricle is severely dilated. The estimated left ventricular end diastolic volume is 208 mL compared to the previous 268 ml. This is visually grossly unchanged compared to the previous study. Left ventricular systolic function is severely reduced. Left ventricular ejection fraction is estimated to be 15 +/- 5%. There is severe global hypokinesis of the left ventricle. This is worse in the proximal to mid inferior and inferoposterior hickey which are essentially akinetic and nearly akinetic distally. Interventricular septum appears to be thin and akinetic consistent with previous scar. There has been no significant change since the previous study. Diastolic parameters suggest a restrictive filling pattern consistent with probable significantly elevated filling pressures. This is similar compared to the previous study. There is early mitral valve closure, suggesting elevated end-diastolic pressures, likely progressive since the previous study. Right Ventricle: There is a pacemaker lead in the right ventricle. The right ventricle is moderately dilated. Right ventricular systolic function is mildly reduced. This is perhaps slightly less dynamic compared to the previous study. Atria: Both atria are severely dilated. The right atrium has mildly increased in size since the prior echo exam. The interatrial septum grossly appears intact with no obvious evidence for an atrial septal defect. Mitral Valve: The mitral valve leaflets are mildly calcified. There is mild mitral annular calcification. The mitral valve leaflets appear moderately thickened, but open well. There is moderate mitral regurgitation. This is unchanged compared to the previous study. Aortic Valve: The aortic valve is moderately calcified. There is moderately reduced leaflet mobility. This is unchanged compared to the previous study. There is moderate aortic stenosis. The calculated aortic valve area is 1.1 cm2. The peak aortic velocity is 2.0 m/sec. The aortic valve mean gradient is 10 mmHg. The peak aortic velocity on the previous exam was 2.4 m/sec. There is mild aortic regurgitation. This is unchanged compared to the previous study. Tricuspid Valve: The tricuspid valve leaflets are thin and pliable. There is moderate to severe tricuspid regurgitation. The right ventricular systolic pressure is estimated to be at least 54 mmHg based on an estimated right atrial pressure of 15 mm Hg. This is unchanged compared to the previous study. Pulmonic Valve: The pulmonic valve is normal in structure and function. There is no pulmonic valvular regurgitation. Great Vessels: The aortic root is borderline dilated. The ascending aorta is at the upper limits of normal in size. This is unchanged compared to the previous study. The IVC is dilated (diameter is greater than 2.1 cm) and it collapses less than 50% with a sniff. This suggests a high right atrial pressure of 15 mm Hg. Pericardium/ Pleura There is no pericardial effusion. There is no pleural effusion. MMode/2D Measurements & Calculations LVIDd: 7.0 cm LVOT diam: 2.4 cm LVIDs: 6.6 cm Ao root diam: 3.9 cm FS: 5.6 % asc Aorta Diam: 3.4 cm IVSd: 1.1 cm LVPWd: 0.97 cm LV briceno. diameter/BSA (cm/m^2): 3.3 LV sys. diameter/BSA (cm/m^2): 3.1 LA A2 area: 36.2 cm2 RA long axis: 6.1 cm LA A4 area: 31.9 cm2 RA area: 29.4 cm2 LA length (vol): 7.5 cm RA vol: 120.6 ml LA vol: 131.5 ml RA : 57.8 ml/m2 LA vol index: 63.0 ml/m2 IVC diam: 2.6 cm TAPSE: 1.7 cm Doppler Measurements & Calculations Ao V2 max: 203.9 cm/sec LVOT Max Ari: 46.9 cm/sec Ao V2 mean: 151.1 cm/sec LV V1 max P.88 mmHg Ao max P.6 mmHg LV V1 VTI: 11.3 cm Ao mean P.0 mmHg EHSAN(I,D): 1.2 cm2 Ao V2 VTI: 44.8 cm EHSAN(V,D): 1.1 cm2 sev ratio: 0.25 EHSAN indexed to BSA (cm^2/m^2): 0.57 MV E max ari: 123.4 cm/sec TR max ari: 313.4 cm/sec MV A max ari: 46.9 cm/sec TR max P.3 mmHg MV E/A: 2.6 Med Peak E' Ari: 2.8 cm/sec E/E' med: 44.2 Lat Peak E' Ari: 3.5 cm/sec E/E' lat: 35.4 E/e' average: 39.8 MV dec time: 0.21 sec MR VTI: 152.9 cm SV(LVOT): 53.1 ml Reading Physician:09:[id number] AM
== END ==
PROVIDERS: Family Provider Student in an Organized Health Care Education/Training Program; PCP Student in an Organized Health Care Education/Training Program; Referring Provider Specialist; Visit Provider Specialist
DX: I08.3 Combined rheumatic disorders of mitral, aortic and tricuspid valves (principal); I25.5 Ischemic cardiomyopathy; I50.42 Chronic combined systolic (congestive) and diastolic (congestive) heart failure; Z95.0 Presence of cardiac pacemaker
CPT/HCPCS: 93306

== ENCOUNTER → 2022-03-30 11:05 | Outpatient (CLI) | payer MEDICARE, SELFPAY ==
[2021-05-24 18:18] VITALS: BMI 29.7
[2022-03-30 13:51] LABS: BUN Creatinine Ratio 15.7 (6-22); Blood Urea Nitrogen 37 mg/dL (9-20); Carbon Dioxide 25 mmol/L (22-32); Chloride 103 mmol/L (98-107); Estimated Glomerular Filt Rate 28 mL/min (>60); Glucose 165 mg/dL (80-110); HEMOLYSIS < 15 (0-50); Magnesium 2.8 mg/dL (1.6-2.3); Potassium 3.9 mmol/L (3.4-5.1); Sodium 139 mmol/L (137-145)
== END ==
PROVIDERS: Family Provider Student in an Organized Health Care Education/Training Program; PCP Student in an Organized Health Care Education/Training Program; Referring Provider Internal Medicine Nephrology; Visit Provider Internal Medicine Nephrology
DX: N18.4 Chronic kidney disease, stage 4 (severe) (principal)
CPT/HCPCS: 36415; 80048; 83735

== ENCOUNTER → 2022-04-25 15:19 | Outpatient (CLI) | payer MEDICARE, SELFPAY ==
[2021-05-24 18:18] VITALS: BMI 29.7
[2022-04-25 18:55] LABS: Alanine Aminotransferase 17 IU/L (<50); Albumin 3.4 g/dL (3.5-5.0); Albumin Globulin Ratio 1.2 (1.0-2.8); Alkaline Phosphatase 142 U/L (38-126); Aspartate Aminotransferase 24 IU/L (17-59); BUN Creatinine Ratio 15.3 (6-22); Bilirubin Total 0.7 mg/dL (0.2-1.3); Blood Urea Nitrogen 35 mg/dL (9-20); Calcium 8.5 mg/dL (8.4-10.2); Carbon Dioxide 25 mmol/L (22-32); Chloride 102 mmol/L (98-107); Estimated Glomerular Filt Rate 29 mL/min (>60); Globulin 2.9 g/dL (1.7-4.1); Glucose 82 mg/dL (80-110); HEMOLYSIS < 15 (0-50); Magnesium 2.4 mg/dL (1.6-2.3); Sodium 137 mmol/L (137-145); Total Protein 6.3 g/dL (6.3-8.2)
[2022-04-25 19:04] LABS: NT-proBNP (BNP-Adult 18+) 11000 pg/mL (<450)
== END ==
PROVIDERS: Family Provider Student in an Organized Health Care Education/Training Program; PCP Student in an Organized Health Care Education/Training Program; Referring Provider Specialist; Visit Provider Specialist
DX: I50.42 Chronic combined systolic (congestive) and diastolic (congestive) heart failure (principal); R06.09 Other forms of dyspnea
CPT/HCPCS: 36415; 80053; 83735; 83880

== ENCOUNTER → 2022-05-23 11:10 | Outpatient (CLI) | payer MEDICARE, SELFPAY ==
[2021-05-24 18:18] VITALS: BMI 29.7
[2022-05-23 12:56] LABS: NT-proBNP (BNP-Adult 18+) 4790 pg/mL (<450)
== END ==
PROVIDERS: Family Provider Student in an Organized Health Care Education/Training Program; PCP Student in an Organized Health Care Education/Training Program; Visit Provider Physician Assistant Medical
DX: I50.42 Chronic combined systolic (congestive) and diastolic (congestive) heart failure (principal); R06.09 Other forms of dyspnea
CPT/HCPCS: 36415; 83880

== ENCOUNTER → 2022-05-24 14:23 | Outpatient (CLI) | payer MEDICARE, SELFPAY ==
[2021-05-24 18:18] VITALS: BMI 29.7
[2022-05-24 15:19] LABS: Add Manual Diff / Slide Review NO; Basophils Absolute Auto 0 /uL (0-100); Basophils Percent Auto 0.5 % (0-2); Eosinophils Absolute Auto 100 /uL (0-450); Eosinophils Percent Auto 1.7 % (2-4); Hematocrit 28.3 % (41-53); Hemoglobin 9.4 g/dL (13.5-17.5); Lymphocytes Absolute Auto 300 /uL (1100-4500); Lymphocytes Percent Auto 4.8 % (25-40); Mean Corpuscular HGB Conc 33.3 % (30-36); Mean Corpuscular Hemoglobin 28.7 PG (26-34); Mean Corpuscular Volume 86.1 fL (80-100); Monocytes Absolute Auto 500 /uL (0-900); Monocytes Percent Auto 9.1 % (3-14); Neutrophils Absolute Auto 5000 /uL (1500-7000); Neutrophils Percent Auto 83.9 % (50-75); Platelet Count 189 X10^3/uL (150-400); Red Blood Cell Count 3.29 X10^6/uL (4.5-5.9)
[2022-05-24 15:24] LABS: Alanine Aminotransferase 20 IU/L (<50); Albumin 3.6 g/dL (3.5-5.0); Albumin Globulin Ratio 1.4 (1.0-2.8); Alkaline Phosphatase 111 U/L (38-126); Aspartate Aminotransferase 29 IU/L (17-59); BUN Creatinine Ratio 15.5 (6-22); Bilirubin Total 0.6 mg/dL (0.2-1.3); Blood Urea Nitrogen 29 mg/dL (9-20); Calcium 9.4 mg/dL (8.4-10.2); Carbon Dioxide 27 mmol/L (22-32); Chloride 100 mmol/L (98-107); Estimated Glomerular Filt Rate 37 mL/min (>60); Globulin 2.6 g/dL (1.7-4.1); Glucose 98 mg/dL (80-110); HEMOLYSIS < 15 (0-50); Magnesium 2.2 mg/dL (1.6-2.3); Potassium 3.9 mmol/L (3.4-5.1); Sodium 137 mmol/L (137-145); Total Protein 6.2 g/dL (6.3-8.2)
[2022-05-24 16:02] LABS: Prostate Specific Antigen < 0.064 ng/mL (0.10-4.00)
[2022-05-24 16:16] LABS: Hypochromasia 1+; Microcytosis 2+
== END ==
PROVIDERS: Specialist; Family Provider Student in an Organized Health Care Education/Training Program; PCP Student in an Organized Health Care Education/Training Program; Referring Provider Specialist; Visit Provider Specialist
DX: C61 Malignant neoplasm of prostate (principal); R06.09 Other forms of dyspnea; I50.42 Chronic combined systolic (congestive) and diastolic (congestive) heart failure; N13.8 Other obstructive and reflux uropathy; N40.1 Benign prostatic hyperplasia with lower urinary tract symptoms
CPT/HCPCS: 36415; 80053; 83735; 84153; 85025

== ENCOUNTER 2022-05-29 10:06 | Emergency (ER) | payer MEDICARE, SELFPAY ==
[2021-05-24 18:18] VITALS: BMI 29.7
--- NOTE | 2022-05-29 10:09 | DI.RAD.S_ITS ---
PROCEDURE: XR CHEST 1V INDICATIONS: fall, on thinners, hit head TECHNIQUE: One view of the chest was acquired. COMPARISON: [facility], CR, XR CHEST 1 VIEW, 05/07/2022, 11:32. [facility], CR, XR CHEST 1V, 05/24/2021, 15:00. FINDINGS: Surgical changes and devices: An AICD is seen. The leads are seen in stable positions. Lungs and pleura: On this semiupright portable chest examination, no large pneumothorax or large pleural effusions are seen. No focal infiltrates are seen. Mediastinum: Mediastinal contours appear normal. Heart size is mildly enlarged. Bones and chest wall: No suspicious bony lesions. Age-appropriate bony degenerative changes are seen. Overlying soft tissues appear unremarkable. IMPRESSION: No acute portable chest abnormality is seen. Dictated by: Mark Andrews M.D. on 05/29/2022 at 9:24 Approved by: Mark Andrews M.D. on 05/29/2022 at 9:25
--- NOTE | 2022-05-29 10:09 | DI.CT.S_ITS ---
PROCEDURE: CT CERVICAL SPINE WO CON INDICATIONS: fall, hit head TECHNIQUE: Noncontrast 3 mm thick sections acquired from the skull base to the T4 level. Sagittal and coronal reformats were then constructed. For radiation dose reduction, the following was used: automated exposure control, adjustment of mA and/or kV according to patient size. COMPARISON: [facility], CT, CT ANGIO CHEST ABDOMEN PELVIS, 06/28/2018, 5:29. [facility], CR, XR CHEST 1V, 05/29/2022, 10:11. [facility], CT, CT HEAD/BRAIN WO CON, 05/29/2022, 10:09. FINDINGS: Image quality: This examination is somewhat limited by quantum mottle artifact. Bones: No fractures or dislocations. Visualized superior ribs are intact. Focal degenerative change is seen involving the C1-C2 interface anteriorly. There is moderate disc space narrowing seen at C5-C6 and C6-C7. Milder degenerative changes are seen elsewhere. Mild levoconvex cervical thoracic scoliotic curvature is seen. Soft tissues: Prevertebral soft tissues are normal in thickness. No paravertebral hematomas. No apical pneumothoraces. Left-sided AICD leads are seen. Atherosclerotic calcification is noted. There is a 13 mm left thyroid nodule noted, similar to 2019. IMPRESSION: No displaced fractures are seen. Degenerative changes are seen, which are worst inferiorly. Dictated by: Mark Andrews M.D. on 05/29/2022 at 9:44 Approved by: Mark Andrews M.D. on 05/29/2022 at 9:47
--- NOTE | 2022-05-29 10:09 | DI.CT.S_ITS ---
PROCEDURE: CT HEAD/BRAIN WO CON INDICATIONS: fall, hit head on thinners TECHNIQUE: Noncontrast 4.5 mm thick angled axial sections acquired from the foramen magnum to the vertex, with coronal and sagittal reformats. For radiation dose reduction, the following was used: automated exposure control, adjustment of mA and/or kV according to patient size. COMPARISON: [facility], CR, XR CHEST 1V, 05/29/2022, 10:11. [facility], CT, CT CERVICAL SPINE WO CON, 05/29/2022, 10:09. [facility], CT, CT HEAD/BRAIN WO CON, 01/03/2020, 12:49. FINDINGS: Image quality: Excellent. CSF spaces: Basal cisterns are patent. No extra-axial fluid collections. The ventricles are symmetric in size and shape. Brain: No intracranial bleeds or masses. There is cerebral volume loss for age, with resultant ventricular and sulcal prominence. There are periventricular and deep white matter chronic small vessel ischemic changes. There is intracranial internal carotid artery atherosclerosis. Skull and face: Minimal occipital soft tissue hematoma can be seen, without an associated fracture. Calvarium and visualized facial bones appear intact, without suspicious lesions. Sinuses: Visualized sinuses and mastoids are clear. IMPRESSION: No acute intracranial hemorrhage is seen. No acute intracranial process is seen. Minimal occipital scalp hematoma, without an associated calvarial fracture. Dictated by: Mark Andrews M.D. on 05/29/2022 at 9:42 Approved by: Mark Andrews M.D. on 05/29/2022 at 9:44
--- NOTE | 2022-05-29 10:10 | ED.HEATRA ---
HPI - Head Injury General Chief complaint: Fall Stated complaint: Fall hit head on thinners Time Seen by Provider: 05/29/22 10:09 Source: patient, EMS and old records reviewed Mode of arrival: EMS Limitations: no limitations History of Present Illness HPI Narrative: This is a 76 year old male with complaint of ground level fall on Brilinta. Patient has chronic kidney disease, memory impairment, history of CHF with cardiomyopathy, hypertension, dyslipidemia, CAROL ANN BPH reported some baseline balance issues. Patient was standing at the counter in the bathroom today when he tripped and lost his balance and fell striking the right side of his head. He has some pain but no large cuts. Patient has reported skin tear on right arm. No reported loss of consciousness. heard him hit the ground went upstairs and found him. Patient remembers fall. No complaint of neck pain. Complains of a little bit of lower back discomfort. No chest pain or shortness of breath. No nausea vomiting, no other GI or urinary symptoms. No new numbness, weakness or other changes. No known drug allergies. Patient walked at the scene with EMS and had fairly steady gait. Related Data Home Medications Medication Instructions Recorded Confirmed Tums 1 tab PO BID PRN Indigestion 06/28/18 05/24/22 Respironics Remstar CPAP #1 ea 09/17/18 05/24/22 rosuvastatin 40 mg tablet (Crestor) 40 mg PO QPM #0 tabs 12/26/19 05/24/22 vitamin E mixed 1,000 unit capsule 1,000 unit PO DAILY 09/03/20 05/24/22 cholecalciferol (vitamin D3) 25 25 mcg PO DAILY 11/10/20 05/24/22 mcg (1,000 unit) capsule ezetimibe 10 mg tablet 10 mg PO DAILY 05/24/21 05/24/22 ticagrelor 90 mg tablet (Brilinta) 90 mg PO BID 05/24/21 05/24/22 amiodarone 200 mg tablet 100 mg PO DAILY 05/25/21 05/24/22 potassium chloride 10 mEq 20 meq PO BID 06/09/21 05/24/22 tablet,extended release(part/cryst) (Klor-Con M) ferrous sulfate 325 mg (65 mg 325 mg PO BID #1 tab 09/20/21 05/24/22 iron) tablet torsemide 20 mg tablet 30 mg PO BID 04/12/22 05/24/22 Previous Rx's Medication Instructions Recorded famotidine 40 mg tablet 40 mg PO DAILY #90 tabs 08/09/21 bupropion HCl 150 mg tablet,12 hr 150 mg PO QAM #90 ea 09/21/21 sustained-release alfuzosin 10 mg tablet,extended 10 mg PO DAILY #90 tabs 12/02/21 release 24 hr finasteride 5 mg tablet 5 mg PO DAILY #90 tabs 12/02/21 donepezil 5 mg tablet (Aricept) 5 mg PO BEDTIME #90 tabs 05/17/22 folic acid 1 mg tablet 1 mg PO QPM #90 tabs 05/19/22 Allergies Allergy/AdvReac Type Severity Reaction Status Date / Time No Known Drug Allergies Allergy Verified 05/24/22 13:21 Review of Systems Review of Systems ROS Unobtainable: All systems reviewed & are unremarkable except as noted in HPI and below Patient History Medical History Bladder calculi 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 Coronary artery disease Erectile dysfunction GERD (gastroesophageal reflux disease) Hx of malignant melanoma Hyperlipidemia Hypertension Incomplete bladder emptying 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 Nocturnal hypoxemia Non-ST elevation (NSTEMI) myocardial infarction (~06/28/18) Obesity Obstructive sleep apnea syndrome Prostate cancer Skin cancer Snoring Surgical History History of coronary artery stent placement Pacemaker (~2012) Family History Mother Tamponade Father Cancer Social History marital status: (to Siobhan) details: lives in [place] household members: spouse lives independently: Yes caregiver/support person: Yes (Siobhan) housing: house occupational status: other Smoking Status: Never smoker Smoking Status: Never smoker alcohol intake frequency: holidays/special occasions only Substance Use Type: does not use Exam Narrative Exam Narrative: GEN: well nourished, well appearing elderly male, alert and oriented x 3, patient appears to be in mild distress. HEENT: Atraumatic, pupils are equal round reactive to light, extraocular movements are intact, nares are clear, there is no conjunctival pallor. Throat is clear without any exudates, erythema, tonsillar enlargement or uvular deviation HEART: Regular rate and rhythm without murmur, clicks, rubs. No carotid bruits, pulses are equal in upper and lower extremities LUNGS:Lungs clear to auscultation, no wheezes, rales, crackles, chest moves symmetrically ABD:bowel sounds normal, soft, non-tender, no guarding, rebound, rigidity, no masses noted, no hepatosplenomegaly :No CVA tenderness, BACK: No cervical, thoracic or lumbar vertebral point tenderness. Patient has normal range of motion. Patient's gait is [antalgic/normal].. Muscle strength is 5/5 in lower extremities, no drift bilateral upper extremities. 5/5 strength. Sensation intact upper and lower extremities. 2+ pulses bilateral upper and lower extremities. MSCL: Non-tender, no muscle atrophy, muscles strength 5/5 upper and lower extremities, full range of motion NEURO:CN 2-12 intact, sensation normal SKIN: Patient has several old small skin tears healing on his right forearm and small skin tear on the rate arm. Initial Vital Signs Initial Vital Signs: Vital Signs Pulse Rate 76 05/29/22 10:20 Pulse Oximetry 99 05/29/22 10:20 Course Orders Ordered: ED Orders 05/29/22 10:09 CT cervical spine wo con Stat CT head/brain wo con Stat Chest [XR chest 1V] Stat Vital Signs Vital signs: Vital Signs - 8 hr 05/29/22 10:22 05/29/22 10:20 05/29/22 10:21 Temperature 98.4 F Pulse Rate 73 76 75 Respiratory Rate 16 Blood Pressure 96/66 Pulse Oximetry 99 99 99 Oxygen Delivery Method Room Air 05/29/22 10:21 05/29/22 10:25 05/29/22 10:25 Temperature Pulse Rate 75 Respiratory Rate Blood Pressure 96/66 97/60 Pulse Oximetry 98 Oxygen Delivery Method 05/29/22 10:30 05/29/22 10:30 05/29/22 11:00 Temperature Pulse Rate 76 Respiratory Rate 18 Blood Pressure 112/55 L 104/59 L Pulse Oximetry 99 Oxygen Delivery Method 05/29/22 11:00 Temperature Pulse Rate 75 Respiratory Rate 26 H Blood Pressure Pulse Oximetry 98 Oxygen Delivery Method MDM - Head Injury Imaging Data CT scan - head: Radiologist's Impression: Close Head CT (Signed) Mark Andrews - 05/29/22 Chest X-Ray (Signed) Mark Andrews - 05/29/[address] (Signed) Mark Andrews - 05/29/22 Echocardiogram Ultrasound (Signed) Semaj Ayala - 03/24/22 Needle Aspiration Ultrasound (Signed) Rigo Mascorro - 10/14/21 Thyroid Ultrasound (Signed) Ketty Baldwin - 08/31/21 Renal Ultrasound (Signed) Ketty Baldwin - 08/31/[address] (Signed) Rigo Mascorro - 08/03/21 Echocardiogram Ultrasound (Signed) Jamie Ng - 05/24/21 Telemetry Strips 05/24/21 Chest X-Ray (Signed) Sanna Gallegos - 05/24/21 EKG Rpt. 05/24/21 Renal Ultrasound (Signed) Dav Albrecht - 04/26/21 Echocardiogram Ultrasound (Signed) Semaj Ayala - 12/15/20 DI Result CC 09/04/20 Echocardiogram Ultrasound (Signed) Semaj Ayala - 04/30/20 Abdomen/Pelvis CT (Signed) Ramón Paniagua - 02/13/[address] (Signed) Ramón Paniagua - 01/03/20 Telemetry Strips 12/12/19 Echocardiogram Ultrasound (Signed) Semaj Ayala - 10/22/19 Echocardiogram Ultrasound (Signed) Semaj Ayala - 11/20/18 Carotid Doppler Study (Signed) Adán Keller - 11/20/18 Scrotum Ultrasound (Signed) Moe Tanner - 08/23/18 Echocardiogram Ultrasound (Cancelled) 06/28/18 Chest/Abdomen/Pelvis CTA (Signed) Adán Keller - 06/28/18 Chest X-Ray (Signed) Ketty Baldwin - 06/28/18 Telemetry Strips 06/28/[address] [address] [address] Scan Report Signed Patient: Erik Grant MR#: [id number] : 1945 Acct:[id number] Age/Sex: 76 / M Date of Service: 05/29/22 Loc: ED Accession Number: [id number] ?? Procedure: CT head/brain wo con Ordering Provider: Rissa Horta D.O. PROCEDURE:? CT HEAD/BRAIN WO CON ? INDICATIONS:? fall, hit head on thinners ? TECHNIQUE:? Noncontrast 4.5 mm thick angled axial sections acquired from the foramen magnum to the vertex, with coronal and sagittal reformats.? For radiation dose reduction, the following was used:? automated exposure control, adjustment of mA and/or kV according to patient size.? ? COMPARISON:? [facility], CR, XR CHEST 1V, 05/29/2022, 10:11.? [facility], CT, CT CERVICAL SPINE WO CON, 05/29/2022, 10:09.? [facility], CT, CT HEAD/BRAIN WO CON, 01/03/2020, 12:49. ? FINDINGS:? Image quality:? Excellent.? ? CSF spaces:? Basal cisterns are patent.? No extra-axial fluid collections.? The ventricles are symmetric in size and shape.? ? Brain:? No intracranial bleeds or masses.? There is cerebral volume loss for age, with resultant ventricular and sulcal prominence.? There are periventricular and deep white matter chronic small vessel ischemic changes.? There is intracranial internal carotid artery atherosclerosis.? ? Skull and face:? Minimal occipital soft tissue hematoma can be seen, without an associated fracture.? Calvarium and visualized facial bones appear intact, without suspicious lesions.? ? Sinuses:? Visualized sinuses and mastoids are clear.? ? ? IMPRESSION:? No acute intracranial hemorrhage is seen.? ? No acute intracranial process is seen.? ? Minimal occipital scalp hematoma, without an associated calvarial fracture. ? ? Dictated by: Mark Andrews M.D. on 05/29/2022 at 9:42 ? ? Approved by: Mark Andrews M.D. on 05/29/2022 at 9:44?? CT - cervical spine: Radiologist's Impression: Close Head CT (Signed) Mark Andrews - 05/29/22 Chest X-Ray (Signed) Mark Andrews - 05/29/[address] (Signed) Mark Andrews - 02/12/23 Echocardiogram Ultrasound (Signed) Semaj Ayala 03/24/22 Needle Aspiration Ultrasound (Signed) Rigo Mascorro - 10/14/21 Thyroid Ultrasound (Signed) Ketty Baldwin - 08/31/21 Renal Ultrasound (Signed) Ketty Baldwin - 08/31/[address] (Signed) Rigo Mascorro - 08/03/21 Echocardiogram Ultrasound (Signed) Jamie Ng - 05/24/21 Telemetry Strips 05/24/21 Chest X-Ray (Signed) Sanna Gallegos - 05/24/21 EKG Rpt. 05/24/21 Renal Ultrasound (Signed) Dav Albrecht - 04/26/21 Echocardiogram Ultrasound (Signed) Semaj Ayala - 12/15/20 DI Result CC 09/04/20 Echocardiogram Ultrasound (Signed) Semaj Ayala - 04/30/20 Abdomen/Pelvis CT (Signed) Ramón Paniagua - 02/13/[address] (Signed) Ramón Paniagua - 01/03/20 Telemetry Strips 12/12/19 Echocardiogram Ultrasound (Signed) Semaj Ayala - 10/22/19 Echocardiogram Ultrasound (Signed) Semaj Ayala - 11/20/18 Carotid Doppler Study (Signed) Adán Keller - 11/20/18 Scrotum Ultrasound (Signed) Moe Tanenr - 08/23/18 Echocardiogram Ultrasound (Cancelled) 06/28/18 Chest/Abdomen/Pelvis CTA (Signed) Adán Keller - 06/28/18 Chest X-Ray (Signed) Ketty Baldwin - 06/28/18 Telemetry Strips 06/28/18 [place] [address] CT Scan Report Signed Patient: Erik Grant MR#: [id number] : 1945 Acct:[id number] Age/Sex: 76 / M Date of Service: 05/29/22 Loc: ED Accession Number: [id number] ?? Procedure: CT cervical spine wo con Ordering Provider: Rissa Horta D.O. PROCEDURE:? CT CERVICAL SPINE WO CON ? INDICATIONS:? fall, hit head ? TECHNIQUE:? Noncontrast 3 mm thick sections acquired from the skull base to the T4 level.? Sagittal and coronal reformats were then constructed.? For radiation dose reduction, the following was used:? automated exposure control, adjustment of mA and/or kV according to patient size.? ? COMPARISON:? [facility], CT, CT ANGIO CHEST ABDOMEN PELVIS, 06/28/2018, 5:29.? [facility], CR, XR CHEST 1V, 05/29/2022, 10:11.? [facility], CT, CT HEAD/BRAIN WO CON, 05/29/2022, 10:09. ? FINDINGS:? Image quality:? This examination is somewhat limited by quantum mottle artifact.? ? Bones:? No fractures or dislocations.? Visualized superior ribs are intact.? ? Focal degenerative change is seen involving the C1-C2 interface anteriorly.? There is moderate disc space narrowing seen at C5-C6 and C6-C7.? Milder degenerative changes are seen elsewhere.? Mild levoconvex cervical thoracic scoliotic curvature is seen. ? Soft tissues:? Prevertebral soft tissues are normal in thickness.? No paravertebral hematomas.? No apical pneumothoraces.? Left-sided AICD leads are seen. Atherosclerotic calcification is noted.? There is a 13 mm left thyroid nodule noted, similar to 2019. ? ? IMPRESSION:? No displaced fractures are seen.? ? Degenerative changes are seen, which are worst inferiorly. ? ? ? Dictated by: Mark Andrews M.D. on 05/29/2022 at 9:44 ? ? Approved by: Mark Andrews M.D. on 05/29/2022 at 9:47?? Chest x-ray: Radiologist's Impression: [address] [address] XRay Report Signed Patient: Erik Grant MR#: [id number] : 1945 Acct:[id number] Age/Sex: 76 / M Date of Service: 05/29/22 Loc: ED Accession Number: [id number] ?? Procedure: XR chest 1V Ordering Provider: Rissa Horta D.O. PROCEDURE:? XR CHEST 1V ? INDICATIONS:? fall, on thinners, hit head ? TECHNIQUE:? One view of the chest was acquired.? ? COMPARISON:? [facility], CR, XR CHEST 1 VIEW, 05/07/2022, 11:32.? [facility], CR, XR CHEST 1V, 05/24/2021, 15:00. ? FINDINGS:? ? Surgical changes and devices:? An AICD is seen.? The leads are seen in stable positions.? ? ? Lungs and pleura:? On this semiupright portable chest examination, no large pneumothorax or large pleural effusions are seen.? No focal infiltrates are seen.? ? Mediastinum:? Mediastinal contours appear normal.? Heart size is mildly enlarged.? ? Bones and chest wall:? No suspicious bony lesions.? Age-appropriate bony degenerative changes are seen. ? Overlying soft tissues appear unremarkable.? IMPRESSION:? No acute portable chest abnormality is seen. ? ? Dictated by: Mark Andrews M.D. on 05/29/2022 at 9:24 ? ? Approved by: Mark Andrews M.D. on 05/29/2022 at 9:25?? ECG Data Attestation: I personally reviewed and interpreted this ECG as follows: Interpretation: Ventricle paced rhythm rate of 70 4p are 216 QRS of 216 QTC 654. MDM Narrative Medical decision making narrative: This is a 76-year-old male with ground level fall patient states he lost his balance he is chronic balance issues no acute changes or new neurologic changes that are new today. He does take Brilinta daily he has negative head CT C-spine and chest x-ray. He had some complaint of pulled muscle sensation in his back but no bony tenderness and was able to walk on scene and states his pain is very mild defers anything for pain. Patient's blood pressure was low on arrival but is otherwise very appropriate. He had no syncope or lightheadedness. Patient's does make sure as well as the patient that he is DNR/DNI. They feel comfortable and would like to return home. He does use a walker and a cane at home intermittently. Discharge Plan Departure Patient Disposition: Home Clinical Impression: Fall, Skin tear, Head injury Instructions: How to Prevent Falls Activity Restrictions/Additional Instructions: Please follow-up for recheck with your physician as needed You can take Tylenol up to a 1000 mg every 6 hours as needed. You may continue your home medications as prescribed. Please return for new or worsening symptoms recurrent falls, severe headaches, vision changes, confusion or altered mental status, new numbness, tingling weakness, persistent vomiting, new chest pain shortness of breath or other new or concerning changes. Prescriptions: No Action (DME) Respironics Remstar CPAP Qty: 1 Dose Instruction: As directed Label Comments: Pressure: 8-12 cmH2O DME: [facility] Rx Instructions: As directed vitamin E mixed 1,000 unit capsule 1,000 unit PO DAILY potassium chloride [Klor-Con M10] 10 mEq tablet,ER particles/crystals 20 meq PO BID Rx Instructions: take 30meq in morning and 20meg at night famotidine 40 mg tablet 40 mg PO DAILY Qty: 90 2RF ferrous sulfate 325 mg (65 mg iron) tablet 325 mg PO BID Qty: 1 bupropion HCl 150 mg tablet sustained-release 12 hr 150 mg PO QAM Qty: 90 2RF torsemide 20 mg tablet 30 mg PO BID Rx Instructions: take 1.5 tablets (30mg) in the morning and 1 tablet (20mg) at night donepezil [Aricept] 5 mg tablet 5 mg PO BEDTIME Qty: 90 1RF folic acid 1 mg tablet 1 mg PO QPM Qty: 90 3RF rosuvastatin [Crestor] 40 mg tablet 40 mg PO QPM Qty: 0 Tums 1 tab PO BID PRN (Reason: Indigestion) ezetimibe 10 mg Tablet 10 mg PO DAILY Brilinta 90 mg Tablet 90 mg PO BID amiodarone 200 mg tablet 100 mg PO DAILY cholecalciferol (vitamin D3) 25 mcg (1,000 unit) capsule 25 mcg PO DAILY alfuzosin 10 mg tablet extended release 24 hr 10 mg PO DAILY Qty: 90 3RF Rx Instructions: TAKE 1 TABLET BY MOUTH DAILY AFTER THE SAME MEAL EACH DAY finasteride 5 mg tablet 5 mg PO DAILY Qty: 90 3RF Rx Instructions: TAKE 1 TABLET BY MOUTH DAILY Referrals: Emmanuel Chandra MD [Primary Care Provider] - Stand Alone Forms: Patient Portal/API
[2022-05-29 10:20] VITALS: PULSE 76; O2SAT 99
[2022-05-29 10:21] VITALS: BP 96/66; PULSE 75; O2SAT 99
[2022-05-29 10:22] VITALS: BP 96/66; PULSE 73; RESP 16; TEMP 36.9; O2SAT 99; BMI 26.2
[2022-05-29 10:25] VITALS: BP 97/60; PULSE 75; O2SAT 98
[2022-05-29 10:30] VITALS: BP 112/55; PULSE 76; RESP 18; O2SAT 99
--- NOTE | 2022-05-29 10:33 | PC.NURSE ---
Pt recently in [place] for CHF exacerbation. While in [facility], went into [facility] and needed his pacemaker recalibrated. Pt has been having balance and gait issues and fell today. This is the 5-6th fall in the last 6 weeks. Pt hit R side of head. No bleeding or LAC noted. No Cspine tenderness. Takes Brilinta for pacer and multiple stents. AAOx3 however poor historian on healthcare.
[2022-05-29 11:00] VITALS: BP 104/59; PULSE 75; RESP 26; O2SAT 98
== END 2022-05-29 11:24 | disposition home or self-care (01) ==
PROVIDERS: Emergency Provider Emergency Medicine; Family Provider Student in an Organized Health Care Education/Training Program; PCP Student in an Organized Health Care Education/Training Program
DX: S09.90XA Unspecified injury of head, initial encounter (principal); W01.198A Fall on same level from slipping, tripping and stumbling with subsequent striking against other object, initial encounter; Z79.01 Long term (current) use of anticoagulants
CPT/HCPCS: 70450; 71045; 72125; 93005; 93010; 99284

== ENCOUNTER → 2022-05-31 11:43 | Outpatient (CLI) | payer MEDICARE, SELFPAY ==
[2021-05-24 18:18] VITALS: BMI 29.7
[2022-05-31 13:11] LABS: BUN Creatinine Ratio 23.7 (6-22); Blood Urea Nitrogen 57 mg/dL (9-20); Calcium 12.1 mg/dL (8.4-10.2); Carbon Dioxide 36 mmol/L (22-32); Chloride 87 mmol/L (98-107); Estimated Glomerular Filt Rate 27 mL/min (>60); Glucose 75 mg/dL (80-110); HEMOLYSIS < 15 (0-50); Magnesium 2.2 mg/dL (1.6-2.3); Sodium 132 mmol/L (137-145)
[2022-05-31 13:15] LABS: HEMOLYSIS < 15 (0-50); Iron 56 ug/dL (49-181)
[2022-05-31 13:26] LABS: Percent Iron Saturation 15 % (20-50); Total Iron Binding Capacity 368 ug/dL (261-462); Transferrin 264 mg/dL (206-381)
[2022-05-31 13:40] LABS: Ferritin 311 ng/mL (18-464)
[2022-05-31 13:49] LABS: Potassium 2.7 mmol/L (3.4-5.1)
== END ==
PROVIDERS: Family Provider Student in an Organized Health Care Education/Training Program; PCP Student in an Organized Health Care Education/Training Program; Referring Provider Internal Medicine Nephrology; Visit Provider Internal Medicine Nephrology
DX: N18.4 Chronic kidney disease, stage 4 (severe) (principal); D50.9 Iron deficiency anemia, unspecified
CPT/HCPCS: 36415; 80048; 82728; 83540; 83550; 83735